=== PATIENT | female | born 1960 | race Caucasian/White ===

== ENCOUNTER 2018-04-27 17:06 | Emergency (ER) | payer MEDICAID, SELFPAY ==
[2018-04-27 17:21] VITALS: BP 203/97; PULSE 70; RESP 18; TEMP 37.2; O2SAT 95
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
[2018-04-27 18:00] LABS: Abs Immature Grans 0.01 k/cumm (0.0-0.09); Absolute Basophil Count 0.02 k/cumm (0.0-0.2); Absolute Eosinophil Count 0.16 k/cumm (0.0-0.7); Absolute Lymphocyte Count 2.54 k/cumm (1.2-3.4); Absolute Monocyte Count 0.56 k/cumm (0.11-0.7); Absolute Neutrophil Count 5.19 k/cumm (1.2-6.7); Basophils % 0.2; Eosinophils % 1.9; HCT 37.8 % (36.0-46.0); Immature Grans % 0.1; Mean Corp. HGB Concentration 34.4 g/dL (32.0-36.0); Mean Corpuscular Hemoglobin 27.9 pg (27.0-33.0); Mean Corpuscular Volume 81.1 fL (80-95); Mean Platelet Volume 9.7 fL (8.0-11.0); Monocytes % 6.6; Neutrophils % 61.2; Platelet Count 169 x1000/uL (130-400); RBC 4.66 m/cumm (4.00-5.20); RBC Distribution Width 11.9 % (11.7-14.6); White Blood Cell Count 8.48 k/cumm (4.4-10.8)
[2018-04-27 18:12] LABS: Anion Gap 10.6 mmol/L (3-11); BUN 19 mg/dL (7-18); CO2 24.4 mmol/L (21.0-32.0); CREATININE 1.59 mg/dL (0.55-1.02); Chloride 101 mmol/L (98-107); Estimated GFR 33.59 (mL/min/1.73m2); Glucose 96 mg/dL (70-100); Potassium 3.6 mmol/L (3.5-5.1); Sodium 136 mmol/L (136-145)
[2018-04-27 18:17] LABS: ETHANOL BLOOD < 3.0 mg/dL (<3)
--- NOTE | 2018-04-27 19:08 | PDOC.MHCN ---
Date of Service: 04/27/18 Presenting Issue: *How did they arrive here at ER and why did they come: The patient was brought in by her son and her daughter in law due to having severe panic attacks two days in a row. Precipitating Factors: *Assessment of Safety SI/HI (address delusions if pertaining to the SI/HI) The patient reports having flashes of herself jumping in front of cars or jumping off a bridge but has never acted on these and states she likes living too much to want to take her life. Disposition: *Behavior:cooperative *Eye Contact:intermittent *Mood:happy when thinking of going home. *Affect:calmer than upon arrival *Appetite:today is good, previously poor. *Sleep (trouble falling/staying asleep):reports she has had a hard time sleeping her entire life and sleepwalks. Plan: An appointment with the her med provider at [facility] will be sought 04/28/18 as she missed her last appointment. The client will return home to her apartment. She was given resources to call if she needs assistance during a panic attack. Other services through [facility] will be looked into as well.
[2018-04-27 19:09] LABS: Bilirubin Negative (Negative); Blood Trace-intact (Negative); Clarity Clear; Glucose Negative (Negative); Ketones Negative (Negative); Leukocyte Esterase Small (Negative); Nitrite Negative (Negative); Specific Gravity <= 1.005 (1.005-1.025); Urobilinogen 0.2 EU/dL (Up TO 0.2); pH 6.5 (5-8)
--- NOTE | 2018-04-27 19:11 | PDOC.MHCN_ITS ---
Date of Service: 04/27/18 Presenting Issue: *How did they arrive here at ER and why did they come: The patient was brought in by her son and her daughter in law due to having severe panic attacks two days in a row. Precipitating Factors: *Assessment of Safety SI/HI (address delusions if pertaining to the SI/HI) The patient reports having flashes of herself jumping in front of cars or jumping off a bridge but has never acted on these and states she likes living too much to want to take her life. Disposition: *Behavior:cooperative *Eye Contact:intermittent *Mood:happy when thinking of going home. *Affect:calmer than upon arrival *Appetite:today is good, previously poor. *Sleep (trouble falling/staying asleep):reports she has had a hard time sleeping her entire life and sleepwalks. Plan: An appointment with the her med provider at [facility] will be sought 04/28/18 as she missed her last appointment. The client will return home to her apartment. She was given resources to call if she needs assistance during a panic attack. Other services through [facility] will be looked into as well.
[2018-04-27 19:15] LABS: Tricyclic Antidepressants Negative (Negative)
[2018-04-27 19:19] LABS: *AMPHETAMINES SCREEN URINE Negative (Negative); *BARBITURATES SCREEN URINE Negative (Negative); *BENZODIAZEPINES SCREEN URINE Negative (Negative); Bacteria Negative HPF (Negative); C & S Indicated? Yes; Cannabinoids THC Negative (Negative); Casts Negative LPF (Negative); Cocaine Screen,Urine Negative (Negative); Crystals Negative HPF (Negative); Epithelial Cells Few HPF (Negative); METHADONE URINE SCREEN Negative (Negative); Mucus Negative (Negative); OPIATES URINE SCREEN Negative (Negative); Other Cells Few Renal (Negative)
--- NOTE | 2018-04-27 19:55 | PDOC.ERCMPRO ---
Care Management Progress Note 04/27/18-Pt brought here today by Son and daughter in law as the pt was dropped off at the grocery store and when her son and daughter in law went to pick the pt up she was having what she described as an anxiety attack. Pt does admit to feeling suicidal at times and does admit to enjoying life too much to do that. Dr. Emily Christine saw pt and felt a 1:1 septic tank servicer was necessary. CM spoke with Dr. Emily Christine, Jolene,RN, Ayah, COMMUNICATION TECHNICIAN worker from [facility] who has met with Pt, Pt's son and daughter in law. We have made a care plan for Pt while she is here in ED. Care Plan Lakisha Degree 04/27/18 Voluntary 1. Patient can be in her own attire. 2. Suicide Precautions 3. One on one supervision with PALLIATIVE SENIOR NP, EMERGENCY MEDICAL DISPATCHER, director product development 4. Finger foods, May have a metal spoon, nursing to account for post meals 5. Comfort Bath System only 6. Pt may have her personal belongings in the room 7. Patient may have visitors, if any escalation, visitors will be asked to leave 8. May not have phone for calls at this time. 9. May have television if available Please adhere to this care plan. Any questions, issues, or changes, please notify [facility] conduit mechanic Math And Physics Instructor, [phone], and YANELIS, [phone]. A new Care Plan must be written and distributed to appropriate team members.
--- NOTE | 2018-04-27 20:02 | CMPROGNOTE_ITS ---
Care Management Progress Note 04/27/18-Pt brought here today by Son and daughter in law as the pt was dropped off at the grocery store and when her son and daughter in law went to pick the pt up she was having what she described as an anxiety attack. Pt does admit to feeling suicidal at times and does admit to enjoying life too much to do that. Dr. Emily Christine saw pt and felt a 1:1 commercial shrimping captain was necessary. CM spoke with Dr. Emily Christine, Jolene,RN, Ayah, CASH MANAGER worker from [facility] who has met with Pt, Pt's son and daughter in law. We have made a care plan for Pt while she is here in ED. Care Plan Lakisha Degree 04/27/18 Voluntary 1. Patient can be in her own attire. 2. Suicide Precautions 3. One on one supervision with HOME HEALTH SPECIALIST, COURTROOM CLERK, insulation board coater operator 4. Finger foods, May have a metal spoon, nursing to account for post meals 5. Comfort Bath System only 6. Pt may have her personal belongings in the room 7. Patient may have visitors, if any escalation, visitors will be asked to leave 8. May not have phone for calls at this time. 9. May have television if available Please adhere to this care plan. Any questions, issues, or changes, please notify [facility] marketing production coordinator Filing Clerk, [phone], and YANELIS, [phone]. A new Care Plan must be written and distributed to appropriate team members.
[2018-04-27 20:07] VITALS: BP 184/96; PULSE 60; RESP 18; TEMP 37; O2SAT 97
--- NOTE | 2018-04-30 13:06 | ED.FU.B ---
- Follow Up Follow Up Plan: 04/30/18: Urine culture resulted in 50,000 - 100,000 group B strep colonies. On visit on 04/27/18, patient had had no urinary symptoms, fever or elevated white blood cell count and she had requested to to hold on antibiotics preferably. Patient is allergic to penicillin which group B strep is sensitive to. Laboratory had requested we contact them if clindamycin susceptibility testing needed. I discussed with Val in micro and she will send culture to [facility] for clindamycin susceptibility testing. This can be resulted within the next several days. Spoke with patient on the phone at home today. She currently denies any urinary symptoms, abdominal pain or fever and states she has been feeling well. She does confirm her significant allergy to penicillin. I informed her that we are sending the culture for clindamycin susceptibility testing and will be contacting her to see if she has any symptoms once the sensitivity testing finished to see if she needs an antibiotic at that time. Patient is agreeable with this plan.
--- NOTE | 2018-04-30 13:09 | ED.FU.B_ITS ---
- Follow Up Follow Up Plan: 04/30/18: Urine culture resulted in 50,000 - 100,000 group B strep colonies. On visit on 04/27/18, patient had had no urinary symptoms, fever or elevated white blood cell count and she had requested to to hold on antibiotics preferably. Patient is allergic to penicillin which group B strep is sensitive to. Laboratory had requested we contact them if clindamycin susceptibility testing needed. I discussed with Val in micro and she will send culture to [facility] for clindamycin susceptibility testing. This can be resulted within the next several days. Spoke with patient on the phone at home today. She currently denies any urinary symptoms, abdominal pain or fever and states she has been feeling well. She does confirm her significant allergy to penicillin. I informed her that we are sending the culture for clindamycin susceptibility testing and will be contacting her to see if she has any symptoms once the sensitivity testing finished to see if she needs an antibiotic at that time. Patient is agreeable with this plan.
== END 2018-04-27 20:13 | disposition home or self-care (01) ==
PROVIDERS: Emergency Provider Physician Assistant; PCP Nurse Practitioner
DX: F41.0 Panic disorder [episodic paroxysmal anxiety] (principal); R44.0 Auditory hallucinations; F25.9 Schizoaffective disorder, unspecified; E11.22 Type 2 diabetes mellitus with diabetic chronic kidney disease; I12.0 Hypertensive chronic kidney disease with stage 5 chronic kidney disease or end stage renal disease; N18.6 End stage renal disease; Z87.440 Personal history of urinary (tract) infections
CPT/HCPCS: 80048; 80307; 87077; 99283; 80320; 81003; 81015; 85025; 87086

== ENCOUNTER 2018-06-27 08:03 | Outpatient (CLI) | payer MEDICAID, SELFPAY ==
[2018-06-27 09:30] LABS: ALT 21 U/L (12-78); AST 15 U/L (15-37); Albumin 3.6 g/dL (3.4-5.0); Alkaline Phosphatase 91 U/L (46-116); BUN 19 mg/dL (7-18); Bilirubin, Total 0.8 mg/dL (0.2-1.0); CREATININE 1.37 mg/dL (0.55-1.02); Chloride 102 mmol/L (98-107); Estimated GFR 39.88 (mL/min/1.73m2); Glucose 117 mg/dL (70-100); Potassium 3.4 mmol/L (3.5-5.1); Sodium 140 mmol/L (136-145); TSH (W/Ref FT4) 1.23 uIU/mL (0.358-3.74); Total Protein 7.1 g/dL (6.4-8.2)
== END 2018-06-27 08:23 ==
PROVIDERS: PCP Nurse Practitioner; Visit Provider Nurse Practitioner Family
DX: F33.0 Major depressive disorder, recurrent, mild (principal); L65.8 Other specified nonscarring hair loss; R63.5 Abnormal weight gain
CPT/HCPCS: 36415; 80053; 84443

== ENCOUNTER 2018-07-11 10:24 | Outpatient (REF) | payer MEDICAID, SELFPAY ==
[2018-07-11 13:27] LABS: Cholesterol 162 mg/dL (50-200); HDL Cholesterol 65 mg/dL (40-60); LDL CHOLESTEROL 80 mg/dL (<100); TSH (W/Ref FT4) 1.54 uIU/mL (0.358-3.74); Triglyceride 87 mg/dL (30-150)
== END 2018-07-11 10:44 ==
LOC: NCHCN 10:24
PROVIDERS: PCP Nurse Practitioner; Visit Provider Nurse Practitioner
DX: E78.5 Hyperlipidemia, unspecified (principal); Z13.29 Encounter for screening for other suspected endocrine disorder
CPT/HCPCS: 80061; 83721; 84443

== ENCOUNTER 2019-08-23 15:25 | Emergency (ER) | payer MEDICAID, SELFPAY ==
[2019-08-23 15:33] VITALS: BP 173/85; PULSE 61; RESP 15; TEMP 36.6
[2019-08-23] MEDS: Normal Saline Flush 10 ML SYR IVP (15:40)
--- NOTE | 2019-08-23 15:45 | ED.GENADUL_ITS ---
Discharge Plan Disposition Patient Disposition: HOME Condition: Stable Discharge Details Chief Complaint: GenMedical Clinical Impression: Vertigo, Abdominal pain Primary Care Provider: Barbie Rivera ED Provider: Carl Tinoco Home Meds and New Rx's Prescriptions: New meclizine 25 mg tablet 25 mg PO TID PRN (Reason: dizziness) Qty: 30 RF: 0 Continued trazodone 100 MG tablet 150 mg PO HS RF: 0 bupropion HCl [Wellbutrin XL] 150 MG tablet extended release 24 hr 450 mg PO DAILY RF: 0 aspirin [Aspir-81] 81 MG tablet,delayed release (DR/EC) 81 mg PO HS RF: 0 pantoprazole 40 MG tablet,delayed release (DR/EC) 40 mg PO DAILY RF: 0 pramipexole 0.125 MG tablet 0.125 mg PO HS RF: 0 rosuvastatin [Crestor] 20 MG tablet 20 mg PO DAILY RF: 0 hydroxyzine HCl 50 MG tablet 50 mg PO TID RF: 0 amlodipine 5 MG tablet 5 mg PO DAILY RF: 0 oxybutynin chloride 5 MG tablet 5 mg PO BID RF: 0 Discharge Instructions Instructions: Vertigo (ED) Additional Instructions: take the meclizine as needed every 8 hours for dizziness follow up with your primary care provider within 1 week if symptoms worsen, you feel more ill or have fevers return to the emergency department Medical Decision Making 59 yo female with hx of gerd, hld, schizoaffective disorder, comes in with headache and stomache cramps. States she was eating lunch upstairs in the hospital when she started to have a headache that slowly worsened and feels similar to prior headaches she has had. She also had nausea with some stomache cramps on her description in the epigastric area. Denies chest acosta, sob, fevers, chills. She has nystagmus when looking to the right in both eyes that is horizontal. She has no focal motor or sensation deficits and reassuring HINTS exam so doubt central vertigo. Suspect bppv causing her dizziness and stomach nausea but will evaluate for sdh with head ct and ct abd/pelvis to eval for cholecystitis among other pathology pt feels better, labs unremarkable and ct imaging shows no acute pathology, has likely sinus disease but no sinus pressure or other symptoms of sinusitis so doubt this as cause of her symptoms and do not feel abx indicated. CT abd shows possible mild stricture othrewise no acute findings. She feels better, I did offer her admission for observation for her vertigo but she declined. She will f/u with her pcp and return precautions given Differential Diagnosis Differential Diagnosis: bppv, pancreatitis, sdh Medical Records Medical records reviewed: Yes I reviewed the patient's medical records. Imaging Data Radiologic Study: Attestation: I personally reviewed and interpreted this imaging study as follows: Imaging: CT Scan Radiologist's impression: IMPRESSION: 1. No evidence of acute infarct 2. Right maxillary sinusitis probably acute. Radiologic Study #2: Attestation: I personally reviewed and interpreted this imaging study as follows: Imaging: CT Scan Radiologist's impression: 1. Mild smooth narrowing of the distal sigmoid colon region with a large amount of fecal burden proximal to this suggesting this is a mild stricture. There is no surrounding inflammation. At the medial aspect of this initial slightly dilated colon or surgical renetta. There may be a small bowel loop adhesed to the colon at this area this renetta but there is no obstruction of the small bowel. 2. Status post cholecystectomy and hysterectomy Lab Data Lab results reviewed: Yes I reviewed the patient's lab results. ECG Data Attestation: I personally reviewed and interpreted this ECG (s) as follows: Prior ECG tracings: not available for review Interpretation: sinus rhythm, rate of 60, pr 174, no acute st t wave ischemic findings HPI General Mode of arrival: wheelchair . Date/Time Provider Initiated Documentation: 08/23/19 15:36 . Limitations to Documentation: no limitations . Information obtained by: patient . History of Present Illness 59 year old F presents to the emergency department with the chief complaint of headache, described as moderate, Quality is described as aching, Patient started experiencing this hour(s) (4) and it has been constant. No relieving factors improve symptom(s), No exacerbating factors reported . Patient did receive the following treatments prior to arrival, none Related Data Home Medications Medication Instructions Recorded Confirmed bupropion HCl [Wellbutrin XL] 450 mg PO DAILY 04/10/14 04/27/18 trazodone 150 mg PO HS 04/10/14 04/27/18 aspirin [Aspir-81] 81 mg PO HS 04/12/14 04/27/18 pantoprazole 40 mg PO DAILY 04/12/14 04/27/18 pramipexole 0.125 mg PO HS 11/05/14 04/27/18 rosuvastatin [Crestor] 20 mg PO DAILY 11/05/14 04/27/18 amlodipine 5 mg PO DAILY 05/02/15 11/24/17 hydroxyzine HCl 50 mg PO TID 05/02/15 04/27/18 oxybutynin chloride 5 mg PO BID 05/02/15 04/27/18 meclizine 25 mg PO TID PRN #30 tab 08/23/19 Previous Rx's Medication Instructions Recorded meclizine 25 mg PO TID PRN #30 tab 08/23/19 Allergies Allergy/AdvReac Type Severity Reaction Status Date / Time Penicillins Allergy Severe Unverified 08/23/19 15:37 General Stated Complaint: GenMedical SHIRLEY: 3 Review of Systems All systems reviewed & are unremarkable except as noted in HPI and below Constitutional Constitutional: Denies chills, Denies fever(s) and Denies weakness Cardiovascular Cardiovascular: Denies chest pain and Denies dyspnea Respiratory Respiratory: Denies dyspnea Gastrointestinal Gastrointestinal: Denies vomiting Genitourinary Genitourinary: Denies dysuria Musculoskeletal Musculoskeletal: Denies joint swelling Integumentary/Breasts Skin/Breast: Denies rash Neurologic Neurologic: Denies weakness Psychiatric Psychiatric: Denies depression Endocrine Endocrine: Denies cold intolerance and Denies heat intolerance PFSH Social History Smoking/Tobacco Use Status: Former Tobacco Use Alcohol Intake: former Drug use: Never Substance use type: does not use Do you feel safe in your relationship?: Yes Exam Const General: no acute distress Orientation: alert HENMT Head: normal to inspection Ears: external ears normal General nose exam: external nose normal Mouth: moist mucous membranes Eyes General: appearance normal, both eyes and all related structures Neck Neck: normal visual inspection Resp Effort & Inspection: normal respiratory effort and able to speak in complete sentences Cardio Rate: regular rate GI Palpation: soft Skin General skin exam: no rashes or lesions noted Neuro General: alert and oriented x3 Extrem General: normal to inspection Psych Mental Status: mental status grossly normal Course Vital Signs Vital signs: Vital Signs Temperature 36.6 C 08/23/19 15:33 Pulse 61 08/23/19 15:33 Respiratory Rate 15 08/23/19 15:33 Blood Pressure 173/85 H 08/23/19 15:33 Temperature 36.6 C 08/23/19 15:33 Temperature Source Skin 08/23/19 15:33 Pulse 61 08/23/19 15:33 Respiratory Rate 15 08/23/19 15:33 Respiratory Effort Non-Labored 08/23/19 15:37 Blood Pressure 173/85 H 08/23/19 15:33 Blood Pressure Position Sitting 08/23/19 15:33 Oxygen Delivery Method Room Air 08/23/19 15:33 Oxygen Flow Rate 0 08/23/19 15:33 Pain Level 10 08/23/19 15:33
[2019-08-23] MEDS: Omnipaque 350 MG/ML 100 ML BTL IJ (15:53)
[2019-08-23] MEDS: Meclizine 25 MG TAB PO (15:55)
[2019-08-23] MEDS: Normal Saline 1,000 ML 1000 ML IV (15:57)
--- NOTE | 2019-08-23 16:05 | DI.CT_ITS ---
EXAM: CT HEAD WO CLINICAL HISTORY: headache TECHNIQUE: Noncontrast cranial CT was performed. COMPARISON: HEAD AND CSPINE W/O CONTRAST from 05/06/2017 FINDINGS: Ventricular system is normal in appearance. No evidence of acute intracranial hemorrhage, mass effe ct or midline shift. The orbital and temporal bone structures appear intact. Mastoid air cells are clear. There is mucoperiosteal thickening and air-fluid level in right maxillary antrum, question ac [place] and/or chronic sinusitis. Otherwise paranasal sinuses are clear. IMPRESSION: No evidence of acute intracranial process. Right maxillary chronic and/or acute sinusitis.
--- NOTE | 2019-08-23 16:08 | DI.CT_ITS ---
EXAM: CT ABDOMEN PELVIS W CLINICAL HISTORY: upper abdominal pain TECHNIQUE: CT examination the abdomen and pelvis was performed with bolus infusion of 100 cc Omnipaq ue 350. COMPARISON: ABD PELVIS WO CONTRAST from 06/03/2011 FINDINGS: Images obtained through the lung bases show small calcified left lung pleural based nodule and a 4 m illimeter noncalcified nodule in the right lung base. Follow-up chest CT recommended 12 months. The liver is unremarkable in appearance. Prior cholecystectomy noted. No biliary dilatation. Pancr eas is unremarkable. Multiple splenic calcified granulomas noted. Adrenals are unremarkable bilater ally. Small bilateral low attenuation renal lesions noted consistent with cysts. No urinary tract c alcification or obstruction. Abdominal aorta is of normal diameter and no major vascular abnormality is seen. No significant abdominal wall hernia identified. No significant abdominal or pelvic adeno susana. There is moderate gastric distention with a fluid-filled stomach. No evidence of small-bowel obstruc tion. Appendix not specifically visualized but there is no evidence of appendicitis or diverticulitis. Kadie stomotic sutures noted in the sigmoid colon. Question smooth nonobstructive narrowing of the mid to distal sigmoid, stricture not excluded. No gross mass identified. No evidence of inflammatory proce ss. IMPRESSION: Question focal narrowing mid sigmoid colon, additional evaluation with colonoscopy should be consider ed to rule out neoplastic or inflammatory process at this site. No other significant findings.
[2019-08-23 16:31] VITALS: RESP 16
[2019-08-23 16:39] LABS: Abs Immature Grans 0.01 k/cumm (0.0-0.09); Absolute Basophil Count 0.02 k/cumm (0.0-0.2); Absolute Eosinophil Count 0.26 k/cumm (0.0-0.7); Absolute Lymphocyte Count 1.97 k/cumm (1.2-3.4); Absolute Monocyte Count 0.56 k/cumm (0.11-0.7); Absolute Neutrophil Count 4.01 k/cumm (1.2-6.7); Basophils % 0.3; Eosinophils % 3.8; HCT 34.4 % (36.0-46.0); HGB 11.4 g/dL (12.0-15.5); Immature Grans % 0.1; Lymphocytes % 28.8; Mean Corp. HGB Concentration 33.1 g/dL (32.0-36.0); Mean Corpuscular Hemoglobin 28.1 pg (27.0-33.0); Mean Corpuscular Volume 84.7 fL (80-95); Mean Platelet Volume 9.7 fL (8.0-11.0); Monocytes % 8.2; Neutrophils % 58.8; Platelet Count 165 x1000/uL (130-400); RBC 4.06 m/cumm (4.00-5.20); RBC Distribution Width 13.3 % (11.7-14.6); White Blood Cell Count 6.83 k/cumm (4.4-10.8)
--- NOTE | 2019-08-23 16:48 | DI.VRAD_ITS ---
PROCEDURE INFORMATION: Exam: CT Head Without Contrast Exam date and time: 08/23/2019 4:03 PM Age: 59 years old Clinical history: Other: Upper abdominal pain TECHNIQUE: Imaging protocol: Computed tomography of the head without contrast. Radiation optimization: All CT scans at this facility use at least one of these dose optimization techniques: automated exposure control; mA and/or kV adjustment per patient size (includes targeted exams where dose is matched to clinical indication); or iterative reconstruction. COMPARISON: CT HEAD AND CSPINE W/O CONTRAST 05/06/2017 11:13 AM FINDINGS: Brain: There is no acute hemorrhage, mass effect, or extra-axial fluid collections. The cortical sulci are within normal limits for age. The cerebral white matter is within normal involutional changes for age. Ventricles: The ventricles are within normal limits for age. Bones/joints: Unremarkable. No acute fracture. Sinuses: Poor dentition. There is moderately severe mucosal thickening in the right maxillary sinus as well as a small air-fluid level. The remainder the paranasal sinuses are well aerated. The right maxillary sinus was well aerated on the study of 05/06/2017. Mastoid air cells: Visualized mastoid air cells are well aerated. Soft tissues: Unremarkable. IMPRESSION: 1. No evidence of acute infarct 2. Right maxillary sinusitis probably acute. Dictated and Authenticated by: Carl Nicolas MD. Ordering:JESSICA Henry MD
[2019-08-23 16:53] LABS: ALT 17 U/L (14-59); AST 15 U/L (15-37); Alkaline Phosphatase 58 U/L (46-116); Anion Gap 8.6 mmol/L (3-11); BUN 27 mg/dL (7-18); Bilirubin, Total 0.4 mg/dL (0.2-1.0); CO2 27.4 mmol/L (21.0-32.0); CREATININE 1.79 mg/dL (0.55-1.02); Calcium 8.1 mg/dL (8.5-10.1); Chloride 103 mmol/L (98-107); Estimated GFR 29.09 (mL/min/1.73m2); Glucose 102 mg/dL (74-106); Lipase 123 U/L (73-393); Magnesium 1.6 mg/dL (1.8-2.4); Potassium 3.8 mmol/L (3.5-5.1); Sodium 139 mmol/L (136-145); Total Protein 6.4 g/dL (6.4-8.2)
[2019-08-23 16:55] LABS: INR 1.1 (0.9-1.1); PTT Activated 30.9 sec (21.0-31.4); Prothrombin Time 11.1 sec (9.3-11.0)
[2019-08-23 17:00] LABS: Bilirubin Negative (Negative); Blood Negative (Negative); Clarity Clear (Clear); Glucose Negative (Negative); Ketones Negative (Negative); Leukocyte Esterase Negative (Negative); Nitrite Negative (Negative); Urobilinogen 0.2 EU/dL (Up TO 0.2)
[2019-08-23 17:00] LABS: Troponin I < 0.05 ng/Ml (<0.06)
--- NOTE | 2019-08-23 17:02 | DI.VRAD_ITS ---
PROCEDURE INFORMATION: Exam: CT Abdomen And Pelvis With Contrast Exam date and time: 08/23/2019 4:05 PM Age: 59 years old Clinical history: Generalized; Patient HX: Abdominal pain after eating today. And dizziness and headache. TECHNIQUE: Imaging protocol: Computed tomography of the abdomen and pelvis with intravenous contrast. Radiation optimization: All CT scans at this facility use at least one of these dose optimization techniques: automated exposure control; mA and/or kV adjustment per patient size (includes targeted exams where dose is matched to clinical indication); or iterative reconstruction. Contrast material: OMNIPAQUE 350; Contrast volume: 100 ml; Contrast route: IV; COMPARISON: CR LEFT HIP COMPLETE \T\ AP PELVIS 05/06/2017 11:41 AM FINDINGS: Heart: Heart is borderline enlarged. No pericardial effusion Liver: Normal. No mass. Gallbladder and bile ducts: Status post cholecystectomy Pancreas: Normal. No ductal dilation. Spleen: Several calcified granulomas in the spleen. Adrenals: Normal. No mass. Kidneys and ureters: There several small hypodense well-defined masses in the kidneys most likely benign cysts. There are no renal calculi the ureters show no abnormality. Stomach and bowel: The stomach is severely distended with fluid. There is a moderate to large fecal burden throughout the colon down to the mid sigmoid colon where there is some moderate but smooth transition to is narrow residual sigmoid colon and rectum. No definite mass is seen in this area. There are several surgical renetta in the left lower quadrant contiguous with the medial aspect of the proximal sigmoid colon and also a loop of adjacent small bowel. There doesn't appear to be a reason to have anastomosis this loop of small bowel to this area the colon so possibly this loop of small bowel is adhesed to this area the colon. Appendix: The appendix is not completely visualized but there are no secondary signs of appendicitis. Intraperitoneal space: Unremarkable. No free air. No significant fluid collection. Vasculature: Moderate diffuse atherosclerosis. Lymph nodes: Unremarkable. No enlarged lymph nodes. Bladder: Unremarkable as visualized. Reproductive: The uterus has been removed. Bones/joints: Mild degenerative changes in facet joints in lower lumbar spine. There is multilevel discogenic disease but far more severe at L2-3 L3-4. Soft tissues: Unremarkable. IMPRESSION: 1. Mild smooth narrowing of the distal sigmoid colon region with a large amount of fecal burden proximal to this suggesting this is a mild stricture. There is no surrounding inflammation. At the medial aspect of this initial slightly dilated colon or surgical renetta. There may be a small bowel loop adhesed to the colon at this area this renetta but there is no obstruction of the small bowel. 2. Status post cholecystectomy and hysterectomy Dictated and Authenticated by: Carl Nicolas MD. Ordering:JESSICA Henry MD
[2019-08-23 17:18] LABS: Bacteria Negative HPF (Negative); C & S Indicated? No; Casts Negative LPF (Negative); Crystals Negative HPF (Negative); Epithelial Cells Negative HPF (Negative); Mucus Negative (Negative); Other Cells Negative (Negative); RBC 0-2 HPF (0-2); WBC Negative HPF (0-5)
[2019-08-23 17:25] VITALS: BP 151/64; PULSE 66; RESP 16; TEMP 36.7; O2SAT 94
[2019-08-23 17:37] VITALS: BP 151/64; PULSE 66; RESP 16; TEMP 36.7; O2SAT 94
== END 2019-08-23 17:44 | disposition home or self-care (01) ==
LOC: ER 17:49
PROVIDERS: Emergency Provider Emergency Medicine; PCP Nurse Practitioner
DX: R51 Headache (principal); R42 Dizziness and giddiness; R10.13 Epigastric pain; R11.0 Nausea
CPT/HCPCS: 36415; 80053; 83690; 93005; 96361; 96365; 99285; 70450; 74177; 81003; 81015; 83735; 84484; 85025; 85610; 85730; 93010; 99284; J3490

== ENCOUNTER 2019-10-23 11:34 | Outpatient (REF) | payer MEDICAID, SELFPAY ==
[2019-10-23 12:25] LABS: ALT 17 U/L (14-59); AST 14 U/L (15-37); Albumin 3.6 g/dL (3.4-5.0); Alkaline Phosphatase 85 U/L (46-116); Anion Gap 8.6 mmol/L (3-11); BUN 20 mg/dL (7-18); Bilirubin, Total 0.6 mg/dL (0.2-1.0); CO2 29.4 mmol/L (21.0-32.0); CREATININE 1.39 mg/dL (0.55-1.02); Calcium 8.5 mg/dL (8.5-10.1); Calculated LDL 74 mg/dL (<100); Chloride 101 mmol/L (98-107); Cholesterol 156 mg/dL (<200); Estimated GFR 38.94 (mL/min/1.73m2); Glucose 103 mg/dL (74-106); HDL Cholesterol 52 mg/dL (40-60); Sodium 139 mmol/L (136-145); Total Protein 7.2 g/dL (6.4-8.2); Triglyceride 154 mg/dL (<150)
== END 2019-10-23 11:54 ==
LOC: NCHCN 11:34
PROVIDERS: PCP Nurse Practitioner; Visit Provider Nurse Practitioner
DX: I10 Essential (primary) hypertension (principal); E78.5 Hyperlipidemia, unspecified; N18.3 Chronic kidney disease, stage 3 (moderate)
CPT/HCPCS: 80053; 80061

== ENCOUNTER 2020-03-04 16:24 | Emergency (ER) | payer MEDICAID, SELFPAY ==
[2020-03-04 16:28] VITALS: BP 192/107; PULSE 91; RESP 18; TEMP 36.5; O2SAT 97
--- NOTE | 2020-03-04 16:32 | W.ED.GENAD ---
Discharge Plan Disposition Patient Disposition: HOME Condition: Good Discharge Details Chief Complaint: Laceration Clinical Impression: Finger laceration Primary Care Provider: Barbie Rivera ED Provider: Flory Hernandez Home Meds and New Rx's Prescriptions: Continued trazodone 100 MG tablet 150 mg PO HS RF: 0 bupropion HCl [Wellbutrin XL] 150 MG tablet extended release 24 hr 450 mg PO DAILY RF: 0 aspirin [Aspir-81] 81 MG tablet,delayed release (DR/EC) 81 mg PO HS RF: 0 pantoprazole 40 MG tablet,delayed release (DR/EC) 40 mg PO DAILY RF: 0 pramipexole 0.125 MG tablet 0.125 mg PO HS RF: 0 rosuvastatin [Crestor] 20 MG tablet 20 mg PO DAILY RF: 0 hydroxyzine HCl 50 MG tablet 50 mg PO TID RF: 0 amlodipine 5 MG tablet 5 mg PO DAILY RF: 0 oxybutynin chloride 5 MG tablet 5 mg PO BID RF: 0 meclizine 25 mg tablet 25 mg PO TID PRN (Reason: dizziness) Qty: 30 RF: 0 Discharge Instructions Instructions: Finger Laceration (ED) Additional Instructions: Keep wound clean, dry, covered. Tylenol and ibuprofen as needed for discomfort. Please leave current dressing on until tomorrow. After that time, please wash with running water. When she removes the bulky dressing, please apply splint as discussed. I would like for you to use the splint for the next 5 days. Please return in 7 for suture removal. If you develop fever/chills, increased pain, redness, discharge or the new/worsening symptom please seek care urgently once again. Your blood pressure was noted to be elevated today. Please contact your primary care to schedule follow-up appointment and have your blood pressure rechecked and discuss treatment options as necessary. Referrals: Barbie Rivera [Primary Care Provider] - Medical Decision Making Patient is a pleasant 59-year-old female past medical history significant for kidney dysfunction, diabetes, presenting today with chief complaint of laceration of the fifth digit right hand. She reports a prior to arrival she was taking the trash when a metal can lid cut the ulnar side of her right index finger. She denies other injury time of the incident. Reports that her tetanus was updated this spring. Patient does have anaphylactic reaction penicillin. She denies any numbness or tingling. On exam, patient is a 1.5 cm curvilinear laceration to the ulnar side of the right index finger just distal to the PIP joint. Sensation is intact, capillary refill is intact, no tenderness injury noted Patient and I discussed risk/benefits as well as expected procedural steps for suture closure. She was understanding and wishes to proceed. Digital block was performed. Please see procedure note. Is to perform using standard sterile technique. Wound was irrigated with sterile saline and explored to base in a bloodless field. Tourniquet was used. #2 simple interrupted stitches were placed. A bulky dressing was placed over this. I am concerned that this is quite close to the PIP joint and will discharge patient home with a foam and metal splint for immobilization that she will use after removal of the current dressing. Patient I discussed antibiotic selection. She does have anaphylactic history to penicillin and has not had Keflex historically. We did discuss trialing a dose of this while here in keeping her in the department to ensure no anaphylactic reaction. I am hesitant to use Bactrim or Levaquin secondary to the patient's kidney function. After lengthy discussion, the patient would prefer to hold off on antibiotics at this point. Wound did bleed copiously. I do believe that this will be of benefit and wound was irrigated extensively. She was given strict return precautions. In particular, we discussed signs of infection. She will return in 7 days for suture removal. All of her questions and concerns were addressed and she is in agreement this plan. Blood pressure was noted to be elevated. I advised she discuss this further with her primary care physician and continue to monitor this. Patient is not exhibiting symptoms associated with hypertensive emergency. HPI General Mode of arrival: ambulatory. Date/Time Provider Initiated Documentation: 03/04/20 16:26. Limitations to Documentation: no limitations. Information obtained by: patient and RN notes reviewed. History of Present Illness 59 year old F presents to the emergency department with the chief complaint of Right 5th digit laceration, described as mild, Quality is described as aching, and is localized to the right and upper extremity. Patient reports no radiation. Patient started experiencing this minute(s) and it has been constant. No relieving factors improve symptom(s), No exacerbating factors reported . Patient notes no other symptoms.. Patient did receive the following treatments prior to arrival, none Related Data Home Medications Medication Instructions Recorded Confirmed bupropion HCl [Wellbutrin XL] 450 mg PO DAILY 04/10/14 03/04/20 trazodone 150 mg PO HS 04/10/14 03/04/20 aspirin [Aspir-81] 81 mg PO HS 04/12/14 03/04/20 pantoprazole 40 mg PO DAILY 04/12/14 03/04/20 pramipexole 0.125 mg PO HS 11/05/14 03/04/20 rosuvastatin [Crestor] 20 mg PO DAILY 11/05/14 03/04/20 amlodipine 5 mg PO DAILY 05/02/15 03/04/20 hydroxyzine HCl 50 mg PO TID 05/02/15 03/04/20 oxybutynin chloride 5 mg PO BID 05/02/15 03/04/20 meclizine 25 mg PO TID PRN #30 tab 08/23/19 03/04/20 Previous Rx's Medication Instructions Recorded meclizine 25 mg PO TID PRN #30 tab 08/23/19 Allergies Allergy/AdvReac Type Severity Reaction Status Date / Time Penicillins Allergy Severe Unverified 03/04/20 16:35 General SHIRLEY: 3 Review of Systems Constitutional Constitutional: Reports as per HPI, Denies chills and Denies fever(s) Musculoskeletal Musculoskeletal: Reports as per HPI Integumentary/Breasts Skin/Breast: Reports as per HPI Neurologic Neurologic: Reports as per HPI, Denies sensory deficit and Denies paresthesias [facility] Social History Smoking/Tobacco Use Status: Former Tobacco Use Alcohol Intake: former Drug use: Never Substance use type: does not use Do you feel safe at home: Yes Do you feel safe in your relationship?: Yes Exam Const General: cooperative, healthy appearing, comfortable, no acute distress and well developed Nutritional Appearance: well nourished and overweight Orientation: alert and awake Resp Effort & Inspection: normal respiratory effort, able to speak in complete sentences and no respiratory distress Cardio Rate: regular rate Rhythm: regular rhythm Skin Trauma: laceration (Curvilinear 1.5 cm actively bleeding laceration ulnar side fifth digit righ) Neuro General: patient alert and patient awake Cognition: normal cognition Speech: speech normal Gait: normal gait Sensory Exam: no sensory deficits noted Extrem Right upper extremity: full ROM, normal capillary refill, no joint enlargement and hand Details: abnormal to inspection (Laceration), normal capillary refill, neuromotor exam normal, neurosensory exam normal, tendon exam normal, tenderness (Tender over laceration), vascular exam Details: radial pulse present and normal capillary refill, normal ROM of fingers and laceration (As drawn below); abnormal to inspection, no unusual warmth and no swelling; abnormal to inspection (Laceration as described above) Hand/finger images: 1. Curvilinear 1.5 cm laceration into the subcutaneous tissue. No ligamentous injury is noted on exam. This does not have any deep involvement. She is actively bleeding from this area. Sensation is intact distal to the wound. No other injuries noted. Brisk capillary refill. Psych Appearance: grossly normal and well kempt Mental Status: mental status grossly normal Speech and Movement: speech and movement normal Procedures Laceration Laceration 1: Site: hand Side (If applicable): right Size (cm): 1.5 Description: linear (curvilinear) Depth: simple, single layer Local Anesthetic: Lidocaine 1% Amount of anesthesia used (mL): 4 Pre-repair: wound explored, irrigated extensively and deep structures intact Skin layer closed with: nylon Size (cm): 5-0 Number of sutures: 2 Technique: simple, interrupted
[2020-03-04 17:40] VITALS: BP 183/87; PULSE 66; RESP 16; O2SAT 98
== END 2020-03-04 17:41 | disposition home or self-care (01) ==
LOC: ER 17:41
PROVIDERS: Emergency Provider Physician Assistant; PCP Nurse Practitioner
DX: S61.216A Laceration without foreign body of right little finger without damage to nail, initial encounter (principal); W26.8XXA Contact with other sharp object(s), not elsewhere classified, initial encounter; R03.0 Elevated blood-pressure reading, without diagnosis of hypertension; E11.22 Type 2 diabetes mellitus with diabetic chronic kidney disease; N18.9 Chronic kidney disease, unspecified
CPT/HCPCS: 12001

== ENCOUNTER 2020-03-11 18:50 | Emergency (ER) | payer MEDICAID, SELFPAY ==
[2020-03-11 19:06] VITALS: BP 189/89; PULSE 73; RESP 16; TEMP 36.3; O2SAT 98
--- NOTE | 2020-03-11 19:10 | ED.GENADUL_ITS ---
Discharge Plan Disposition Patient Disposition: HOME Condition: Stable Discharge Details Chief Complaint: Recheck Clinical Impression: Cellulitis of finger of right hand Primary Care Provider: Barbie Rivera ED Provider: Loreto De La Cruz Home Meds and New Rx's Prescriptions: New clindamycin HCl 300 mg capsule 300 mg PO BID 7 Days Qty: 14 RF: 0 No Action trazodone 100 MG tablet 150 mg PO HS RF: 0 bupropion HCl [Wellbutrin XL] 150 MG tablet extended release 24 hr 450 mg PO DAILY RF: 0 aspirin [Aspir-81] 81 MG tablet,delayed release (DR/EC) 81 mg PO HS RF: 0 pantoprazole 40 MG tablet,delayed release (DR/EC) 40 mg PO DAILY RF: 0 pramipexole 0.125 MG tablet 0.125 mg PO HS RF: 0 rosuvastatin [Crestor] 20 MG tablet 20 mg PO DAILY RF: 0 hydroxyzine HCl 50 MG tablet 50 mg PO TID RF: 0 amlodipine 5 MG tablet 5 mg PO DAILY RF: 0 oxybutynin chloride 5 MG tablet 5 mg PO BID RF: 0 meclizine 25 mg tablet 25 mg PO TID PRN (Reason: dizziness) Qty: 30 RF: 0 Discharge Instructions Instructions: Cellulitis (ED) Additional Instructions: Start taking antibiotic tomorrow. Keep finger dry. Loose dry bandage. Follow- up with orthopedics in 2 to 3 days. Return for fever, chills, red streaks up your arm or any worsening Please take Tylenol or Ibuprofen with food every 4-6 hours as needed for pain and swelling. No soaking. Referrals: Barbie Rivera [Primary Care Provider] - Blake Shepherd MD [ [facility] STAFF PHYSICIAN] - (Please be seen in 2 to 3 days) Medical Decision Making 1813: At this time it appears the digit is infected, increased swelling, erythema decreased flexion. We will remove sutures give IM clindamycin 600 mg here in department and place patient on oral clindamycin 300 mg twice daily antibiotics for 7 days. Plan is to refer patient to orthopedics. Dry dressing applied prior to patient discharge. HPI General Mode of arrival: ambulatory . Date/Time Provider Initiated Documentation: 03/11/20 18:59 . Limitations to Documentation: no limitations . Information obtained by: patient . HPI Narrative: Patient is a 59-year-old female who presents to the ED for suture removal after having sutures placed to the right fifth digit approximately 7 days ago. Patient sustained a laceration over the PIP joint on the fifth digit, she is right-handed. She has 2 simple interrupted sutures noted. She returns today with increased swelling, erythema, decreased range of motion. She denies any other trauma to the finger. She states that she has been placing antibiotic ointment on wound with Band-Aid. Denies fever chills, any other complaints at this time. Related Data Home Medications Medication Instructions Recorded Confirmed bupropion HCl [Wellbutrin XL] 450 mg PO DAILY 04/10/14 03/04/20 trazodone 150 mg PO HS 04/10/14 03/04/20 aspirin [Aspir-81] 81 mg PO HS 04/12/14 03/04/20 pantoprazole 40 mg PO DAILY 04/12/14 03/04/20 pramipexole 0.125 mg PO HS 11/05/14 03/04/20 rosuvastatin [Crestor] 20 mg PO DAILY 11/05/14 03/04/20 amlodipine 5 mg PO DAILY 05/02/15 03/04/20 hydroxyzine HCl 50 mg PO TID 05/02/15 03/04/20 oxybutynin chloride 5 mg PO BID 05/02/15 03/04/20 meclizine 25 mg PO TID PRN #30 tab 08/23/19 03/04/20 clindamycin HCl 300 mg PO BID 7 Days #14 cap 03/11/20 Previous Rx's Medication Instructions Recorded meclizine 25 mg PO TID PRN #30 tab 08/23/19 clindamycin HCl 300 mg PO BID 7 Days #14 cap 03/11/20 Allergies Allergy/AdvReac Type Severity Reaction Status Date / Time Penicillins Allergy Severe Unverified 03/04/20 16:35 General Stated Complaint: Recheck SHIRLEY: 4 Review of Systems All systems reviewed & are unremarkable except as noted in HPI and below PFSH Social History Smoking/Tobacco Use Status: Former Tobacco Use Alcohol Intake: former Drug use: Never Substance use type: does not use Do you feel safe at home: Yes Do you feel safe in your relationship?: Yes Exam Extrem Right upper extremity: hand Details: abnormal to inspection, tenderness, abnormal ROM of finger Details: pain with active ROM, pain with passive ROM and unable to flex (Decreased flexion to approximately 30%) Location: of the 5th digit, warmth and swelling Course Vital Signs Vital signs: Vital Signs Temperature 36.3 C L 03/11/20 19:06 Pulse 73 03/11/20 19:06 Respiratory Rate 16 03/11/20 19:06 Blood Pressure 189/89 H 03/11/20 19:06 Pulse Oximetry 98 03/11/20 19:06 Temperature 36.3 C L 03/11/20 19:06 Temperature Source Tympanic 03/11/20 19:06 Pulse 73 03/11/20 19:06 Respiratory Rate 16 03/11/20 19:06 Respiratory Effort Non-Labored 03/11/20 19:08 Blood Pressure 189/89 H 03/11/20 19:06 Blood Pressure Position Sitting 03/11/20 19:06 Pulse Oximetry 98 03/11/20 19:06 Oxygen Delivery Method Room Air 03/11/20 19:06 Oxygen Flow Rate 0 03/11/20 19:06 Pain Level 4 03/11/20 19:06
--- NOTE | 2020-03-11 19:30 | NUR.NOTE ---
Nursing Note: Two sutures removed.
== END 2020-03-11 20:20 | disposition home or self-care (01) ==
PROVIDERS: Emergency Provider Registered Nurse Emergency; PCP Nurse Practitioner
DX: L03.011 Cellulitis of right finger (principal); S61.216D Laceration without foreign body of right little finger without damage to nail, subsequent encounter; W26.8XXD Contact with other sharp object(s), not elsewhere classified, subsequent encounter; Z48.02 Encounter for removal of sutures
CPT/HCPCS: 96372; 99284; 99283

== ENCOUNTER 2020-03-19 12:12 | Outpatient (CLI) | payer MEDICAID, SELFPAY ==
--- NOTE | 2020-03-19 11:45 | DI.RAD_ITS ---
EXAM: XR HAND RT COMPLETE CLINICAL HISTORY: right finger laceration TECHNIQUE: COMPARISON: CR RIGHT HAND COMPLETE from 10/24/2009 FINDINGS: Three views were obtained. There is soft tissue swelling of the little finger. There is fracture of the distal aspect of the proximal phalanx of the little finger with mild displacement. Possibility of a nondisplaced fracture of the base of the middle phalanx of the little finger is also raised alth ough this cannot be confirmed on the views obtained. Additional oblique views may be obtained if cli nically appropriate. No other fracture seen. IMPRESSION:
== END 2020-03-19 12:32 ==
PROVIDERS: PCP Nurse Practitioner; Referring Provider Nurse Practitioner; Visit Provider Student in an Organized Health Care Education/Training Program
DX: S61.216A Laceration without foreign body of right little finger without damage to nail, initial encounter (principal); M79.89 Other specified soft tissue disorders; S62.614A Displaced fracture of proximal phalanx of right ring finger, initial encounter for closed fracture
CPT/HCPCS: 73130

== ENCOUNTER 2020-04-16 11:53 | Outpatient (CLI) | payer MEDICAID, SELFPAY ==
--- NOTE | 2020-04-16 11:15 | DI.RAD_ITS ---
EXAM: XR HAND RT LIMITED CLINICAL HISTORY: fu fracture right finger. TECHNIQUE: 2D digital imaging was performed. COMPARISON: CR XR HAND RT COMPLETE from 03/19/2020 FINDINGS: BONES: There has been no change in alignment of the fracture involving the distal aspect of the proxi mal phalanx of the right little finger. No bony destructive lesion is seen. The bones appear osteope alan suggesting decreased use. JOINTS: No dislocation present. SOFT TISSUE: Swelling of the right little finger is noted. IMPRESSION: Stable fracture. DATA REPOSITORY: RADIATION DOSE DELIVERED:
== END 2020-04-16 12:13 ==
PROVIDERS: PCP Nurse Practitioner; Referring Provider Nurse Practitioner; Visit Provider Student in an Organized Health Care Education/Training Program
DX: S62.666D Nondisplaced fracture of distal phalanx of right little finger, subsequent encounter for fracture with routine healing (principal)
CPT/HCPCS: 73120

== ENCOUNTER 2020-08-05 08:58 | Outpatient (REF) | payer MEDICAID, SELFPAY ==
[2020-08-05 18:16] LABS: Bilirubin Negative (Negative); Blood Trace-lysed (Negative); Clarity Clear (Clear); Glucose Negative (Negative); Ketones Negative (Negative); Leukocyte Esterase Negative (Negative); Nitrite Negative (Negative); Specific Gravity >= 1.030 (1.005-1.025); Urobilinogen 0.2 EU/dL (Up TO 0.2); pH 6.5 (5-8)
[2020-08-05 18:44] LABS: Bacteria Few HPF (Negative); Crystals Negative HPF (Negative); Epithelial Cells Few HPF (Negative); Mucus Moderate (Negative); Other Cells Moderate Renal (Negative); RBC 0-2 HPF (0-2)
[2020-08-05 18:45] LABS: C & S Indicated? C&S Done As Ordered; Casts Negative LPF (Negative)
== END 2020-08-05 09:18 ==
LOC: NCHCN 08:58
PROVIDERS: PCP Nurse Practitioner; Visit Provider Nurse Practitioner
DX: R30.0 Dysuria (principal)
CPT/HCPCS: 81003; 81015; 87086

== ENCOUNTER 2020-08-14 01:07 | Outpatient (CLI) | payer MEDICAID, SELFPAY ==
[2020-08-14 10:08] LABS: CREATININE 1.59 mg/dL (0.55-1.02); Estimated GFR 33.23 (mL/min/1.73m2)
--- NOTE | 2020-08-14 10:51 | DI.CT_ITS ---
EXAM: CT CHEST WO CLINICAL HISTORY: PULMONARY NODULE,R91.1. TECHNIQUE: Imaging protocol: Axial computed tomography images were obtained and coronal and sagittal reformatted images were created and reviewed. COMPARISON: CT CT ABDOMEN PELVIS W from 08/23/2019 FINDINGS: Tracheobronchial tree: Patent where visualized. Mediastinum and Sabina: No dominant adenopathy or fluid collection. Pulmonary parenchyma: No focal consolidating infiltrate is present. There is scarring in the right m iddle lobe. The 4 mm nodule in the right lower lobe peripherally is unchanged. The pleural based pu lmonary nodule in the left lower lobe is unchanged. There is a calcified granuloma in the left lower lobe. Pleura: No effusion or pneumothorax. Heart: The heart is not dilated. Mild coronary artery calcification is present. No pericardial effus ion. Aorta: Thoracic aorta non-dilated. Mild atherosclerosis. Upper abdomen: Splenic calcified granuloma are noted. The patient is status post cholecystectomy. Left renal cysts are again noted. Lymph nodes: Within normal limits. Bones:Degenerative changes are seen in the spine. Soft tissues: Unremarkable. IMPRESSION: Stable pulmonary nodules. Follow-up examination in 12 months is recommended for re-evaluation. Findings of prior granulomatous disease. RADIATION DOSE DELIVERED: 787.39mGy.cm Total DLP 787.39mGy.cm Total DLP DATA REPOSITORY: All CT scans at this facility are submitted to the National Radiology Data Registry (NRDR) Dose Index Registry (DIR) with the [employer] (ACR). RADIATION OPTIMIZATION: All CT scans at this facility use at least one of these dose optimization te chniques: automated exposure control; mA and/or kV adjustment per patient size (includes targeted exa ms where dose is matched to clinical indication); or iterative reconstruction.
== END 2020-08-14 01:27 ==
PROVIDERS: PCP Nurse Practitioner; Visit Provider Nurse Practitioner
DX: R91.8 Other nonspecific abnormal finding of lung field (principal)
CPT/HCPCS: 71250; 82565

== ENCOUNTER 2020-08-22 02:40 | Outpatient (CLI) | payer MEDICAID, SELFPAY ==
--- NOTE | 2020-08-22 | DI.MAMMO_ITS ---
EXAM: MG MAMMO SCREENING CLINICAL HISTORY: SCREENING, Z12.39 TECHNIQUE: Mammograms were interpreted according to the usual protocol including computer analysis w [employer] CAD system, tomosynthesis and C-view imaging. COMPARISON: FINDINGS: The breasts are of moderate density with fairly symmetrical distribution of fibroglandular tissue. N o dominant mass or clumped microcalcification is identified in either breast. The current examinatio n is compared with previous examinations including February 2017 and there has been no gross interval kelechi nge in appearance in comparison with the prior studies. IMPRESSION: No specific evidence of malignancy at this time. Routine screening examinations are suggested at yea rly intervals in this age group according to the ACS ACR guidelines. BI-RADS Category 1 - Negative Breast Density - Category B - Scattered areas of fibroglandular density
== END 2020-08-22 03:00 ==
PROVIDERS: PCP Nurse Practitioner; Visit Provider Nurse Practitioner
DX: Z12.31 Encounter for screening mammogram for malignant neoplasm of breast (principal)
CPT/HCPCS: 77063; 77067

== ENCOUNTER 2020-10-24 02:30 | Outpatient (CLI) | payer MEDICAID, SELFPAY ==
--- NOTE | 2020-10-24 | DI.US_ITS ---
EXAM: US RENAL CLINICAL HISTORY: STAGE 3 KIDNEY DISEASE,HEMATURIA,HYPERTENSION,R31.9,I10 TECHNIQUE: Ultrasound of both kidneys performed using standard protocol. COMPARISON: US ABDOMEN RENAL ULTRASOUND from 01/26/[address] ABDOMEN PELVIS W from 08/23/[address] scan 08/24/2019 FINDINGS: RIGHT KIDNEY: Measures 10.7 cm in length. No cysts evident. Normal cortical thickness and corticomedullary differen tiation .No solid masses No intrarenal calculi nor hydronephrosis. LEFT KIDNEY: Measures 11.0 cm in length. This cysts which are evident in the left kidney on the prior CT scan or more difficult to spot on ultrasound. Normal cortical thickness and corticomedullary differentiaion. No solids masses. No intrarenal calculi nor hydonephrosis. URINARY BLADDER: Not adequately prepped for study. IMPRESSION: 1. No significant ultrasound findings in the kidneys. 2. Please note that CT scan July 2019 revealed 2 small benign cysts in the left kidney. 3. No bladder images. Apparently bladder not adequately prepped. DATA REPOSITORY:
== END 2020-10-24 02:50 ==
PROVIDERS: PCP Nurse Practitioner; Visit Provider Internal Medicine Nephrology
DX: I12.9 Hypertensive chronic kidney disease with stage 1 through stage 4 chronic kidney disease, or unspecified chronic kidney disease (principal); N18.30 Chronic kidney disease, stage 3 unspecified; R31.9 Hematuria, unspecified; N28.1 Cyst of kidney, acquired
CPT/HCPCS: 76770

== ENCOUNTER 2021-03-27 14:08 | Emergency (ER) | payer MEDICAID, SELFPAY ==
[2021-03-27 14:13] VITALS: BP 174/122; PULSE 98; RESP 16; TEMP 36.8; O2SAT 98
[2021-03-27 15:30] LABS: Abs Immature Grans 0.02 10^3/uL (0.0-0.06); Absolute Basophil Count 0.05 10^3/uL (0.0-0.2); Absolute Eosinophil Count 0.12 10^3/uL (0.0-0.7); Absolute Lymphocyte Count 2.29 10^3/uL (1.2-3.4); Absolute Monocyte Count 0.79 10^3/uL (0.1-0.8); Absolute Neutrophil Count 7.11 10^3/uL (1.2-6.7); Basophils % 0.5; Eosinophils % 1.2; HCT 38.2 % (36.0-46.0); Immature Grans % 0.2; Lymphocytes % 22.1; MCV 82.2 fL (80-95); MPV 10.1 fL (8.0-11.0); Monocytes % 7.6; Neutrophils % 68.4; Nucleated RBC 0 %; Platelet Count 225 10^3/uL (130-400); RBC 4.65 10^6/uL (3.93-5.22); RDW 12.7 % (11.7-14.6); RDW-SD 37.8 fL; WBC 10.38 10^3/uL (4.4-10.8)
--- NOTE | 2021-03-27 16:15 | DI.RAD_ITS ---
Exam(s) XR FOOT RT COMPLETE EXAM: XR FOOT RT COMPLETE CLINICAL HISTORY: pain post fall. TECHNIQUE: 2D digital imaging was performed. COMPARISON: No exams were available for comparison FINDINGS: BONES: No acute fracture is present. No bony destructive lesion is seen. JOINTS: No dislocation present. SOFT TISSUE: Normal. IMPRESSION: Unremarkable radiographs of the right foot. DATA REPOSITORY: RADIATION DOSE DELIVERED:
--- NOTE | 2021-03-27 16:15 | DI.RAD_ITS ---
Exam(s) XR KNEE RT 3V AP,LAT,PAGE EXAM: XR KNEE RT 3V AP,LAT,PAGE CLINICAL HISTORY: right knee pain. TECHNIQUE: 2D digital imaging was performed. COMPARISON: No exams were available for comparison FINDINGS: Positioning somewhat limited due to patient immobility. Overlying clothing. BONES: No acute fracture is present. No bony destructive lesion is seen. Chronic appearing bony den sity near the tibial spines. JOINTS: The knee is normally aligned. No joint effusion is seen. Joint spaces well maintained. SOFT TISSUE: Anterior soft tissue swelling. IMPRESSION: Anterior soft tissue swelling. No fracture. DATA REPOSITORY: RADIATION DOSE DELIVERED:
--- NOTE | 2021-03-27 16:33 | ED.GENADUL_ITS ---
Discharge Plan Disposition Patient Disposition: HOME Condition: Good Discharge Details Clinical Impression: Traumatic hematoma of knee, Muscle strain of foot Primary Care Provider: Barbie Rivera ED Provider: Smiley Wang Home Meds and New Rx's Prescriptions: No Action trazodone 100 MG tablet 100 mg PO HS RF: 0 bupropion HCl [Wellbutrin XL] 150 MG tablet extended release 24 hr 450 mg PO DAILY RF: 0 aspirin [Aspir-81] 81 MG tablet,delayed release (DR/EC) 81 mg PO HS RF: 0 pantoprazole 40 MG tablet,delayed release (DR/EC) 40 mg PO DAILY RF: 0 pramipexole 0.125 MG tablet 0.125 mg PO HS RF: 0 rosuvastatin [Crestor] 20 MG tablet 20 mg PO DAILY RF: 0 hydroxyzine HCl 50 MG tablet 50 mg PO TID RF: 0 amlodipine 5 MG tablet 7.5 mg PO DAILY RF: 0 oxybutynin chloride 5 MG tablet 5 mg PO BID RF: 0 Discharge Instructions Instructions: Hematoma (ED) Additional Instructions: Ice, elevate, compression with Yoseph wrap Tylenol 650 to 1 g every 4-6 hours Follow-up with orthopedics next week for reevaluation with persistent pain recommend repeat imaging in 1 week Please return earlier should you develop new or worsening complaints Referrals: Blake Shepherd MD [ [facility] STAFF PHYSICIAN] - Discharge Data Discharge Date/Time-TO BE ENTERED AT DEPARTURE: 03/27/21 17:15 Medical Decision Making Patient has a large hematoma on her right knee, CBC was ordered which does not show acute abnormality, this was reviewed by me I do not see evidence of obvious abnormality on patient's x-ray pending at this time [facility] Patient will need ambulatory trial, will likely place an Yoseph wrap secondary to body habitus and crutches Will need outpatient follow-up with orthopedic Patient will need ambulatory trial prior to discharge, will wrap with Yoseph wrap and use crutches And repeat blood pressure recommended Return precautions discussed patient expresses understanding Ambulatory trial successful and patient feels comfortable discharge at this time, ambulatory with steady although antalgic gait Differential Diagnosis Differential Diagnosis: Fracture, strain, contusion, abrasion Medical Records Medical records reviewed: Yes I reviewed the patient's medical records. HPI General Mode of arrival: ambulatory . Date/Time Provider Initiated Documentation: 03/27/21 14:33 . Limitations to Documentation: no limitations . Information obtained by: patient . HPI Narrative: This 60-year-old female presents with right foot right knee pain status post fall. She fell approximately 2 hours prior to arrival. She denies any additional injuries. She states her tetanus is up-to-date. She does take a baby aspirin but denies any anticoagulation. She denies any strength or sensation changes distally. She specifically denies head injury or loss of consciousness and states the fall was mechanical she tripped over the threshold. Related Data Home Medications Medication Instructions Recorded Confirmed bupropion HCl [Wellbutrin XL] 450 mg PO DAILY 04/10/14 03/27/21 trazodone 100 mg PO HS 04/10/14 03/27/21 aspirin [Aspir-81] 81 mg PO HS 04/12/14 03/27/21 pantoprazole 40 mg PO DAILY 04/12/14 03/27/21 pramipexole 0.125 mg PO HS 11/05/14 03/27/21 rosuvastatin [Crestor] 20 mg PO DAILY 11/05/14 03/27/21 amlodipine 7.5 mg PO DAILY 05/02/15 03/27/21 hydroxyzine HCl 50 mg PO TID 05/02/15 03/27/21 oxybutynin chloride 5 mg PO BID 05/02/15 03/27/21 Allergies Allergy/AdvReac Type Severity Reaction Status Date / Time Penicillins Allergy Severe Verified 03/27/21 14:17 General Stated Complaint: Orthopedic SHIRLEY: 3 Review of Systems All systems reviewed & are unremarkable except as noted in HPI and below [facility] Social History Smoking/Tobacco Use Status: Former Tobacco Use Smoking risk assessment performed?: Yes Alcohol Intake: former Drug use: Never Substance use type: does not use Current gender identity: female Do you feel safe at home: Yes Do you feel safe in your relationship?: Yes Exam Const General: no acute distress HENMT Head: normal to inspection Eyes Pupils: PERRL Neck Other: No midline tenderness Resp Effort & Inspection: normal respiratory effort Cardio Rate: regular rate GI Other: No abdominal tenderness Back/Spine/Pelvis Back: no CVA tenderness Other: No midline thoracic or lumbar tenderness Neuro General: patient alert and patient oriented x3 Other: GCS 15 Extrem Other: 6 x 6 inch bruise to right medial knee, significant swelling to the right knee, distal pulses intact, sensation intact distally, none compartment syndrome clinically Mild ecchymosis to right foot, tenderness to palpation, no tenderness to tibia or fibula on right side, no tenderness to right femur right hip No tenderness to left lower extremity No tenderness of bilateral upper extremities, range of motion intact Course Vital Signs Vital signs: Vital Signs Temperature 36.8 C 03/27/21 14:13 Pulse 98 H 03/27/21 14:13 Respiratory Rate 16 03/27/21 14:13 Blood Pressure 174/122 H 03/27/21 14:13 Pulse Oximetry 98 03/27/21 14:13 Temperature 36.8 C 03/27/21 14:13 Temperature Source Temporal Artery Scan 03/27/21 14:13 Pulse 98 H 03/27/21 14:13 Respiratory Rate 16 03/27/21 14:13 Respiratory Effort 03/27/21 14:20 Blood Pressure 174/122 H 03/27/21 14:13 Blood Pressure Position Sitting 03/27/21 14:13 Pulse Oximetry 98 03/27/21 14:13 Oxygen Delivery Method Room Air 03/27/21 14:13 Oxygen Flow Rate 0 03/27/21 14:13 Pain Level 10 03/27/21 14:13 Lab/Test Results Lab/Test Results: Laboratory Tests Range/Units 03/27/21 15:22 WBC (4.4-10.8) 10^3/uL 10.38 RBC (3.93-5.22) 10^6/uL 4.65 Hgb (11.2-15.7) g/dL 13.0 Hct (36.0-46.0) % 38.2 MCV (80-95) fL 82.2 MCH (27.0-33.0) pg 28.0 MCHC (32.0-36.0) % 34.0 RDW (11.7-14.6) % 12.7 Plt Count (130-400) 10^3/uL 225 MPV (8.0-11.0) fL 10.1 Immature Gran % 0.2 Neutrophils % 68.4 Lymphocytes % 22.1 Monocytes % 7.6 Eosinophils % 1.2 Basophils % 0.5 Nucleated RBC % % 0 Absolute Neutrophils (1.2-6.7) 10^3/uL 7.11 H Absolute Lymphocytes (1.2-3.4) 10^3/uL 2.29 Absolute Monocytes (0.1-0.8) 10^3/uL 0.79 Absolute Eosinophils (0.0-0.7) 10^3/uL 0.12 Absolute Basophils (0.0-0.2) 10^3/uL 0.05
--- NOTE | 2021-03-27 16:35 | DI.VRAD_ITS ---
PROCEDURE INFORMATION: Exam: XR Right Foot Exam date and time: 03/27/2021 3:57 PM Age: 60 years old Clinical indication: Pain; Knee; Right TECHNIQUE: Imaging protocol: XR Right foot. Views: 3 or more views. Total images: 3 COMPARISON: CR RIGHT FOOT COMPLETE 03/05/2016 8:38 PM FINDINGS: Bones/joints: No acute fracture or malalignment. Soft tissues: Normal. IMPRESSION: No acute fracture or malalignment. Dictated and Authenticated by: Vinod Henson MD. Ordering:ELVIRA Reis MD
--- NOTE | 2021-03-27 16:38 | DI.VRAD_ITS ---
PROCEDURE INFORMATION: Exam: XR Right Knee Exam date and time: 03/27/2021 3:57 PM Age: 60 years old Clinical indication: Pain; Knee; Right TECHNIQUE: Imaging protocol: XR Right knee. Views: 3 views. Total images: 3 COMPARISON: CR RIGHT FOOT COMPLETE 03/05/2016 8:38 PM FINDINGS: Bones/joints: No joint effusion. No acute fracture or malalignment. Soft tissues: Normal. IMPRESSION: No acute fracture or malalignment. Dictated and Authenticated by: Vinod Henson MD. Ordering:ELVIRA Reis MD
[2021-03-27 17:13] VITALS: BP 169/99; O2SAT 98
== END 2021-03-27 17:15 | disposition home or self-care (01) ==
PROVIDERS: Emergency Provider Physician Assistant; PCP Nurse Practitioner
DX: S80.01XA Contusion of right knee, initial encounter (principal); S96.911A Strain of unspecified muscle and tendon at ankle and foot level, right foot, initial encounter; W19.XXXA Unspecified fall, initial encounter
CPT/HCPCS: 36415; 73562; 99284; 73630; 85025

== ENCOUNTER 2021-04-11 15:11 | Emergency (ER) | payer MEDICAID, SELFPAY ==
--- NOTE | 2021-04-11 15:13 | ED.GENADUL_ITS ---
Discharge Plan Disposition Patient Disposition: HOME Condition: Stable Discharge Details Clinical Impression: Right patella fracture Primary Care Provider: Barbie Rivera ED Provider: Zeny Christine Home Meds and New Rx's Prescriptions: New oxycodone 5 mg tablet 5 mg PO Q6H PRN (Reason: pain) Qty: 7 RF: 0 Continued trazodone 100 MG tablet 200 mg PO HS RF: 0 bupropion HCl [Wellbutrin XL] 150 MG tablet extended release 24 hr 450 mg PO DAILY RF: 0 aspirin [Aspir-81] 81 MG tablet,delayed release (DR/EC) 81 mg PO HS RF: 0 pantoprazole 40 MG tablet,delayed release (DR/EC) 40 mg PO DAILY RF: 0 pramipexole 0.125 MG tablet 0.375 mg PO HS RF: 0 rosuvastatin [Crestor] 20 MG tablet 20 mg PO DAILY RF: 0 hydroxyzine HCl 50 MG tablet 50 mg PO TID PRNRF: 0 amlodipine 5 MG tablet 7.5 mg PO DAILY RF: 0 oxybutynin chloride 5 MG tablet 5 mg PO BID RF: 0 acetaminophen 500 mg Capsule 1,000 mg PO QID PRNRF: 0 Discharge Instructions Instructions: Patellar Fracture (ED) Additional Instructions: Rest, ice, and elevate the affected area as much as possible. Take Tylenol as needed and directed for pain. Take the oxycodone for pain not relieved with Tylenol. Keep the knee immobilizer in place at all times. Call the orthopedics office on Tuesday to schedule a follow-up appointment for reevaluation. Return immediately to the emergency department if you develop any worsening or new concerning symptoms. Referrals: Blake Shepherd MD [ [facility] STAFF PHYSICIAN] - Discharge Data Discharge Date/Time-TO BE ENTERED AT DEPARTURE: 04/11/21 17:27 Discharge Physician: Zeny Christine Medical Decision Making 60-year-old female presents to the ED with complaint of persistent right knee pain after fall 2 weeks ago. She was seen in ED at that time and had an x-ray which showed soft tissue swelling but no fracture. She has an old appearing hematoma with taut skin and edema to the anterior knee overlying patella. There is no deformity or open wounds. No evidence of cellulitis. No ligamentous laxity. She is neurovascularly intact. Patient referred for x-ray which notes a questionable subtle nondisplaced patella fracture. Pt states she cannot use crutches due to risk of fall and likely this would be difficult due to her body habitus. X-ray reviewed with Dr. Shepherd who recommends knee immobilizer and weightbearing as tolerated as this likely is a fracture. Patient's pain improved with oxycodone here and she feels good to go home. Prescription for oxycodone sent electronically to her pharmacy. Patient placed on orthopedic follow-up list. Usual and customary return precautions given prior to discharge. Medical Records Medical records reviewed: Yes I reviewed the patient's medical records. Imaging Data Radiologic Study: Radiologist's impression: XR Left Knee Exam date and time: 04/11/2021 3:40 PM Age: 60 years old Clinical indication: Pain; Knee; Right; Patient HX: S/P fall, R/O acute fracture. TECHNIQUE: Imaging protocol: XR Left knee. Views: 4 or more views. COMPARISON: No relevant prior studies available. FINDINGS: Bones/joints: There is a subtle linear lucency in the inferior pole of the patella on series 3 for which a subtle nondisplaced fracture is not excluded. Alternatively, it could represent a vascular channel. Soft tissues: Significant soft tissue swelling is appreciated medially, at the level of the patella, on the sunrise view, worrisome for a large hematoma. No unusual soft tissue calcifications. IMPRESSION: 1. There is a subtle linear lucency in the inferior pole of the patella on series 3 for which a subtle nondisplaced fracture is not excluded. Clinical correlation with area of pain suggested. Alternatively, it could represent a vascular channel. 2. Significant soft tissue swelling is appreciated medially, at the level of the patella, on the sunrise view, worrisome for a large hematoma. HPI General Mode of arrival: ambulatory . Date/Time Provider Initiated Documentation: 04/11/21 15:11 . Limitations to Documentation: no limitations . Information obtained by: patient . HPI Narrative: Patient is a 60-year-old female presents with continued right knee pain for the past 2 weeks after a fall. Patient states she was walking when she slipped twice hitting her knee both times. She was seen here in the ED at that time and had an x-ray which noted soft tissue swelling but no fracture and she was advised to follow-up with orthopedics but she states they have not yet contacted her. She states she cannot take ibuprofen due to her history of kidney disease but has been taking Tylenol without relief. She denies any new injury. She states the pain is mainly in her anterior knee. She denies any fever, hip or ankle pain. Related Data Home Medications Medication Instructions Recorded Confirmed bupropion HCl [Wellbutrin XL] 450 mg PO DAILY 04/10/14 04/11/21 trazodone 200 mg PO HS 04/10/14 04/11/21 aspirin [Aspir-81] 81 mg PO HS 04/12/14 04/11/21 pantoprazole 40 mg PO DAILY 04/12/14 04/11/21 pramipexole 0.375 mg PO HS 11/05/14 04/11/21 rosuvastatin [Crestor] 20 mg PO DAILY 11/05/14 04/11/21 amlodipine 7.5 mg PO DAILY 05/02/15 04/11/21 hydroxyzine HCl 50 mg PO TID PRN 05/02/15 04/11/21 oxybutynin chloride 5 mg PO BID 05/02/15 04/11/21 acetaminophen 1,000 mg PO QID PRN 04/11/21 04/11/21 oxycodone 5 mg PO Q6H PRN #7 tab 04/11/21 Previous Rx's Medication Instructions Recorded oxycodone 5 mg PO Q6H PRN #7 tab 04/11/21 Allergies Allergy/AdvReac Type Severity Reaction Status Date / Time Penicillins Allergy Severe Verified 04/11/21 15:28 General SHIRLEY: 3 Review of Systems All systems reviewed & are unremarkable except as noted in HPI and below PFSH Medical History (Updated 04/11/21 @ 17:08 by Zeny Christine DO) Anxiety Depression Diabetes GERD (gastroesophageal reflux disease) HTN (hypertension) Hx of hyperlipidemia Surgical History (Updated 04/11/21 @ 17:05 by Zeny Christine DO) H/O section History of appendectomy History of bowel resection History of hysterectomy History of knee surgery History of tonsillectomy Social History Smoking/Tobacco Use Status: Former Tobacco Use Smoking risk assessment performed?: Yes Alcohol Intake: former Drug use: Never Substance use type: does not use Current gender identity: female Do you feel safe at home: Yes Do you feel safe in your relationship?: Yes Exam Const General: cooperative and no acute distress HENMT Head: normal to inspection Mouth: oral mucosae normal Eyes General: appearance normal, both eyes and all related structures Neck Neck: normal visual inspection Resp Effort & Inspection: normal respiratory effort and able to speak in complete s entences Cardio Rate: regular rate Skin General skin exam: no rashes or lesions noted Neuro General: patient alert, patient awake and patient oriented x3 Motor: muscle tone normal throughout Extrem Knee images: 1. Moderate edema and healing ecchymosis noted to anterior knee. Tenderness to palpation and pain with range of motion. No obvious deformity noted. No crepitus, erythema, fluctuance or induration. Other: No significant pain with valgus or varus stress. Negative anterior and posterior drawer test. Right DP/PT pulses intact. Psych Appearance: grossly normal Affect: normal affect
[2021-04-11 15:24] VITALS: BP 184/83; PULSE 72; TEMP 36.4; O2SAT 96
--- NOTE | 2021-04-11 15:30 | DI.RAD_ITS ---
Exam(s) XR KNEE RT 4V AP,LAT,PAGE,PAT EXAM: XR KNEE RT 4V AP,LAT,PAGE,PAT CLINICAL HISTORY: s/p fall, r/o acute fracture. TECHNIQUE: 2D digital imaging was performed. COMPARISON: CR,XR XR KNEE RT 3V AP,LAT,PAGE from 03/27/2021 FINDINGS: There is soft tissue swelling anterior to the patella and quadriceps tendon. Correlation with any du e direct trauma recommended. There is no patellar nor other fractures. However, on the frontal view there is an intra-articular loose body measuring 5 x 4 millimeters seen within the intercondylar not ch area. No obvious degenerative narrowing of the joint spaces. No obvious osteochondral defects. There does not appear to be an obvious joint effusion. IMPRESSION: 1. Prominent prepatellar soft tissue swelling. This also extends up in front of the quadriceps tendo n and anterior to the patellar tendon. This is more prominent medial of center. Correlation with hi story of trauma recommended. This was also evident on 7 221. 2. Probable loose intra-articular body in the intercondylar notch. No joint effusion evident DATA REPOSITORY: RADIATION DOSE DELIVERED:
[2021-04-11] MEDS: oxyCODONE 5 MG TAB PO (15:49)
--- NOTE | 2021-04-11 16:50 | DI.VRAD_ITS ---
PROCEDURE INFORMATION: Exam: XR Left Knee Exam date and time: 04/11/2021 3:40 PM Age: 60 years old Clinical indication: Pain; Knee; Right; Patient HX: S/P fall, R/O acute fracture. TECHNIQUE: Imaging protocol: XR Left knee. Views: 4 or more views. COMPARISON: No relevant prior studies available. FINDINGS: Bones/joints: There is a subtle linear lucency in the inferior pole of the patella on series 3 for which a subtle nondisplaced fracture is not excluded. Alternatively, it could represent a vascular channel. Soft tissues: Significant soft tissue swelling is appreciated medially, at the level of the patella, on the sunrise view, worrisome for a large hematoma. No unusual soft tissue calcifications. IMPRESSION: 1. There is a subtle linear lucency in the inferior pole of the patella on series 3 for which a subtle nondisplaced fracture is not excluded. Clinical correlation with area of pain suggested. Alternatively, it could represent a vascular channel. 2. Significant soft tissue swelling is appreciated medially, at the level of the patella, on the sunrise view, worrisome for a large hematoma. Other findings/details as above. For the above findings, a dedicated CT scan or MRI could be considered for further evaluation. Dictated and Authenticated by: Krysten Pride MD. Ordering:PARTH Moura MD
== END 2021-04-11 17:27 | disposition home or self-care (01) ==
PROVIDERS: Emergency Provider Physician Assistant; PCP Nurse Practitioner
DX: S82.091A Other fracture of right patella, initial encounter for closed fracture (principal); W19.XXXA Unspecified fall, initial encounter
CPT/HCPCS: 27520; 73564

== ENCOUNTER 2021-04-27 13:44 | Outpatient (CLI) | payer MEDICAID, SELFPAY ==
--- NOTE | 2021-04-27 08:30 | DI.RAD_ITS ---
Exam(s) XR KNEE RT 3V AP,LAT,PAGE EXAM: XR KNEE RT 3V AP,LAT,PAGE CLINICAL HISTORY: right patella fracture. TECHNIQUE: 2D digital imaging was performed. COMPARISON: No exams were available for comparison FINDINGS: There appears to be swelling anterior to the patella without evidence of patellar fracture. There ma y be a fluid collection in the soft tissues anterior to the medial aspect of the patella just anterio r to the medial patellar retinaculum. There are no fractures. No prominent joint effusion noted. N o osseous lesions. There is no significant joint space narrowing. No osseous lesions IMPRESSION: Soft tissue swelling and possible fluid collection in the anterior medial aspect of the extra-articul ar knee, this just anterior to the medial patellar retinaculum. Recommend follow-up MRI. DATA REPOSITORY: RADIATION DOSE DELIVERED:
== END 2021-04-27 13:45 | disposition home or self-care (01) ==
LOC: DIORS 13:44
PROVIDERS: PCP Nurse Practitioner; Referring Provider Nurse Practitioner; Visit Provider Physician Assistant
DX: S82.001A Unspecified fracture of right patella, initial encounter for closed fracture (principal); X58.XXXA Exposure to other specified factors, initial encounter
CPT/HCPCS: 73562

== ENCOUNTER 2021-05-15 18:42 | Emergency (ER) | payer MEDICAID, SELFPAY ==
[2021-05-15 18:47] VITALS: BP 183/69; PULSE 65; RESP 20; TEMP 36.6; O2SAT 96
--- NOTE | 2021-05-15 19:13 | ED.GENADUL_ITS ---
Discharge Plan Disposition Patient Disposition: HOME Condition: Good Discharge Details Clinical Impression: Thumb pain Primary Care Provider: Barbie Rivera ED Provider: Flory Hernnadez Home Meds and New Rx's Prescriptions: Continued trazodone 100 MG tablet 200 mg PO HS RF: 0 bupropion HCl [Wellbutrin XL] 150 MG tablet extended release 24 hr 450 mg PO DAILY RF: 0 aspirin [Aspir-81] 81 MG tablet,delayed release (DR/EC) 81 mg PO HS RF: 0 pantoprazole 40 MG tablet,delayed release (DR/EC) 40 mg PO DAILY RF: 0 pramipexole 0.125 MG tablet 0.375 mg PO HS RF: 0 rosuvastatin [Crestor] 20 MG tablet 20 mg PO DAILY RF: 0 hydroxyzine HCl 50 MG tablet 50 mg PO TID PRNRF: 0 amlodipine 5 MG tablet 7.5 mg PO DAILY RF: 0 oxybutynin chloride 5 MG tablet 5 mg PO BID RF: 0 acetaminophen 500 mg Capsule 1,000 mg PO QID PRNRF: 0 oxycodone 5 mg tablet 5 mg PO Q6H PRN (Reason: pain) Qty: 7 RF: 0 Discharge Instructions Instructions: Tendinitis (ED) Additional Instructions: Your imaging here is reassuring. Please encourage rest, ice and elevation. Tylenol as needed for discomfort. Please follow-up with your primary care in 1 to 2 weeks for reevaluation. If you develop new or worsening symptoms please seek care urgently once again. Referrals: Barbie Rivera [Primary Care Provider] - Discharge Data Discharge Date/Time-TO BE ENTERED AT DEPARTURE: 05/15/21 21:30 Medical Decision Making Patient is a 60-year-old [id number] female presenting today with chief complaint of right thumb pain. She reports that this began while folding laundry today. She denies any trauma. States that while performing repetitive back, the pain slowly increased. Has not had pain like this historically. States the pain radiates up into her right forearm on the radial side. She denies any fevers or chills. Denies any numbness or tingling. On exam, patient appears nontoxic. She is hypertensive but otherwise hemodynamically stable. Exam of the right upper extremity significant for pain along the radial side of the thumb. Worse with adduction of the thumb. She has 2+ distal pulses, intact capillary refill. Sensation is intact. No notable deformity. No erythema or warmth. No break in the skin. Patient had Tylenol prior to arrival. She states that she does not like to take anti-inflammatories. Will give ice pack to help with discomfort. I have fairly low suspicion for fracture at this time. However, I have advised precaution I do feel that imaging would be appropriate and will obtain a x-ray. Primarily concern at this time for de Quervain's tenosynovitis based on area of discomfort as well as the pain worsened with abduction. Secondary to the pain induced, patient is not able to perform Davion testing. FINDINGS: Bones/joints: Normal. Soft tissues: Normal. IMPRESSION: No acute findings Discussed the findings with the patient. I encouraged rest, ice, elevation. We will fit her with a thumb spica to help support the area. Encourage follow-up with primary care in the next 1 to 2 weeks for reevaluation. Return precautions were discussed. All the questions or concerns were addressed in agreement this plan. HPI General Mode of arrival: ambulatory . Date/Time Provider Initiated Documentation: 05/15/21 19:13 . Limitations to Documentation: no limitations . Information obtained by: patient and RN notes reviewed . History of Present Illness 60 year old F presents to the emergency department with the chief complaint of right thumb pain, described as severe, with intensity rated at 10. Quality is described as aching, and is localized to the right and upper extremity. Patient extremity (into forearm). Patient started experiencing this hour(s) (1700) and it has been constant. Immobilization improves symptom(s), Movement worsens symptoms . Patient notes no other symptoms.. Patient did receive the following treatments prior to arrival, other (APAP) Related Data Home Medications Medication Instructions Recorded Confirmed bupropion HCl [Wellbutrin XL] 450 mg PO DAILY 04/10/14 05/15/21 trazodone 200 mg PO HS 04/10/14 05/15/21 aspirin [Aspir-81] 81 mg PO HS 04/12/14 05/15/21 pantoprazole 40 mg PO DAILY 04/12/14 05/15/21 pramipexole 0.375 mg PO HS 11/05/14 05/15/21 rosuvastatin [Crestor] 20 mg PO DAILY 11/05/14 05/15/21 amlodipine 7.5 mg PO DAILY 05/02/15 05/15/21 hydroxyzine HCl 50 mg PO TID PRN 05/02/15 05/15/21 oxybutynin chloride 5 mg PO BID 05/02/15 05/15/21 acetaminophen 1,000 mg PO QID PRN 04/11/21 05/15/21 oxycodone 5 mg PO Q6H PRN #7 tab 04/11/21 05/15/21 Previous Rx's Medication Instructions Recorded oxycodone 5 mg PO Q6H PRN #7 tab 04/11/21 Allergies Allergy/AdvReac Type Severity Reaction Status Date / Time Penicillins Allergy Severe Verified 05/15/21 18:51 General Stated Complaint: Orthopedic SHIRLEY: 4 Review of Systems Constitutional Constitutional: Reports as per HPI, Denies chills, Denies fever(s) and Denies weakness Cardiovascular Cardiovascular: Reports as per HPI Respiratory Respiratory: Reports as per HPI and Denies cough Musculoskeletal Musculoskeletal: Reports as per HPI and Denies tingling Integumentary/Breasts Skin/Breast: Reports as per HPI, Denies rash and Denies wounds Neurologic Neurologic: Reports as per HPI, Denies tingling, Denies paresthesias and Denies weakness FOR[facility]LY [facility] Medical History (Updated 05/15/21 @ 21:20 by ESTEBAN Peters) Anxiety Contusion of right knee Depression Diabetes GERD (gastroesophageal reflux disease) HTN (hypertension) Hx of hyperlipidemia Surgical History H/O section History of appendectomy History of bowel resection History of hysterectomy History of knee surgery History of tonsillectomy Social History Smoking/Tobacco Use Status: Former Tobacco Use Smoking risk assessment performed?: Yes Alcohol Intake: former Drug use: Never Substance use type: does not use Current gender identity: female Do you feel safe at home: Yes Do you feel safe in your relationship?: Yes Exam Const General: cooperative, healthy appearing, comfortable, no acute distress, well developed and well groomed Nutritional Appearance: well nourished and obese Orientation: alert and awake Resp Effort & Inspection: normal respiratory effort, able to speak in complete sentences and no respiratory distress Cardio Rate: regular rate Rhythm: regular rhythm Skin General skin exam: no rashes or lesions noted Lesions: no lesions Rashes: no rashes Trauma: no lacerations or abrasions Neuro General: patient alert and patient awake Cognition: normal cognition Speech: speech normal Gait: normal gait Motor: muscle tone normal throughout Sensory Exam: no sensory deficits noted Extrem Hand/finger images: 1. Area of discomfort. No palpable deformity. No discoloration. 2+ distal pulses. Intact capillary refill. Patient does have old incision proximal to this but no pain over that region. Pain with movement of the thumb. Unable to perform Davion test secondary to discomfort. However, abduction of the thumb does cause this increase discomfort. No erythema, warmth. Psych Appearance: grossly normal and well kempt Mental Status: mental status grossly normal Speech and Movement: speech and movement normal Course Vital Signs Vital signs: Vital Signs Temperature 36.6 C 05/15/21 18:47 Pulse 65 05/15/21 18:47 Respiratory Rate 20 05/15/21 18:47 Blood Pressure 183/69 H 05/15/21 18:47 Pulse Oximetry 96 05/15/21 18:47 Temperature 36.6 C 05/15/21 18:47 Temperature Source Skin 05/15/21 18:47 Pulse 65 05/15/21 18:47 Respiratory Rate 20 05/15/21 18:47 Blood Pressure 183/69 H 05/15/21 18:47 Blood Pressure Position Sitting 05/15/21 18:47 Pulse Oximetry 96 05/15/21 18:47 Oxygen Delivery Method Room Air 05/15/21 18:47 Oxygen Flow Rate 0 05/15/21 18:47 Pain Level 10 05/15/21 18:47
--- NOTE | 2021-05-15 19:15 | DI.RAD_ITS ---
Exam(s) XR THUMB RT EXAM: XR THUMB RT CLINICAL HISTORY: pain along radial, proximal aspect. TECHNIQUE: 2D digital imaging was performed. COMPARISON: CR XR HAND RT LIMITED from 04/16/2020 FINDINGS: There is no evidence of fracture nor dislocation. No radiopaque foreign body. No osseous lesions. IMPRESSION: No fracture evident. DATA REPOSITORY: RADIATION DOSE DELIVERED:
--- NOTE | 2021-05-15 19:39 | NUR.NOTE ---
To Radiology, gait steady, accompanied by technicianNursing Note:
--- NOTE | 2021-05-15 20:03 | DI.VRAD_ITS ---
PROCEDURE INFORMATION: Exam: XR Right Finger(s) Exam date and time: 05/15/2021 7:26 PM Age: 60 years old Clinical indication: Patient HX: Right thumb pain along radial, proximal aspect. No known injury TECHNIQUE: Imaging protocol: XR Right fingers. Views: Minimum 2 views. COMPARISON: CR XR HAND RT LIMITED 04/16/2020 11:36 AM FINDINGS: Bones/joints: Normal. Soft tissues: Normal. IMPRESSION: No acute findings. Dictated and Authenticated by: Edmar Rwoland MD. Ordering:MAC Ruth MD
[2021-05-15 21:30] VITALS: BP 163/73; PULSE 64; RESP 18; TEMP 36.6; O2SAT 96
--- NOTE | 2021-05-15 21:31 | NUR.NOTE ---
212-Right thumb spica splint placedNursing Note:
== END 2021-05-15 21:30 | disposition home or self-care (01) ==
PROVIDERS: Emergency Provider Physician Assistant; PCP Nurse Practitioner
DX: M79.644 Pain in right finger(s) (principal); X50.3XXA Overexertion from repetitive movements, initial encounter
CPT/HCPCS: 29125; 99283; 73140

== ENCOUNTER 2021-07-29 10:49 | Emergency (ER) | payer MEDICAID, SELFPAY ==
[2021-07-29 10:57] VITALS: BP 186/105; PULSE 93; RESP 16; TEMP 36.2; O2SAT 96
--- NOTE | 2021-07-29 11:15 | DI.US_ITS ---
Exam(s) US LOWER EXTREMITY VENOUS LT EXAM: US LOWER EXTREMITY VENOUS LT CLINICAL HISTORY: pain/swelling/concern for dvt TECHNIQUE: Grayscale, color, and doppler imaging of the deep venous system of the left lower extremi ty was performed. COMPARISON: US US RENAL from 10/24/2020 FINDINGS: There is no evidence of intraluminal thrombus and there is normal compression and augmentation demons trated within the common femoral vein, femoral vein, and popliteal vein. In the ipsilateral calf the interrogated veins also exhibit normal compression/ augmentation properti es. The ipsilateral saphenofemoral junction is patent. There is a complex collection measuring 4 x 0.9 x 3.5 cm located in the right anterior navas region, a pparently an area of recent trauma. This is probably a hematoma and is lung to truly orientated IMPRESSION: 1. No evidence of DVT in the left lower extremity. 2. Complex fluid collection-probable hematoma (given the trauma history here) in the anterior navas m easuring 4 x 0.9 x 3.5 cm. DATA REPOSITORY:
--- NOTE | 2021-07-29 12:51 | W.ED.GENAD ---
Discharge Plan Disposition Patient Disposition: HOME Condition: Stable Discharge Details Clinical Impression: Hematoma of left lower leg Primary Care Provider: Barbie Rivera ED Provider: Joesph Mendoza Home Meds and New Rx's Prescriptions: Continued pramipexole 0.125 mg tablet 0.125 mg PO HS RF: 0 trazodone 100 MG tablet 200 mg PO HS RF: 0 bupropion HCl [Wellbutrin XL] 150 MG tablet extended release 24 hr 450 mg PO DAILY RF: 0 aspirin [Aspir-81] 81 MG tablet,delayed release (DR/EC) 81 mg PO HS RF: 0 pantoprazole 40 MG tablet,delayed release (DR/EC) 40 mg PO DAILY RF: 0 rosuvastatin [Crestor] 20 MG tablet 20 mg PO DAILY RF: 0 hydroxyzine HCl 50 MG tablet 50 mg PO TID PRNRF: 0 amlodipine 5 MG tablet 7.5 mg PO DAILY RF: 0 oxybutynin chloride 5 MG tablet 5 mg PO BID RF: 0 acetaminophen 500 mg Capsule 1,000 mg PO QID PRNRF: 0 oxycodone 5 mg tablet 5 mg PO Q6H PRN (Reason: pain) Qty: 7 RF: 0 Discharge Instructions Instructions: Hematoma (ED) Additional Instructions: Ultrasound is negative for DVT but does reveal hematoma. Warm compresses every 2 hours for 20 minutes. [id number] Tylenol as directed for discomfort. Please watch for new or worsening symptoms and return to the ER for any concerns. Lastly, I do recommend contacting your primary care provider discuss your ER visit and need for outpatient reevaluation if symptoms are to persist Medical Decision Making This is a 61-year-old female who fell approximately 2 weeks ago, noticed leg swelling and ongoing pain, sent to the ER specifically to rule out DVT. Clinically extremely low suspicion for DVT, this appears to be an anterior hematoma. Given the concern; however, will obtain ultrasound. Patient is not anticoagulated. Denies history of DVT or PE. Ultrasound negative for DVT. Complex fluid collection, probable hematoma given recent trauma here. Discussed ultrasound findings with patient. No additional questions or concerns. Patient is comfortable discharge at this time. Ambulates steadily using her cane at baseline. Standard discharge and return precautions provided This documentation was generated using [employer] system, please disregard any oddities of phrase or misspellings. Medical Records Medical records reviewed: Yes I reviewed the patient's medical records. Imaging Data Radiologic Study: Attestation: I personally reviewed and interpreted this imaging study as follows: Imaging: Ultrasound Radiologist's impression: Exam(s) US LOWER EXTREMITY VENOUS LT EXAM: US LOWER EXTREMITY VENOUS LT CLINICAL HISTORY: pain/swelling/concern for dvt TECHNIQUE: Grayscale, color, and doppler imaging of the deep venous system of the left lower extremity was performed. COMPARISON: US US RENAL from 10/24/2020 FINDINGS: There is no evidence of intraluminal thrombus and there is normal compression and augmentation demonstrated within the common femoral vein, femoral vein, and popliteal vein. In the ipsilateral calf the interrogated veins also exhibit normal compression/ augmentation properties. The ipsilateral saphenofemoral junction is patent. There is a complex collection measuring 4 x 0.9 x 3.5 cm located in the right anterior navas region, apparently an area of recent trauma. This is probably a hematoma and is lung to truly orientated IMPRESSION: 1. No evidence of DVT in the left lower extremity. 2. Complex fluid collection-probable hematoma (given the trauma history here) in the anterior navas measuring 4 x 0.9 x 3.5 cm. HPI General Mode of arrival: ambulatory. Date/Time Provider Initiated Documentation: 07/29/21 11:03. Limitations to Documentation: no limitations. Information obtained by: patient. HPI Narrative: This is a 69-year-old female, past medical history of anxiety, chronic renal disease, depression, diabetes, fibromyalgia, GERD, hypertension, lower back pain, schizoaffective schizophrenia, presenting to the ER complaining of left lower leg pain, concern for blood clot. Patient states that she fell a couple of weeks ago but has subsequently noticed a lump to the anterior aspect of her left lower leg. Denies chest pain, shortness of breath, history of DVT or PE, any anticoagulation. Patient is able to bear weight that difficulty using a cane. Reports the pain is mild but worse with direct palpation. Denies any fevers, rash, pain or swelling in her calf. Related Data Home Medications Medication Instructions Recorded Confirmed bupropion HCl [Wellbutrin XL] 450 mg PO DAILY 04/10/14 07/29/21 trazodone 200 mg PO HS 04/10/14 07/29/21 aspirin [Aspir-81] 81 mg PO HS 04/12/14 07/29/21 pantoprazole 40 mg PO DAILY 04/12/14 07/29/21 rosuvastatin [Crestor] 20 mg PO DAILY 11/05/14 07/29/21 amlodipine 7.5 mg PO DAILY 05/02/15 07/29/21 hydroxyzine HCl 50 mg PO TID PRN 05/02/15 07/29/21 oxybutynin chloride 5 mg PO BID 05/02/15 07/29/21 acetaminophen 1,000 mg PO QID PRN 04/11/21 07/29/21 oxycodone 5 mg PO Q6H PRN #7 tab 04/11/21 07/29/21 pramipexole 0.125 mg tablet 0.125 mg PO HS tab 07/24/21 07/29/21 Previous Rx's Medication Instructions Recorded oxycodone 5 mg PO Q6H PRN #7 tab 04/11/21 Allergies Allergy/AdvReac Type Severity Reaction Status Date / Time Penicillins Allergy Severe Verified 07/29/21 11:01 amoxicillin Allergy Verified 07/29/21 11:01 General Stated Complaint: Orthopedic SHIRLEY: 3 Review of Systems Constitutional Constitutional: Denies fever(s) and Denies weakness Cardiovascular Cardiovascular: Denies chest pain and Denies dyspnea Respiratory Respiratory: Denies cough and Denies dyspnea Musculoskeletal Musculoskeletal: Reports arthralgias (Right knee, chronic), Denies numbness, Reports stiffness and Denies tingling Integumentary/Breasts Skin/Breast: Denies erythema and Denies rash Neurologic Neurologic: Denies numbness, Denies tingling and Denies weakness PFSH Medical History Anxiety At risk for sleep apnea Carpal tunnel syndrome Chronic kidney disease Chronic pain Contusion of right knee Depression Diabetes Fibromyalgia GERD (gastroesophageal reflux disease) Hearing loss HTN (hypertension) Hx of hyperlipidemia Hx of smoking Hyperlipidemia Incontinence Insomnia Learning disability Low back pain Pulmonary nodule Restless leg syndrome Schizo-affective schizophrenia Seasonal allergies Sleep walking disorder Surgical History H/O section History of appendectomy History of bowel resection History of hysterectomy History of knee surgery History of tonsillectomy Social History Smoking/Tobacco Use Status: Former Tobacco Use Smoking risk assessment performed?: Yes Alcohol Intake: former Drug use: Never Substance use type: does not use Current gender identity: female Do you feel safe at home: Yes Do you feel safe in your relationship?: Yes Exam Const General: cooperative, comfortable and no acute distress Orientation: alert and awake HENMA Head: normal to inspection, normocephalic and atraumatic Eyes General: appearance normal, both eyes and all related structures Conjunctivae: conjunctivae normal Neck Neck: normal visual inspection, trachea midline and supple Resp Effort & Inspection: normal respiratory effort and able to speak in complete sentences Auscultation: clear to auscultation bilaterally Cardio Rate: regular rate Rhythm: regular rhythm Skin General skin exam: no rashes or lesions noted Neuro General: patient alert, patient awake, moves all extremities and no focal motor deficits Cognition: normal cognition Speech: speech normal Gait: gait assisted Method: other (cane) Sensory Exam: no sensory deficits noted Extrem General: full ROM and capillary refill normal Upper/lower leg/hip images: 1. Anterior contusion, mild swelling and discomfort. There is no fluctuation or induration. No erythema, warmth, signs of infection. No pointing abscess. Left calf without swelling, erythema, tenderness. Negative Homans' sign. Normal capillary refill and dorsalis pedal pulse. Psych Appearance: grossly normal Mental Status: mental status grossly normal Course Vital Signs Vital signs: Vital Signs Temperature 36.2 C L 07/29/21 10:57 Pulse 93 H 07/29/21 10:57 Respiratory Rate 16 07/29/21 10:57 Blood Pressure 186/105 H 07/29/21 10:57 Pulse Oximetry 96 07/29/21 10:57 Temperature 36.2 C L 07/29/21 10:57 Temperature Source Skin 07/29/21 10:57 Pulse 93 H 07/29/21 10:57 Respiratory Rate 16 07/29/21 10:57 Respiratory Effort Non-Labored 07/29/21 10:57 Blood Pressure 186/105 H 07/29/21 10:57 Blood Pressure Position Supine 07/29/21 10:57 Pulse Oximetry 96 07/29/21 10:57 Oxygen Delivery Method Room Air 07/29/21 10:57 Oxygen Flow Rate 0 07/29/21 10:57 Pain Level 10 07/29/21 10:57
[2021-07-29 13:25] VITALS: BP 178/100; PULSE 93; RESP 16; TEMP 36.2; O2SAT 96
== END 2021-07-29 13:22 | disposition home or self-care (01) ==
PROVIDERS: Emergency Provider Physician Assistant; PCP Nurse Practitioner
DX: S80.12XA Contusion of left lower leg, initial encounter (principal); W18.39XA Other fall on same level, initial encounter; R22.42 Localized swelling, mass and lump, left lower limb
CPT/HCPCS: 99284; 93971; 99283

== ENCOUNTER 2021-08-21 00:40 | Outpatient (CLI) | payer MEDICAID, SELFPAY ==
--- NOTE | 2021-08-21 09:15 | DI.CT_ITS ---
Exam(s) CT CHEST WO EXAM: CT CHEST WO CLINICAL HISTORY: PULMONARY NODULE R91.1 TECHNIQUE: Imaging Protocol: Axial computed tomography images with coronal and sagittal reformatted images were created and reviewed CONTRAST MATERIAL: Intravenous: Omnipaque 350 Contrast volume:structured data in ml. COMPARISON: CT ABD PELVIS WO CONTRAST from 06/03/2011 CT ABD PELVIS WO CONTRAST from 06/03/[address] CHEST WO from 08/14/[address] CHEST WO from 08/14/2020 FINDINGS: Tracheobronchial tree: No bronchiectasis or mucous plugging. Mediastinum and Sabina: No dominant adenopathy or fluid collection. Pulmonary parenchyma: No consolidation. Scarring medial right middle lobe. Stable pleural based post erior right upper lobe nodule. Stable pleural based nodule posterior right lower lobe, unchanged from 2011. Calcified granuloma left lower lobe. Pleura: No effusion or pneumothorax. Heart: The heart is mildly dilated. Mild coronary artery calcifications are seen. Aorta: Thoracic aorta non-dilated. Mild calcifications. Upper abdomen: Status post cholecystectomy. Splenic calcifications. Lymph nodes: Within normal limits. Bones: Degenerative disc changes. Soft tissues: Unremarkable. IMPRESSION: Stable right lower lobe nodule when compared with 2011. Stable 5 millimeter right upper lobe nodule from 2020. For a low risk patient, no further follow-up is recommended. For a high risk patient, low-dose ches t CT could be performed in 1 year... RADIATION DOSE DELIVERED: 74.03mGy.cm Total DLP DATA REPOSITORY: All CT scans at this facility are submitted to the National Radiology Data Registry (NRDR) Dose Index Registry (DIR) with the [employer] (ACR). RADIATION OPTIMIZATION: All CT scans at this facility use at least one of these dose optimization te chniques: automated exposure control; mA and/or kV adjustment per patient size (includes targeted exa ms where dose is matched to clinical indication); or iterative reconstruction.
== END 2021-08-21 01:00 ==
PROVIDERS: PCP Nurse Practitioner; Visit Provider Nurse Practitioner
DX: R91.1 Solitary pulmonary nodule (principal)
CPT/HCPCS: 71250

== ENCOUNTER → 2022-09-10 00:29 | Outpatient (CLI) | payer MEDICAID, SELFPAY ==
--- NOTE | 2022-09-10 07:30 | DI.MAMMO_ITS ---
Exam(s) MAMMO SCREENING EXAM: MAMMO SCREENING CLINICAL HISTORY: screening,z12.39. TECHNIQUE: Bilateral full field digital CC and MLO mammographic images were obtained with 3D tomosyn thesis and utilizing computer aided detection (CAD). COMPARISON: Prior mammograms were reviewed. FINDINGS: There has been no significant change in the appearance and distribution of the fibroglandular tissue. There are no CAD designations. There are no new spiculated masses nor malignant appearing microcalcification groups. Asymmetric density anteriorly in the left breast seen on the CC views unchanged from at least 2014 an d therefore benign. There is no significant architectural distortion nor skin thickening-retraction. IMPRESSION: No radiographic evidence of malignancy. Stable benign findings. BI-RADS Category 2 - Benign Findings Breast Density - Category A - Almost entirely fatty Breast density Category C or D implies that the patient has dense breast tissue. Dense breast tissue can make it harder to find cancer on a mammogram. Dense breast tissue is also associated with an incr eased risk of breast cancer. This information about the result of the mammogram report was provided to the patient to raise their awareness. Use this report when you speak with the patient about their risks for breast cancer, which includes their family history. At that time, you may recommend additional screening tests (Ultrasoun d or MRI) as these tests may add significant information. A negative radiographic report should not delay biopsy if a dominant or clinically suspicious mass is present. Up to ten percent of cancers are not identified on mammography. A negative report may reinforce clinical impression. Adenosis and dense breasts may obscure an underlying neoplasm. False positive reports average 6 to 10%. Patient will receive a letter notifying them of these results.
== END ==
PROVIDERS: PCP Student in an Organized Health Care Education/Training Program; Visit Provider Student in an Organized Health Care Education/Training Program
DX: Z12.31 Encounter for screening mammogram for malignant neoplasm of breast (principal)
CPT/HCPCS: 77063; 77067

== ENCOUNTER 2022-09-28 16:38 | Outpatient (REF) | payer MEDICAID, SELFPAY | END 2022-09-28 16:39 | disposition home or self-care (01) | LOC: LBN 16:38 | PROVIDERS: PCP Student in an Organized Health Care Education/Training Program; Visit Provider Student in an Organized Health Care Education/Training Program | DX: N89.8 Other specified noninflammatory disorders of vagina (principal); R10.2 Pelvic and perineal pain | CPT/HCPCS: 87480; 87510; 87660 ==

== ENCOUNTER 2022-10-01 02:38 | Outpatient (CLI) | payer MEDICAID, SELFPAY ==
[2022-10-01 12:20] LABS: Anion Gap 7.5 mmol/L (3-11); BUN 42 mg/dL (7-18); CO2 28.5 mmol/L (21.0-32.0); CREATININE 2.3 mg/dL (0.55-1.02); Calcium 8.5 mg/dL (8.5-10.1); Calculated LDL 46 mg/dL (<100); Chloride 101 mmol/L (98-107); Cholesterol 114 mg/dL (<200); Estimated GFR 23.59 (mL/min/1.73m2); Glucose 114 mg/dL (74-106); HDL Cholesterol 55 mg/dL (40-60); Potassium 3.6 mmol/L (3.5-5.1); Sodium 137 mmol/L (136-145); Triglyceride 65 mg/dL (<150)
== END 2022-10-01 02:39 | disposition home or self-care (01) ==
LOC: LBO 02:38
PROVIDERS: PCP Student in an Organized Health Care Education/Training Program; Visit Provider Student in an Organized Health Care Education/Training Program
DX: R79.89 Other specified abnormal findings of blood chemistry (principal); I10 Essential (primary) hypertension
CPT/HCPCS: 36415; 80048; 80061

== ENCOUNTER 2022-11-03 04:08 | Outpatient (CLI) | payer MEDICAID, SELFPAY ==
[2022-11-03 15:36] LABS: Anion Gap 9.6 mmol/L (3-11); BUN 41 mg/dL (7-18); CO2 27.4 mmol/L (21.0-32.0); CREATININE 2.6 mg/dL (0.55-1.02); Chloride 100 mmol/L (98-107); Estimated GFR 20.36 (mL/min/1.73m2); Glucose 107 mg/dL (74-106); Magnesium 1.7 mg/dL (1.8-2.4); Potassium 3.5 mmol/L (3.5-5.1); Sodium 137 mmol/L (136-145)
== END 2022-11-03 04:09 | disposition home or self-care (01) ==
LOC: LBO 04:08
PROVIDERS: PCP Student in an Organized Health Care Education/Training Program; Visit Provider Student in an Organized Health Care Education/Training Program
DX: R79.89 Other specified abnormal findings of blood chemistry (principal); E87.6 Hypokalemia; Z91.89 Other specified personal risk factors, not elsewhere classified
CPT/HCPCS: 36415; 80048; 83735

== ENCOUNTER 2022-12-09 01:08 | Outpatient (CLI) | payer MEDICAID, SELFPAY ==
--- NOTE | 2022-12-09 07:30 | DI.US_ITS ---
Exam(s) US PELVIS RENAL EXAM: US PELVIS RENAL CLINICAL HISTORY: renal and pelvix pain,r10.2,urinary incontinence,urge incontinence. TECHNIQUE: Vinson scale, color and spectral Doppler were used. COMPARISON: US US RENAL from 10/24/[address] CHEST WO from 08/21/2021 FINDINGS: Exam is limited by patient body habitus. Renal size in cm: Right: 10.8 left: 0.3 Echogenicity: Normal Hydronephrosis: No Cyst or mass: No Nephrolithiasis: No Bladder:Normal . Both ureteral jets were visualized Prevoid vol:116 Postvoid vol:6 Patient is status post hysterectomy and oophorectomy. No pelvic mass is visible. IMPRESSION: Limited exam due to patient body habitus. No renal or bladder abnormality seen. DATA REPOSITORY:
== END 2022-12-09 01:28 ==
LOC: DI 01:08
PROVIDERS: PCP Student in an Organized Health Care Education/Training Program; Visit Provider Obstetrics & Gynecology
DX: R10.2 Pelvic and perineal pain (principal); N39.46 Mixed incontinence; Z90.710 Acquired absence of both cervix and uterus
CPT/HCPCS: 76770; 76856

== ENCOUNTER 2022-12-10 18:14 | Outpatient (REF) | payer MEDICAID, SELFPAY ==
[2022-12-10 19:26] LABS: Bacteria Rare HPF (Negative); C & S Indicated? No; Casts Negative LPF (Negative); Crystals Negative HPF (Negative); Epithelial Cells Moderate HPF (Negative); Mucus Negative (Negative); RBC 0-2 HPF (0-2); WBC Negative HPF (0-5)
== END 2022-12-10 18:15 | disposition home or self-care (01) ==
LOC: LBN 18:14
PROVIDERS: PCP Student in an Organized Health Care Education/Training Program; Visit Provider Student in an Organized Health Care Education/Training Program
DX: N39.3 Stress incontinence (female) (male) (principal); R35.1 Nocturia; N18.4 Chronic kidney disease, stage 4 (severe)
CPT/HCPCS: 81015

== ENCOUNTER 2023-03-23 12:17 | Outpatient (CLI) | payer MEDICAID, SELFPAY ==
[2023-03-23 11:54] LABS: HGB 12.7 g/dL (11.2-15.7)
[2023-03-23 12:32] LABS: Anion Gap 10.2 mmol/L (3-11); BUN 35 mg/dL (7-18); CO2 26.8 mmol/L (21.0-32.0); CREATININE 2.4 mg/dL (0.55-1.02); Calcium 9.3 mg/dL (8.5-10.1); Chloride 96 mmol/L (98-107); Estimated GFR 22.42 (mL/min/1.73m2); Glucose 104 mg/dL (74-106); Magnesium 1.7 mg/dL (1.8-2.4); Potassium 3.6 mmol/L (3.5-5.1); Sodium 133 mmol/L (136-145)
[2023-03-23 12:34] LABS: Hemoglobin A1C 5.8 % (<5.7)
== END 2023-03-23 12:18 | disposition home or self-care (01) ==
LOC: LBO 12:17
PROVIDERS: PCP Student in an Organized Health Care Education/Training Program; Visit Provider Internal Medicine Nephrology
DX: N17.9 Acute kidney failure, unspecified (principal); N18.4 Chronic kidney disease, stage 4 (severe)
CPT/HCPCS: 36415; 80048; 83036; 83735; 85018

== ENCOUNTER 2023-07-21 15:34 | Outpatient (CLI) | payer MEDICAID, SELFPAY ==
[2023-07-21 13:41] LABS: ALT 24 U/L (14-59); AST 18 U/L (15-37); Albumin 3.3 g/dL (3.4-5.0); Alkaline Phosphatase 82 U/L (46-116); Anion Gap 9.1 mmol/L (3-11); BUN 37 mg/dL (7-18); Bilirubin, Total 0.6 mg/dL (0.2-1.0); CO2 27.9 mmol/L (21.0-32.0); CREATININE 2.3 mg/dL (0.55-1.02); Calcium 9.1 mg/dL (8.5-10.1); Chloride 101 mmol/L (98-107); Estimated GFR 23.45 (mL/min/1.73m2); Glucose 103 mg/dL (74-106); Potassium 3.5 mmol/L (3.5-5.1); Sodium 138 mmol/L (136-145); Total Protein 7.9 g/dL (6.4-8.2)
[2023-07-21 17:04] LABS: Lab Add On Test DONE
[2023-07-21 17:21] LABS: Magnesium 1.8 mg/dL (1.8-2.4)
== END 2023-07-21 15:35 | disposition home or self-care (01) ==
LOC: LBO 15:35
PROVIDERS: PCP Student in an Organized Health Care Education/Training Program; Visit Provider Student in an Organized Health Care Education/Training Program
DX: N17.9 Acute kidney failure, unspecified (principal); Z91.89 Other specified personal risk factors, not elsewhere classified; E87.6 Hypokalemia; N28.9 Disorder of kidney and ureter, unspecified
CPT/HCPCS: 36415; 80053; 83735

== ENCOUNTER → 2023-09-16 01:01 | Outpatient (CLI) | payer MEDICAID, SELFPAY ==
--- NOTE | 2023-09-16 | DI.MRI_ITS ---
Exam(s) MR BRAIN ORBIT FACE NECK WO EXAM: MR BRAIN ORBIT FACE NECK WO CLINICAL HISTORY: H47.011,H57.00 Ischemic optic neuroopathy right eye,Unspecified anomaly of. TECHNIQUE: Multiplanar multisequence MRI of the brain and internal auditory canals was performed. COMPARISON: CT HEAD AND CSPINE W/O CONTRAST from 05/06/[address] HEAD WO from 08/23/2019 FINDINGS: Examination was performed without contrast due to the patient's decreased renal function. The examination is limited due to patient motion artifact. VENTRICLES AND EXTRA AXIAL SPACES: Normal in size and morphology for the patient's age. HEMORRHAGE: None. CEREBRAL PARENCHYMA: No focus of restricted diffusion to suggest acute infarct. No space-occupying le murray identified. T2 hyperintense signal seen in the white matter in the right temporal lobe anterior ly. There is an old lacunar infarct adjacent to the atria of the left lateral ventricle. This was p resent on prior CT examinations. MIDLINE SHIFT: None. BRAINSTEM/CEREBELLUM: Normal. CALVARIUM: There is hypointense T1 and T2 signal in the right greater wing of the sphenoid bone which corresponds to stable sclerosis of the bone seen on the CT scans dating back to 2016. The bone is m ildly expansile with impingement into the right retro-orbital soft tissues and displaces the lateral rectus and optic nerve medially. There is stable narrowing of the right optic canal. VISUALIZED PARANASAL SINUSES/MASTOIDS: Clear. IAC/CP ANGLE: The internal auditory canals are within normal limits. The cerebellar pontine angles ar e unremarkable. No enhancing lesions are seen. Visualized portion of the facial nerves appear within normal limits. OTHER FINDINGS: The optic nerves show normal and symmetric signal and size. The globes are unremarka ble. IMPRESSION: 1. Examination is suboptimal due to patient motion artifact. 2. Stable mildly expansile sclerosis of the right greater wing of the sphenoid bone which narrows the right optic canal and displaces the lateral rectus muscle and optic nerve medially. 3. The optic nerves appear symmetric in signal and size. 4. Nonspecific hyperintense focus in the white matter in the anterior right temporal lobe. Postcontr ast MRI should be considered for further evaluation. This may represent a demyelinating process, inf ection or possible neoplasm. DATA REPOSITORY:
[2023-09-16 14:15] LABS: Anion Gap 7.9 mmol/L (3-11); BUN 55 mg/dL (7-18); CO2 31.1 mmol/L (21.0-32.0); CREATININE 2.9 mg/dL (0.55-1.02); Calcium 9.2 mg/dL (8.5-10.1); Chloride 98 mmol/L (98-107); Estimated GFR 17.75 (mL/min/1.73m2); Glucose 114 mg/dL (74-106); Sodium 137 mmol/L (136-145)
[2023-09-16 14:47] LABS: Iron 46 ug/dL (50-170); Total Iron Binding Capacity 394 ug/dL (250-450); Transferrin Sat 12 % (15-50)
== END ==
PROVIDERS: PCP Student in an Organized Health Care Education/Training Program; Visit Provider Optometrist
DX: D64.9 Anemia, unspecified (principal); Z79.899 Other long term (current) drug therapy; Z91.89 Other specified personal risk factors, not elsewhere classified; H47.011 Ischemic optic neuropathy, right eye
CPT/HCPCS: 80048; 70540; 70551; 83540; 83550; 84443

== ENCOUNTER 2023-09-28 15:37 | Outpatient (REF) | payer MEDICAID, SELFPAY ==
[2023-09-28 16:21] LABS: Anion Gap 9.1 mmol/L (3-11); BUN 47 mg/dL (7-18); CO2 28.9 mmol/L (21.0-32.0); CREATININE 2.7 mg/dL (0.55-1.02); Calcium 9.1 mg/dL (8.5-10.1); Chloride 100 mmol/L (98-107); Estimated GFR 19.34 (mL/min/1.73m2); Glucose 136 mg/dL (74-106); Potassium 3.5 mmol/L (3.5-5.1); Sodium 138 mmol/L (136-145)
[2023-09-28 16:25] LABS: Iron 44 ug/dL (50-170)
[2023-10-01 21:38] LABS: Lab Add On Test DONE
[2023-10-01 21:49] LABS: Total Iron Binding Capacity 352 ug/dL (250-450)
== END 2023-09-28 15:38 | disposition home or self-care (01) ==
LOC: LBN 15:37
PROVIDERS: PCP Student in an Organized Health Care Education/Training Program; Visit Provider Student in an Organized Health Care Education/Training Program
DX: I10 Essential (primary) hypertension (principal); D64.9 Anemia, unspecified; Z79.899 Other long term (current) drug therapy
CPT/HCPCS: 80048; 83540; 83550

== ENCOUNTER 2023-10-12 13:48 | Outpatient (REF) | payer MEDICAID, SELFPAY ==
[2023-10-12 17:24] LABS: Anion Gap 10.6 mmol/L (3-11); BUN 49 mg/dL (7-18); CO2 28.4 mmol/L (21.0-32.0); CREATININE 2.6 mg/dL (0.55-1.02); Calcium 9.1 mg/dL (8.5-10.1); Chloride 101 mmol/L (98-107); Estimated GFR 20.24 (mL/min/1.73m2); Glucose 139 mg/dL (74-106); Magnesium 1.9 mg/dL (1.8-2.4); NT-proBNP 1944 pg/mL (<300); Potassium 3.8 mmol/L (3.5-5.1); Sodium 140 mmol/L (136-145)
== END 2023-10-12 13:49 | disposition home or self-care (01) ==
LOC: NCHCN 13:48
PROVIDERS: PCP Student in an Organized Health Care Education/Training Program; Visit Provider Student in an Organized Health Care Education/Training Program
DX: E86.1 Hypovolemia (principal); N18.9 Chronic kidney disease, unspecified; R35.89 Other polyuria; Z86.79 Personal history of other diseases of the circulatory system; Z91.89 Other specified personal risk factors, not elsewhere classified; I10 Essential (primary) hypertension
CPT/HCPCS: 80048; 83735; 83880

== ENCOUNTER → 2023-10-21 00:50 | Outpatient (CLI) | payer MEDICAID, SELFPAY ==
--- NOTE | 2023-10-21 08:15 | DI.DEXA_ITS ---
Exam(s) XR DEXA BONE DENSITY W/WO KIMBERLEE EXAM: XR DEXA BONE DENSITY W/WO KIMBERLEE CLINICAL HISTORY: screening for osteoporosis in postmenopausal woman,z78.0,low vit d,r79.89, TECHNIQUE: COMPARISON: No exams were available for comparison FINDINGS: Lateral Spine Image: Unremarkable. No compression deformities identified. Left hip: Total T-Score: -1.2 Total Z-Score: -0.1 T- and Z-scores: Findings are consistent with osteopenia. Lumbar Spine: Total T-Score: 1.1 Total Z-Score: 2.6 T- and Z-scores: Within normal limits. IMPRESSION: No evidence of osteoporosis.
== END ==
PROVIDERS: PCP Student in an Organized Health Care Education/Training Program; Visit Provider Student in an Organized Health Care Education/Training Program
DX: N25.81 Secondary hyperparathyroidism of renal origin (principal); R79.89 Other specified abnormal findings of blood chemistry; Z78.0 Asymptomatic menopausal state; Z13.820 Encounter for screening for osteoporosis
CPT/HCPCS: 77080

== ENCOUNTER 2023-10-24 15:58 | Outpatient (REF) | payer MEDICAID, SELFPAY ==
[2023-10-24 14:09] LABS: Bilirubin Negative (Negative); Blood Trace-intact (Negative); Clarity Clear (Clear); Glucose 500 mg/dL (Negative); Ketones Negative (Negative); Leukocyte Esterase Negative (Negative); Nitrite Negative (Negative); Urobilinogen 0.2 mg/dL (Up to 0.2); pH 5.5 (5-8)
[2023-10-24 14:29] LABS: Bacteria Rare HPF (Negative); C & S Indicated? No; Casts Negative LPF (Negative); Crystals Negative HPF (Negative); Epithelial Cells Negative HPF (Negative); Mucus Trace (Negative); Other Cells Negative (Negative); RBC 0-2 HPF (0-2); WBC Negative HPF (0-5)
== END 2023-10-24 15:59 | disposition home or self-care (01) ==
LOC: LBN 15:58
PROVIDERS: PCP Student in an Organized Health Care Education/Training Program; Visit Provider Nurse Practitioner Gerontology
DX: R31.29 Other microscopic hematuria (principal)
CPT/HCPCS: 81003; 81015

== ENCOUNTER 2023-10-25 02:14 | Outpatient (CLI) | payer MEDICAID, SELFPAY ==
[2023-10-25 09:45] LABS: Anion Gap 10.9 mmol/L (3-11); BUN 41 mg/dL (7-18); CO2 27.1 mmol/L (21.0-32.0); CREATININE 2.2 mg/dL (0.55-1.02); Calcium 8.9 mg/dL (8.5-10.1); Chloride 102 mmol/L (98-107); Estimated GFR 24.73 (mL/min/1.73m2); Glucose 102 mg/dL (74-106); Potassium 3.8 mmol/L (3.5-5.1); Sodium 140 mmol/L (136-145)
[2023-10-25 09:52] LABS: NT-proBNP 1637 pg/mL (<300)
== END 2023-10-25 02:15 | disposition home or self-care (01) ==
LOC: LBO 02:14
PROVIDERS: PCP Student in an Organized Health Care Education/Training Program; Visit Provider Optometrist
DX: Z79.899 Other long term (current) drug therapy (principal); Z91.89 Other specified personal risk factors, not elsewhere classified
CPT/HCPCS: 80048; 83880

== ENCOUNTER 2023-12-09 16:01 | Outpatient (CLI) | payer MEDICAID, SELFPAY ==
--- NOTE | 2023-12-09 16:00 | RT.EKG_ITS ---
APPROVED REPORT Exam: Resting ECG Reason for Exam: irregular heart rhythm/tachycardia Patient Location: O HR:133 bpm ECG Measurements Heart Rate 133 AXIS WI [id number] P [id number] QRSd 100 QRS 62 QT 354 T -14 QTc 527 Conclusion Atrial fibrillation...? atrial activity
== END 2023-12-09 16:02 | disposition home or self-care (01) ==
LOC: DI.KIM 16:04
PROVIDERS: PCP Student in an Organized Health Care Education/Training Program; Visit Provider Student in an Organized Health Care Education/Training Program
DX: I49.9 Cardiac arrhythmia, unspecified (principal)
CPT/HCPCS: 93010

== ENCOUNTER 2023-12-21 04:56 | Outpatient (CLI) | payer MEDICAID, SELFPAY ==
[2023-12-21 14:13] LABS: HGB 12.8 g/dL (11.2-15.7)
[2023-12-21 15:00] LABS: NT-proBNP 936 pg/mL (<300)
[2023-12-21 15:05] LABS: ALT 20 U/L (14-59); AST 16 U/L (15-37); Albumin 3.1 g/dL (3.4-5.0); Alkaline Phosphatase 120 U/L (46-116); Anion Gap 10.8 mmol/L (3-11); BUN 53 mg/dL (7-18); Bilirubin, Total 0.8 mg/dL (0.2-1.0); CO2 26.2 mmol/L (21.0-32.0); CREATININE 2.8 mg/dL (0.55-1.02); Calcium 9.1 mg/dL (8.5-10.1); Chloride 98 mmol/L (98-107); Estimated GFR 18.51 (mL/min/1.73m2); Glucose 121 mg/dL (74-106); Sodium 135 mmol/L (136-145); TSH (W/Ref FT4) 0.75 uIU/mL (0.36-3.74); Total Protein 8.3 g/dL (6.4-8.2)
[2023-12-21 15:15] LABS: Vitamin D 25 Total 34.3 ng/mL (30-100)
== END 2023-12-21 04:57 | disposition home or self-care (01) ==
LOC: LBO 04:56
PROVIDERS: PCP Student in an Organized Health Care Education/Training Program; Visit Provider Student in an Organized Health Care Education/Training Program
DX: N18.9 Chronic kidney disease, unspecified; Z86.2 Personal history of diseases of the blood and blood-forming organs and certain disorders involving the immune mechanism; I49.9 Cardiac arrhythmia, unspecified; N25.81 Secondary hyperparathyroidism of renal origin; R79.89 Other specified abnormal findings of blood chemistry
CPT/HCPCS: 36415; 80053; 82306; 83880; 84443; 85018

== ENCOUNTER 2024-01-02 10:33 | Outpatient (CLI) | payer MEDICAID, SELFPAY | END 2024-01-02 10:34 | disposition home or self-care (01) | LOC: CARDOPNVT 10:33 | PROVIDERS: PCP Student in an Organized Health Care Education/Training Program; Visit Provider Student in an Organized Health Care Education/Training Program | DX: I49.9 Cardiac arrhythmia, unspecified; R00.0 Tachycardia, unspecified | CPT/HCPCS: 93246 ==

== ENCOUNTER → 2024-01-05 03:01 | Outpatient (CLI) | payer MEDICAID, SELFPAY ==
--- NOTE | 2024-01-05 08:30 | DI.US_ITS ---
Exam(s) US CAROTID EXAM: US CAROTID CLINICAL HISTORY: old L hemisphere stroke,I63.9,cva. TECHNIQUE: Ultrasound carotids performed using grayscale, color-flow, and spectral Doppler imaging. COMPARISON: No priors for comparison. FINDINGS: RIGHT CAROTID ARTERY: Plaque: No significant plaque is seen. Velocity elevation: None. LEFT CAROTID ARTERY: Plaque: No significant plaque is seen. Velocity elevation: None. VERTEBRAL ARTERIES: Antegrade flow. Measurements: R Bulb: 46cm/s PS / 7.5cm/s ED R CCA: 55.7cm/s PS / 6.3cm/s ED R ECA: 76.2cm/s PS / 6.3cm/s ED R ICA Prox: 52.1cm/s PS / 13.5cm/s ED R ICA Mid: 38.6cm/s PS / 12.2cm/s ED R ICA Distal: 50.6cm/s PS /12.2cm/s ED R Vert: 43.4cm/s PS / 8.6cm/s ED R SVR: 0.9 R DVR: 2.2 L Bulb: 35cm/s PS / 5.8cm/s ED L CCA: PS / 7.6cm/s ED L ECA: 83.3cm/s PS / 9cm/s ED L ICA Prox: PS / ED L ICA Mid: 47.5cm/s PS / 11.2cm/s ED L ICA Distal: 62.1cm/s PS / 17.2cm/s ED L Vert: 47.4cm/s PS / 9.9cm/s ED L SVR: 1.1 L DVR: 2.3 IMPRESSION: No evidence for hemodynamically significant carotid stenosis. Criteria for Carotid Stenosis: Normal: ICA PSV <125 cm/s no plaque or intimal thickening is visible. <50% stenosis: ICA PSV <125 cm/s and plaque or intimal thickening is visible. 50-69% stenosis: ICA PSV is 125-250 cm/s and plaque is visible. >70% stenosis to near occlusion: ICA PSV >250 cm/s with visible plaque and luminal narrowing. DATA REPOSITORY:
== END ==
PROVIDERS: PCP Student in an Organized Health Care Education/Training Program; Visit Provider Psychiatry & Neurology Neurology
DX: I63.89 Other cerebral infarction (principal)
CPT/HCPCS: 93880

== ENCOUNTER 2024-01-17 11:01 | Emergency (ER) | payer MEDICAID, SELFPAY ==
[2024-01-17] VITALS (40 sets, daily range): BP systolic 119–152; BP diastolic 50–101; PULSE 71–136; RESP 13–27; TEMP 37; O2SAT 90–97
--- NOTE | 2024-01-17 10:45 | RT.EKG_ITS ---
APPROVED REPORT Exam: Resting ECG Reason for Exam: chest pain Patient Location: E HR:137 bpm ECG Measurements Heart Rate 137 AXIS WV [id number] P [id number] QRSd 84 QRS 73 QT 328 T 16 QTc 497 Conclusion Atrial fibrillation...? atrial activity Low voltage, precordial leads...precordial leads <1.0mV afib rvr, non ischemic
--- NOTE | 2024-01-17 11:00 | DI.CT_ITS ---
Exam(s) CT HEAD WO EXAM: CT HEAD WO CLINICAL HISTORY: headache acute on chronic. TECHNIQUE: Imaging Protocol: Axial computed tomography images with coronal and sagittal reformatted images were created and reviewed COMPARISON: CT CT HEAD WO from 08/23/2019 CR XR CHEST 1V IN DI DEPT from 01/17/2024 FINDINGS: There are no skull fractures. There is no fluid in the visualized paranasal sinuses. There is no evidence of intracranial hemorrhage, new mass effect, or shift of midline structures. Th ere are no extra-axial fluid collections. The ventricles are not enlarged or shifted and there is no blood within the ventricular system nor within the basal cisterns. There is a nonhemorrhagic lacunar infarct measuring approximately 9 x 7 mm in the left periventricula r white matter adjacent to bile atrium of the left lateral ventricle, unchanged from prior CT scan of 2019. No evidence of new territorial infarct. IMPRESSION: No acute intracranial findings. Left periventricular lacunar infarct appears unchanged from CT scan of 08/23/2019. If clinically indicated follow-up MRI can be performed. Report called by myself to ER physician. RADIATION DOSE DELIVERED: 784.25mGy.cm Total DLP DATA REPOSITORY: All CT scans at this facility are submitted to the National Radiology Data Registry (NRDR) Dose Index Registry (DIR) with the [employer] ([employer]). RADIATION OPTIMIZATION: All CT scans at this facility use at least one of these dose optimization te chniques: automated exposure control; mA and/or kV adjustment per patient size (includes targeted exa ms where dose is matched to clinical indication); or iterative reconstruction.
--- NOTE | 2024-01-17 11:15 | ED.GENADUL_ITS ---
Discharge Plan Disposition Patient Disposition: Home Condition: Improving Discharge Details Chief Complaint: Chest Pain Clinical Impression: Atrial fibrillation Primary Care Provider: Delilah Gil ED Provider: Saeed Craig Home Meds and New Rx's Prescriptions: No Action magnesium oxide 200 mg magnesium tablet 200 mg PO DAILY Qty: 90 3RF Rx Instructions: Take 1 tablet daily at bedtime. chlorthalidone 25 mg tablet 25 mg PO DAILY Qty: 30 1RF Rx Instructions: Replacing HCTZ as water pill acetaminophen 500 mg capsule 1,000 mg PO TID PRN (Reason: fever or pain) Qty: 180 5RF Rx Instructions: Can this be filled/delivered in a bottle with Rx? albuterol sulfate 90 mcg/actuation aerosol powdr breath activated 1 inh inhalation Q4H PRN (Reason: shortness of breath or wheezing) Qty: 1 1RF Rx Instructions: Take BID, scheduled, x2 weeks for acute bronchitis symptoms, wheezing.. PRN after 2 weeks (DME) NEEDLES to match Ozempic Rx See Rx Instructions .Route .MEDSUPPLY Qty: 15 3RF Rx Instructions: As directed to MATCH the Ozempic Rx (3 mos+ breakage) aspirin 81 mg tablet,delayed release (DR/EC) 81 mg PO HS Qty: 90 3RF Jardiance 10 mg tablet 10 mg PO DAILY Qty: 90 3RF Rx Instructions: Continue for hyperglycemia with CKD furosemide [Lasix] 20 mg tablet See Rx Instructions PO DAILY Qty: 60 1RF Hold Instructions: trial chlorthalidone Rx Instructions: 20-60mg based on edema per d/w PCP orally daily; Urgent trial for pitting edema PRN d/w PCP pantoprazole 40 mg tablet,delayed release (DR/EC) 40 mg PO DAILY Qty: 90 3RF rosuvastatin [Crestor] 20 mg tablet 20 mg PO DAILY Qty: 90 3RF pramipexole 0.25 mg tablet 0.25 mg PO QPM Qty: 90 3RF Rx Instructions: administer 2 - 3 hours before bedtime semaglutide 1 mg/dose (4 mg/3 mL) pen injector 1 mg subcut QWEEK MDD WEEKLY Qty: 9 3RF Hold Instructions: TOO EXPENSIVE?? Rx Instructions: Increased dose if tolerated; otherwise return to 0.5 and call PCP (HH support?) amlodipine 2.5 mg tablet 7.5 mg PO DAILY Qty: 90 3RF Rx Instructions: for Blood Pressure hydroxyzine HCl 50 mg tablet 50 mg PO TID Qty: 90 3RF Rx Instructions: RESTART for anxiety pramipexole 0.125 mg tablet 0.125 mg PO HS Qty: 30 5RF losartan 100 mg tablet 100 mg PO DAILY bupropion HCl [Wellbutrin XL] 150 mg tablet extended release 24 hr 450 mg PO DAILY Qty: 90 3RF cholecalciferol (vitamin D3) 50 mcg (2,000 unit) capsule See Rx Instructions .ROUTE .COMPLEX Qty: 28 4RF Dose Instruction: TAKE 1 CAPSULE BY MOUTH DAILY FOR LOW VITAMIN D. Rx Instructions: TAKE 1 CAPSULE BY MOUTH DAILY FOR LOW VITAMIN D. oxybutynin chloride 10 mg tablet extended release 24hr See Rx Instructions .ROUTE .COMPLEX Qty: 28 4RF Dose Instruction: TAKE 1 TABLET BY MOUTH AT BEDTIME TRIALING ER DOSING Rx Instructions: TAKE 1 TABLET BY MOUTH AT BEDTIME TRIALING ER DOSING Discharge Instructions Instructions: A-fib (Atrial Fibrillation) (ED) Additional Instructions: Please follow-up with your primary care physician. I would suggest discussing further cardiac evaluation and consideration for anticoagulation if you have persistent atrial fibrillation. Please return to the emergency department for any worsening symptoms HPI General Date/Time Provider Initiated Documentation: 01/17/24 11:06 . HPI Narrative: 63-year-old female history of diabetes CKD, chronic migraines presents with chest pain while she was walking today associate with mild shortness of breath, noted to be in A-fib, given nitro before arrival. Related Data Home Medications Medication Instructions Recorded Confirmed magnesium oxide 200 mg PO DAILY Low Magnesium #90 04/08/23 01/17/24 tabs acetaminophen 500 mg capsule 1,000 mg (2 x 500 mg) PO TID PRN 04/15/23 01/17/24 fever or pain #180 caps NEEDLES to match Ozempic Rx #15 ea 06/28/23 01/17/24 aspirin 81 mg tablet,delayed 81 mg PO HS #90 tabs 07/21/23 01/17/24 release empagliflozin 10 mg tablet 10 mg PO DAILY #90 tabs 07/21/23 01/17/24 (Jardiance) albuterol sulfate 90 mcg/actuation 1 inh inhalation Q4H PRN shortness 08/24/23 01/17/24 breath activated powder inhaler of breath or wheezing #1 ea furosemide 20 mg tablet (Lasix) See Rx Instructions PO DAILY #60 09/06/23 01/17/24 tabs pantoprazole 40 mg tablet,delayed 40 mg PO DAILY #90 tabs 09/16/23 01/17/24 release rosuvastatin 20 mg tablet (Crestor) 20 mg PO DAILY #90 tabs 09/16/23 01/17/24 pramipexole 0.25 mg tablet 0.25 mg PO QPM #90 tabs 11/10/23 01/17/24 semaglutide 1 mg/dose (4 mg/3 mL) 1 mg (0.75 mL) subcut QWEEK A1C > 11/11/23 01/17/24 subcutaneous pen injector 6 & high risk diabetes #9 mL amlodipine 2.5 mg tablet 7.5 mg (3 x 2.5 mg) PO DAILY #90 12/08/23 01/17/24 tabs hydroxyzine HCl 50 mg tablet 50 mg PO TID #90 tabs 12/08/23 01/17/24 pramipexole 0.125 mg tablet 0.125 mg PO HS #30 tabs 12/08/23 01/17/24 chlorthalidone 25 mg tablet 25 mg PO DAILY #30 tabs 12/19/23 01/17/24 losartan 100 mg tablet 100 mg PO DAILY 12/21/23 01/17/24 bupropion HCl 150 mg 24 hr tablet, 450 mg (3 x 150 mg) PO DAILY #90 01/05/24 01/17/24 extended release (Wellbutrin XL) tabs cholecalciferol (vitamin D3) 50 See Rx Instructions .Route 01/05/24 01/17/24 mcg (2,000 unit) capsule .COMPLEX #28 caps oxybutynin chloride 10 mg See Rx Instructions .Route 01/05/24 01/17/24 tablet,extended release 24 hr .COMPLEX #28 tabs Previous Rx's Medication Instructions Recorded magnesium oxide 200 mg PO DAILY Low Magnesium #90 04/08/23 tabs acetaminophen 500 mg capsule 1,000 mg (2 x 500 mg) PO TID PRN 04/15/23 fever or pain #180 caps NEEDLES to match Ozempic Rx #15 ea 06/28/23 aspirin 81 mg tablet,delayed 81 mg PO HS #90 tabs 07/21/23 release empagliflozin 10 mg tablet 10 mg PO DAILY #90 tabs 07/21/23 (Jardiance) albuterol sulfate 90 mcg/actuation 1 inh inhalation Q4H PRN shortness 08/24/23 breath activated powder inhaler of breath or wheezing #1 ea furosemide 20 mg tablet (Lasix) See Rx Instructions PO DAILY #60 09/06/23 tabs pantoprazole 40 mg tablet,delayed 40 mg PO DAILY #90 tabs 09/16/23 release rosuvastatin 20 mg tablet (Crestor) 20 mg PO DAILY #90 tabs 09/16/23 pramipexole 0.25 mg tablet 0.25 mg PO QPM #90 tabs 11/10/23 semaglutide 1 mg/dose (4 mg/3 mL) 1 mg (0.75 mL) subcut QWEEK A1C > 11/11/23 subcutaneous pen injector 6 & high risk diabetes #9 mL amlodipine 2.5 mg tablet 7.5 mg (3 x 2.5 mg) PO DAILY #90 12/08/23 tabs hydroxyzine HCl 50 mg tablet 50 mg PO TID #90 tabs 12/08/23 pramipexole 0.125 mg tablet 0.125 mg PO HS #30 tabs 12/08/23 chlorthalidone 25 mg tablet 25 mg PO DAILY #30 tabs 12/19/23 bupropion HCl 150 mg 24 hr tablet, 450 mg (3 x 150 mg) PO DAILY #90 01/05/24 extended release (Wellbutrin XL) tabs cholecalciferol (vitamin D3) 50 See Rx Instructions .Route 01/05/24 mcg (2,000 unit) capsule .COMPLEX #28 caps oxybutynin chloride 10 mg See Rx Instructions .Route 01/05/24 tablet,extended release 24 hr .COMPLEX #28 tabs Allergies Allergy/AdvReac Type Severity Reaction Status Date / Time Penicillins Allergy Severe Anaphylaxis Verified 01/03/24 13:28 amoxicillin Allergy Anaphylaxis Verified 01/03/24 13:28 Cillins Allergy Anaphylaxis Uncoded 01/03/24 13:28 General SHIRLEY: 3 Review of Systems Narrative: Review of Systems Constitutional: negative Eyes: negative ENT: negative Cardiovascular: Chest pain Respiratory: negative Gastrointestinal: negative : negative Musculoskeletal: negative Skin: negative Neurologic: Headache Psych: negative Exam Narrative Exam Narrative: Physical Examination General: alert, awake although fatigued HEENT: normocephalic, atraumatic; PERRL, EOM intact, conjunctiva normal; no nasal discharge; moist mucous membranes, oral and pharyngeal mucosa normal, tolerating secretions Neck: supple, trachea midline; full ROM Chest: normal to inspection Respiratory: normal respiratory effort, speaking in full sentences, clear to auscultation, no wheezing, rales or rhonchi Cardiac: regular rate, regular rhythm, S1S2 intact, no murmurs rubs or gallops GI: abdomen soft, non-tender, non-distended; no palpable mass or hepatosplenomegaly Skin: no lesions, rashes or trauma appreciated Neuro: AAOx3, normal speech, moving all extremities; no focal deficits, cranial nerves intact, no ataxia Extremities: No peripheral edema Psych: Appropriate mood and affect Medical Decision Making 63-year-old female history of diabetes CKD, migraines presents with chest pain mild shortness of breath and A-fib RVR, given nitro and route for chest pain, patient alert oriented interactive no deficits however appears somewhat somnolent; consider symptomatic A-fib versus ACS lower suspicion for PE or aortic pathology given headache and slight somnolence will obtain CT head to ass ess for intracerebral hemorrhage mass or edema, must also screen for infectious process or metabolic derangement, obtaining patient weight and blood pressure will likely load with diltiazem for rate control. 15: 38 patient's rate self corrected without intervention, resting comfortably asymptomatic. 2 troponin negative. Labs and imaging largely unremarkable. Heart rate now in the 90s appears sinus will obtain repeat EKG. Calculated patient's Chads Vasc which is 5 however her Has Bled score is 4 putting her at high risk for anticoagulation. Patient is arranging close follow-up with her [facility] physician. Encouraging cardiac evaluation and discussion for possible anticoagulation if patient has recurrent atrial fibrillation. Quality:SDOH Health Related Social Needs: No Data to Display PFSH All Active Problems (Updated 01/17/24 @ 15:43 by Saeed Craig MD) Atrial fibrillation (Chronic) Blind right eye (Acute) Migraine headache without aura (Acute) Chronic headache (Acute) Type 2 diabetes mellitus with other specified complication (Acute) Open abdominal wall wound (Acute) Irregular heart rate (Acute) Several episodes, but asymptomatic; EKG shows AFib, but Card ? atrial activity Prolapse of female pelvic organs (Acute) Mixed stress and urge urinary incontinence (Acute) Abnormal MRI of the head (Acute) Rt optic canal narrowed 2' sclerosis (stable?)([place]) & NEW hyperintense focus (white matter)(anterior rt temporal lobe) may rep demyelinating process, infection or possible neoplasm.. [ ] contrast when RF allows Left contracture of neck (Acute) pain, stiffness .. rad into shoulder blade Hyperparathyroidism due to renal insufficiency (Acute) [ ] Ca.. q 3-6 mos [ ] Ph .. q3-6 mos [ ] PTH, q 6-12 mos [ ] Vit D yearly Malnutrition compromising bodily function (Acute) Low vitamin D level (Acute) WNL 44, 07/2023 (up from January 2023), yay Weight gain (Acute) losing weight since Ozempic start! Edema (Chronic) CKD? Venous Stasis/poor circ, w/ long hours [facility] [place] [facility] [place] [place]4[facility] - 10-12-2pm) Encounter for medication review and counseling (Acute) Pt aware, but some errors noted despite recent med-rec .. [ ] CC for closer coordination w/ Calvin (I sent TWO pramipex Rx .. still only one on her b-cassy list)(and she says no more hydrox, but it's listed .. so therefore b-packed?) .. HOW DO WE TRIAL MEDS? Prediabetes (Acute) HTN (hypertension) (Chronic) per [facility] note (06/2022): Na < 2g. HCTZ 12.5mg added. Proteinuria (Acute) Goal<0.2mg/mg (2.3 on 06/30/22), per [facility] 06/2022. History of anemia due to CKD (Chronic) Goals: HGB 9.5-10.9 (per [facility], 06/2022).. Ferritin>100ng/ml; IronSAT>20%. CKD (chronic kidney disease) stage 4, GFR 15-29 ml/min (Chronic) Hx dialysis. [place] [facility]. Muñiz. Low back pain (Acute) Lumbosacral spondylosis without myelopathy (Acute) Lumbar stenosis (Acute) Restless leg syndrome (Acute) Insomnia (Acute) Medical History (Updated 01/17/24 @ 15:43 by Saeed Craig MD) Stress incontinence Coughing, sneezing, laughing .. Lifting > 10lbs (Hx incontinence symp, 06/2021) Spastic pelvic floor syndrome Mental health disorder Mixed Dx (Anx/Depr/Schiz-Affective), with poor FU form [facility] x yrs .. refil ling Rx & recommending review with [facility]. 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 [ ] UroGyn for possible surg per Dr. Park notes.. Nocturia w/ incontinence episodes Pelvic pain w/ probe/speculum.. Hx dyspareunia. Hx births. Vaginal discharge Sense of urgency w/o urination, but vag d/c! 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 Fontenot)) History of knee surgery History of hysterectomy Hx ovarian rupture H/O section 2 children History of appendectomy Family History Father Heart disease Hypertension Mother Thyroid disease Stroke Sister Cancer Sister Cancer Sister Ovarian cancer Kidney failure Social History Smoking/Tobacco Use Status: Former Tobacco Use tobacco type: cigarettes Quit Date: 07/18/20 Tobacco: How many years used: 43 Smoking risk assessment performed?: Yes Alcohol Intake: current Alcohol Intake frequency: holidays/special occasions only Drug use: Never Substance use type: does not use Adopted: No Caregiver/Support person: No Foster care: No Household members: other Details: ex- Housing: apartment Number of Children: 2 number of grandchildren: 1 Communication Needs: Hard of Hearing Education Level: middle school Do you need help understanding health information?: Always current occupation: Volunteers Pets and animals: No Current gender identity: female What is your relationship status?: How often do you get together with friends or relatives?: three or more times per week Panel score (0-1 are the most socially isolated patients): 1 What type of physical activity do you participate in: none Eva/Voodoo: Voodoo Seatbelt use: always Drive intox or ride w/intox service car driver: No Do you feel safe at home: Yes Do you feel safe in your relationship?: Yes
[2024-01-17 11:28] LABS: Abs Immature Grans 0.03 10^3/uL (0.0-0.06); Absolute Basophil Count 0.04 10^3/uL (0.0-0.2); Absolute Eosinophil Count 0.09 10^3/uL (0.0-0.7); Absolute Lymphocyte Count 1.61 10^3/uL (1.2-3.4); Absolute Monocyte Count 0.63 10^3/uL (0.1-0.8); Absolute Neutrophil Count 5.72 10^3/uL (1.2-6.7); Basophils % 0.5; Eosinophils % 1.1; HCT 39.5 % (36.0-46.0); HGB 12.8 g/dL (11.2-15.7); Immature Grans % 0.4; Lymphocytes % 19.8; MCH 27.6 pg (27.0-33.0); MCHC 32.4 % (32.0-36.0); MCV 85 fL (80-95); MPV 9.1 fL (8.0-11.0); Monocytes % 7.8; Neutrophils % 70.4; Platelet Count 241 10^3/uL (130-400); RBC 4.63 10^6/uL (3.93-5.22); RDW 13.7 % (11.7-14.6); RDW-SD 42.7 fL; WBC 8.12 10^3/uL (4.4-10.8)
--- NOTE | 2024-01-17 11:33 | DI.RAD_ITS ---
Exam(s) XR CHEST 1V IN DI DEPT EXAM: XR CHEST 1V IN DI DEPT CLINICAL HISTORY: chest pain new afib. TECHNIQUE: 2D digital imaging was performed. COMPARISON: CT CT CHEST WO from 08/21/2021 FINDINGS: Single AP portable view. Heart size is upper normal. The mediastinum is not widened. Left lung is clear. There is a subtle suggestion of a round 1 cm nodule in the right lung base just above the right hemid iaphragm. No other nodules. No pleural effusions. No pulmonary edema. No pneumothorax. IMPRESSION: Subtle 10 mm nodular density right lung base. DATA REPOSITORY: RADIATION DOSE DELIVERED:
[2024-01-17 11:42] LABS: INR 1.1 (0.9-1.1); PTT Activated 36.1 sec (23.6-32.8); Prothrombin Time 11.4 sec (9.1-11.1)
[2024-01-17 11:50] LABS: ALT 24 U/L (14-59); AST 17 U/L (15-37); Albumin 3.4 g/dL (3.4-5.0); Alkaline Phosphatase 99 U/L (46-116); Anion Gap 10.9 mmol/L (3-11); BUN 34 mg/dL (7-18); Bilirubin, Total 0.9 mg/dL (0.2-1.0); CO2 28.1 mmol/L (21.0-32.0); CREATININE 2.4 mg/dL (0.55-1.02); Chloride 100 mmol/L (98-107); Estimated GFR 22.28 (mL/min/1.73m2); Glucose 119 mg/dL (74-106); Magnesium 1.9 mg/dL (1.8-2.4); NT-proBNP 1260 pg/mL (<300); Potassium 3.9 mmol/L (3.5-5.1); Sodium 139 mmol/L (136-145); Total Protein 8.2 g/dL (6.4-8.2); Troponin I < 50 ng/L (< or =60)
[2024-01-17 13:38] LABS: Bilirubin Negative (Negative); Blood Negative (Negative); Clarity Clear (Clear); Glucose 250 mg/dL (Negative); Ketones Negative (Negative); Leukocyte Esterase Negative (Negative); Nitrite Negative (Negative); Specific Gravity 1.015 (1.005-1.025); Urobilinogen 0.2 mg/dL (Up to 0.2); pH 6.5 (5-8)
[2024-01-17 14:05] LABS: Bacteria Negative HPF (Negative); C & S Indicated? No; Casts 0-2 Hyaline LPF (Negative); Crystals Negative HPF (Negative); Epithelial Cells Few HPF (Negative); Mucus Negative (Negative); RBC Negative HPF (0-2); WBC Negative HPF (0-5)
[2024-01-17 14:35] LABS: Troponin I < 50 ng/L (< or =60)
--- NOTE | 2024-01-17 15:30 | RT.EKG_ITS ---
APPROVED REPORT Exam: Resting ECG Reason for Exam: repeat Patient Location: E HR:107 bpm ECG Measurements Heart Rate [address] [id number] P [id number] QRSd 92 QRS 59 QT 358 T 31 QTc 478 Conclusion Atrial fibrillation...? atrial activity Low voltage, precordial leads...precordial leads <1.0mV afib, normal axis, normal intervals, non ischemic
--- NOTE | 2024-02-02 23:03 | NUR.NOTE ---
Patient presented at [facility]. Record accessed to fax notes and test results to ED MD.Nursing Note:
== END 2024-01-17 16:09 | disposition home or self-care (01) ==
PROVIDERS: Emergency Provider Emergency Medicine; PCP Student in an Organized Health Care Education/Training Program
DX: I48.91 Unspecified atrial fibrillation (principal); I12.0 Hypertensive chronic kidney disease with stage 5 chronic kidney disease or end stage renal disease; E11.22 Type 2 diabetes mellitus with diabetic chronic kidney disease; N18.6 End stage renal disease; Z99.2 Dependence on renal dialysis; Z79.84 Long term (current) use of oral hypoglycemic drugs; Z79.85 Long-term (current) use of injectable non-insulin antidiabetic drugs; Z87.891 Personal history of nicotine dependence
CPT/HCPCS: 36415; 80053; 93005; 99285; 70450; 71045; 81003; 81015; 83735; 83880; 84484; 85025; 85610; 85730; 93010; 99284

== ENCOUNTER 2024-01-21 13:02 | Emergency (ER) | payer MEDICAID, SELFPAY ==
[2024-01-21 13:17] VITALS: BP 157/88; PULSE 85; RESP 15; TEMP 37.1; O2SAT 100
--- NOTE | 2024-01-21 13:35 | ED.GENADUL_ITS ---
Discharge Plan Disposition Patient Disposition: Home Discharge Details Clinical Impression: Pain and swelling of right wrist Primary Care Provider: Delilah Gil ED Provider: Lata Khan Home Meds and New Rx's Prescriptions: Continued magnesium oxide 200 mg magnesium tablet 200 mg PO DAILY Qty: 90 3RF Rx Instructions: Take 1 tablet daily at bedtime. chlorthalidone 25 mg tablet 25 mg PO DAILY Qty: 30 1RF Rx Instructions: Replacing HCTZ as water pill acetaminophen 500 mg capsule 1,000 mg PO TID PRN (Reason: fever or pain) Qty: 180 5RF Rx Instructions: Can this be filled/delivered in a bottle with Rx? albuterol sulfate 90 mcg/actuation aerosol powdr breath activated 1 inh inhalation Q4H PRN (Reason: shortness of breath or wheezing) Qty: 1 1RF Rx Instructions: Take BID, scheduled, x2 weeks for acute bronchitis symptoms, wheezing.. PRN after 2 weeks (DME) NEEDLES to match Ozempic Rx See Rx Instructions .Route .MEDSUPPLY Qty: 15 3RF Rx Instructions: As directed to MATCH the Ozempic Rx (3 mos+ breakage) aspirin 81 mg tablet,delayed release (DR/EC) 81 mg PO HS Qty: 90 3RF Jardiance 10 mg tablet 10 mg PO DAILY Qty: 90 3RF Rx Instructions: Continue for hyperglycemia with CKD furosemide [Lasix] 20 mg tablet See Rx Instructions PO DAILY Qty: 60 1RF Hold Instructions: trial chlorthalidone Rx Instructions: 20-60mg based on edema per d/w PCP orally daily; Urgent trial for pitting edema PRN d/w PCP pantoprazole 40 mg tablet,delayed release (DR/EC) 40 mg PO DAILY Qty: 90 3RF rosuvastatin [Crestor] 20 mg tablet 20 mg PO DAILY Qty: 90 3RF pramipexole 0.25 mg tablet 0.25 mg PO QPM Qty: 90 3RF Rx Instructions: administer 2 - 3 hours before bedtime semaglutide 1 mg/dose (4 mg/3 mL) pen injector 1 mg subcut QWEEK MDD WEEKLY Qty: 9 3RF Hold Instructions: TOO EXPENSIVE?? Rx Instructions: Increased dose if tolerated; otherwise return to 0.5 and call PCP (HH support?) amlodipine 2.5 mg tablet 7.5 mg PO DAILY Qty: 90 3RF Rx Instructions: for Blood Pressure hydroxyzine HCl 50 mg tablet 50 mg PO TID Qty: 90 3RF Rx Instructions: RESTART for anxiety pramipexole 0.125 mg tablet 0.125 mg PO HS Qty: 30 5RF losartan 100 mg tablet 100 mg PO DAILY bupropion HCl [Wellbutrin XL] 150 mg tablet extended release 24 hr 450 mg PO DAILY Qty: 90 3RF cholecalciferol (vitamin D3) 50 mcg (2,000 unit) capsule See Rx Instructions .ROUTE .COMPLEX Qty: 28 4RF Dose Instruction: TAKE 1 CAPSULE BY MOUTH DAILY FOR LOW VITAMIN D. Rx Instructions: TAKE 1 CAPSULE BY MOUTH DAILY FOR LOW VITAMIN D. oxybutynin chloride 10 mg tablet extended release 24hr See Rx Instructions .ROUTE .COMPLEX Qty: 28 4RF Dose Instruction: TAKE 1 TABLET BY MOUTH AT BEDTIME TRIALING ER DOSING Rx Instructions: TAKE 1 TABLET BY MOUTH AT BEDTIME TRIALING ER DOSING Discharge Instructions Additional Instructions: Please call the orthopedics office first thing Tuesday to schedule follow-up appointment for further evaluation into the swelling on your wrist. Return to emergency care if you develop numbness in your hand, redness or rash over the nodule, or if you are very concerned and need to be rechecked again immediately. Referrals: [facility] [Provider Group] HPI General Date/Time Provider Initiated Documentation: 01/21/24 13:17 . HPI Narrative: Lakisha is a 63-year-old female with history of T2DM, A-fib, hyperparathyroidism, CKD who presents to the emergency department for evaluation of painful swelling to the right wrist. She reports this occurred 3 weeks ago, does not think she had any associated trauma, but does note that she sleepwalks so often wakes up doing things that she did not expect to be dealing. She denies distal numbness/tingling, hand weakness, pain with movement of fingers, elbow injury, other injuries. No previous injury to this wrist, she does have a scar from dialysis. Denies other injuries. Says she has been feeling overall well, denies associated fever/chills or general malaise. She has tried heat, ice, and Tylenol with no improvement in symptoms. Related Data Home Medications Medication Instructions Recorded Confirmed magnesium oxide 200 mg PO DAILY Low Magnesium #90 04/08/23 01/21/24 tabs acetaminophen 500 mg capsule 1,000 mg (2 x 500 mg) PO TID PRN 04/15/23 01/21/24 fever or pain #180 caps NEEDLES to match Ozempic Rx #15 ea 06/28/23 01/21/24 aspirin 81 mg tablet,delayed 81 mg PO HS #90 tabs 07/21/23 01/21/24 release empagliflozin 10 mg tablet 10 mg PO DAILY #90 tabs 07/21/23 01/21/24 (Jardiance) albuterol sulfate 90 mcg/actuation 1 inh inhalation Q4H PRN shortness 08/24/23 01/21/24 breath activated powder inhaler of breath or wheezing #1 ea furosemide 20 mg tablet (Lasix) See Rx Instructions PO DAILY #60 09/06/23 01/21/24 tabs pantoprazole 40 mg tablet,delayed 40 mg PO DAILY #90 tabs 09/16/23 01/21/24 release rosuvastatin 20 mg tablet (Crestor) 20 mg PO DAILY #90 tabs 09/16/23 01/21/24 pramipexole 0.25 mg tablet 0.25 mg PO QPM #90 tabs 11/10/23 01/21/24 semaglutide 1 mg/dose (4 mg/3 mL) 1 mg (0.75 mL) subcut QWEEK A1C > 11/11/23 01/21/24 subcutaneous pen injector 6 & high risk diabetes #9 mL amlodipine 2.5 mg tablet 7.5 mg (3 x 2.5 mg) PO DAILY #90 12/08/23 01/21/24 tabs hydroxyzine HCl 50 mg tablet 50 mg PO TID #90 tabs 12/08/23 01/21/24 pramipexole 0.125 mg tablet 0.125 mg PO HS #30 tabs 12/08/23 01/21/24 chlorthalidone 25 mg tablet 25 mg PO DAILY #30 tabs 12/19/23 01/21/24 losartan 100 mg tablet 100 mg PO DAILY 12/21/23 01/21/24 bupropion HCl 150 mg 24 hr tablet, 450 mg (3 x 150 mg) PO DAILY #90 01/05/24 01/21/24 extended release (Wellbutrin XL) tabs cholecalciferol (vitamin D3) 50 See Rx Instructions .Route 01/05/24 01/21/24 mcg (2,000 unit) capsule .COMPLEX #28 caps oxybutynin chloride 10 mg See Rx Instructions .Route 01/05/24 01/21/24 tablet,extended release 24 hr .COMPLEX #28 tabs Previous Rx's Medication Instructions Recorded magnesium oxide 200 mg PO DAILY Low Magnesium #90 04/08/23 tabs acetaminophen 500 mg capsule 1,000 mg (2 x 500 mg) PO TID PRN 04/15/23 fever or pain #180 caps NEEDLES to match Ozempic Rx #15 ea 06/28/23 aspirin 81 mg tablet,delayed 81 mg PO HS #90 tabs 07/21/23 release empagliflozin 10 mg tablet 10 mg PO DAILY #90 tabs 07/21/23 (Jardiance) albuterol sulfate 90 mcg/actuation 1 inh inhalation Q4H PRN shortness 08/24/23 breath activated powder inhaler of breath or wheezing #1 ea furosemide 20 mg tablet (Lasix) See Rx Instructions PO DAILY #60 09/06/23 tabs pantoprazole 40 mg tablet,delayed 40 mg PO DAILY #90 tabs 09/16/23 release rosuvastatin 20 mg tablet (Crestor) 20 mg PO DAILY #90 tabs 09/16/23 pramipexole 0.25 mg tablet 0.25 mg PO QPM #90 tabs 11/10/23 semaglutide 1 mg/dose (4 mg/3 mL) 1 mg (0.75 mL) subcut QWEEK A1C > 11/11/23 subcutaneous pen injector 6 & high risk diabetes #9 mL amlodipine 2.5 mg tablet 7.5 mg (3 x 2.5 mg) PO DAILY #90 12/08/23 tabs hydroxyzine HCl 50 mg tablet 50 mg PO TID #90 tabs 12/08/23 pramipexole 0.125 mg tablet 0.125 mg PO HS #30 tabs 12/08/23 chlorthalidone 25 mg tablet 25 mg PO DAILY #30 tabs 12/19/23 bupropion HCl 150 mg 24 hr tablet, 450 mg (3 x 150 mg) PO DAILY #90 01/05/24 extended release (Wellbutrin XL) tabs cholecalciferol (vitamin D3) 50 See Rx Instructions .Route 01/05/24 mcg (2,000 unit) capsule .COMPLEX #28 caps oxybutynin chloride 10 mg See Rx Instructions .Route 01/05/24 tablet,extended release 24 hr .COMPLEX #28 tabs Allergies Allergy/AdvReac Type Severity Reaction Status Date / Time Penicillins Allergy Severe Anaphylaxis Verified 01/21/24 13:49 amoxicillin Allergy Anaphylaxis Verified 01/21/24 13:49 Cillins Allergy Anaphylaxis Uncoded 01/21/24 13:49 General Stated Complaint: Orthopedic SHIRLEY: 4 Review of Systems Narrative: see HPI Exam Const General: cooperative, healthy appearing, comfortable and no acute distress Extrem Right upper extremity: full ROM, normal capillary refill, wrist Details: swelling Location: other (radial aspect of wrist, tender to palpation.), normal ROM, normal vascular exam, radial pulse present and ulnar pulse present; no unusual warmth, no abrasions, no lacerations, no ecchymosis, no crepitus and no foreign body and hand Details: normal to inspection, normal capillary refill, neuromotor exam normal and normal ROM of fingers; no edema and joint enlargement noted Course Vital Signs Vital signs: Vital Signs Temperature 37.1 C 01/21/24 13:17 Pulse 85 01/21/24 13:17 Respiratory Rate 15 01/21/24 13:17 Blood Pressure 157/88 H 01/21/24 13:17 Pulse Oximetry 100 01/21/24 13:17 Temperature 37.1 C 01/21/24 13:17 Temperature Source Tympanic 01/21/24 13:17 Pulse 85 01/21/24 13:17 Respiratory Rate 15 01/21/24 13:17 Blood Pressure 157/88 H 01/21/24 13:17 Blood Pressure Position Sitting 01/21/24 13:17 Pulse Oximetry 100 01/21/24 13:17 Oxygen Delivery Method Room Air 01/21/24 13:17 Oxygen Flow Rate 0 01/21/24 13:17 Pain Level 8 01/21/24 13:17 Medical Decision Making Lakisha is a 63-year-old female with history of T2DM, A-fib, hyperparathyroidism, CKD who presents to the emergency department for evaluation of painful swelling to the right wrist. She reports this occurred 3 weeks ago, does not think she had any associated trauma, but does note that she sleepwalks so often wakes up doing things that she did not expect to be dealing. She denies distal numbness/tingling, hand weakness, pain with movement of fingers, elbow injury, other injuries. No previous injury to this wrist, she does have a scar from dialysis. Denies other injuries. Says she has been feeling overall well, denies associated fever/chills or general malaise. She has tried heat, ice, and Tylenol with no improvement in symptoms. Physical exam remarkable for approximately 2 cm x 3 cm firm swelling to the radial aspect of the right wrist. No overlying abrasions/lesions or erythema/warmth . No obvious bony deformity. Full range of motion to wrist, hand, and elbow. Sensation intact to fingers, full strength to fingers. DDx includes but is not limited to ganglion cyst, epidermoid cyst, lipoma, bony abnormality or synovial neoplasm. No red flags concerning for infectious etiology. X-ray remarkable for heterotrophic ossification or calcified granuloma in the radial ventral aspect of the distal forearm, no bony abnormalities noted. Reviewed discharge instructions with patient, including follow-up with orthopedics for management. She is agreeable with plan of care. Quality:[facility] Related Social Needs: No Data to Display PFSH All Active Problems (Updated 01/21/24 @ 14:53 by Lata Baez) Pain and swelling of right wrist (Acute) Abdominal wall anomaly (Acute) Atrial fibrillation (Chronic) Blind right eye (Acute) Migraine headache without aura (Acute) Chronic headache (Acute) Type 2 diabetes mellitus with other specified complication (Acute) Open abdominal wall wound (Acute) Irregular heart rate (Acute) Several episodes, but asymptomatic; EKG shows AFib, but Card ? atrial activity Prolapse of female pelvic organs (Acute) Mixed stress and urge urinary incontinence (Acute) Abnormal MRI of the head (Acute) Rt optic canal narrowed 2' sclerosis (stable?)([place]) & NEW hyperintense focus (white matter)(anterior rt temporal lobe) may rep demyelinating process, infection or possible neoplasm.. [ ] contrast when RF allows Left contracture of neck (Acute) pain, stiffness .. rad into shoulder blade Hyperparathyroidism due to renal insufficiency (Acute) [ ] Ca.. q 3-6 mos [ ] Ph .. q3-6 mos [ ] PTH, q 6-12 mos [ ] Vit D yearly Malnutrition compromising bodily function (Acute) Low vitamin D level (Acute) WNL 44, 07/2023 (up from January 2023), yay Weight gain (Acute) losing weight since Ozempic start! Edema (Chronic) CKD? 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 [ ] CC for closer coordination w/ [place] (I sent TWO pramipex Rx .. still only one on her b-cassy list)(and she says no more hydrox, but it's listed .. so therefore b-packed?) .. HOW DO WE TRIAL MEDS? Prediabetes (Acute) HTN (hypertension) (Chronic) per [facility] note (06/2022): Na < 2g. HCTZ 12.5mg added. Proteinuria (Acute) Goal<0.2mg/mg (2.3 on 06/30/22), per [facility] 06/2022. History of anemia due to CKD (Chronic) Goals: HGB 9.5-10.9 (per [facility], 06/2022).. Ferritin>100ng/ml; IronSAT>20%. CKD (chronic kidney disease) stage 4, GFR 15-29 ml/min (Chronic) Hx dialysis. Follows with [facility] [place], Dr. Muñiz. Low back pain (Acute) Lumbosacral spondylosis without myelopathy (Acute) Lumbar stenosis (Acute) Restless leg syndrome (Acute) Insomnia (Acute) Medical History (Updated 01/21/24 @ 14:53 by Lata Baez) Stress incontinence Coughing, sneezing, laughing .. Lifting > 10lbs (Hx incontinence symp, 06/2021) Spastic pelvic floor syndrome Mental health disorder Mixed Dx (Anx/Depr/Schiz-Affective), with poor FU form [facility] x yrs .. refilling Rx & [facility]. 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 [ ] UroGyn for possible surg per Dr. Park notes.. Nocturia w/ incontinence episodes Pelvic pain w/ probe/speculum.. Hx dyspareunia. Hx births. Vaginal discharge Sense of urgency w/o urination, but vag d/c! 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 Fontenot)) History of knee surgery History of hysterectomy Hx ovarian rupture H/O section 2 children History of appendectomy Family History Father Heart disease Hypertension Mother Thyroid disease Stroke Sister Cancer Sister Cancer Sister Ovarian cancer Kidney failure Social History Smoking/Tobacco Use Status: Former Tobacco Use tobacco type: cigarettes Quit Date: 07/18/20 Tobacco: How many years used: 43 Smoking risk assessment performed?: Yes Alcohol Intake: current Alcohol Intake frequency: holidays/special occasions only Drug use: Never Substance use type: does not use Adopted: No Caregiver/Support person: No Foster care: No Household members: other Details: ex- Housing: apartment Number of Children: 2 number of grandchildren: 1 Communication Needs: Hard of Hearing Education Level: middle school Do you need help understanding health information?: Always current occupation: Volunteers Pets and animals: No Current gender identity: female What is your relationship status?: How often do you get together with friends or relatives?: three or more times per week Panel score (0-1 are the most socially isolated patients): 1 What type of physical activity do you participate in: none Eva/Confucianist: Moravian Seatbelt use: always Drive intox or ride w/intox 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
--- NOTE | 2024-01-21 14:06 | DI.RAD_ITS ---
Exam(s) XR WRIST RT COMPLETE EXAM: XR WRIST RT COMPLETE CLINICAL HISTORY: radial swelling, pain. TECHNIQUE: 2D digital imaging was performed. COMPARISON: No exams were available for comparison FINDINGS: 3 views No evidence of fracture or dislocation nor significant ulnar variance. No significant osseous lesion s. There is a peripherally calcified abnormal nodular density in the subcutaneous region over the distal -volar lateral aspect of the forearm, this measuring 9 by 8 mm. IMPRESSION: No acute osseous findings in the wrist. Abnormal 9 x 8 millimeter partially calcified nodular lesion in the deep subcutaneous tissues over th e volar lateral aspect of the forearm. DATA REPOSITORY: RADIATION DOSE DELIVERED:
--- NOTE | 2024-01-21 14:42 | DI.VRAD_ITS ---
PROCEDURE INFORMATION: Exam: XR Right Wrist Exam date and time: 01/21/2024 2:02 PM Age: 63 years old Clinical indication: Other: Radial swelling, pain; Additional info: No trauma. TECHNIQUE: Imaging protocol: Radiologic exam of the right wrist. Views: 3 or more views. COMPARISON: CR XR THUMB RT 05/15/2021 7:45 PM FINDINGS: Bones/joints: Normal. Soft tissues: There is heterotrophic ossification or calcified granuloma in radial ventral aspect of the distal forearm IMPRESSION: No acute findings. Dictated and Authenticated by: Timo Roger MD. Ordering:KEISHA Guido MD
[2024-01-21 15:15] VITALS: BP 157/88; PULSE 88; RESP 14; O2SAT 97
== END 2024-01-21 15:17 | disposition home or self-care (01) ==
PROVIDERS: Emergency Provider Nurse Practitioner Family; PCP Student in an Organized Health Care Education/Training Program
DX: M25.531 Pain in right wrist (principal); I12.9 Hypertensive chronic kidney disease with stage 1 through stage 4 chronic kidney disease, or unspecified chronic kidney disease; E11.22 Type 2 diabetes mellitus with diabetic chronic kidney disease; N18.4 Chronic kidney disease, stage 4 (severe); I48.91 Unspecified atrial fibrillation; E21.3 Hyperparathyroidism, unspecified; Z79.84 Long term (current) use of oral hypoglycemic drugs; Z79.85 Long-term (current) use of injectable non-insulin antidiabetic drugs; Z87.891 Personal history of nicotine dependence; Z79.82 Long term (current) use of aspirin
CPT/HCPCS: 99283; 73110

== ENCOUNTER 2024-01-26 08:28 | Outpatient (CLI) | payer MEDICAID, SELFPAY ==
--- NOTE | 2024-01-26 09:07 | W.CARDEVENT ---
Date of service: 01/26/24 Time of Service: 09:07 Cardiac Event Recorder Referring Provider:: Delilah Gil Indications:: Hypertension and tachycardia Cardiac Event Note: This is a cardiac event monitor. Patient was monitored for 12 days and 18 hours. Rhythm throughout was atrial fibrillation. Average heart rate was 115. Minimum was 64, maximum 167 There were rare ventricular ectopic beats. No patient symptoms were reported
== END 2024-01-26 08:29 | disposition home or self-care (01) ==
LOC: CARDOPNVT 08:28
PROVIDERS: PCP Student in an Organized Health Care Education/Training Program; Visit Provider Internal Medicine Cardiovascular Disease
DX: I48.91 Unspecified atrial fibrillation (principal); R00.0 Tachycardia, unspecified; I10 Essential (primary) hypertension

== ENCOUNTER → 2024-02-21 00:13 | Outpatient (CLI) | payer MEDICAID, SELFPAY ==
--- NOTE | 2024-02-21 13:00 | DI.MRI_ITS ---
Exam(s) MR BRAIN WO EXAM: MR BRAIN WO CLINICAL HISTORY: R temporal lobe gliosis; unable to get contrast,h/o abnl brain mri,r90.89 TECHNIQUE: Multiplanar multisequence MRI of the brain was performed. COMPARISON: MR MR BRAIN ORBIT FACE NECK WO from 09/16/[address] HEAD WO from 01/17/2024 FINDINGS: The examination is limited due to patient motion artifact. VENTRICLES AND EXTRA AXIAL SPACES: Normal in size and morphology for the patient's age. MIDLINE SHIFT: None. CEREBRAL PARENCHYMA: No focus of restricted diffusion to suggest acute infarct. No space-occupying le murray identified. There is an old lacunar infarct seen adjacent to the atria of the left lateral ventr icle. There are stable areas of hyperintense T2 signal in the right temporal lobe. HEMORRHAGE: None. BRAINSTEM/CEREBELLUM: Normal. CALVARIUM: There is unchanged sclerotic enlargement of the right sphenoid bone displacing the right l ateral rectus muscle. This is unchanged. Note is again made of a well-circumscribed 1.5 cm cyst in the midline in the anterior maxilla most consistent with a nasal palatine duct cyst. This is an inci dental finding. VISUALIZED PARANASAL SINUSES/MASTOIDS:Clear. [place] OF MAX: Normal flow void. PITUITARY GLAND: Unremarkable. OTHER FINDINGS: None. IMPRESSION: 1. There is patient motion artifact limiting the examination. 2. Overall stable appearance of the brain since 09/16/2023. No acute abnormality is identified at th is time. DATA REPOSITORY:
== END ==
PROVIDERS: PCP Student in an Organized Health Care Education/Training Program; Visit Provider Psychiatry & Neurology Neurology
DX: R90.89 Other abnormal findings on diagnostic imaging of central nervous system (principal)
CPT/HCPCS: 70551

== ENCOUNTER 2024-02-21 08:36 | Outpatient (CLI) | payer MEDICAID, SELFPAY ==
--- NOTE | 2024-02-21 08:30 | RT.EKG_ITS ---
APPROVED REPORT Exam: Resting ECG Reason for Exam: irregular heart rate Patient Location: O HR:116 bpm ECG Measurements Heart Rate 116 [place] [place] [id number] P [id number] QRSd 89 QRS 9 QT 362 T 14 QTc 503 Conclusion Atrial fibrillation...V-rate 82-134, irreg A-activity PVC Otherwise unremarkable
== END 2024-02-21 08:37 | disposition home or self-care (01) ==
LOC: DI.CARD 08:37
PROVIDERS: PCP Student in an Organized Health Care Education/Training Program; Visit Provider Internal Medicine Cardiovascular Disease
DX: I49.9 Cardiac arrhythmia, unspecified (principal)
CPT/HCPCS: 93010

== ENCOUNTER → 2024-03-05 03:10 | Outpatient (CLI) | payer MEDICAID, SELFPAY ==
--- NOTE | 2024-03-05 08:15 | DI.MRI_ITS ---
Exam(s) MR UPPER JOINT RT WO EXAM: MR UPPER JOINT RT WO CLINICAL HISTORY: rt wrist pain,m25.531,r22.31,mass rt wrist. TECHNIQUE: Multiplanar multisequence MRI was performed. COMPARISON: None. FINDINGS: Interpretation is somewhat limited by the amount of motion artifact on all sequences BONES: There is no evidence of fracture nor avascular necrosis.. However, there is some increased in traosseous signal in the radial styloid which is most probably reactive secondary to the adjacent sig nificant tendon abnormalities. There are no osseous erosions. No significant ulnar variance. LIGAMENTS: There is no widening of the scapholunate distance and the scapholunate ligament appears in tact. Lunotriquetral ligament appears intact. JOINTS: Mild degenerative changes are noted at the 1st carpometacarpal joint. There are no para-nathanael cular ganglions evident. TENDONS: Flexors: Unremarkable. No tears nor tenosynovitis. Extensor compartment: There is significant signal abnormality and fluid in the 1st extensor compartme nt consistent with tenosynovitis and there is thickening and hyperintensity in the abductor pollicis longus tendon evident from the level of the radial styloid to the base of the thumb metacarpal. Cons istent with tendinitis and partial tearing. The extensor pollicis brevis also exhibits abnormal sign al. In the 2nd extensor compartment there is mild tenosynovitis but no tendon tears. On the medial aspect of the wrist there is intrasubstance signal abnormality but no tear of the exten sor carpi ulnaris tendon at the level the ulnar styloid IMPRESSION: The main finding here is severe de Quervain tenosynovitis in the 1st extensor compartment with hypert rophic lung to dural tearing of the distal abductor pollicis longus tendon as well as some increased signal in the extensor pollicis brevis. There is intra-articular edema in the adjacent radial styloid which is most probably reactive seconda ry to the adjacent tendon pathology. There is intrasubstance signal abnormality/tendinosis of the extensor carpi ulnaris tendon on the med ial aspect of the wrist. DATA REPOSITORY:
--- NOTE | 2024-03-05 18:37 | DI.VRAD_ITS ---
PROCEDURE INFORMATION: Exam: MR Right Upper Extremity Joint Without Contrast; Wrist Exam date and time: 03/05/2024 2:55 PM Age: 63 years old Clinical indication: Pain; Wrist; Right TECHNIQUE: Imaging protocol: Magnetic resonance imaging of the right upper extremity without contrast. Exam focused on the wrist. COMPARISON: CR XR WRIST RT COMPLETE 01/21/2024 2:02 PM FINDINGS: Bones/joints: No fractures are identified. There is subcortical T2/PD hyperintensity in the radial styloid which is felt to be reactive in nature due to proximity to the adjacent tendon abnormalities. No acute articular erosions. Small chronic articular erosion at the medial proximal articular margin of the lunate possibly osteoarthritic in nature versus remote ulnolunate impaction injury. Minor osteoarthritic changes in the 1st CMC joint. Scapholunate ligament: Scapholunate ligament appears intact. Lunotriquetral ligament: Lunotriquetral ligament appears intact. Triangular fibrocartilage complex: Triangular fibrocartilage appears intact. Flexor compartment tendons: Unremarkable. No tear. Extensor compartment tendons: Moderate T2/PD hyperintense stranding and small volume fluid in the 1st extensor compartment consistent with tenosynovitis, with severe thickening and interstitial T2/PD hyperintensity in the distal abductor pollicis longus tendon from the level of the radial styloid to the 1st metacarpal base, consistent with hypertrophic partial tear. Extensor pollicis brevis appears intact but inflamed. Excessive T2 hyperintensity in the 2nd extensor compartment as well consistent with mild tenosynovitis involving extensor carpi radialis longus and brevis, without discrete tendon tear. Linear intrasubstance PD hyperintensity in the 6th extensor compartment ECU tendon at the level of the ulnar styloid consistent with short segment partial-thickness split tear, with minor surrounding tenosynovitis. The other extensor compartments are unremarkable. Nerves: Visualized median nerve segments are unremarkable. Visualized ulnar nerve segments are unremarkable. Visualized radial nerve segments are unremarkable. Soft tissues: Soft tissue swelling in the lateral wrist Vasculature: Rounded 5 mm structure continuous with the subcutaneous superficial veins in the volar lateral distal forearm consistent with short segment varix/venous aneurysm. Other findings: The carpal tunnel is unremarkable. IMPRESSION: 1. De Quervain tenosynovitis in the 1st extensor compartment with hypertrophic longitudinal tear involving the distal APL tendon. EPB is inflamed but intact. 2. Additional mild tenosynovitis in the 2nd extensor compartment without tendon tear. 3. Mild reactive subarticular edema in the radial styloid without fracture. If there is clinical suspicion for infectious tenosynovitis, mild osteomyelitis would be a possibility. 4. Likely chronic short segment intrasubstance partial-thickness split tear versus tendinosis of extensor carpi ulnaris tendon. 5. 5 mm varix/venous aneurysm in the volar lateral distal forearm subcutaneous tissues. Dictated and Authenticated by: Shamar Saunders MD. Ordering:HAILY Lozano MD
== END ==
PROVIDERS: PCP Student in an Organized Health Care Education/Training Program; Visit Provider Student in an Organized Health Care Education/Training Program
DX: M65.4 Radial styloid tenosynovitis [de Quervain] (principal)
CPT/HCPCS: 73221

== ENCOUNTER 2024-03-07 13:54 | Observation (INO) | payer MEDICAID, SELFPAY ==
[2024-03-07] VITALS (27 sets, daily range): BP systolic 111–159; BP diastolic 37–119; PULSE 74–139; RESP 15–27; TEMP 36.2–36.5; O2SAT 88–98
--- NOTE | 2024-03-07 13:45 | RT.EKG_ITS ---
APPROVED REPORT Exam: Resting ECG Reason for Exam: chest pain Patient Location: E HR:93 bpm ECG Measurements Heart Rate 93 AXIS HI [id number] P [id number] QRSd 91 QRS 20 QT 359 T 19 QTc 447 Conclusion Atrial fibrillation...V-rate 72-102, irreg A-activity Low voltage, precordial leads...precordial leads <1.0mV Physician: no stemi, afib
--- NOTE | 2024-03-07 13:57 | W.ED.GENAD ---
Discharge Plan Discharge Details Primary Care Provider: Delilah Gil ED Provider: Shamar Nichols Home Meds and New Rx's Prescriptions: No Action acetaminophen 500 mg capsule 1,000 mg PO TID PRN (Reason: fever or pain) Qty: 180 5RF Rx Instructions: Can this be filled/delivered in a bottle with Rx? albuterol sulfate 90 mcg/actuation aerosol powdr breath activated 1 inh inhalation Q4H PRN (Reason: shortness of breath or wheezing) Qty: 1 1RF Rx Instructions: Take BID, scheduled, x2 weeks for acute bronchitis symptoms, wheezing.. PRN after 2 weeks (DME) NEEDLES to match Ozempic Rx See Rx Instructions .Route .MEDSUPPLY Qty: 15 3RF Rx Instructions: As directed to MATCH the Ozempic Rx (3 mos+ breakage) aspirin 81 mg tablet,delayed release (DR/EC) 81 mg PO HS Qty: 90 3RF Jardiance 10 mg tablet 10 mg PO DAILY Qty: 90 3RF Rx Instructions: Continue for hyperglycemia with CKD furosemide [Lasix] 20 mg tablet See Rx Instructions PO DAILY Qty: 60 1RF Hold Instructions: trial chlorthalidone Rx Instructions: 20-60mg based on edema per d/w PCP orally daily; Urgent trial for pitting edema PRN d/w PCP pantoprazole 40 mg tablet,delayed release (DR/EC) 40 mg PO DAILY Qty: 90 3RF rosuvastatin [Crestor] 20 mg tablet 20 mg PO DAILY Qty: 90 3RF pramipexole 0.25 mg tablet 0.25 mg PO QPM Qty: 90 3RF Rx Instructions: administer 2 - 3 hours before bedtime semaglutide 1 mg/dose (4 mg/3 mL) pen injector 1 mg subcut QWEEK MDD WEEKLY Qty: 9 3RF Hold Instructions: TOO EXPENSIVE?? Rx Instructions: Increased dose if tolerated; otherwise return to 0.5 and call PCP (HH support?) amlodipine 2.5 mg tablet 7.5 mg PO DAILY Qty: 90 3RF Rx Instructions: for Blood Pressure hydroxyzine HCl 50 mg tablet 50 mg PO TID Qty: 90 3RF Rx Instructions: RESTART for anxiety pramipexole 0.125 mg tablet 0.125 mg PO HS Qty: 30 5RF losartan 100 mg tablet 100 mg PO DAILY bupropion HCl [Wellbutrin XL] 150 mg tablet extended release 24 hr 450 mg PO DAILY Qty: 90 3RF cholecalciferol (vitamin D3) 50 mcg (2,000 unit) capsule See Rx Instructions .ROUTE .COMPLEX Qty: 28 4RF Dose Instruction: TAKE 1 CAPSULE BY MOUTH DAILY FOR LOW VITAMIN D. Rx Instructions: TAKE 1 CAPSULE BY MOUTH DAILY FOR LOW VITAMIN D. oxybutynin chloride 10 mg tablet extended release 24hr See Rx Instructions .ROUTE .COMPLEX Qty: 28 4RF Dose Instruction: TAKE 1 TABLET BY MOUTH AT BEDTIME TRIALING ER DOSING Rx Instructions: TAKE 1 TABLET BY MOUTH AT BEDTIME TRIALING ER DOSING chlorthalidone 25 mg tablet 25 mg PO DAILY Qty: 30 6RF Rx Instructions: Replacing HCTZ as water pill magnesium oxide 200 mg magnesium tablet 200 mg PO DAILY Qty: 30 6RF Rx Instructions: Take 1 tablet daily at bedtime. HPI General Date/Time Provider Initiated Documentation: 03/07/24 13:57. HPI Narrative: MDM Chronic conditions affecting the care of the patient: [] History obtained from an outside historian: [] External record review: [] [Diagnostic interpretations performed by me: Per my independent interpretation chest x-ray shows: Per my independent interpretation EKG shows: ]Medications: [] Social determinants of health affecting disposition: [] Management discussed with: [] Treatment/interventions considered: [] Response to therapies provided: [] HPI [ ] Exam General: Well-appearing in no acute distress speaking in complete sentences. Head: Normocephalic, atraumatic. Eye:[Pupils equal, round reactive to light.] Extraocular eye movements intact. No conjunctival injection. No scleral icterus. Ear, nose, mouth, throat: Grossly normal inspection. Normal voice, handling secretions normally. Neck: Trachea midline. Cardiovascular: Well-perfused distal extremities. Respiratory: Nonlabored respiration. Gastrointestinal: Nondistended abdomen. Musculoskeletal: No edema. Moving all 4 extremities spontaneously. Skin: Normal for age and race, grossly normal temperature and turgor. No acute rash. Neurologic: Alert and appropriate, no apparent acute deficits. Psychiatric: Mood and manner are appropriate. Grooming and personal hygiene are appropriate. Related Data Home Medications Medication Instructions Recorded Confirmed acetaminophen 500 mg capsule 1,000 mg (2 x 500 mg) PO TID PRN 04/15/23 02/21/24 fever or pain #180 caps NEEDLES to match Ozempic Rx #15 ea 06/28/23 02/21/24 aspirin 81 mg tablet,delayed 81 mg PO HS #90 tabs 07/21/23 02/21/24 release empagliflozin 10 mg tablet 10 mg PO DAILY #90 tabs 07/21/23 02/21/24 (Jardiance) albuterol sulfate 90 mcg/actuation 1 inh inhalation Q4H PRN shortness 08/24/23 02/21/24 breath activated powder inhaler of breath or wheezing #1 ea furosemide 20 mg tablet (Lasix) See Rx Instructions PO DAILY #60 09/06/23 02/21/24 tabs pantoprazole 40 mg tablet,delayed 40 mg PO DAILY #90 tabs 09/16/23 02/21/24 release rosuvastatin 20 mg tablet (Crestor) 20 mg PO DAILY #90 tabs 09/16/23 02/21/24 pramipexole 0.25 mg tablet 0.25 mg PO QPM #90 tabs 11/10/23 02/21/24 semaglutide 1 mg/dose (4 mg/3 mL) 1 mg (0.75 mL) subcut QWEEK A1C > 11/11/23 02/21/24 subcutaneous pen injector 6 & high risk diabetes #9 mL amlodipine 2.5 mg tablet 7.5 mg (3 x 2.5 mg) PO DAILY #90 12/08/23 02/21/24 tabs hydroxyzine HCl 50 mg tablet 50 mg PO TID #90 tabs 12/08/23 02/21/24 pramipexole 0.125 mg tablet 0.125 mg PO HS #30 tabs 12/08/23 02/21/24 losartan 100 mg tablet 100 mg PO DAILY 12/21/23 02/21/24 bupropion HCl 150 mg 24 hr tablet, 450 mg (3 x 150 mg) PO DAILY #90 01/05/24 02/21/24 extended release (Wellbutrin XL) tabs cholecalciferol (vitamin D3) 50 See Rx Instructions .Route 01/05/24 02/21/24 mcg (2,000 unit) capsule .COMPLEX #28 caps oxybutynin chloride 10 mg See Rx Instructions .Route 01/05/24 02/21/24 tablet,extended release 24 hr .COMPLEX #28 tabs chlorthalidone 25 mg tablet 25 mg PO DAILY #30 tabs 02/28/24 magnesium oxide 200 mg PO DAILY Low Magnesium #30 02/28/24 tabs Previous Rx's Medication Instructions Recorded acetaminophen 500 mg capsule 1,000 mg (2 x 500 mg) PO TID PRN 04/15/23 fever or pain #180 caps NEEDLES to match Ozempic Rx #15 ea 06/28/23 aspirin 81 mg tablet,delayed 81 mg PO HS #90 tabs 07/21/23 release empagliflozin 10 mg tablet 10 mg PO DAILY #90 tabs 07/21/23 (Jardiance) albuterol sulfate 90 mcg/actuation 1 inh inhalation Q4H PRN shortness 08/24/23 breath activated powder inhaler of breath or wheezing #1 ea furosemide 20 mg tablet (Lasix) See Rx Instructions PO DAILY #60 09/06/23 tabs pantoprazole 40 mg tablet,delayed 40 mg PO DAILY #90 tabs 09/16/23 release rosuvastatin 20 mg tablet (Crestor) 20 mg PO DAILY #90 tabs 09/16/23 pramipexole 0.25 mg tablet 0.25 mg PO QPM #90 tabs 11/10/23 semaglutide 1 mg/dose (4 mg/3 mL) 1 mg (0.75 mL) subcut QWEEK A1C > 11/11/23 subcutaneous pen injector 6 & high risk diabetes #9 mL amlodipine 2.5 mg tablet 7.5 mg (3 x 2.5 mg) PO DAILY #90 12/08/23 tabs hydroxyzine HCl 50 mg tablet 50 mg PO TID #90 tabs 12/08/23 pramipexole 0.125 mg tablet 0.125 mg PO HS #30 tabs 12/08/23 bupropion HCl 150 mg 24 hr tablet, 450 mg (3 x 150 mg) PO DAILY #90 01/05/24 extended release (Wellbutrin XL) tabs cholecalciferol (vitamin D3) 50 See Rx Instructions .Route 01/05/24 mcg (2,000 unit) capsule .COMPLEX #28 caps oxybutynin chloride 10 mg See Rx Instructions .Route 01/05/24 tablet,extended release 24 hr .COMPLEX #28 tabs chlorthalidone 25 mg tablet 25 mg PO DAILY #30 tabs 02/28/24 magnesium oxide 200 mg PO DAILY Low Magnesium #30 02/28/24 tabs Allergies Allergy/AdvReac Type Severity Reaction Status Date / Time Penicillins Allergy Severe Anaphylaxis Verified 03/07/24 13:08 amoxicillin Allergy Anaphylaxis Verified 03/07/24 13:08 Cillins Allergy Anaphylaxis Uncoded 03/07/24 13:08 General SHIRLEY: 4 Medical Decision Making Quality:SDOH Health Related Social Needs: No Data to Display PFSH All Active Problems (Updated 02/21/24 @ 13:35 by Suzie Ghosh MD) Cervical stenosis of spine (Acute ~01/2024) 02/03/24-degenerative changes most prominent at C3-4 and C4-5 w/mod severe stenosis 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 atrial activity Prolapse of female pelvic organs (Acute) Mixed stress and urge urinary incontinence (Acute) Abnormal MRI of the head (Acute) Rt optic canal narrowed 2' sclerosis (stable?)([place]) & NEW hyperintense focus (white matter)(anterior rt temporal lobe) may rep demyelinating process, infection or possible neoplasm.. [ ] contrast when RF allows Left contracture of neck (Acute) pain, stiffness .. rad into shoulder blade Hyperparathyroidism due to renal insufficiency (Acute) [ ] Ca.. q 3-6 mos [ ] Ph .. q3-6 mos [ ] PTH, q 6-12 mos [ ] Vit D yearly Malnutrition compromising bodily function (Acute) Low vitamin D level (Acute) WNL 44, 07/2023 (up from January 2023), yay Weight gain (Acute) losing weight since Ozempic start! Edema (Chronic) CKD? 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 [ ] CC for closer coordination w/ [facility] (I sent TWO pramipex Rx .. still only one on her b-cassy list)(and she says no more hydrox, but it's listed .. so therefore b-packed?) .. HOW DO WE TRIAL MEDS? Prediabetes (Acute) HTN (hypertension) (Chronic) per [facility] note (06/2022): Na < 2g. HCTZ 12.5mg added. Proteinuria (Acute) Goal<0.2mg/mg (2.3 on 06/30/22), per [facility] 06/2022. History of anemia due to CKD (Chronic) Goals: HGB 9.5-10.9 (per [facility], 06/2022).. Ferritin>100ng/ml; IronSAT>20%. CKD (chronic kidney disease) stage 4, GFR 15-29 ml/min (Chronic) Hx dialysis. [place] [facility] [place]. Low back pain (Acute) Lumbosacral spondylosis without myelopathy (Acute) Lumbar stenosis (Acute) Restless leg syndrome (Acute) Insomnia (Acute) Medical History (Updated 02/21/24 @ 13:35 by Suzie Ghosh MD) Atrial fibrillation Hx CHAD2 (-), but ED x2 and CardMon showing Stress incontinence Coughing, sneezing, laughing .. Lifting > 10lbs (Hx incontinence symp, 06/2021) Spastic pelvic floor syndrome Mental health disorder Mixed Dx (Anx/Depr/Schiz-Affective), with poor FU form [facility] x yrs .. refilling Rx & recommending review with [facility]. 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 [ ] UroGyn for possible surg per Dr. Park notes.. Nocturia w/ incontinence episodes Pelvic pain w/ probe/speculum.. Hx dyspareunia. Hx births. Vaginal discharge Sense of urgency w/o urination, but vag d/c! 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 Fontenot)) History of knee surgery History of hysterectomy Hx ovarian rupture H/O section 2 children History of appendectomy Family History Father Heart disease Hypertension Mother Thyroid disease Stroke Sister Cancer Sister Cancer Sister Ovarian cancer Kidney failure Social History Smoking/Tobacco Use Status: Former Tobacco Use tobacco type: cigarettes Quit Date: 07/18/20 Tobacco: How many years used: 43 Smoking risk assessment performed?: Yes Alcohol Intake: current Alcohol Intake frequency: holidays/special occasions only Drug use: Never Substance use type: does not use Adopted: No Caregiver/Support person: No Foster care: No Household members: other Details: ex- Housing: apartment Number of Children: 2 number of grandchildren: 1 Communication Needs: Hard of Hearing Education Level: middle school Do you need help understanding health information?: Always current occupation: Volunteers Pets and animals: No Current gender identity: female What is your relationship status?: How often do you get together with friends or relatives?: three or more times per week Panel score (0-1 are the most socially isolated patients): 1 What type of physical activity do you participate in: none Eva/Congregational: Scientologist Seatbelt use: always Drive intox or ride w/intox tow motor driver: No Do you feel safe at home: Yes Do you feel safe in your relationship?: Yes
[2024-03-07] MEDS: Aspirin 325 MG TAB PO (14:19)
[2024-03-07] MEDS: dilTIAZem 25 MG/5 ML VIAL 10 MG IVP (14:19)
[2024-03-07 14:37] LABS: Abs Immature Grans 0.04 10^3/uL (0.0-0.06); Absolute Basophil Count 0.04 10^3/uL (0.0-0.2); Absolute Eosinophil Count 0.14 10^3/uL (0.0-0.7); Absolute Lymphocyte Count 1.65 10^3/uL (1.2-3.4); Absolute Monocyte Count 0.68 10^3/uL (0.1-0.8); Absolute Neutrophil Count 6.31 10^3/uL (1.2-6.7); Basophils % 0.5 %; Eosinophils % 1.6 %; HCT 35.9 % (36.0-46.0); HGB 11.7 g/dL (11.2-15.7); Immature Grans % 0.5 %; Lymphocytes % 18.6 %; MCH 27.5 pg (27.0-33.0); MCHC 32.6 % (32.0-36.0); MCV 84 fL (80-95); MPV 9.5 fL (8.0-11.0); Monocytes % 7.7 %; Neutrophils % 71.1 %; Platelet Count 250 10^3/uL (130-400); RBC 4.26 10^6/uL (3.93-5.22); RDW 13.6 % (11.7-14.6); RDW-SD 41.5 fL; WBC 8.86 10^3/uL (4.4-10.8)
[2024-03-07 14:58] LABS: ALT 22 U/L (14-59); AST 19 U/L (15-37); Albumin 2.9 g/dL (3.4-5.0); Alkaline Phosphatase 87 U/L (46-116); BUN 47 mg/dL (7-18); Bilirubin, Total 0.6 mg/dL (0.2-1.0); CREATININE 2.5 mg/dL (0.55-1.02); Calcium 8.4 mg/dL (8.5-10.1); Chloride 101 mmol/L (98-107); Estimated GFR 21.21 (mL/min/1.73m2); Glucose 93 mg/dL (74-106); Magnesium 1.5 mg/dL (1.8-2.4); NT-proBNP 986 pg/mL (<300); Potassium 3.4 mmol/L (3.5-5.1); Sodium 138 mmol/L (136-145); Total Protein 7.5 g/dL (6.4-8.2); Troponin I < 50 ng/L (< or =60)
--- NOTE | 2024-03-07 15:23 | ED.GENADUL_ITS ---
Discharge Plan Disposition Patient Disposition: Admit to [facility] Condition: Improving Discharge Details Chief Complaint: Chest Pain Clinical Impression: Atrial fibrillation with RVR, Hypomagnesemia Primary Care Provider: Delilah Gil ED Provider: Jaiden Penn Home Meds and New Rx's Prescriptions: No Action acetaminophen 500 mg capsule 1,000 mg PO TID PRN (Reason: fever or pain) Qty: 180 5RF Rx Instructions: Can this be filled/delivered in a bottle with Rx? (DME) NEEDLES to match Ozempic Rx See Rx Instructions .Route .MEDSUPPLY Qty: 15 3RF Rx Instructions: As directed to MATCH the Ozempic Rx (3 mos+ breakage) aspirin 81 mg tablet,delayed release (DR/EC) 81 mg PO HS Qty: 90 3RF Jardiance 10 mg tablet 10 mg PO DAILY Qty: 90 3RF Rx Instructions: Continue for hyperglycemia with CKD pantoprazole 40 mg tablet,delayed release (DR/EC) 40 mg PO DAILY Qty: 90 3RF rosuvastatin [Crestor] 20 mg tablet 20 mg PO DAILY Qty: 90 3RF pramipexole 0.25 mg tablet 0.25 mg PO QPM Qty: 90 3RF Rx Instructions: administer 2 - 3 hours before bedtime semaglutide 1 mg/dose (4 mg/3 mL) pen injector 1 mg subcut QWEEK MDD WEEKLY Qty: 9 3RF Hold Instructions: TOO EXPENSIVE?? Rx Instructions: Increased dose if tolerated; otherwise return to 0.5 and call PCP (HH support?) hydroxyzine HCl 50 mg tablet 50 mg PO TID Qty: 90 3RF Rx Instructions: RESTART for anxiety pramipexole 0.125 mg tablet 0.125 mg PO HS Qty: 30 5RF bupropion HCl [Wellbutrin XL] 150 mg tablet extended release 24 hr 450 mg PO DAILY Qty: 90 3RF cholecalciferol (vitamin D3) 50 mcg (2,000 unit) capsule See Rx Instructions .ROUTE .COMPLEX Qty: 28 4RF Dose Instruction: TAKE 1 CAPSULE BY MOUTH DAILY FOR LOW VITAMIN D. Rx Instructions: TAKE 1 CAPSULE BY MOUTH DAILY FOR LOW VITAMIN D. magnesium oxide 200 mg magnesium tablet 200 mg PO DAILY Qty: 30 6RF Rx Instructions: Take 1 tablet daily at bedtime. amlodipine 5 mg tablet 5 mg PO DAILY Rx Instructions: 1.5 tabs daily hydrochlorothiazide 12.5 mg tablet 12.5 mg PO DAILY losartan [Cozaar] 50 mg tablet 50 mg PO DAILY oxybutynin chloride 10 mg tablet extended release 24hr 5 mg PO BID HPI General Date/Time Provider Initiated Documentation: 03/07/24 13:57 . HPI Narrative: This is a 63-year-old female with a past medical history of type 2 diabetes, history of irregular heart rate for over 4 years without current medication management, previous tobacco use, quitting in 1998. High cholesterol, chronic kidney disease, restless leg syndrome, schizophrenia, depression, partial bowel resection, hysterectomy, appendectomy, who presents today for evaluation of elevated heart rate and chest pain. Patient states that for the last 3 to 4 days she has been having chest pain. It is worse when she gets up walks around and exerts herself. It is slightly improved when she rests. She is also noted that she has been significantly more fatigued than normal. She denies any recent long trips surgeries or procedures. She denies any history of heart attacks or strokes or blood clots. She denies recent weight gain. She describes the pain as an achy tight sensation in her chest. She denies any cough or fever. No other complaints at this time. No calf tenderness. She went to clinic today and was noted to have a heart rate in the 170s. EMS was called, upon paramedics arrival they gave her 10 of IV Cardizem. Heart rate came down slightly from the 170s to 150s. She was brought here for further management. Currently she admits this continued mild chest achiness. No other complaints. Related Data Home Medications Medication Instructions Recorded Confirmed acetaminophen 500 mg capsule 1,000 mg (2 x 500 mg) PO TID PRN 04/15/23 03/07/24 fever or pain #180 caps NEEDLES to match Ozempic Rx #15 ea 06/28/23 03/07/24 aspirin 81 mg tablet,delayed 81 mg PO HS #90 tabs 07/21/23 03/07/24 release empagliflozin 10 mg tablet 10 mg PO DAILY #90 tabs 07/21/23 03/07/24 (Jardiance) pantoprazole 40 mg tablet,delayed 40 mg PO DAILY #90 tabs 09/16/23 03/07/24 release rosuvastatin 20 mg tablet (Crestor) 20 mg PO DAILY #90 tabs 23 03/07/24 pramipexole 0.25 mg tablet 0.25 mg PO QPM #90 tabs 11/10/23 03/07/24 semaglutide 1 mg/dose (4 mg/3 mL) 1 mg (0.75 mL) subcut QWEEK A1C > 11/11/23 03/07/24 subcutaneous pen injector 6 & high risk diabetes #9 mL hydroxyzine HCl 50 mg tablet 50 mg PO TID #90 tabs 12/08/23 03/07/24 pramipexole 0.125 mg tablet 0.125 mg PO HS #30 tabs 12/08/23 03/07/24 bupropion HCl 150 mg 24 hr tablet, 450 mg (3 x 150 mg) PO DAILY #90 01/05/24 03/07/24 extended release (Wellbutrin XL) tabs cholecalciferol (vitamin D3) 50 See Rx Instructions .Route 01/05/24 03/07/24 mcg (2,000 unit) capsule .COMPLEX #28 caps magnesium oxide 200 mg PO DAILY Low Magnesium #30 02/28/24 03/07/24 tabs amlodipine 5 mg tablet 5 mg PO DAILY 03/07/24 03/07/24 hydrochlorothiazide 12.5 mg tablet 12.5 mg PO DAILY 03/07/24 03/07/24 losartan 50 mg tablet (Cozaar) 50 mg PO DAILY 03/07/24 03/07/24 oxybutynin chloride 10 mg 5 mg PO BID 03/07/24 03/07/24 tablet,extended release 24 hr Previous Rx's Medication Instructions Recorded acetaminophen 500 mg capsule 1,000 mg (2 x 500 mg) PO TID PRN 04/15/23 fever or pain #180 caps NEEDLES to match Ozempic Rx #15 ea 06/28/23 aspirin 81 mg tablet,delayed 81 mg PO HS #90 tabs 07/21/23 release empagliflozin 10 mg tablet 10 mg PO DAILY #90 tabs 07/21/23 (Jardiance) pantoprazole 40 mg tablet,delayed 40 mg PO DAILY #90 tabs 09/16/23 release rosuvastatin 20 mg tablet (Crestor) 20 mg PO DAILY #90 tabs 09/16/23 pramipexole 0.25 mg tablet 0.25 mg PO QPM #90 tabs 11/10/23 semaglutide 1 mg/dose (4 mg/3 mL) 1 mg (0.75 mL) subcut QWEEK A1C > 11/11/23 subcutaneous pen injector 6 & high risk diabetes #9 mL hydroxyzine HCl 50 mg tablet 50 mg PO TID #90 tabs 12/08/23 pramipexole 0.125 mg tablet 0.125 mg PO HS #30 tabs 12/08/23 bupropion HCl 150 mg 24 hr tablet, 450 mg (3 x 150 mg) PO DAILY #90 01/05/24 extended release (Wellbutrin XL) tabs cholecalciferol (vitamin D3) 50 See Rx Instructions .Route 01/05/24 mcg (2,000 unit) capsule .COMPLEX #28 caps magnesium oxide 200 mg PO DAILY Low Magnesium #30 02/28/24 tabs Allergies Allergy/AdvReac Type Severity Reaction Status Date / Time Penicillins Allergy Severe Anaphylaxis Verified 03/07/24 13:08 amoxicillin Allergy Anaphylaxis Verified 03/07/24 13:08 Cillins Allergy Anaphylaxis Uncoded 03/07/24 13:08 General Stated Complaint: Chest Pain SHIRLEY: 4 Review of Systems All systems reviewed & are unremarkable except as noted in HPI and below Exam Narrative Exam Narrative: 1.Const: Well-nourished, Well-developed, appearing stated age 2.Eyes: PERRL, no conjunctival injection, and symmetrical lids. 3.ENT: Atraumatic external nose and ears. Moist MM. Neck: Symmetric, trachea mid line, No thyromegaly. 4.CVS: +S1/S2, No murmurs or gallops. Peripheral pulses 2+ and equal in all extremities. Brisk capillary refill in all extremities. 5.RESP: Unlabored respiratory effort. Clear to auscultation bilaterally. No wheezes rales or rhonchi 6.GI: Soft, Nontender/Nondistended, No hepatosplenomegaly. No guarding or rebound. 7.MSK: Normocephalic/Atraumatic, Extremities w/o deformity or ttp No cyanosis or clubbing, Normal movement of all extremities. Trace pitting edema by the ankles. No calf tenderness 8.Skin: Warm, Dry. No rashes or lesions. 9.Neuro: washateria attendant II-XII grossly intact. Sensation grossly intact, no focal neurologic deficits. 10.Psych: (AAO) x3. Appropriate mood and affect Course Vital Signs Vital signs: Vital Signs Temperature 36.2 C L 03/07/24 13:54 Pulse 139 H 03/07/24 13:54 Respiratory Rate 22 03/07/24 13:54 Blood Pressure 159/70 H 03/07/24 13:54 Pulse Oximetry 94 03/07/24 13:54 Temperature 36.2 C L 03/07/24 13:54 Temperature Source Temporal Artery Scan 03/07/24 13:54 Pulse 95 H 03/07/24 15:22 Pulse 98 H 03/07/24 14:25 Respiratory Rate 24 03/07/24 15:22 Respiratory Effort Short of Breath 03/07/24 14:03 Blood Pressure 111/55 L 03/07/24 15:22 Blood Pressure Mean 94 03/07/24 15:15 Blood Pressure Position Sitting 03/07/24 15:15 Pulse Oximetry 93 03/07/24 15:22 Oxygen Delivery Method Room Air 03/07/24 15:22 Oxygen Flow Rate 0 03/07/24 15:22 Lab/Test Results Lab/Test Results: Laboratory Tests Range/Units 03/07/24 14:20 WBC (4.4-10.8) 10^3/uL 8.86 RBC (3.93-5.22) 10^6/uL 4.26 Hgb (11.2-15.7) g/dL 11.7 Hct (36.0-46.0) % 35.9 L MCV (80-95) fL 84 MCH (27.0-33.0) pg 27.5 MCHC (32.0-36.0) % 32.6 RDW (11.7-14.6) % 13.6 Plt Count (130-400) 10^3/uL 250 MPV (8.0-11.0) fL 9.5 Immature Gran % % 0.5 Neutrophils % % 71.1 Lymphocytes % % 18.6 Monocytes % % 7.7 Eosinophils % % 1.6 Basophils % % 0.5 Nucleated RBC % (0.0-0.3) % 0.0 Absolute Neutrophils (1.2-6.7) 10^3/uL 6.31 Absolute Lymphocytes (1.2-3.4) 10^3/uL 1.65 Absolute Monocytes (0.1-0.8) 10^3/uL 0.68 Absolute Eosinophils (0.0-0.7) 10^3/uL 0.14 Absolute Basophils (0.0-0.2) 10^3/uL 0.04 PT Cancelled INR Cancelled APTT Cancelled D-Dimer Cancelled Sodium (136-145) mmol/L 138 Potassium (3.5-5.1) mmol/L 3.4 L Chloride (98-107) mmol/L 101 Carbon Dioxide (21.0-32.0) mmol/L 26.0 Anion Gap (3-11) mmol/L 11.0 BUN (7-18) mg/dL 47 H Creatinine (0.55-1.02) mg/dL 2.5 H Est GFR (CKD-EPI 2020) (mL/min/1.73m2) 21.21 Glucose (74-106) mg/dL 93 Calcium (8.5-10.1) mg/dL 8.4 L Magnesium (1.8-2.4) mg/dL 1.5 L Total Bilirubin (0.2-1.0) mg/dL 0.6 AST (15-37) U/L 19 ALT (14-59) U/L 22 Alkaline Phosphatase (46-116) U/L 87 Troponin I (< or =60) ng/L < 50 NT-Pro-B Natriuret Pep (<300) pg/mL 986 H Total Protein (6.4-8.2) g/dL 7.5 Albumin (3.4-5.0) g/dL 2.9 L Medical Decision Making This is a 63-year-old female with a past medical history of type 2 diabetes, history of irregular heart rate for over 4 years without current medication management, previous tobacco use, quitting in 1998. High cho lesterol, chronic kidney disease, restless leg syndrome, schizophrenia, depression, partial bowel resection, hysterectomy, appendectomy, who presents today for evaluation of elevated heart rate and chest pain. Patient states that for the last 3 to 4 days she has been having chest pain. It is worse when she gets up walks around and exerts herself. It is slightly improved when she rests. She is also noted that she has been significantly more fatigued than normal. She denies any recent long trips surgeries or procedures. She denies any history of heart attacks or strokes or blood clots. She denies recent weight gain. She describes the pain as an achy tight sensation in her chest. She denies any cough or fever. No other complaints at this time. No calf tenderness. She went to clinic today and was noted to have a heart rate in the 170s. EMS was called, upon paramedics arrival they gave her 10 of IV Cardizem. Heart rate came down slightly from the 170s to 150s. She was brought here for further management. Currently she admits this continued mild chest achiness. No other complaints. Physical exam demonstrates well-appearing female, mild discomfort. Heart rate in the 150s, blood pressure stable. Symptoms evident for A-fib with rapid ventricular response. EKG demonstrates no significant ST elevation or depression. Will give an additional 10 mg of Cardizem here, gently rehydrate with 500 cc bolus, monitor closely and reassess. Differential includes ACS, cardiac strain, electrolyte abnormality, or potential PE. Will get a D-dimer for further evaluation of PE. 3:42 PM Laboratory workup shows normal troponin, D-dimer elevated in the 700s which is greater than the age-adjusted stable level. proBNP is slightly high at 986. Magnesium is low at 1.5, is concerning that this could be a potential component of the exacerbation of her symptoms. Creatinine is 2.5 with GFR of 21. Patient is not a candidate for CTA secondary to her reduced renal function. Diff erential for PE is higher with the elevated D-dimer. We will see if we can potentially get VQ scan. With the patient's chest pain that she was having with exertion over the last few days, I am concerned for ischemic cardiac disease even if she does not demonstrate evidence of ACS at this time. I do feel that admission with potential stress testing and formal echo is indicated. 4:31 PM Unfortunately nuclear medicine has left for the time being, but a VQ scan option is available for tomorrow. Patient has agreed to anticoagulation. Discussed the case with the hospitalist Dr. Spann, he agrees with the assessment and plan. Patient will be admitted for further management. I have extensively reviewed the treatment plan with the patient. I have addressed all patient concerns at this time. I have also discussed the plan with the admitting physician and they agree with the current assessment and plan and have agreed to assume responsibility for the patient. All parties demonstrate verbal understanding and agreement with our assessment and plan at this time. The documentation in this chart was dictated using [employer] dictation software. Please excuse any dictation errors. Quality:SDOH Health Related Social Needs: No Data to Display Critical Care Time Critical Care Time Critical Care Time: Yes Total Critical Care Time: 45 Attestation: Upon my evaluation, this patient had a high probability of imminent or life- threatening deterioration, which required my direct attention, intervention, and personal management. I have personally provided 45 minutes of critical care time exclusive of time spent on separately billable procedures. Time includes review of laboratory data, radiology results, discussion with consultants, and monitoring for potential decompensation. Interventions were performed as documented. 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 atrial activity Prolapse of female pelvic organs (Acute) Mixed stress and urge urinary incontinence (Acute) Abnormal MRI of the head (Acute) Rt optic canal narrowed 2' sclerosis (stable?)([place]) & NEW hyperintense focus (white matter)(anterior rt temporal lobe) may rep demyelinating proce ss, infection or possible neoplasm.. [ ] contrast when RF allows Left contracture of neck (Acute) pain, stiffness .. rad into shoulder blade Hyperparathyroidism due to renal insufficiency (Acute) [ ] Ca.. q 3-6 mos [ ] Ph .. q3-6 mos [ ] PTH, q 6-12 mos [ ] Vit D yearly Malnutrition compromising bodily function (Acute) Low vitamin D level (Acute) WNL 44, 07/2023 (up from January 2023), yay Weight gain (Acute) losing weight since Ozempic start! Edema (Chronic) CKD? 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 [ ] CC for closer coordination w/ [place] (I sent TWO pramipex Rx .. still only one on her b-cassy list)(and she says no more hydrox, but it's listed .. so therefore b-packed?) .. HOW DO WE TRIAL MEDS? Prediabetes (Acute) HTN (hypertension) (Chronic) per Nephro note (06/2022): Na < 2g. HCTZ 12.5mg added. Proteinuria (Acute) Goal<0.2mg/mg (2.3 on 06/30/22), per Nephro 06/2022. History of anemia due to CKD (Chronic) Goals: HGB 9.5-10.9 (per Nephro, 06/2022).. Ferritin>100ng/ml; IronSAT>20%. CKD (chronic kidney disease) stage 4, GFR 15-29 ml/min (Chronic) Hx dialysis. Follows with [facility] [place], Dr. Muñiz. Low back pain (Acute) Lumbosacral spondylosis without myelopathy (Acute) Lumbar stenosis (Acute) Restless leg syndrome (Acute) Insomnia (Acute) Medical History Atrial fibrillation Hx CHAD2 (-), but ED x2 and CardMon showing Stress incontinence Coughing, sneezing, laughing .. Lifting > 10lbs (Hx incontinence symp, 06/2021) Spastic pelvic floor syndrome Mental health disorder Mixed Dx (Anx/Depr/Schiz-Affective), with poor FU form [facility] x yrs .. [facility] Rx & [facility]. 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 [ ] UroGyn for possible surg per Dr. Park notes.. Nocturia w/ incontinence episodes Pelvic pain w/ probe/speculum.. Hx dyspareunia. Hx births. Vaginal discharge Sense of urgency w/o urination, but vag d/c! 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 Fontenot)) History of knee surgery History of hysterectomy Hx ovarian rupture H/O section 2 children History of appendectomy Family History Father Heart disease Hypertension Mother Thyroid disease Stroke Sister Cancer Sister Cancer Sister Ovarian cancer Kidney failure Social History Smoking/Tobacco Use Status: Former Tobacco Use tobacco type: cigarettes Quit Date: 07/18/20 Tobacco: How many years used: 43 Smoking risk assessment performed?: Yes Alcohol Intake: current Alcohol Intake frequency: holidays/special occasions only Drug use: Never Substance use type: does not use Adopted: No Caregiver/Support person: No Foster care: No Household members: other Details: ex- Housing: apartment Number of Children: 2 number of grandchildren: 1 Communication Needs: Hard of Hearing Education Level: middle school Do you need help understanding health information?: Always current occupation: Volunteers Pets and animals: No Current gender identity: female What is your relationship status?: How often do you get together with friends or relatives?: three or more times per week Panel score (0-1 are the most socially isolated patients): 1 What type of physical activity do you participate in: none Eva/Episcopal: Church Seatbelt use: always Drive intox or ride w/intox 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
[2024-03-07 15:24] LABS: INR 1.2 (0.9-1.1); PTT Activated 37.9 sec (23.6-32.8); Prothrombin Time 11.5 sec (9.1-11.1)
[2024-03-07 15:39] LABS: D-Dimer 748 ng/mlFEU (<500)
[2024-03-07] MEDS: Normal Saline 500 ML IV (15:49)
[2024-03-07] MEDS: MAGNESIUM SULFATE 4 GM/100 ML BAG IVINF (15:52)
--- NOTE | 2024-03-07 16:00 | DI.RAD_ITS ---
Exam(s) XR PORTABLE CHEST AP EXAM: XR PORTABLE CHEST AP CLINICAL HISTORY: afib TECHNIQUE: 2D digital imaging was performed of the chest. One image was obtained. An AP view was ob tained. COMPARISON: CR XR CHEST 1V IN DI DEPT from 01/17/2024 FINDINGS: MEDIASTINUM: Normal. HEART: Normal. PULMONARY VASCULATURE: Normal. LUNGS: Clear. PLEURAL SPACE: No pleural effusion or pneumothorax. BONE:Within normal limits for the patient's age. OTHER FINDINGS:Normal. IMPRESSION: No acute pulmonary findings. DATA REPOSITORY: RADIATION DOSE DELIVERED:
--- NOTE | 2024-03-07 17:26 | W.PM.HP.N ---
Date of service: 03/07/24 Time of Service: 17:27 Assessment and Plan Assessment and plan (1) Atrial fibrillation with RVR: Status: Acute Assessment and plan: Chronic atrial fibrillation but presented in RVR. Now rate controlled after IV diltiazem. Given oral diltiazem, monitor on telemetry. [id number] score 3. She agrees to anticoagulation. Start with heparin as below, transition to DOAC. (2) Exertional chest pain: Status: Acute Assessment and plan: High risk patient with typical chest pain that is exertional. EKG and troponins not c/w ACS so far. She has a 3rd troponin pending. Assuming this is negative, she will get an MPI stress tomorrow. She also has a positive d-dimer and cannot get a CTA. V/Q scan ordered. I am not highly suspicious, low-moderate pretest probability for PE clinically, but we are anticoagulating as she has also has atrial fibrillation as an indication. Heparin rather than LMWH because of GFR. Get lipids with morning labs to assess risks. (3) Hypomagnesemia: Status: Acute Assessment and plan: replaced in ED, follow (4) Type 2 diabetes mellitus with other specified complication: Status: Acute Assessment and plan: Reports she has been in pre-DM range on GLP-1 and SGLT2i. Get A1c. If this is true we can forgo fingersticks as lab glucose was not elevated. (5) HTN (hypertension): Status: Chronic Assessment and plan: Holding amlodipine and starting diltiazem for rate control and BP instead. Qualifiers: Hypertension type: primary hypertension Qualified Code(s): I10 - Essential (primary) hypertension (6) History of anemia due to CKD: Status: Chronic Assessment and plan: At her baseline. (7) CKD (chronic kidney disease) stage 4, GFR 15-29 ml/min: Status: Chronic Assessment and plan: GFR at her baseline, follow. (8) Mental health disorder: Assessment and plan: has been stable per primary care notes, continue outpatient medications. (9) DVT prophylaxis: Status: Acute Assessment and plan: on heparin protocol History of Present Illness History of Present Illness Chief Complaint: chest pain Narrative: 63 yo F with type 2 DM, HTN, CKD 4 and chronic atrial fibrillation that was untreated presented to the primary care clinic this morning with chest discomfort and a heart rate of 170, was sent to emergency room for evaluation. She states she has had chest pain off and on for the past several months, worse in the past few days. The pain is a tightness, but also sharp, moderate, left sided, and radiates down the left arm when severe. It comes on with exertion and gets better with rest. It can be present for hours at a time. It is associated with some shortness of breath, lightheadedness, and heart racing. She does not feel diaphoretic or nauseous. She was given diltiazem 10mg IV en route, another 10mg IV in the emergency room. She feels much better but still a vague residual tightness in her chest. She takes her regular medicaiton but she was waiting to talk with cardiology to treat her atrial fibrillation. She has not been on anticoagulation before. Review of Systems All systems reviewed & are unremarkable except as noted in HPI and below Constitutional Constitutional: Denies chills (no chills but always cold), Denies fever(s), Reports headache(s) (not now, gets off/on), Denies poor appetite and Denies weight gain ENT Ears, Nose, Mouth, and Throat: Reports headache(s) (not now, gets off/on), Reports nasal congestion (thinks has some allergies) and Denies nasal discharge Cardiovascular Cardiovascular: Reports pedal edema (chronic), Denies edema, Reports dyspnea on exertion and Reports orthopnea Respiratory Respiratory: Reports cough (relates to some allergies, mild), Denies hemoptysis, Denies excessive phlegm production, Reports dyspnea on exertion and Denies wheezing Genitourinary Genitourinary: Reports urinary incontinence (chornic, has prolapse) Neurologic Neurologic: Denies confusion and Reports headache(s) (not now, gets off/on) Psychiatric Psychiatric: Denies confusion, Denies mood swings and Denies panic attacks Comments: has been stable Allergic/Immunologic Allergic/Immunologic: Denies wheezing PFSH All Active Problems (Updated 03/07/24 @ 18:13 by Shamar Zurita) DVT prophylaxis (Acute) Exertional chest pain (Acute) Hypomagnesemia (Acute) Atrial fibrillation with RVR (Acute) Cervical stenosis of spine (Acute ~01/2024) 02/03/24-degenerative changes most prominent at C3-4 and C4-5 w/mod severe stenosis 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 atrial activity Prolapse of female pelvic organs (Acute) Mixed stress and urge urinary incontinence (Acute) Abnormal MRI of the head (Acute) Rt optic canal narrowed 2' sclerosis (stable?)([place]) & NEW hyperintense focus (white matter)(anterior rt temporal lobe) may rep demyelinating process, infection or possible neoplasm.. [ ] contrast when RF allows Left contracture of neck (Acute) pain, stiffness .. rad into shoulder blade Hyperparathyroidism due to renal insufficiency (Acute) [ ] Ca.. q 3-6 mos [ ] Ph .. q3-6 mos [ ] PTH, q 6-12 mos [ ] Vit D yearly Malnutrition compromising bodily function (Acute) Low vitamin D level (Acute) WNL 44, 07/2023 (up from January 2023), yay Weight gain (Acute) losing weight since Ozempic start! Edema (Chronic) CKD? 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 [ ] CC for closer coordination w/ [place] (I sent TWO pramipex Rx .. still only one on her b-cassy list)(and she says no more hydrox, but it's listed .. so therefore b-packed?) .. HOW DO WE TRIAL MEDS? Prediabetes (Acute) HTN (hypertension) (Chronic) per [facility] note (06/2022): Na < 2g. HCTZ 12.5mg added. Proteinuria (Acute) Goal<0.2mg/mg (2.3 on 06/30/22), per [facility] 06/2022. History of anemia due to CKD (Chronic) Goals: HGB 9.5-10.9 (per [facility], 06/2022).. Ferritin>100ng/ml; IronSAT>20%. CKD (chronic kidney disease) stage 4, GFR 15-29 ml/min (Chronic) Hx dialysis. [place] [facility] [place]. Low back pain (Acute) Lumbosacral spondylosis without myelopathy (Acute) Lumbar stenosis (Acute) Restless leg syndrome (Acute) Insomnia (Acute) Medical History Atrial fibrillation Hx CHAD2 (-), but ED x2 and CardMon showing Stress incontinence Coughing, sneezing, laughing .. Lifting > 10lbs (Hx incontinence symp, 06/2021) Spastic pelvic floor syndrome Mental health disorder Mixed Dx (Anx/Depr/Schiz-Affective), with poor FU form [facility] x yrs .. refilling Rx & recommending review with [facility]. 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 [ ] UroGyn for possible surg per Dr. Park notes.. Nocturia w/ incontinence episodes Pelvic pain w/ probe/speculum.. Hx dyspareunia. Hx births. Vaginal discharge Sense of urgency w/o urination, but vag d/c! 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 Fontenot)) History of knee surgery History of hysterectomy Hx ovarian rupture H/O section 2 children History of appendectomy Family History Father Heart disease Hypertension Mother Thyroid disease Stroke Sister Cancer Sister Cancer Sister Ovarian cancer Kidney failure Social History (Updated 03/07/24 @ 17:41 by Shamar Zurita) Smoking/Tobacco Use Status: Former Tobacco Use tobacco type: cigarettes Quit Date: 07/18/20 Tobacco: How many years used: 43 Smoking risk assessment performed?: Yes Alcohol Intake: current Alcohol Intake frequency: holidays/special occasions only Drug use: Never Substance use type: does not use Adopted: No Caregiver/Support person: No Foster care: No Household members: other Details: ex- Housing: apartment Number of Children: 2 number of grandchildren: 1 Communication Needs: Hard of Hearing Education Level: middle school Do you need help understanding health information?: Always current occupation: Volunteers Pets and animals: No Current gender identity: female What is your relationship status?: How often do you get together with friends or relatives?: three or more times per week Panel score (0-1 are the most socially isolated patients): 1 What type of physical activity do you participate in: none Eva/Roman Catholic: Sikh Seatbelt use: always Drive intox or ride w/intox set key driver: No Do you feel safe at home: Yes Do you feel safe in your relationship?: Yes Additional Social history: Lives with ex Micah Casillas. Guinea pig and 3 parakeets. Meds Allergies and Home Medications Allergies Allergy/AdvReac Type Severity Reaction Status Date / Time Penicillins Allergy Severe Anaphylaxis Verified 03/07/24 13:08 amoxicillin Allergy Anaphylaxis Verified 03/07/24 13:08 Cillins Allergy Anaphylaxis Uncoded 03/07/24 13:08 Home Medications Medication Instructions Recorded Confirmed Type acetaminophen 500 mg capsule 1,000 mg (2 x 500 mg) PO TID PRN 04/15/23 03/07/24 Rx fever or pain #180 caps NEEDLES to match Ozempic Rx #15 ea 06/28/23 03/07/24 Rx aspirin 81 mg tablet,delayed 81 mg PO HS #90 tabs 07/21/23 03/07/24 Rx release empagliflozin 10 mg tablet 10 mg PO DAILY #90 tabs 07/21/23 03/07/24 Rx (Jardiance) pantoprazole 40 mg tablet,delayed 40 mg PO DAILY #90 tabs 09/16/23 03/07/24 Rx release rosuvastatin 20 mg tablet (Crestor) 20 mg PO DAILY #90 tabs 09/16/23 03/07/24 Rx pramipexole 0.25 mg tablet 0.25 mg PO QPM #90 tabs 11/10/23 03/07/24 Rx semaglutide 1 mg/dose (4 mg/3 mL) 1 mg (0.75 mL) subcut QWEEK A1C > 11/11/23 03/07/24 Rx subcutaneous pen injector 6 & high risk diabetes #9 mL hydroxyzine HCl 50 mg tablet 50 mg PO TID #90 tabs 12/08/23 03/07/24 Rx pramipexole 0.125 mg tablet 0.125 mg PO HS #30 tabs 12/08/23 03/07/24 Rx bupropion HCl 150 mg 24 hr tablet, 450 mg (3 x 150 mg) PO DAILY #90 01/05/24 03/07/24 Rx extended release (Wellbutrin XL) tabs cholecalciferol (vitamin D3) 50 See Rx Instructions .Route 01/05/24 03/07/24 Rx mcg (2,000 unit) capsule .COMPLEX #28 caps magnesium oxide 200 mg PO DAILY Low Magnesium #30 02/28/24 03/07/24 Rx tabs amlodipine 5 mg tablet 5 mg PO DAILY 03/07/24 03/07/24 History hydrochlorothiazide 12.5 mg tablet 12.5 mg PO DAILY 03/07/24 03/07/24 History losartan 50 mg tablet (Cozaar) 50 mg PO DAILY 03/07/24 03/07/24 History oxybutynin chloride 10 mg 5 mg PO BID 03/07/24 03/07/24 History tablet,extended release 24 hr Exam Narrative Exam Narrative: GEN: Alert and oriented, jokes, pleasant and cooperative, gives linear history. No acute distress at rest. HEENT: Head atraumatic. Conjunctiva clear, no icterus. PEERL, EOMI. no rhinorrhea. MMM, OP benign. Neck is supple with no masses or lymphadenopathy, trachea midline LUNGS: Mild tachypnea, but able to speak in full sentances. CTAB with normal effort CV: RRR with no murmurs, gallops, or rubs. No clear elevation in JVP, though uncomfortable lying flat ABD: +BS, soft, NT/ND EXT: no cyanosis, clubbing. Trace to 1+ pallavi pitting edema to ankles. Legs not tender. MSK: No joint redness or swelling. Right wrist in brace. NEURO: CN 2-12 grossly intact. Normal movement of 4 extremities. Normal speech and coordination SKIN: No rashes or open wounds. PSYCH: slightly anxious mood and affect Results Imaging Chest x-ray: report reviewed ( No acute pulmonary findings. ) and image reviewed EKG: report reviewed and image reviewed (Atrial fibrillation. nl axis. No ST-T changes c/w acute ischemia) Labs 03/07/24 14:20 03/07/24 14:20 Labs: Laboratory Results - last 24 hr 03/07/24 03/07/24 14:20 14:55 WBC 8.86 RBC 4.26 Hgb 11.7 Hct 35.9 L MCV 84 MCH 27.5 MCHC 32.6 RDW 13.6 Plt Count 250 MPV 9.5 Immature Gran % 0.5 Neutrophils % 71.1 Lymphocytes % 18.6 Monocytes % 7.7 Eosinophils % 1.6 Basophils % 0.5 Nucleated RBC % 0.0 Absolute Neutrophils 6.31 Absolute Lymphocytes 1.65 Absolute Monocytes 0.68 Absolute Eosinophils 0.14 Absolute Basophils 0.04 PT Cancelled 11.5 H INR Cancelled 1.2 H APTT Cancelled 37.9 H D-Dimer Cancelled 748 H Sodium 138 Potassium 3.4 L Chloride 101 Carbon Dioxide 26.0 Anion Gap 11.0 BUN 47 H Creatinine 2.5 H Est GFR (CKD-EPI 2020) 21.21 Glucose 93 Calcium 8.4 L Magnesium 1.5 L Total Bilirubin 0.6 AST 19 ALT 22 Alkaline Phosphatase 87 Troponin I < 50 NT-Pro-B Natriuret Pep 986 H Total Protein 7.5 Albumin 2.9 L Last Vital Signs Temp 36.2 C L 03/07/24 13:54 Pulse 82 03/07/24 16:56 Resp 15 03/07/24 16:56 BP 142/65 H 03/07/24 16:56 Pulse Ox 98 03/07/24 16:56 Time Spent Time spent with Patient: 55-74 minutes Time was spent: preparing to see the patient(eg.review tests), obtaining and/or reviewing separately otained hiistory, ordering medications,tests, procedures, referring, communicating with other health customer care manager, indepentently interpreting results and counseling the patient
[2024-03-07] MEDS: dilTIAZem 30 MG TAB PO ×2 (18:15→20:39)
[2024-03-07 18:22] LABS: Troponin I < 50 ng/L (< or =60)
[2024-03-07] MEDS: Heparin in 0.45% NaCl 25,000 UNIT/250 ML BAG 18 UNIT IV (18:42)
[2024-03-07] MEDS: Pramipexole 0.25 MG TAB 0.125 MG PO (20:39)
[2024-03-07] MEDS: Acetaminophen 500 MG TAB 1000 MG PO (20:40)
[2024-03-07] MEDS: hydrOXYzine HCL 50 MG TAB PO (20:40)
[2024-03-07] MEDS: Pramipexole 0.25 MG TAB PO (20:40)
[2024-03-07 23:02] LABS: Hemoglobin A1C 6.5 % (<5.7)
[2024-03-08] VITALS (11 sets, daily range): BP systolic 96–161; BP diastolic 42–94; PULSE 70–140; RESP 16–20; TEMP 36.3–36.7; O2SAT 94–99
--- NOTE | 2024-03-08 | DI.US_ITS ---
APPROVED REPORT EXAM: Comprehensive 2D, Doppler, and color-flow Echocardiogram Patient Location: In-Patient Room/Bed: 216 Employee Relations Director: Cleopatra Lunsford RDCS (AE) Indications: Chest pain, A Fib Other Information Study Quality: Fair. Technically limited study due to body habitus, exam done supine. Conclusion Normal left ventricular wall thickness and chamber size. Ejection fraction is 55 to 60%. Wall motio n is normal Normal right ventricular size and function Both atria are mildly enlarged There are no structural valvular abnormalities Mild tricuspid regurgitation. Estimated right ventricular systolic pressure is 38 mmHg Wall motion Left Ventricle The left ventricle is normal size. The left ventricular systolic function is normal. The left ventric ular ejection fraction is within the normal range. There is normal left ventricular wall thickness. T here is normal LV segmental wall motion. There is no ventricular septal defect visualized. LVEF is 55 %. Right Ventricle The right ventricle is normal size. The right ventricular systolic function is normal. Atria Left atrium is mildly dilated. Right atrium is mildly dilated. The interatrial septum is intact with no evidence for an atrial septal defect. Aortic Valve The aortic valve is normal in structure. Aortic valve is trileaflet. There is no aortic valvular sten osis. No aortic regurgitation is present. Mitral Valve Mild mitral annular calcification. No evidence of mitral valve stenosis. Trace mitral regurgitation. Tricuspid Valve The tricuspid valve is normal in structure. There is no tricuspid valve stenosis. Mild tricuspid re gurgitation. The RVSP is 37.8 mmHg. Pulmonic Valve The pulmonary valve is normal in structure. There is no pulmonic valvular stenosis. Trace pulmonic r egurgitation. Great Vessels The aortic root is normal in size. The ascending aorta is normal in size. Aortic arch is not well vis ualized. The IVC collapses <50% with inspiration. Pericardium Prominent anterior epicardial fat pad is present. 2D Dimensions IVSD d PLAX 1.00 cm F: 0.6-1.0 Ao Root d 2.99 cm F: 2.7 - 3.3 LVPW d PLAX 1.03 cm F: 0.6 - 1.0 Ao Asc Diam d 3.15 cm F: 2.3 - 3.1 LVID d PLAX 4.74 cm F: 3.8 - 5.2 LVDs 3.39 cm F: 2.2 - 3.5 LV EF Teichholz 55.0 % FS 28.56 % LV EDV (Teich) 104.4 mL LV ESV (Teich) 46.9 mL Auto EF LV EDV A4C 109.3 mL LV EDV A2C 102.6 mL LV EDV BP 106.8 mL LV ESV A4C 50.5 mL LV ESV A2C 47.7 mL LV ESV BP 49.6 mL LVEF(%) A4C 53.8 % LVEF(%) A2C 53.5 % LVEF(%) BP 53.5 % LV SV A4C 58.8 ml LV SV A2C 54.9 ml LV SV BP 57.1 ml LV CO A4C 6.1 L/min LV CO A2C 5.7 L/min LV CO BP 5.9 L/min HR A4C 104.05 BPM HR A2C 104.05 BPM LV EDV Index (BP) LA Volume LA Length A4C 6.0 cm LA Length A2C 6.2 cm LA Area A4C s 23.16 cm2 LA Area A2C s 23.85 cm2 LA Vol A4C A-L 76.30 mL LA Vol A2C A-L 78.27 mL LA Vol Biplane A-L 78.6 mL LA Vol/BSA A4C A-L LA Vol/BSA A2C A-L LA Vol/BSA BP A-L 36.4 mL/m2 LA Vol A4C MOD 66.8 mL LA Vol A2C MOD 73.9 mL LA Vol BP MOD 71.2 mL RA Volume RA Area A4C 20.6 cm2 RA ESV A4C (A-L) 58.0mL RA Vol/BSA A4C A-L RA Length A4C 6.2 cm RA ESV A4C (MOD) 54.2mL LV Diastology MV E' medial 0.128 (>0.07 m/s) MV E Vmax 1.41 (0.4-1.3 m/s) MV E/E' MED 11.07 (<14) Aortic Valve AoV Vmax 1.65 m/s LVOT Vmax 1.45 m/s AoV Peak Grad 10.9 mmHg LVOT Peak Grad 8.4 mmHg AoV Area (Vmax) 2.24 cm2 LVOT VTI 0.291 m AoV VTI 0.328 m LVOT Mean Grad 4.2 mmHg AoV Mean Wade. 1.15 m/s LVOT SV 74.06 mL AoV Mean Grad 6.0 mmHg LVOT Diam s 1.80 cm AoV Area (VTI) 2.26 cm2 Velocity Ratio 0.88 Mitral Valve MV DT 160 (160-240 msec) MV Vmax TIPS 1.38 m/s MV Mean Grad 2.5 (<2mmHg) MV VTI 0.337 m Pulmonary Valve PV Vmax 1.05 (0.5-1.5 m/s) RVOT Vmax 0.79 m/s PV Peak Grad 4.4 mmHg RVOT Peak Gr. 2.5 mmHg PV Mean Wade 0.66 m/s RVOT VTI 0.150 m PV Mean Grad 2.1 mmHg RVOT Mean Gr. 1.4 mmHg Tricuspid Valve RA Pressure 8.00 mmHg TR Vmax 2.73 m/s TV S' 0.11 m/s TR Peak Grad 29.8 mmHg RVSP (TR) 37.8 mmHg
--- NOTE | 2024-03-08 | DI.US_ITS ---
Exam(s) US EXTREMITY VENOUS BI EXAM: US EXTREMITY VENOUS BI CLINICAL HISTORY: elevated d dimer, CP and dyspnea r/o DVT. TECHNIQUE: Bilateral lower extremity venous ultrasound performed using grayscale, color-flow, and sp ectral Doppler analysis. COMPARISON: No exams were available for comparison FINDINGS: The right common femoral, femoral and popliteal veins demonstrate normal compressibility, augmentatio n, and color Doppler. The posterior tibial and peroneal veins appear to show compression. Color flow images were not obtained at this time. The saphenofemoral junction is unremarkable. There is no ev idence of a Lobato's cyst. The soft tissues are unremarkable. The left common femoral and femoral veins demonstrate normal compressibility, augmentation, and color Doppler. Normal waveform is seen in the left popliteal vein. Color flow could not be obtained at t his time. The posterior tibial and peroneal veins appear to show compression. Color flow images wer e not obtained at this time. The saphenofemoral junction is unremarkable. There is no evidence of a Lobato's cyst. The soft tissues are unremarkable. IMPRESSION: 1. No definite lower extremity venous thrombus is seen at this time. 2. However color flow images were not provided of the left popliteal vein or the posterior tibial and peroneal veins in either lower extremity. A repeat lower extremity ultrasound is recommended. DATA REPOSITORY:
--- NOTE | 2024-03-08 | DI.NM_ITS ---
APPROVED REPORT Exam: Pharmacologic Patient Location: In-Patient Room/Bed: Stress Nurse: Mandy Alcala RN Ordering Provider:SAM REILLY, Contact Number: BMI: 40.76 Baseline Rhythm: Atrial Fibrillation Comment: Occasional PVC's Indications: Exertional chest pain Medical History Medical History: DMT2, brain injury, GERD, CKD, anemia, mental health disorder, HTN, chronic afib, ce rvical spinal stenosis , migraines, hyperparathyroid, chronic edema, RLS, insomnia Cardiac Medications: Diltiazem, jardiance, losartan, rosuvastatin, aspirin, hydrochlorothiazide, magn esium oxide Allergies: Penicillins, amoxixillin, cillins Cardiac Risk Factors: Family hx, HTN, HLD, diabetes, foremr smoker, obesity Previous Cardiac Procedures: None Pretest Chest Pain Characteristics: None Exercise History: Sedentary Physical Disabilities: Unsafe to use treadmill due to improper footwear Lung Sounds: Clear to auscultation Heart Sounds: Irregular Stress Test Details Test: Pharmacologic stress testing performed using 0.4 mg of regadenoson per 5 mL given IV over 10 s econds. Reason for pharmacologic stress test: physical limitation. Nuclear Acquisition: Rest Tc-99m/Stress Tc-99m 1 day Rest Isotope: Tc-99m Sestamibi. Dose: 11.0 Date: 03/08/2024 Injection Time: 1200 Stress Isotope: Tc-99m Sestamibi. Dose: 33.0 Date: 03/08/2024 HR Resting HR Supine: 65 bpm Max Heart Rate (APMHR): 158.630159 bpm Target HR (85% APMHR): 134.335373 bpm Max HR Achieved: 148 bpm % of APMHR: 93.67 Recovery HR: 96 bpm BP Resting BP Supine: 130/62 mmHg Max BP: 160/78 mmHg Recovery BP: 158/68 mmHg ECG Resting ECG: Atrial Fibrillation Ectopy: Occasional PVC's Stress ECG: Atrial Fibrillation ST Change: No significant ST segment changes noted Arrhythmia: Occasional PVC's Recovery ECG: Atrial Fibrillation Recovery ST Change: No significant ST segment changes noted Recovery Arrhythmia: Occasional PVC's Clinical Stress Symptoms: Severe SOB, 5/10 chest pain Angina Score: Non-Limiting Rate Pressure Product: 17915 Stress ECG Conclusion 1. Resting electrocardiogram showed atrial fibrillation and poor R wave progression 2. Patient underwent testing using pharmacologic stress with regadenoson 3. Peak heart rate achieved was 94% of maximal predicted for age 4. There was no electrocardiographic evidence of myocardial ischemia 5. See MPI report Stress Test Summary STAGE HR BP SpO2 Symptoms NOTES Supine 78 130/62 1 min post Lexiscan injection 141 150/90 3 min post Lexiscan injection 122 160/78 6 min post Lexiscan injection 96 158/68 98 9 min post Lexiscan injection 128/66 Patient c/o severe SOB and 5/10 chest pain. All symptoms resolved when patient proceeded to imaging. Target HR achieved via laying lexiscan protocol. Patient enaging and joking with staff upon completio n of test. MPI Conclusion Myocardial perfusion is normal. There is no ischemia or evidence of prior infarction Ejection fraction is 57% with normal wall motion Radiologist Interpretation Radiologist agrees with Eight Section Blower's Interpretation. Radiologist Interpretation by: Vi Villagomez MD Interpretation Date/Time: 03/12/2024 15:21:14
[2024-03-08 01:25] LABS: PTT Activated > 155.0 sec (23.6-32.8)
[2024-03-08 03:24] LABS: Calculated LDL 37 mg/dL (<100); Cholesterol 97 mg/dL (<200); HDL Cholesterol 51 mg/dL (40-60); Triglyceride 47 mg/dL (<150)
[2024-03-08 03:31] LABS: PTT Activated > 155.0 sec (23.6-32.8)
[2024-03-08] MEDS: Miconazole 2% Topical Powder 85 GM BTL TP ×3 (03:43→19:22)
[2024-03-08] MEDS: dilTIAZem 30 MG TAB PO ×3 (08:46→19:21)
[2024-03-08] MEDS: Empaglifozin 10 MG TAB PO (08:46)
[2024-03-08] MEDS: Losartan 50 MG TAB PO (08:46)
[2024-03-08] MEDS: Pantoprazole 40 MG TABCR PO (08:46)
[2024-03-08] MEDS: buPROPion-XL 150 MG TABCR 450 MG PO (08:46)
[2024-03-08] MEDS: Oxybutynin-CR 5 MG TABCR PO (08:46)
[2024-03-08] MEDS: hydrOXYzine HCL 50 MG TAB PO ×3 (08:46→19:21)
[2024-03-08] MEDS: Magnesium Oxide 400 MG TAB 200 MG PO (08:46)
[2024-03-08] MEDS: Cholecalciferol (Vitamin D3) 1,000 UNIT TAB 2000 UNITS PO (08:46)
[2024-03-08] MEDS: hydroCHLOROthiazide 12.5 MG TAB PO (08:46)
[2024-03-08] MEDS: Rosuvastatin 20 MG TAB PO (08:46)
[2024-03-08] MEDS: nitroGLYcerin 0.4 MG TAB SL ×2 (09:25→10:03)
[2024-03-08 10:42] LABS: PTT Activated 53.2 sec (23.6-32.8)
--- NOTE | 2024-03-08 11:30 | RT.EKG_ITS ---
APPROVED REPORT Exam: Resting ECG Reason for Exam: chest pain Patient Location: I HR:89 bpm ECG Measurements Heart Rate 89 AXIS ND [id number] P [id number] QRSd 97 QRS 14 QT 404 T 25 QTc 492 Conclusion Atrial fibrillation...? atrial activity Poor R wave progression, possible old anterior infarct
--- NOTE | 2024-03-08 11:30 | W.PM.PROGNOT ---
Date of Service Date of service: 03/08/24 Time of Service: 11:30 Assessment and Plan Assessment and plan (1) Atypical chest pain: Status: Acute Assessment and plan: chest pain seems to be non exertional. This morning coming on w/ no activity. CP was not immediately relieved by NTG and has had negative troponin and no ischemic EKG changes. I returned to re-evaluate her later after her 2nd NTG and her CP has since resolved. We will get repeat troponin 3 hr after the first, proceed w/ V/Q scan and echo and venous duplex scan, if no DVT or PE the can proceed w/ stress MPI as outpatient. (2) Atrial fibrillation with RVR: Status: Acute Assessment and plan: rate control improved, currently on diltiazem 30 mg po tid; also now on heparin drip, aPTT was elevated last night to >155 twice and heparin was on hold but now is back on at reduced rate of 1000 units/hr and her aPTT was 53 when it was restarted. continue to monitor. Needs echocardiogram looking for valvular abnormalities, regional wall motion abnormalities as well as evidence for RV strain. consider switch to apixaban (3) Hypomagnesemia: Status: Acute Assessment and plan: give magnesium 4 gm bolus IV while in the ED, no repeat level done this morning . will recheck level. Currently on magnesium oxide 200 mg daily, will increase to 400 mg bid (4) Type 2 diabetes mellitus with other specified complication: Status: Acute Assessment and plan: glycohemoglobin a1c currently at 6.5% just w/ diet and Jardiance. will monitor glucose while in patient AC/HS and cover prn Qualifiers: Diabetes mellitus equipment operator intermodal yard insulin use: without equipment operator intermodal yard use Qualified Code(s): E11.69 - Type 2 diabetes mellitus with other specified complication (5) HTN (hypertension): Status: Chronic Assessment and plan: continue losartan, HCTZ, now on diltiazem for afib rate control. Qualifiers: Hypertension type: primary hypertension Qualified Code(s): I10 - Essential (primary) hypertension (6) History of anemia due to CKD: Status: Chronic Assessment and plan: stable. Hb 11.7 gm today, (7) CKD (chronic kidney disease) stage 4, GFR 15-29 ml/min: Status: Chronic Assessment and plan: stable creatinine 2.5 (8) Mental health disorder: Assessment and plan: continue current outpatient meds of Wellbutrion, hydroxyzine (9) DVT prophylaxis: Status: Acute Assessment and plan: on heparin protocol Subjective Subjective Interval history since last seen: Patient was seen earlier this morning after being paged about her having CP. She presented yesterday w/ non-exertional CP, dyspnea and was noted to be in afib. She had known afib but came in w/ exacerbation of the same. She was treated in the ED w/ iv diltiazem and put on heparin drip and now is on oral diltiazem. This morning she says that her CP is chest heaviness, repeat EKG and tropoinin have been done this morning after she was initially ruled out for [facility] last night. Repeat EKG did not show ischemia or injury and first troponin I was normal. Patient had minimally elevated d-dimer of 748 (upper age limit would be 620 for her). She was suppose to get a V/Q scan but the admitting provider also ordered stress MPI. She can not have both done at the same time. These will need to be done about 3 to 5 days apart d/t the residual nuclear activity. Exam Narrative Exam Narrative: Lakisha is sitting up in bed, she was talking w/ the RT whom she knows outside of the hospital. She seems distant, and when asked about her CP she initially said it is just pain, however, I was able to finally get her to describe her CP and she indicated this was a chest heaviness. Nursing initally reported her pain gone after one NTG. However she still rated it a 5 at which point I asked nursing to repeat her NTG. Lungs: clear Heart: irregularly irregular, slightly tachycardic Abdomen: obese, soft, nontender Objective Last Vital Signs Temp 36.4 C L 03/08/24 07:30 Pulse 88 03/08/24 07:30 Resp 17 03/08/24 07:30 BP 145/78 H 03/08/24 07:30 Pulse Ox 98 03/08/24 07:30 Laboratory Results - last 24 hr 03/07/24 03/07/24 03/07/24 14:20 14:55 17:23 WBC 8.86 RBC 4.26 Hgb 11.7 Hct 35.9 L MCV 84 MCH 27.5 MCHC 32.6 RDW 13.6 Plt Count 250 MPV 9.5 Immature Gran % 0.5 Neutrophils % 71.1 Lymphocytes % 18.6 Monocytes % 7.7 Eosinophils % 1.6 Basophils % 0.5 Nucleated RBC % 0.0 Absolute Neutrophils 6.31 Absolute Lymphocytes 1.65 Absolute Monocytes 0.68 Absolute Eosinophils 0.14 Absolute Basophils 0.04 PT Cancelled 11.5 H INR Cancelled 1.2 H APTT Cancelled 37.9 H D-Dimer Cancelled 748 H Sodium 138 Potassium 3.4 L Chloride 101 Carbon Dioxide 26.0 Anion Gap 11.0 BUN 47 H Creatinine 2.5 H Est GFR (CKD-EPI 2020) 21.21 Glucose 93 Hemoglobin A1c 6.5 H Calcium 8.4 L Magnesium 1.5 L Total Bilirubin 0.6 AST 19 ALT 22 Alkaline Phosphatase 87 Troponin I < 50 < 50 NT-Pro-B Natriuret Pep 986 H Total Protein 7.5 Albumin 2.9 L Triglycerides Total Cholesterol LDL Cholesterol, Calc HDL Cholesterol TSH 0.70 03/08/24 03/08/24 03/08/24 00:43 02:45 05:16 WBC RBC Hgb Hct MCV MCH MCHC RDW Plt Count MPV Immature Gran % Neutrophils % Lymphocytes % Monocytes % Eosinophils % Basophils % Nucleated RBC % Absolute Neutrophils Absolute Lymphocytes Absolute Monocytes Absolute Eosinophils Absolute Basophils PT INR APTT > 155.0 H* > 155.0 H* 53.2 H D-Dimer Sodium Potassium Chloride Carbon Dioxide Anion Gap BUN Creatinine Est GFR (CKD-EPI 2020) Glucose Hemoglobin A1c Calcium Magnesium Total Bilirubin AST ALT Alkaline Phosphatase Troponin I NT-Pro-B Natriuret Pep Total Protein Albumin Triglycerides 47 Total Cholesterol 97 LDL Cholesterol, Calc 37 HDL Cholesterol 51 TSH Time Spent with Patient Time Spent with Patient: 35-49 minutes Time was spent: preparing to see the patient(eg.review tests), obtaining and/or reviewing separately otained hiistory, ordering medications,tests, procedures, referring, communicating with other health care transition coordinator, indepentently interpreting results, counseling the patient and care coordination
[2024-03-08 13:31] LABS: Troponin I < 50 ng/L (< or =60)
[2024-03-08] MEDS: Regadenoson 0.4 MG/5 ML SYR IVP (14:26)
--- NOTE | 2024-03-08 15:24 | PHA.REVIEW2 ---
Pharmacy Admission Review Admission Clinical Review Admission Pharmacy Review: Atypical chest pain (Acute) DVT prophylaxis (Acute) Exertional chest pain (Acute) Hypomagnesemia (Acute) Atrial fibrillation with RVR (Acute) Type 2 diabetes mellitus with other specified complication (Acute) Penicillins Allergy (Severe, Verified 03/07/24 13:08) Anaphylaxis amoxicillin Allergy (Verified 03/07/24 13:08) Anaphylaxis Cillins Allergy (Uncoded 03/07/24 13:08) Anaphylaxis Resuscitation Status Full Code Height 5 ft 5 in Weight 111.5 kg Pharmacy Admission Review Renal Dosing Renal Dosing: BUN 47 mg/dL (7-18) H 03/07/24 14:20 Creatinine 2.5 mg/dL (0.55-1.02) H 03/07/24 14:20 Medications needing adjustments: Reviewed (CrCl 28.99 mL/min) List of meds needing interventions: Current medications are okay Anticoagulation Anticoagulation: Hgb 11.7 g/dL (11.2-15.7) 03/07/24 14:20 Hct 35.9 % (36.0-46.0) L 03/07/24 14:20 Plt Count 250 10^3/uL (130-400) 03/07/24 14:20 INR 1.2 (0.9-1.1) H 03/07/24 14:55 Creatinine 2.5 mg/dL (0.55-1.02) H 03/07/24 14:20 Therapeutic Anticoagulation: Reviewed Medications: Heparin (Infusion) Relevant Labs Relevant Labs: Sodium 138 mmol/L (136-145) 03/07/24 14:20 Potassium 3.4 mmol/L (3.5-5.1) L 03/07/24 14:20 Chloride 101 mmol/L (98-107) 03/07/24 14:20 Magnesium 1.5 mg/dL (1.8-2.4) L 03/07/24 14:20 Electrolytes, C-Reactive P, ESR: Reviewed (No new labs for today) DM Control DM Control: Glucose 93 mg/dL (74-106) 03/07/24 14:20 Hemoglobin A1c 6.5 % (<5.7) H 03/07/24 14:20 DM Control: Reviewed Insulin Dosing, Diabetic Medication: Has order for Jardiance Cardiac Review Cardiac Review: Troponin I < 50 ng/L (< or =60) 03/08/24 09:50 NT-Pro-B Natriuret Pep 986 pg/mL (<300) H 03/07/24 14:20 BP, HR, EF%: Reviewed (BP and HR WNL) QTc Review QTc: Reviewed (447 from 03/07/24) IV to PO Switch IV Medications: Reviewed (Heparin infusion) Home Meds Home Med List reviewed: Reviewed Relevent Home Meds Not ordered & why?: amlodipine and Ozempic Current Meds Current Medication Order Review: Reviewed
[2024-03-08 16:43] LABS: PTT Activated 33.8 sec (23.6-32.8)
[2024-03-08 16:47] LABS: Magnesium 2.3 mg/dL (1.8-2.4)
[2024-03-08] MEDS: Acetaminophen 500 MG TAB 1000 MG PO (17:19)
--- NOTE | 2024-03-08 17:21 | PDOC.CMIN ---
Date of service: 03/08/24 Time of Service: 17:21 Care Management Initial Assmt Initial Assessment Reason for Hospitalization: chest pain Functional Status/Living Situation Patient Presentation: .Lakisha was sitting up in bed when CM met with her. She was polite and agreeable to conversation. Lakisha was admitted with chest pain and atrial fibrillation. She had an echocardiogram and a lower extremity venous ultrasound today. She was to have a myocardial perfusion scan as well, however it cannot be done this soon after the VQ scan. Lakisha's troponins are negative and she does not have any ischemic EKG changes. Lakisha lives in an apartment in [facility] with her ex. She has 2 children that live in [place]. When asked if she ever worked outside of the home, Lakisha's response was me and people don't get along.She receives SSI for income. Town of Residence: [place] Resides with: Spouse (Lakisha lives with her ex) Significant Other/Family: Out of area (children live in [place]) Employment Status: Unemployed Instrumental Activities of Daily Living (ADLs): Independent Physical Functioning/Mobility Assistive Device: none Advance Directives Advance Directives: Do you have an Advance Directive: N 08/25/21 13:59 AD On File at [facility]: N 08/25/21 13:59 Date Asked 03/07/24 03/07/24 15:06 AD Date Reviewed COLST On File at [facility] COLST Date Scanned Code Status Resuscitation Status Full Code Portal Pt does not currently have a portal and education provided: No Insurance Coverage/Financial Issues Insurance: Medicaid ACO Member: Yes Care Team Visit Care Team Role Provider Type Delilah Gil DO Primary Care Provider OSTEOPATHIC DOCTOR Jaiden Penn, DO Emergency Provider [facility] STAFF PHYSICIAN Shamar Zurita Admit Provider [facility] STAFF PHYSICIAN Attending Provider Discharge Potential Discharge Needs: Imaging/labs (will hane MPI as an outpatient) and PCP F/U Appt Anticipated Barriers to Discharge: None Identified Patient/Family Education Needs: Review discharge instructions, discuss Ask Me Three Transportation: Private vehicle Plan: Anticipate Lakisha will be discharged home with no new services. She will follow up with her PCP, and likely Cardiology, and transport with family. CM will continue to support Lakisha and her discharge needs. 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 atrial activity Prolapse of female pelvic organs (Acute) Mixed stress and urge urinary incontinence (Acute) Abnormal MRI of the head (Acute) Rt optic canal narrowed 2' sclerosis (stable?)([place]) & NEW hyperintense focus (white matter)(anterior rt temporal lobe) may rep demyelinating process, infection or possible neoplasm.. [ ] contrast when RF allows Left contracture of neck (Acute) pain, stiffness .. rad into shoulder blade Hyperparathyroidism due to renal insufficiency (Acute) [ ] Ca.. q 3-6 mos [ ] Ph .. q3-6 mos [ ] PTH, q 6-12 mos [ ] Vit D yearly Malnutrition compromising bodily function (Acute) Low vitamin D level (Acute) WNL 44, 07/2023 (up from January 2023), yay Weight gain (Acute) losing weight since Ozempic start! Edema (Chronic) CKD? 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 [ ] CC for closer coordination w/ [place] (I sent TWO pramipex Rx .. still only one on her b-cassy list)(and she says no more hydrox, but it's listed .. so therefore b-packed?) .. HOW DO WE TRIAL MEDS? Prediabetes (Acute) HTN (hypertension) (Chronic) per [facility] note (06/2022): Na < 2g. HCTZ 12.5mg added. Proteinuria (Acute) Goal<0.2mg/mg (2.3 on 06/30/22), per [facility]ro 06/2022. History of anemia due to CKD (Chronic) Goals: HGB 9.5-10.9 (per [facility], 06/2022).. Ferritin>100ng/ml; IronSAT>20%. CKD (chronic kidney disease) stage 4, GFR 15-29 ml/min (Chronic) Hx dialysis. [place] [facility]. Muñiz. Low back pain (Acute) Lumbosacral spondylosis without myelopathy (Acute) Lumbar stenosis (Acute) Restless leg syndrome (Acute) Insomnia (Acute) Medical History Atrial fibrillation Hx CHAD2 (-), but ED x2 and CardMon showing Stress incontinence Coughing, sneezing, laughing .. Lifting > 10lbs (Hx incontinence symp, 06/2021) Spastic pelvic floor syndrome Mental health disorder Mixed Dx (Anx/Depr/Schiz-Affective), with poor FU form [facility] x yrs .. [facility]. 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 [ ] UroGyn for possible surg per Dr. Park notes.. Nocturia w/ incontinence episodes Pelvic pain w/ probe/speculum.. Hx dyspareunia. Hx births. Vaginal discharge Sense of urgency w/o urination, but vag d/c! 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 Fontenot)) History of knee surgery History of hysterectomy Hx ovarian rupture H/O section 2 children History of appendectomy Family History Father Heart disease Hypertension Mother Thyroid disease Stroke Sister Cancer Sister Cancer Sister Ovarian cancer Kidney failure Social History (Updated 03/07/24 @ 17:41 by Shamar Zurita) Smoking/Tobacco Use Status: Former Tobacco Use tobacco type: cigarettes Quit Date: 07/18/20 Tobacco: How many years used: 43 Smoking risk assessment performed?: Yes Alcohol Intake: current Alcohol Intake frequency: holidays/special occasions only Drug use: Never Substance use type: does not use Adopted: No Caregiver/Support person: No Foster care: No Household members: other Details: ex- Housing: apartment Number of Children: 2 number of grandchildren: 1 Communication Needs: Hard of Hearing Education Level: middle school Do you need help understanding health information?: Always current occupation: Volunteers Pets and animals: No Current gender identity: female What is your relationship status?: How often do you get together with friends or relatives?: three or more times per week Panel score (0-1 are the most socially isolated patients): 1 What type of physical activity do you participate in: none Eva/Mu-Ism: Jainism Seatbelt use: always Drive intox or ride w/intox fleet driver: No Do you feel safe at home: Yes Do you feel safe in your relationship?: Yes Additional Social history: Lives with ex Micah a[employer]illas. Guinea pig and 3 parakeets. SDOH(Care Management) Screening Will the Patient Participate in the Screening?: Yes Do you worry about having a steady place to live?: no Problems where you live: no known problems In the past 12 months, have you had to go without electric, gas, oil or water in your home?: no Have you or anyone in your house had to go without enough food to eat?: no Has lack of transportation kept you from medical appointments or from doing things needed for daily living?: no Has anyone in your support network made you feel unsafe for any reason?: no
[2024-03-08] MEDS: Heparin in 0.45% NaCl 25,000 UNIT/250 ML BAG 10 UNIT IV (17:27)
[2024-03-08] MEDS: Pramipexole 0.25 MG TAB 0.125 MG PO (19:18)
[2024-03-08] MEDS: Pramipexole 0.25 MG TAB PO (19:19)
[2024-03-08] MEDS: Aspirin E.C. 81 MG TABEC PO (19:21)
[2024-03-08] MEDS: Magnesium Oxide 400 MG TAB PO (19:21)
[2024-03-09] VITALS (10 sets, daily range): BP systolic 119–147; BP diastolic 54–75; PULSE 67–144; RESP 16–18; TEMP 36.5–36.9; O2SAT 93–97
[2024-03-09 00:27] LABS: PTT Activated > 155.0 sec (23.6-32.8)
[2024-03-09 08:06] LABS: Reticulocyte 1.7 % (0.5-2.4)
[2024-03-09] MEDS: Cholecalciferol (Vitamin D3) 1,000 UNIT TAB 2000 UNITS PO (08:23)
[2024-03-09] MEDS: Losartan 50 MG TAB PO (08:24)
[2024-03-09] MEDS: hydroCHLOROthiazide 12.5 MG TAB PO (08:24)
[2024-03-09] MEDS: Oxybutynin-CR 5 MG TABCR PO (08:24)
[2024-03-09] MEDS: hydrOXYzine HCL 50 MG TAB PO ×3 (08:24→20:06)
[2024-03-09] MEDS: Rosuvastatin 20 MG TAB PO (08:24)
[2024-03-09] MEDS: Empaglifozin 10 MG TAB PO (08:24)
[2024-03-09] MEDS: dilTIAZem 30 MG TAB PO ×2 (08:24→10:44)
[2024-03-09] MEDS: Magnesium Oxide 400 MG TAB PO ×2 (08:25→20:06)
[2024-03-09] MEDS: buPROPion-XL 150 MG TABCR 450 MG PO (08:25)
[2024-03-09] MEDS: Pantoprazole 40 MG TABCR PO (08:25)
[2024-03-09] MEDS: Miconazole 2% Topical Powder 85 GM BTL TP ×2 (08:29→22:17)
[2024-03-09 08:48] LABS: Anion Gap 13.9 mmol/L (3-11); BUN 40 mg/dL (7-18); CO2 23.1 mmol/L (21.0-32.0); CREATININE 2.3 mg/dL (0.55-1.02); Calcium 8.9 mg/dL (8.5-10.1); Chloride 100 mmol/L (98-107); Estimated GFR 23.45 (mL/min/1.73m2); Glucose 172 mg/dL (74-106); Potassium 3.8 mmol/L (3.5-5.1); Sodium 137 mmol/L (136-145)
--- NOTE | 2024-03-09 08:49 | PDOC.CMPRO ---
Date of service: 03/09/24 Time of Service: 08:49 Care Management Progress Note Progress Note Text Progress Note Text: Lakisha was sitting up in bed when CM met with her. She was polite and agreeable to conversation. Per provider, she passed her stress test and her echocardiogram did not identify any major issues with her heart. She is still tachycardic however and is undergoing medication adjustments. It is hoped that she will be ready for discharge tomorrow. Lakisha requested and was given a Word Search book. Discharge Potential Discharge Needs: PCP F/U Appt and Other (cardiology) Anticipated Barriers to Discharge: None Identified Patient/Family Education Needs: Review discharge instructions, discuss Ask Me Three Transportation: Private vehicle Plan: Anticipate Lakisha will be discharged home with no new services. She will follow up with her PCP and plan of care and transport with family. CM will follow and continue to assess for discharge needs. SDOH(Care Management) Screening Will the Patient Participate in the Screening?: Yes Do you worry about having a steady place to live?: no Problems where you live: no known problems In the past 12 months, have you had to go without electric, gas, oil or water in your home?: no Have you or anyone in your house had to go without enough food to eat?: no Has lack of transportation kept you from medical appointments or from doing things needed for daily living?: no Has anyone in your support network made you feel unsafe for any reason?: no
[2024-03-09 08:54] LABS: Iron 45 ug/dL (50-170); Total Iron Binding Capacity 297 ug/dL (250-450); Transferrin Sat 15 % (15-50)
[2024-03-09 09:09] LABS: HCT 35.4 % (36.0-46.0); HGB 11.5 g/dL (11.2-15.7); MCH 27.9 pg (27.0-33.0); MCHC 32.5 % (32.0-36.0); MCV 86 fL (80-95); MPV 9.8 fL (8.0-11.0); Platelet Count 258 10^3/uL (130-400); RBC 4.12 10^6/uL (3.93-5.22); RDW 13.7 % (11.7-14.6); RDW-SD 43.3 fL; WBC 9.38 10^3/uL (4.4-10.8)
[2024-03-09 09:20] LABS: Ferritin 133 ng/mL (8-252); Folate 18.5 ng/mL (8.6-20.0); Vitamin B12 315 pg/mL (193-986)
--- NOTE | 2024-03-09 10:02 | W.PM.PROGNOT ---
Date of Service Date of service: 03/09/24 Time of Service: 10:03 Assessment and Plan Assessment and plan (1) Atypical chest pain: Status: Resolved Assessment and plan: negative troponin and normal stress MPI, normal echo. I think her CP is more her anxiety. (2) Hypomagnesemia: Status: Resolved Assessment and plan: resolved. Mg now 2.3, continue supplements as long as she is on HCTZ and pantoprazole. repeat labs as outpatient (3) Type 2 diabetes mellitus with other specified complication: Status: Acute Assessment and plan: continue empagliflozin; at home she was on semaglutide, here while hospitalized she is on empagliflozin alone and her glucose is not being monitored or treated. I will at least get bid monitoring and if elevated change to AC/HS w/ novolog Her most recent glycohemoglobin was 6.5% which is acceptable but has risen from prior levels of 5.6 to 5.8%. Qualifiers: Diabetes mellitus skilled nursing insulin use: without longwall shearer operator use Qualified Code(s): E11.69 - Type 2 diabetes mellitus with other specified complication (4) HTN (hypertension): Status: Chronic Assessment and plan: continue losartan and HCTZ. BP acceptable Qualifiers: Hypertension type: primary hypertension Qualified Code(s): I10 - Essential (primary) hypertension (5) History of anemia due to CKD: Status: Chronic Assessment and plan: Hb stable at 11.5 gm, further evaluation as outpatient w/ her PCP (6) CKD (chronic kidney disease) stage 4, GFR 15-29 ml/min: Status: Chronic Assessment and plan: stable. BUN 40 and creatinine 2.3 (7) Mental health disorder: Assessment and plan: continue current outpatient meds of Wellbutrion, hydroxyzine (8) DVT prophylaxis: Status: Acute Assessment and plan: dc heparin for apixaban 5 mg bid (9) Discharge planning issues: Status: Acute Assessment and plan: dc home tomorrow after rate is controlled. Subjective Subjective Interval history since last seen: Lakisha denies any further CP or palpitations. I told her that her preliminary report on her stress MPI was normal. Her venous duplex scan did not show any DVT and her echo showed normal LV and RV function and no significant valvular abnormalities. Her afib rate is less than optimal control. she is on diltiazem 30 mg tid, I am going to increase to 60 mg tid w/ goal to get her on long acting diltiazem by tomorrow. Also we can dc her heparin and put her on apixaban 5 mg bid. Exam Narrative Exam Narrative: Late middle age white female who is alert, no distress Lungs: prolonged expiratory phase but otherwise clear Heart: irregularly irregular, per telemetry rates in the high 90's to low 100's, maximum of 146 Extremities: no edema Objective Last Vital Signs Temp 36.6 C 03/09/24 07:24 Pulse 80 03/09/24 07:24 Resp 18 03/09/24 07:24 BP 141/72 H 03/09/24 07:24 Pulse Ox 97 03/09/24 07:24 Laboratory Results - last 24 hr 03/08/24 03/08/24 03/08/24 05:16 09:50 16:20 WBC RBC Hgb Hct MCV MCH MCHC RDW Plt Count MPV Reticulocyte % (Auto) APTT 53.2 H 33.8 H Sodium Potassium Chloride Carbon Dioxide Anion Gap BUN Creatinine Est GFR (CKD-EPI 2020) Glucose Calcium Magnesium 2.3 Iron TIBC Transferrin % Sat Ferritin Troponin I < 50 Vitamin B12 Folate 03/08/24 03/09/24 03/09/24 23:19 02:27 07:00 WBC 9.38 RBC 4.12 Hgb 11.5 Hct 35.4 L MCV 86 MCH 27.9 MCHC 32.5 RDW 13.7 Plt Count 258 MPV 9.8 Reticulocyte % (Auto) 1.7 APTT > 155.0 H* 43.0 H Sodium 137 Potassium 3.8 Chloride 100 Carbon Dioxide 23.1 Anion Gap 13.9 H BUN 40 H Creatinine 2.3 H Est GFR (CKD-EPI 2020) 23.45 Glucose 172 H Calcium 8.9 Magnesium Iron 45 L TIBC 297 Transferrin % Sat 15 Ferritin 133 Troponin I Vitamin B12 315 Folate 18.5 Time Spent with Patient Time Spent with Patient: 35-49 minutes Time was spent: preparing to see the patient(eg.review tests), ordering medications,tests, procedures, referring, communicating with other health career services officer, indepentently interpreting results, counseling the patient and care coordination
[2024-03-09] MEDS: Apixaban 5 MG TAB PO ×2 (10:44→20:06)
[2024-03-09] MEDS: Normal Saline Flush 10 ML SYR IVP ×2 (10:44→22:18)
[2024-03-09 13:50] LABS: Lab Add On Test Done
[2024-03-09] MEDS: Acetaminophen 500 MG TAB 1000 MG PO ×2 (14:22→20:05)
[2024-03-09] MEDS: dilTIAZem 30 MG TAB 60 MG PO (14:24)
[2024-03-09] MEDS: nitroGLYcerin 0.4 MG TAB SL ×2 (20:03→21:30)
[2024-03-09] MEDS: dilTIAZem 30 MG TAB 90 MG PO (20:05)
[2024-03-09] MEDS: Pramipexole 0.25 MG TAB 0.125 MG PO (20:06)
[2024-03-09] MEDS: Pramipexole 0.25 MG TAB PO (20:07)
[2024-03-09] MEDS: Aspirin E.C. 81 MG TABEC PO (20:07)
--- NOTE | 2024-03-09 20:15 | RT.EKG_ITS ---
APPROVED REPORT Exam: Resting ECG Reason for Exam: chest pain Patient Location: I HR:75 bpm ECG Measurements Heart Rate 75 AXIS MS [id number] P [id number] QRSd 117 QRS 17 QT 403 T 31 QTc 451 Conclusion Atrial fibrillation...V-rate 71- 82, irreg A-activity
[2024-03-09 21:03] LABS: Troponin I < 50 ng/L (< or =60)
--- NOTE | 2024-03-09 22:00 | RT.EKG_ITS ---
APPROVED REPORT Exam: Resting ECG Reason for Exam: chest pain Patient Location: I HR:82 bpm ECG Measurements Heart Rate 82 AXIS NH [id number] P [id number] QRSd 102 QRS 15 QT 398 T 50 QTc 465 Conclusion Atrial fibrillation...V-rate 69-103, irreg A-activity
--- NOTE | 2024-03-09 22:49 | CE_ITS ---
Date of service: 03/09/24 Time of Service: 22:49 Event Note: This is a 63-year-old lady admitted with atrial fibrillation with rapid ventricular response and chest pain 03/07/2024 and was initiated on heparin infusion for new onset rapid ventricular response to chronic atrial fibrillation with patient having had atrial fibrillation over the last approximately 4 years according to ED note but not on anticoagulation because of noncompliance and CKD stage IV contributing. She also has been having intermittent episodes of chest pain at home for the last 3 months with associated dyspnea but not taking anything specific for this or seeking acute medical attention. She did present with chest pain that did not get treated with nitroglycerin until her second day of hospitalization, 03/08/2024 where she had nonexertional chest pain relieved with sublingual nitroglycerin x 2. She had no EKG changes at that time and negative repeat troponins. She also had a normal pharmacologic regadenoson stress MPI and normal echocardiogram having heparin infusion stopped and placed on Eliquis 5 mg twice daily having received 2 doses at the time I saw the patient the evening of 03/09/2024. She is on a baby aspirin and I was told that the patient had nonexertional chest pain which responded to nitroglycerin sublingually x 1 earlier in the evening with a negative EKG for acute ischemic changes and negative immediate troponin with repeat pending. She had another episode of more severe exertional chest pain which she describes as slightly sharp and radiating down her left arm. This episode did respond to nitroglycerin sublingually x 2. Repeat EKG once again showed no acute ischemic changes with atrial fibrillation baseline and fair rate control just under 100. Troponin was not repeated immediately but is scheduled to be done later this evening. Eliciting history from the patient was difficult with her wandering in conversation which was noted on Dr. Ghosh's cardiology notes previously. She has been having these episodes of chest discomfort with shortness of breath and possibly slight sweating for the last 3 months at least and has not been taking nitroglycerin at home. She stated that with these episodes she would just rest and it would go away with the patient having nothing more she could do and being slightly anxious chronically. When asked if she had seen cardiology, she did not remember that she has been seeing Dr. Ghosh. Patient's physical exam revealed morbidly obese lady slightly sedated from her evening medications and not having any active chest pain or persisting symptoms. Lungs were essentially clear and heart was irregular irregular with rate below 100. Abdomen was morbidly obese but soft and nontender and extremities showed no gross pitting edema but chronic appearing obesity with nonpitting edema. She is neurologically intact. Lab review was pertinent for stable CKD and negative troponins with EKG revealing atrial fibrillation with no acute ischemic changes. Her D-dimer was positive at 748 but CTA of the chest could not be performed because of patient's stress MPI which use contrast and CKD stage IV. She was on Eliquis and previously have infusion. She was never hypoxic with her episodes. Her magnesium was low at 1.5 but corrected to 2.3. BNP was stable at 986. Hemoglobin A1c was elevated at 6.5 upon admission and patient is on oral medication and Ozempic weekly. I [place] [facility] [place] and recommendations of change in treatment versus transfer the patient somewhat ambivalent about wanting intervention though she is a full code. I received a call back [place] [facility] [place]. Yanez with whom I reviewed the patient's history and treatment thus far with negative cardiac evaluation. She did not recommend adding Plavix for dual antiplatelet therapy with patient on Eliquis and aspirin. Patient is already on statin. Dr. Yanez recommended 1 more follow-up troponin which is scheduled and adding a long-acting nitrate such as Imdur 30 mg orally each morning. She also can continue taking nitrogly cerin sublingually as needed. Risk versus benefit review of proceeding to cardiac catheterization would be that patient's CKD could be worsened prompting dialysis. Also the patient's history is vague and medical management would be best at this time with better benefit and less risk. Time Spent with Patient Time spent in critical care(minutes): 60 Time Spent Included: Coordination of care, Chart review, Documenting critically ill care, Time at immediate bedside and Discussing critically ill care with other medical staff
[2024-03-10 00:51] LABS: Troponin I < 50 ng/L (< or =60)
[2024-03-10 02:10] VITALS: BP 141/71; PULSE 74; RESP 18; TEMP 36.5; O2SAT 99
[2024-03-10 07:38] VITALS: BP 139/85; PULSE 82; RESP 18; TEMP 36.2; O2SAT 100
[2024-03-10] MEDS: Rosuvastatin 20 MG TAB PO (08:09)
[2024-03-10] MEDS: Oxybutynin-CR 5 MG TABCR PO (08:09)
[2024-03-10] MEDS: Isosorbide Mononitrate 30 MG TABCR PO (08:10)
[2024-03-10] MEDS: dilTIAZem 30 MG TAB 90 MG PO (08:10)
[2024-03-10] MEDS: Magnesium Oxide 400 MG TAB PO (08:11)
[2024-03-10] MEDS: Pantoprazole 40 MG TABCR PO (08:11)
[2024-03-10] MEDS: Apixaban 5 MG TAB PO (08:11)
[2024-03-10] MEDS: Losartan 50 MG TAB PO (08:11)
[2024-03-10] MEDS: hydrOXYzine HCL 50 MG TAB PO ×2 (08:12→13:55)
[2024-03-10] MEDS: Cholecalciferol (Vitamin D3) 1,000 UNIT TAB 2000 UNITS PO (08:13)
[2024-03-10] MEDS: buPROPion-XL 150 MG TABCR 450 MG PO (08:13)
[2024-03-10] MEDS: hydroCHLOROthiazide 12.5 MG TAB PO (08:13)
[2024-03-10] MEDS: Empaglifozin 10 MG TAB PO (08:14)
[2024-03-10] MEDS: Miconazole 2% Topical Powder 85 GM BTL TP (08:15)
[2024-03-10] MEDS: Normal Saline Flush 10 ML SYR IVP (08:15)
[2024-03-10 09:03] LABS: D-Dimer 686 ng/mlFEU (<500)
[2024-03-10 10:50] VITALS: BP 134/73; PULSE 74; RESP 18; TEMP 36.4; O2SAT 99
[2024-03-10] MEDS: Metoprolol CR 50 MG TABCR PO (11:50)
--- NOTE | 2024-03-10 13:53 | DSE_ITS ---
Date of service: 03/10/24 Time of Service: 13:54 DS: Diagnosis Discharge Diagnosis (1) Atypical chest pain: Status: Resolved Asessment and Plan: See admission H&P and ED provider notes for details of presenting symptoms and exam. In brief patient was admitted for CP relieved w/ SL NTG. serial troponin I were monitored and normal multiple times over four days. d-dimer was minimally elevated on admission at 748 which is just above her age adjusted threshold, repeat level on the day of her discharge was 686. CTA was not done d/t her CKD. Venous duplex was negative for DVT by normal compressibility although color doppler was not provided to the left popliteal vein nor to either posterior tibial or peroneal veins. V/Q scan was ordered by the admitting provider (along w/ a stress MPI), however, only one nuclear study could be done at a time (need at least 3days between nuclear images for washout). Patient was begun on heparin drip, aspirin and stress MPI and echocardiogram were done. CXR on admission showed not acute cardiopulmonary abnormalities. Echocardiogram demonstrated normal LV and RV size and function w/ LVEF 55% and no regional wall motion abnormalities. she has mild biatrial enlargement, mild tricuspid regurgitation, and borderline to mild pulmonary hypertension w/ RVSP 38 mm. there is no significant valvular abnormalities. Stress MPI was performed on 03/08/24. Finalized report is still pending but preliminary report indicates no evidence for infarct nor reversible ischemic changes. On the night prior to discharge, she had some more chest pain relieved by nitroglycerin and was evaluated by the shellac polisher who checked repeat EKG and troponin levels all which were normal (except for her atrial fibrillation) and [facility] consulted over the phone and they recommended begining her on Imdur. Repeat d-dimer was done on the day of discharge and was normal at 686. (2) Atrial fibrillation with RVR: Status: Acute Asessment and Plan: rate initially controlled w/ iv diltiazem then oral diltiazem although did require titration, however short acting diltiazem has been replaced w/ long acting metoprolol XL 50mg daily, please adjust to keep resting HR <90 and active HR <130. apixaban begun for stroke prophylaxis. [id number] score is a 3 which is high risk for thromboembolic events anticoagulation is recommended. Please obtain follow up holter to monitor outpatient control of her atrial fibrillation (3) Hypomagnesemia: Status: Resolved Asessment and Plan: magnesium was low at 1.5 probably from combination of her chronic diuretic use and chronic use of a PPI. this was treated w/ parenteral and oral magnesium. repeat level came back at 2.3. Home dose has been increased. Please follow up w/ repeat level within one week of discharge. (4) Type 2 diabetes mellitus with other specified complication: Status: Acute Asessment and Plan: no change to her DM meds (5) HTN (hypertension): Status: Chronic Asessment and Plan: amlodipine dc for diltiazem but Toprol XL was substituted for the diltiazem. Losartan dose was continued. Please monitor BP and adjust losartan or Toprol XL as needed. Imdur was added for anti-ischemic effect but may help w/ her BP as well (6) History of anemia due to CKD: Status: Chronic Asessment and Plan: hemoglobin stable at 11.5 gm, continue protonix for GI protection. aspirin dc in favor of apixaban (7) CKD (chronic kidney disease) stage 4, GFR 15-29 ml/min: Status: Chronic (8) Mental health disorder: Asessment and Plan: no change in her wellbutrin. Discharge Plan Disposition Patient Disposition: Home Condition: Improving Discharge Details Reason For Visit: chest pain, atrial fibrillation Admit Date/Time: 03/07/24 16:59 Admit Provider: Shamar Zurita Attending Provider: Shamar Zurita Primary Care Provider: Delilah Gil Home Meds and New Rx's Prescriptions: New isosorbide mononitrate 30 mg Tablet Extended Release 24 Hr 30 mg PO DAILY Qty: 30 0RF Eliquis 5 mg Tablet 5 mg PO BID Qty: 60 0RF nitroglycerin 0.4 mg Tablet, Sublingual 0.4 mg sublingual Q5 MIN PRN X3 PRNQty: 30 0RF metoprolol succinate 50 mg tablet extended release 24 hr 50 mg PO DAILY Qty: 30 0RF Continued acetaminophen 500 mg capsule 1,000 mg PO TID PRN (Reason: fever or pain) Qty: 180 5RF Rx Instructions: Can this be filled/delivered in a bottle with Rx? Jardiance 10 mg tablet 10 mg PO DAILY Qty: 90 3RF Rx Instructions: Continue for hyperglycemia with CKD pantoprazole 40 mg tablet,delayed release (DR/EC) 40 mg PO DAILY Qty: 90 3RF rosuvastatin [Crestor] 20 mg tablet 20 mg PO DAILY Qty: 90 3RF pramipexole 0.25 mg tablet 0.25 mg PO QPM Qty: 90 3RF Rx Instructions: administer 2 - 3 hours before bedtime semaglutide 1 mg/dose (4 mg/3 mL) pen injector 1 mg subcut QWEEK MDD WEEKLY Qty: 9 3RF Hold Instructions: TOO EXPENSIVE?? Rx Instructions: Increased dose if tolerated; otherwise return to 0.5 and call PCP (HH support?) pramipexole 0.125 mg tablet 0.125 mg PO HS Qty: 30 5RF bupropion HCl [Wellbutrin XL] 150 mg tablet extended release 24 hr 450 mg PO DAILY Qty: 90 3RF cholecalciferol (vitamin D3) 50 mcg (2,000 unit) capsule See Rx Instructions .ROUTE .COMPLEX Qty: 28 4RF Dose Instruction: TAKE 1 CAPSULE BY MOUTH DAILY FOR LOW VITAMIN D. Rx Instructions: TAKE 1 CAPSULE BY MOUTH DAILY FOR LOW VITAMIN D. hydrochlorothiazide 12.5 mg tablet 12.5 mg PO DAILY losartan [Cozaar] 50 mg tablet 50 mg PO DAILY oxybutynin chloride 10 mg tablet extended release 24hr 5 mg PO BID Changed hydroxyzine HCl 50 mg tablet 50 mg PO TID PRN PRNQty: 90 3RF Rx Instructions: RESTART for anxiety magnesium oxide 200 mg magnesium tablet 400 mg PO DAILY Qty: 30 6RF Rx Instructions: Take 1 tablet daily at bedtime. Discontinued aspirin 81 mg tablet,delayed release (DR/EC) 81 mg PO HS Qty: 90 3RF amlodipine 5 mg tablet 5 mg PO DAILY Rx Instructions: 1.5 tabs daily No Action (DME) NEEDLES to match Ozempic Rx See Rx Instructions .Route .MEDSUPPLY Qty: 15 3RF Rx Instructions: As directed to MATCH the Ozempic Rx (3 mos+ breakage) Discharge Instructions Instructions: Atrial fibrillation, Isosorbide Mononitrate APCP, Nitroglycerin, Chest pain - Discharge instructions Additional Instructions: You were admitted for symptoms of chest pain. You were not found to have a heart attack. You heart enzymes (troponin I) which is used to detect heart damage from an acute heart attack was measured and came back normal. However, you were found to have heart arrhythmia called atrial fibrillation. You have had this condition for over 6 months and you have seen a junior high school principal, Dr. Ghosh in the past. She had recommended anticoagulation (blood thinners) and medications to control the heart rate, however, she left this up to your PCP (primary care provider) to order and monitor. However, when you came into the hospital you were not on any heart medications to control the heart rate. As part of your workup for chest pain, we also checked a blood test called a d- dimer. This is a non-specific marker for acute inflammation and when found to be in a very high level in the context of symptoms of shortness of breath and chest pain, may be an indicator of acute pulmonary blood clots or blood clots in the legs. Your d-dimer was mildly elevated but within the age limits range of normal (normal being about 10x your age). We did a venous ultrasound of your legs and no blood clots were found. We did not peform a CT angiogram because of concern for your kidney function which is already moderately to severly impaired. We did an echocardiogram (ultrasound of your heart), which showed normal function of the heart. We had you perform a chemical stress test which also showed normal blood flow throughout the heart w/ no evidence for either prior heart damage nor any evidence of diminished blood flow to the heart. This suggests that you do not have significant coronary heart disease. Because you had recurrent chest pains that were relieved w/ sublingual nitroglycerin, you were put on a long acting nitrate, called isosorbide mononitrate to prevent angina. This was done at the recommendation of a [facility] junior high school principal with whom one of our hospitaists discussed your case. Your lipid panel was checked and your cholesterol is under good control. Continue a low fat diet and continue your rosuvastatin. If you continue to have intermittent chest pains, you may use the prescription for sublinqual nitroglycerin we have prescribed for you. However, if you have episodes of chest pain not relieved by nitroglycerin or rest, you should call 911 to be re-evaluated, particulary if the chest pain occurs w/ shortness of breath or nausea. There are many cause of chest pain which may not be related to your heart including anxiety, lung blood clots, acid reflux, strain of the chest wall muscles to name a few. It is often difficult to decipher the exact cause but prolonged chest pain especially w/ shortness of breath or dizziness or palpitations or nausea is an ominous sign and should not be ignored. We have prescribed metoprolol succinate to control the atrial fibrillation (initially we treated this w/ diltizem but have switched this to metoprolol as this is better for ischemic heart disease) and put you on a blood thinner, apixaban. The blood thinner is to prevent blood clots which can form in the heart when you have atrial fibrillation. The isosorbide mononitrate (Imdur) has been prescribed to prevent angina quality chest pain. The nitroglycerin is to be used as needed for acute chest pain. Because your stress MPI study did not show ischemia and there is some increased risk of bleeding when you take aspirin and apixaban together, your aspirin has been stopped in favor of apixaban which is needs to prevent blood clots. Your amlodipine was stopped since adding the metoprolol XL but if your blood pressure go up as an outpatient your PCP may put you back on the amlodipine or adjust your losartan dose. Activity:: Activity as Tolerated Equipment/Supplies:: No Equipment Needed Diet:: Carb Counting Discharge Orders Discharge Orders: Discharge Order (Routine); Ordered 03/10/24 Ordered By: Joesph Wong Other Ambulatory Orders: Holter Monitor (Routine) Timeframe: 3 Days Facility: [facility] - Location: Respiratory Therapy Ordered By: Joesph Wong DS: Summary Time Spent with Patient providing and/or coordinating discharge services: Greater than 30 minutes Specific discharge activities: Interview/exam of patient; review of discharge instructions, completion of prescriptions/discharge instructions; discussion w/ nursing and CM; documentation of hospital visit Status at Discharge Functional status at discharge: independent ambulation Overall status at discharge: patient is back to baseline Mental Status: mental status grossly normal Speech and Movement: speech and movement normal Mood: congruent mood Affect: normal affect Quality:SDOH Health Related Social Needs: No Data to Display Exam Narrative Exam Narrative: Lakisha was seen walking the floor, monitor revealed her highest HR w/ ambulation was 110 bpm She denies any CP, she is alert, sitting up at the bedside, eager to return home Lungs: clear Heart: irregularly irregular but controlled rate Legs: no edema Psych Mental Status: mental status grossly normal Speech and Movement: speech and movement normal Mood: congruent mood Affect: normal affect DS: Data Vitals/I&O Vitals and I&O: Vital Signs Temperature 36.4 C L 03/10/24 10:50 Temperature Source Temporal Artery Scan 03/10/24 10:50 Pulse 74 03/10/24 10:50 Pulse Rhythm Regular 03/10/24 08:15 Pulse 98 H 03/07/24 14:25 Respiratory Rate 18 03/10/24 10:50 Respiratory Effort Normal, Non-Labored 03/10/24 08:15 Respiratory Depth Normal 03/10/24 08:15 Respiratory Pattern Normal 03/10/24 08:15 Blood Pressure 134/73 03/10/24 10:50 Blood Pressure Mean 94 03/07/24 15:15 Blood Pressure Position Sitting 03/07/24 15:15 Pulse Oximetry 99 03/10/24 10:50 Oxygen Delivery Method Room Air 03/10/24 10:50 Oxygen Flow Rate 0 03/10/24 10:50 Pain Level 0 03/10/24 07:38 Comment pT reports no pain at this time 03/10/24 07:38 Intake & Output 03/09/24 03/10/24 03/10/24 23:59 11:59 23:59 Intake Total 250 / 730 480 / 730 Balance 250 / 730 480 / 730 Weight 112.2 kg Intake: IV Oral 240 / 720 480 / 720 Other: Urine Appearance Clear Comment no hat, unclear amount or color. 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 atrial activity Prolapse of female pelvic organs (Acute) Mixed stress and urge urinary incontinence (Acute) Abnormal MRI of the head (Acute) Rt optic canal narrowed 2' sclerosis (stable?)([place]) & NEW hyperintense focus (white matter)(anterior rt temporal lobe) may rep demyelinating process, infection or possible neoplasm.. [ ] contrast when RF allows Left contracture of neck (Acute) pain, stiffness .. rad into shoulder blade Hyperparathyroidism due to renal insufficiency (Acute) [ ] Ca.. q 3-6 mos [ ] Ph .. q3-6 mos [ ] PTH, q 6-12 mos [ ] Vit D yearly Malnutrition compromising bodily function (Acute) Low vitamin D level (Acute) WNL 44, 07/2023 (up from January 2023), yay Weight gain (Acute) losing weight since Ozempic start! Edema (Chronic) CKD? 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 [ ] CC for closer coordination w/ Fer (I sent TWO pramipex Rx .. still only one on her b-cassy list)(and she says no more hydrox, but it's listed .. so therefore b-packed?) .. HOW DO WE TRIAL MEDS? Prediabetes (Acute) HTN (hypertension) (Chronic) per Nephro note (06/2022): Na < 2g. HCTZ 12.5mg added. Proteinuria (Acute) Goal<0.2mg/mg (2.3 on 06/30/22), per Nephro 06/2022. History of anemia due to CKD (Chronic) Goals: HGB 9.5-10.9 (per Nephro, 06/2022).. Ferritin>100ng/ml; IronSAT>20%. CKD (chronic kidney disease) stage 4, GFR 15-29 ml/min (Chronic) Hx dialysis. [place]s with [facility] [place]. Muñiz. Low back pain (Acute) Lumbosacral spondylosis without myelopathy (Acute) Lumbar stenosis (Acute) Restless leg syndrome (Acute) Insomnia (Acute) Medical History Atrial fibrillation Hx CHAD2 (-), but ED x2 and CardMon showing Stress incontinence Coughing, sneezing, laughing .. Lifting > 10lbs (Hx incontinence symp, 06/2021) Spastic pelvic floor syndrome Mental health disorder Mixed Dx (Anx/Depr/Schiz-Affective), with poor FU form [facility] x yrs .. refilling Rx & recommending review with [facility]. 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 [ ] UroGyn for possible surg per Dr. Park notes.. Nocturia w/ incontinence episodes Pelvic pain w/ probe/speculum.. Hx dyspareunia. Hx births. Vaginal discharge Sense of urgency w/o urination, but vag d/c! 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 Fontenot)) History of knee surgery History of hysterectomy Hx ovarian rupture H/O section 2 children History of appendectomy Family History Father Heart disease Hypertension Mother Thyroid disease Stroke Sister Cancer Sister Cancer Sister Ovarian cancer Kidney failure Social History Smoking/Tobacco Use Status: Former Tobacco Use tobacco type: cigarettes Quit Date: 07/18/20 Tobacco: How many years used: 43 Smoking risk assessment performed?: Yes Alcohol Intake: current Alcohol Intake frequency: holidays/special occasions only Drug use: Never Substance use type: does not use Adopted: No Caregiver/Support person: No Foster care: No Household members: other Details: ex- Housing: apartment Number of Children: 2 number of grandchildren: 1 Communication Needs: Hard of Hearing Education Level: middle school Do you need help understanding health information?: Always current occupation: Volunteers Pets and animals: No Current gender identity: female What is your relationship status?: How often do you get together with friends or relatives?: three or more times per week Panel score (0-1 are the most socially isolated patients): 1 What type of physical activity do you participate in: none Eva/Baptist: Bahai Seatbelt use: always Drive intox or ride w/intox limb driver: No Do you feel safe at home: Yes Do you feel safe in your relationship?: Yes Additional Social history: Lives with ex Micah Casillas. Guinea pig and 3 parakeets. Time Spent with Patient Time Spent with Patient: 45-69 minutes Time was spent: preparing to see the patient(eg.review tests), ordering medications,tests, procedures, referring, communicating with other health neonatal critical care nurse, indepentently interpreting results, counseling the patient and care coordination
--- NOTE | 2024-03-10 14:23 | PDOC.CMDIS ---
Date of service: 03/10/24 Time of Service: 14:23 LACE Index Scoring Tool Questions: Length of Stay (in days): 3 Was the patient admitted via the E.D.?: Yes Comorbidities: Diabetes w/o Complication and Liver or Renal Disease E.D. Visits: 3 Answers: Total Score: 14 Risk of Readmission: High Risk Care Management Discharge Plan Reason for Hospitalization: Chest pain, afib Discharge Plan: Lakisha is discharged home via private vehicle with family. Pt will follow up with community providers and her discharge plan of care as instructed. No new services are ordered prior to her discharge. Patient/Family Education Needs: Review discharge instructions, limitations, medications and plan to follow up with community providers. Discuss ask me three. SDOH Health Related Social Needs: No Data to Display
[2024-03-12 16:03] LABS: Erythropoietin 50.7 mIU/mL (2.6 - 18.5)
== END 2024-03-10 14:38 | disposition home or self-care (01) ==
LOC: ER 16:32 → MS 17:33
PROVIDERS: Family Medicine; Internal Medicine; Admitting Provider Family Medicine; Emergency Provider Student in an Organized Health Care Education/Training Program; PCP Student in an Organized Health Care Education/Training Program; Visit Provider Family Medicine
DX: I48.91 Unspecified atrial fibrillation (principal); R06.02 Shortness of breath; R07.89 Other chest pain; E83.42 Hypomagnesemia; E11.22 Type 2 diabetes mellitus with diabetic chronic kidney disease; R79.1 Abnormal coagulation profile; I12.9 Hypertensive chronic kidney disease with stage 1 through stage 4 chronic kidney disease, or unspecified chronic kidney disease; N18.4 Chronic kidney disease, stage 4 (severe); Z79.84 Long term (current) use of oral hypoglycemic drugs; Z79.85 Long-term (current) use of injectable non-insulin antidiabetic drugs; E78.00 Pure hypercholesterolemia, unspecified; G25.81 Restless legs syndrome; F20.9 Schizophrenia, unspecified; N25.81 Secondary hyperparathyroidism of renal origin; R60.0 Localized edema; F41.9 Anxiety disorder, unspecified; Z79.899 Other long term (current) drug therapy; F32.A Depression, unspecified; E66.01 Morbid (severe) obesity due to excess calories; I07.1 Rheumatic tricuspid insufficiency; I27.20 Pulmonary hypertension, unspecified; D63.1 Anemia in chronic kidney disease
CPT/HCPCS: 00123; 36415; 78452; 80048; 80053; 80061; 82668; 85027; 93005; 96365; 96366; 96367; 96375; 99291; 71045; 82607; 82728; 82746; 83036; 83540; 83550; 83735; 83880; 84443; 84484; 85025; 85045; 85379; 85610; 85730; 93010; 93017; 93306; 93970; 99222; 99232; 99239; G0378; J1644; J2785; J3475; J3490

== ENCOUNTER 2024-03-16 09:47 | Outpatient (RCR) | payer MEDICAID, SELFPAY ==
--- NOTE | 2024-03-16 11:00 | HOLTER_ITS ---
APPROVED REPORT Conclusion This is a 48-hour Holter monitor Patient was in atrial fibrillation throughout with an average heart rate of 94. Minimum was 73, maxi mum 148 There were rare premature ventricular contractions No patient symptoms were reported
== END 2024-03-25 23:59 | disposition home or self-care (01) ==
LOC: CARDOPNVT 09:47
PROVIDERS: PCP Student in an Organized Health Care Education/Training Program; Visit Provider Student in an Organized Health Care Education/Training Program
DX: I48.91 Unspecified atrial fibrillation (principal); I49.3 Ventricular premature depolarization
CPT/HCPCS: 93225; 93226

== ENCOUNTER 2024-03-23 01:37 | Outpatient (CLI) | payer MEDICAID, SELFPAY ==
[2024-03-23 10:13] LABS: Anion Gap 7.7 mmol/L (3-11); BUN 50 mg/dL (7-18); CO2 26.3 mmol/L (21.0-32.0); CREATININE 2.7 mg/dL (0.55-1.02); Calcium 8.8 mg/dL (8.5-10.1); Chloride 105 mmol/L (98-107); Estimated GFR 19.34 (mL/min/1.73m2); Glucose 118 mg/dL (74-106); Potassium 4.3 mmol/L (3.5-5.1); Sodium 139 mmol/L (136-145)
== END 2024-03-23 01:38 | disposition home or self-care (01) ==
LOC: LBO 01:37
PROVIDERS: PCP Student in an Organized Health Care Education/Training Program; Referring Provider Student in an Organized Health Care Education/Training Program; Visit Provider Student in an Organized Health Care Education/Training Program
DX: Z91.89 Other specified personal risk factors, not elsewhere classified (principal); N28.9 Disorder of kidney and ureter, unspecified
CPT/HCPCS: 36415; 80048

== ENCOUNTER 2024-04-27 02:34 | Outpatient (CLI) | payer MEDICAID, SELFPAY ==
[2024-04-27 12:53] LABS: HCT 34.9 % (36.0-46.0); HGB 11.5 g/dL (11.2-15.7); MCH 27.9 pg (27.0-33.0); MCV 85 fL (80-95); Platelet Count 200 10^3/uL (130-400); RBC 4.12 10^6/uL (3.93-5.22); RDW 14.2 % (11.7-14.6); RDW-SD 43.7 fL
[2024-04-27 13:52] LABS: Iron 49 ug/dL (50-170); Total Iron Binding Capacity 318 ug/dL (250-450); Transferrin Sat 15 % (15-50)
[2024-04-27 13:59] LABS: ALT 23 U/L (14-59); AST 16 U/L (15-37); Alkaline Phosphatase 82 U/L (46-116); Anion Gap 10.4 mmol/L (3-11); BUN 45 mg/dL (7-18); CO2 26.6 mmol/L (21.0-32.0); CREATININE 2.8 mg/dL (0.55-1.02); Calcium 8.5 mg/dL (8.5-10.1); Chloride 101 mmol/L (98-107); Estimated GFR 18.51 (mL/min/1.73m2); Ferritin 70 ng/mL (8-252); Glucose 139 mg/dL (74-106); Potassium 3.7 mmol/L (3.5-5.1); Sodium 138 mmol/L (136-145); Total Protein 7.4 g/dL (6.4-8.2)
== END 2024-04-27 02:35 | disposition home or self-care (01) ==
LOC: LBO 02:34
PROVIDERS: PCP Student in an Organized Health Care Education/Training Program; Visit Provider Student in an Organized Health Care Education/Training Program
DX: R77.0 Abnormality of albumin (principal); N18.4 Chronic kidney disease, stage 4 (severe); E46 Unspecified protein-calorie malnutrition; I48.19 Other persistent atrial fibrillation; N18.9 Chronic kidney disease, unspecified; Z86.2 Personal history of diseases of the blood and blood-forming organs and certain disorders involving the immune mechanism; E61.1 Iron deficiency
CPT/HCPCS: 36415; 80053; 85027; 82728; 83540; 83550

== ENCOUNTER 2024-06-15 09:43 | Day surgery (SDC) | payer MEDICAID, SELFPAY ==
[2024-06-15 10:47] VITALS: BP 146/96; PULSE 81; RESP 18; TEMP 36.4; O2SAT 97
--- NOTE | 2024-06-15 10:47 | W.PM.DSUDISC ---
Date of service: 06/15/24 Time of Service: 10:49 Discharge Plan Disposition Patient Disposition: Home Condition: Good Discharge Details Reason For Visit: Right DeQuervain's Tenosynovitis Attending Provider: Blake Shepherd Primary Care Provider: Delilah Gil Home Meds and New Rx's Prescriptions: New hydrocodone-acetaminophen 5-325 mg tablet 1 tab PO Q6H PRN (Reason: severe pain) Qty: 6 0RF Rx Instructions: Take one tablet up to every 6 hours as needed for severe postoperative pain acetaminophen 500 mg tablet 500 mg PO Q6H PRN (Reason: pain) Qty: 60 2RF ibuprofen 600 mg tablet 600 mg PO TID PRN (Reason: pain) Qty: 60 0RF Continued topiramate 50 mg tablet 50 mg PO QHS Qty: 90 3RF isosorbide mononitrate 30 mg tablet extended release 24 hr 30 mg PO DAILY Qty: 30 3RF Eliquis 5 mg tablet 5 mg PO BID Qty: 60 3RF metoprolol succinate 50 mg tablet extended release 24 hr 50 mg PO DAILY Qty: 30 3RF chlorthalidone 25 mg tablet 25 mg PO DAILY losartan 50 mg tablet 75 mg PO DAILY Patient Comments: Per Dr. Muñiz, nephrology at [facility] [place] [facility] [place] pt was puton 75 mg daily for renal protection, confirmed with [place] this is what is in blister packs. RH nitroglycerin 0.4 mg tablet, sublingual 0.4 mg sublingual Q5 MIN PRN X3 PRN (Reason: chest pain) Qty: 30 8RF (DME) NEEDLES to match Ozempic Rx See Rx Instructions .Route .MEDSUPPLY Qty: 15 3RF Rx Instructions: As directed to MATCH the Ozempic Rx (3 mos+ breakage) Jardiance 10 mg tablet 10 mg PO DAILY Qty: 90 3RF Rx Instructions: Continue for hyperglycemia with CKD pantoprazole 40 mg tablet,delayed release (DR/EC) 40 mg PO DAILY Qty: 90 3RF rosuvastatin [Crestor] 20 mg tablet 20 mg PO DAILY Qty: 90 3RF pramipexole 0.25 mg tablet 0.25 mg PO QPM Qty: 90 3RF Rx Instructions: administer 2 - 3 hours before bedtime semaglutide 1 mg/dose (4 mg/3 mL) pen injector 1 mg subcut QWEEK MDD WEEKLY Qty: 9 3RF Rx Instructions: Increased dose if tolerated; otherwise return to 0.5 and call PCP (HH support?) hydroxyzine HCl 50 mg tablet 50 mg PO TID PRN PRN (Reason: anxiety, panic sensation) Qty: 90 3RF Rx Instructions: RESTART for anxiety bupropion HCl [Wellbutrin XL] 150 mg tablet extended release 24 hr 450 mg PO DAILY Qty: 90 3RF albuterol sulfate 90 mcg/actuation HFA aerosol inhaler 1 - 2 inh inhalation Q4H PRN (Reason: shortness of breath or wheezing) Qty: 6.7 1RF pramipexole 0.125 mg tablet See Rx Instructions .ROUTE .COMPLEX Qty: 28 5RF Dose Instruction: TAKE 1 TABLET BY MOUTH AT BEDTIME Rx Instructions: TAKE 1 TABLET BY MOUTH AT BEDTIME cholecalciferol (vitamin D3) 50 mcg (2,000 unit) capsule See Rx Instructions .ROUTE .COMPLEX Qty: 28 4RF Dose Instruction: TAKE 1 CAPSULE BY MOUTH DAILY FOR LOW VITAMIN D. Rx Instructions: TAKE 1 CAPSULE BY MOUTH DAILY FOR LOW VITAMIN D. oxybutynin chloride 10 mg tablet extended release 24hr See Rx Instructions .ROUTE .COMPLEX Qty: 28 5RF Dose Instruction: TAKE 1 TABLET BY MOUTH AT BEDTIME Rx Instructions: TAKE 1 TABLET BY MOUTH AT BEDTIME magnesium oxide 200 mg magnesium tablet 400 mg PO DAILY Qty: 30 6RF Rx Instructions: Take 1 tablet daily at bedtime. Discontinued acetaminophen 500 mg capsule 1,000 mg PO TID PRN (Reason: fever or pain) Qty: 180 5RF Rx Instructions: Can this be filled/delivered in a bottle with Rx? Discharge Instructions Additional Instructions: Evangelina's Discharge Instructions Activity: You should keep the hand elevated as much as possible for the first few days. You may use the other fingers as tolerated but avoid trying to do too much too soon. You may perform light activities with the splint in place. Dressing/Cast: Your splint should stay in place at all times. Do NOT get it wet. You may loosen the FAUSTO wrap if you feel it is too tight and then rewrap more loosely. Medications: - You should take Tylenol and Ibuprofen for baseline pain control. - You have Hydrocodone for breakthrough pain. - You may apply ice over the thumb. Follow-up: 7-10 days Equipment/Supplies: Splint Activity:: Elevate Remove Dressings/Wound Care:: Do Not Remove Shower/Bathe:: Cover Diet:: As Tolerated Discharge Orders Discharge Orders: Discharge Order (Routine); Ordered 06/15/24 Ordered By: Corazon Murphy
[2024-06-15] MEDS: Acetaminophen 500 MG TAB 1000 MG PO (10:58)
[2024-06-15] MEDS: Lactated Ringers 1,000 ML 80 ML IV (11:16)
--- NOTE | 2024-06-15 12:20 | W.ANESPRE ---
General Info Date of Service Date Performed: 06/15/24 Height: 5 ft 5 in Weight: 111.584 kg Body Mass Index (BMI): 40.9 Surgical Procedure: Operation Date: 06/15/24 13:10 Proposed Procedure Side Surgeon p Wrist Dequervains Release Right Blake Shepherd MD Meds Allergies and Home Medications Allergies Allergy/AdvReac Type Severity Reaction Status Date / Time Penicillins Allergy Severe Anaphylaxis Verified 06/15/24 10:32 amoxicillin Allergy Anaphylaxis Verified 06/15/24 10:32 Cillins Allergy Anaphylaxis Uncoded 06/15/24 10:32 Home Medication ?Medication ?Instructions ?Recorded NEEDLES to match Ozempic Rx #15 ea 06/28/23 empagliflozin 10 mg tablet 10 mg PO DAILY #90 tabs 07/21/23 (Jardiance) pantoprazole 40 mg tablet,delayed 40 mg PO DAILY #90 tabs 09/16/23 release rosuvastatin 20 mg tablet (Crestor) 20 mg PO DAILY #90 tabs 09/16/23 pramipexole 0.25 mg tablet 0.25 mg PO QPM #90 tabs 11/10/23 semaglutide 1 mg/dose (4 mg/3 mL) 1 mg (0.75 mL) subcut QWEEK A1C > 11/11/23 subcutaneous pen injector 6 & high risk diabetes #9 mL magnesium oxide 400 mg (2 x 200 mg magnesium) PO 03/10/24 DAILY Low Magnesium #30 tabs apixaban 5 mg tablet (Eliquis) 5 mg PO BID #60 tabs 03/14/24 isosorbide mononitrate 30 mg 30 mg PO DAILY #30 tabs 03/14/24 tablet,extended release 24 hr chlorthalidone 25 mg tablet 25 mg PO DAILY 03/19/24 losartan 50 mg tablet 75 mg PO DAILY 03/19/24 metoprolol succinate 50 mg 50 mg PO DAILY #30 tabs 03/19/24 tablet,extended release 24 hr nitroglycerin 0.4 mg sublingual 0.4 mg sublingual Q5 MIN PRN X3 03/19/24 tablet PRN chest pain #30 tabs hydroxyzine HCl 50 mg tablet 50 mg PO TID PRN PRN anxiety, 04/05/24 panic sensation #90 tabs bupropion HCl 150 mg 24 hr tablet, 450 mg (3 x 150 mg) PO DAILY #90 05/05/24 extended release (Wellbutrin XL) tabs albuterol sulfate 90 mcg/actuation 1 - 2 inh inhalation Q4H PRN 05/08/24 aerosol inhaler shortness of breath or wheezing #6.7 grams cholecalciferol (vitamin D3) 50 See Rx Instructions .Route 06/03/24 mcg (2,000 unit) capsule .COMPLEX #28 caps oxybutynin chloride 10 mg See Rx Instructions .Route 06/03/24 tablet,extended release 24 hr .COMPLEX #28 tabs pramipexole 0.125 mg tablet See Rx Instructions .Route 06/03/24 .COMPLEX #28 tabs topiramate 50 mg tablet 50 mg PO QHS #90 tabs 06/06/24 acetaminophen 500 mg tablet 500 mg PO Q6H PRN pain #60 tabs 06/15/24 hydrocodone 5 mg-acetaminophen 325 1 tab PO Q6H PRN severe pain #6 06/15/24 mg tablet tabs ibuprofen 600 mg tablet 600 mg PO TID PRN pain #60 tabs 06/15/24 Current Visit Medications: Current Medications Generic Name Dose Route Start Last Admin Trade Name Freq PRN Reason Stop Dose Admin Acetaminophen 1,000 mg 06/15/24 06:00 06/15/24 10:58 Acetaminophen 500 Mg Tab PO 07/14/24 23:59 1,000 mg PREOP ARTEM Administration Acetaminophen 650 mg 06/15/24 10:46 Acetaminophen 325 Mg Tab PO 07/15/24 10:45 Q4H PRN PRN Hydrocodone Bitart/Acetaminophen 0 tab 06/15/24 10:46 Hydrocodone 5/Acetaminophen 325 Tab PO 07/15/24 10:45 Q3H PRN PRN Pain Celecoxib 400 mg 06/15/24 06:00 Celecoxib 200 Mg Cap PO 07/14/24 23:59 PREOP ARTEM Ringer's Solution 1,000 mls @ 80 mls/hr 06/15/24 06:00 06/15/24 11:16 IV 07/14/24 23:59 80 mls/hr INFUSION ARTEM Administration Clindamycin Phosphate/Dextrose 900 mg in 50 mls @ 50 mls/hr 06/15/24 06:00 Cleocin In D5w IVPB 06/15/24 23:59 PREOP ARTEM IV Miscellaneous Supplies 1 each 06/15/24 06:00 Iv Access IV 07/14/24 23:59 DIRECTED ARTEM Sodium Chloride 0 ml 06/15/24 06:00 Normal Saline Flush 10 Ml Syr IV 07/14/24 23:59 PRN PRN Sodium Chloride 0 ml 06/15/24 06:00 Normal Saline 10 Ml Vial IJ 07/14/24 23:59 DIRECTED PRN Sterile Water 0 ml 06/15/24 06:00 Water,Injection,Sterile 10 Ml Vial IJ 07/14/24 23:59 DIRECTED PRN PFSH Active Problems Active Problems: Problem Status Onset Code De Quervain's tenosynovitis, right Acute M65.4 Wheezing Acute R06.2 Acute left-sided thoracic back pain Acute M54.6 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 Acute H47.091 Gliosis Acute G93.9 Atypical chest pain Resolved R07.89 Exertional chest pain Acute R07.9 Atrial fibrillation with RVR Acute I48.91 Cervical stenosis of spine Acute ~01/2024 M48.02 Abdominal wall anomaly Acute 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 H54.40 Migraine headache without aura Acute G43.009 Chronic headache Acute R51.9, G89.29 Type 2 diabetes mellitus with other specified complication Acute E11.69 Open abdominal wall wound Acute S31.109A Irregular heart rate Acute I49.9 Prolapse of female pelvic organs Acute N81.9 Mixed stress and urge urinary incontinence Acute N39.46 Abnormal MRI of the head Acute R93.0 Left contracture of neck Acute M43.6 Hyperparathyroidism due to renal insufficiency Acute N25.81 Malnutrition compromising bodily function Acute E46 Low vitamin D level Acute R79.89 Weight gain Acute R63.5 Edema Chronic R60.9 Encounter for medication review and counseling Acute Z71.89 Prediabetes Acute R73.03 HTN (hypertension) Chronic I10 Proteinuria Acute R80.9 History of anemia due to CKD Chronic N18.9, Z86.2 CKD (chronic kidney disease) stage 4, GFR 15-29 ml/min Chronic N18.4 Low back pain Acute M54.50 Lumbosacral spondylosis without myelopathy Acute M47.817 Lumbar stenosis Acute M48.06 Restless leg syndrome Acute G25.81 Medical History Medical History Insomnia Atrial fibrillation Hx CHAD2 (-), but ED x2 and CardMon showing Stress incontinence Coughing, sneezing, laughing .. Lifting > 10lbs (Hx incontinence symp, 06/2021) Spastic pelvic floor syndrome Mental health disorder Mixed Dx (Anx/Depr/Schiz-Affective), with poor FU form [facility] x yrs .. refilling Rx & recommending review with [facility]. 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 [ ] UroGyn for possible surg per Dr. Park notes.. Nocturia w/ incontinence episodes Pelvic pain w/ probe/speculum.. Hx dyspareunia. Hx births. Vaginal discharge Sense of urgency w/o urination, but vag d/c! 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 Surgical History Surgical History History of tonsillectomy age 13 History of bowel resection [facility] [place] took more than expected (Hx ischemic colitis (2004), left colectomy per 2010 PL (Dr. Fontenot)) History of knee surgery History of hysterectomy Hx ovarian rupture H/O section 2 children History of appendectomy Tobacco Smoking/Tobacco Use Status: Former Tobacco Use Alcohol Alcohol Intake: current Alcohol intake frequency: holidays/special occasions only Substance Use Substance use: Never Substance use type: does not use Vital Signs and Lab Results Vital Signs Most Recent Vital Signs in EMR: Most Recent Vital Signs Temp Pulse Resp BP Pulse Ox 36.4 C L 81 18 146/96 H 97 06/15/24 10:47 06/15/24 10:47 06/15/24 10:47 06/15/24 10:47 06/15/24 10:47 Point of Care Results Point of Care Results: Finger Stick Blood Glucose 123 06/15/24 10:18 Lab Results Blood Type / Crossmatch: No Data to Display Complete Blood Count: No Data to Display Complete Metabolic Panel: No Data to Display Liver Function Panel: No Data to Display Coagulation Panel: No Data to Display Cardiac Panel: No Data to Display Arterial Blood Gas: No Data to Display Venous Blood Gas: No Data to Display Pancreas Panel: No Data to Display Thyroid Panel: No Data to Display Infectious Disease: No Data to Display Blood Cultures: No Data to Display Toxicology Panel: No Data to Display Anesthesia Assessment and Plan Anesthesia History Personal History: No History of Anesthesia Complications Family History: No Family History of Anesthesia Complications Exercise Tolerance Exercise Tolerance: Metabolic Equivalents>4 Pertinent Negatives Pertinent Negatives: No Symptoms of GERD Cardiac & Pulmonary Exam Cardiac Exam: Normal S1/S2 Heart Sounds Pulmonary Exam: Clear Bilateral Breath Sounds Implantable Cardiac Device Does patient have a Pacemaker or an ICD?: No Airway Exam Known Difficult Airway: No Mallampati Class: 2 Mouth Opening: Normal (> 3cm) Thyromental Distance: Greater than 3 cm Neck Range of Motion: Full ROM Neck Circumference: Normal Teeth Condition: Normal Dentition ASA Classification ASA Score: ASA 2 Emergency Case?: No NPO Status NPO Status: NPO Clears >2 hours, Solids >8 hours Anesthesia Plan Resuscitation Status: Full Code Anesthesia Technique: General Anesthesia Airway Planned: Natural Airway Monitors Used: Standard Monitors
[2024-06-15 12:21] VITALS: BMI 40.9
--- NOTE | 2024-06-15 12:40 | HPE_ITS ---
Assessment and Plan Assessment and plan (1) De Quervain's tenosynovitis, right: Status: Acute Assessment and plan: Lakisha is a 63-year-old female who has known de Quervain's tenosynovitis about the right hand along with some partial tearing of the extensor tendons within the compartment. Given the persistent of the symptoms and the findings of the MRI recommend proceeding with first extensor compartment lease with debridement of the tendons. I reviewed this with her. I discussed risk to include bleeding, infection, pain, stiffness, continued symptoms, tendon subluxation. Despite these risk, she elects to proceed. She does have significant medical history but all of her issues are currently stable. This right hand cause her significant dysfunction on a daily basis and therefore it would make sense to proceed with improving her right hand function to allow her continued functional dependence. All of her questions were answered. History of Present Illness History of Present Illness Chief Complaint: Radial sided right wrist pain Narrative: Lakisha is a 63-year-old female has a complex history. Aside from her complex medical history she has some ongoing and persistent radial sided right wrist pain. Please see my previous office note for complete detailed history. However, MRI confirms significant de Quervain's tenosynovitis with fraying and tearing of the first extensor compartment tendons. Given the persistence of symptoms and their daily dysfunction I recommended operative debridement of the first is her compartment release. She is here for that procedure today. She does have significant medical history including gliosis of the optic nerve, chronic kidney disease, atrial fibrillation, atypical chest pain, depression and anxiety, GERD, diabetes. No acute changes to her health. Review of Systems All systems reviewed & are unremarkable except as noted in HPI and below PFSH All Active Problems De Quervain's tenosynovitis, right (Acute) Wheezing (Acute) Acute left-sided thoracic back pain (Acute) just under left shoulder blade .. 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 NeuroSurg still TBD [ ] , 03/2024, ik Migraine headache without aura (Acute) Chronic headache (Acute) Type 2 diabetes mellitus with other specified complication (Acute) Open abdominal wall wound (Acute) Irregular heart rate (Acute) Several episodes, but asymptomatic; EKG shows AFib, but Card ? atrial activity Prolapse of female pelvic organs (Acute) Mixed stress and urge urinary incontinence (Acute) Abnormal MRI of the head (Acute) Rt optic canal narrowed 2' sclerosis (stable?)([place]) & NEW hyperintense focus (white matter)(anterior rt temporal lobe) may rep demyelinating process, infection or possible neoplasm.. [ ] contrast when RF allows Left contracture of neck (Acute) pain, stiffness .. rad into shoulder blade Hyperparathyroidism due to renal insufficiency (Acute) [ ] Ca.. q 3-6 mos [ ] Ph .. q3-6 mos [ ] PTH, q 6-12 mos [ ] Vit D yearly Malnutrition compromising bodily function (Acute) Low vitamin D level (Acute) WNL 44, 07/2023 (up from January 2023), yay Weight gain (Acute) losing weight since Ozempic start! Edema (Chronic) CKD? 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 [ ] CC for closer coordination w/ [facility] (I sent TWO pramipex Rx .. still only one on her b-cassy list)(and she says no more hydrox, but it's listed .. so therefore b-packed?) .. HOW DO WE TRIAL MEDS? Prediabetes (Acute) HTN (hypertension) (Chronic) per Nephro note (06/2022): Na < 2g. HCTZ 12.5mg added. Proteinuria (Acute) Goal<0.2mg/mg (2.3 on 06/30/22), per [facility]ro 06/2022. History of anemia due to CKD (Chronic) Goals: HGB 9.5-10.9 (per [facility], 06/2022).. Ferritin>100ng/ml; IronSAT>20%. CKD (chronic kidney disease) stage 4, GFR 15-29 ml/min (Chronic) Hx dialysis. Follows with [facility] [place], Dr. Muñiz. Low back pain (Acute) Lumbosacral spondylosis without myelopathy (Acute) Lumbar stenosis (Acute) Restless leg syndrome (Acute) Medical History Insomnia Atrial fibrillation Hx CHAD2 (-), but ED x2 and CardMon showing Stress incontinence Coughing, sneezing, laughing .. Lifting > 10lbs (Hx incontinence symp, 06/2021) Spastic pelvic floor syndrome Mental health disorder Mixed Dx (Anx/Depr/Schiz-Affective), with poor FU form [facility] x yrs .. refilling Rx & recommending review with [facility]. 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 [ ] UroGyn for possible surg per Dr. Park notes.. Nocturia w/ incontinence episodes Pelvic pain w/ probe/speculum.. Hx dyspareunia. Hx births. Vaginal discharge Sense of urgency w/o urination, but vag d/c! 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 Fontenot)) History of knee surgery History of hysterectomy Hx ovarian rupture H/O section 2 children History of appendectomy Family History Father Heart disease Hypertension Mother Thyroid disease Stroke Sister Cancer Sister Cancer Sister Ovarian cancer Kidney failure Social History Smoking/Tobacco Use Status: Former Tobacco Use tobacco type: cigarettes Quit Date: 07/18/20 Tobacco: How many years used: 43 Smoking risk assessment performed?: Yes Alcohol Intake: current Alcohol Intake frequency: holidays/special occasions only Drug use: Never Substance use type: does not use Adopted: No Caregiver/Support person: No Foster care: No Household members: other Details: ex- Housing: apartment Number of Children: 2 number of grandchildren: 1 Communication Needs: Hard of Hearing Education Level: middle school Do you need help understanding health information?: Always current occupation: Volunteers Pets and animals: No Current gender identity: female What is your relationship status?: How often do you get together with friends or relatives?: three or more times per week Panel score (0-1 are the most socially isolated patients): 1 What type of physical activity do you participate in: none Eva/Jewish: Shinto Seatbelt use: always Drive intox or ride w/intox distribution driver: No Do you feel safe at home: Yes Do you feel safe in your relationship?: Yes Meds Allergies and Home Medications Allergies Allergy/AdvReac Type Severity Reaction Status Date / Time Penicillins Allergy Severe Anaphylaxis Verified 06/15/24 10:32 amoxicillin Allergy Anaphylaxis Verified 06/15/24 10:32 Cillins Allergy Anaphylaxis Uncoded 06/15/24 10:32 Home Medications ?Medication ?Instructions ?Recorded ?Confirmed ?Type NEEDLES to match Ozempic Rx #15 ea 06/28/23 05/12/24 Rx empagliflozin 10 mg tablet 10 mg PO DAILY #90 tabs 07/21/23 06/15/24 Rx (Jardiance) pantoprazole 40 mg tablet,delayed 40 mg PO DAILY #90 tabs 09/16/23 06/15/24 Rx release rosuvastatin 20 mg tablet (Crestor) 20 mg PO DAILY #90 tabs 09/16/23 06/15/24 Rx pramipexole 0.25 mg tablet 0.25 mg PO QPM #90 tabs 11/10/23 06/12/24 Rx semaglutide 1 mg/dose (4 mg/3 mL) 1 mg (0.75 mL) subcut QWEEK A1C > 11/11/23 06/15/24 Rx subcutaneous pen injector 6 & high risk diabetes #9 mL magnesium oxide 400 mg (2 x 200 mg magnesium) PO 03/10/24 06/15/24 Rx DAILY Low Magnesium #30 tabs apixaban 5 mg tablet (Eliquis) 5 mg PO BID #60 tabs 03/14/24 06/15/24 Rx isosorbide mononitrate 30 mg 30 mg PO DAILY #30 tabs 03/14/24 06/15/24 Rx tablet,extended release 24 hr chlorthalidone 25 mg tablet 25 mg PO DAILY 03/19/24 06/15/24 History losartan 50 mg tablet 75 mg PO DAILY 03/19/24 06/15/24 History metoprolol succinate 50 mg 50 mg PO DAILY #30 tabs 03/19/24 06/15/24 Rx tablet,extended release 24 hr nitroglycerin 0.4 mg sublingual 0.4 mg sublingual Q5 MIN PRN X3 03/19/24 06/15/24 Rx tablet PRN chest pain #30 tabs hydroxyzine HCl 50 mg tablet 50 mg PO TID PRN PRN anxiety, 04/05/24 06/15/24 Rx panic sensation #90 tabs bupropion HCl 150 mg 24 hr tablet, 450 mg (3 x 150 mg) PO DAILY #90 05/05/24 06/15/24 Rx extended release (Wellbutrin XL) tabs albuterol sulfate 90 mcg/actuation 1 - 2 inh inhalation Q4H PRN 05/08/24 06/15/24 Rx aerosol inhaler shortness of breath or wheezing #6.7 grams cholecalciferol (vitamin D3) 50 See Rx Instructions .Route 06/03/24 06/15/24 Rx mcg (2,000 unit) capsule .COMPLEX #28 caps oxybutynin chloride 10 mg See Rx Instructions .Route 06/03/24 06/15/24 Rx tablet,extended release 24 hr .COMPLEX #28 tabs pramipexole 0.125 mg tablet See Rx Instructions .Route 06/03/24 06/15/24 Rx .COMPLEX #28 tabs topiramate 50 mg tablet 50 mg PO QHS #90 tabs 06/06/24 06/15/24 Rx acetaminophen 500 mg tablet 500 mg PO Q6H PRN pain #60 tabs 06/15/24 Rx hydrocodone 5 mg-acetaminophen 325 1 tab PO Q6H PRN severe pain #6 06/15/24 Rx mg tablet tabs ibuprofen 600 mg tablet 600 mg PO TID PRN pain #60 tabs 06/15/24 Rx Exam Const General: cooperative and comfortable Resp Effort & Inspection: normal respiratory effort Auscultation: clear to auscultation bilaterally Cardio Rate: regular rate Rhythm: abnormal rhythm irregularly irregular Results Last Vital Signs Temp 36.4 C L 06/15/24 10:47 Pulse 81 06/15/24 10:47 Resp 18 06/15/24 10:47 BP 146/96 H 06/15/24 10:47 Pulse Ox 97 06/15/24 10:47
[2024-06-15] MEDS: CLINDAMYCIN 900 MG/50 ML BAG 50 MG IVPB (12:58)
[2024-06-15] MEDS: Sodium Bicarbonate 50 MEQ/50 ML VIAL (13:08)
[2024-06-15] MEDS: Lidocaine 1% Pres-Free 30 ML VIAL (13:09)
[2024-06-15 13:39] VITALS: BP 151/104; PULSE 96; RESP 20; TEMP 36.2; O2SAT 98
--- NOTE | 2024-06-15 13:55 | W.ANESPOSTOP ---
Postoperative Evaluation Date, Time and Location Date Performed: 06/15/24 Time Performed: 13:55 Patient Location: Day Surgery Unit Vital Signs Most Recent Imported Vital Signs: Most Recent Vital Signs Temp Pulse Resp BP Pulse Ox 36.2 C L 96 H 20 151/104 H 98 06/15/24 13:39 06/15/24 13:39 06/15/24 13:39 06/15/24 13:39 06/15/24 13:39 Pain Score Most Recent Pain Score: Most Recent Pain Score Pain Level 0 06/15/24 13:39 Assessment Mental Status: Awake (Alert & Oriented to Patient Baseline) Airway and Respiratory Function: Patent airway with normal (patient baseline) respiratory exam Cardiovascular Function: Hemodynamically Stable Hydration Status: Adequately Hydrated Nausea & Vomiting: No Nausea or Vomiting Pain: Pt. Denies Any Pain Peripheral Nerve Block: Patient did not receive a nerve block
--- NOTE | 2024-06-15 14:09 | ROE_ITS ---
Date of service: 06/15/24 Time of Service: 13:00 Operative Note Operative Note DATE OF PROCEDURE: 06/15/24 PRE-OP DIAGNOSIS: Right Dequervain's Tenosynovitis POST-OP DIAGNOSIS: same PROCEDURE: Right First Extensor Compartment Release SURGEON: Blake Shepherd ANESTHESIA TYPE: General:No Airway Refer to Anesthesia Record ESTIMATED BLOOD LOSS: 0 PATHOLOGY: none sent TOURNIQUET TIME: 24 COMPLICATIONS: None Patient was transported to: same day Patient's condition: stable Indications: Lakisha is a 63-year-old female who has had symptoms of Dequervain's tenosynovitis, confirmed with MRI. Nonoperative treatment options had been trialed. Given their failure, I offered operative intervention. I reviewed the technical details of a first extensor compartment release. I reviewed the risk of the procedure to include bleeding, infection, pain, stiffness, tendon instability, damage to the superficial radial nerve, and complete release. Despite these risks, the patient elected to proceed. Findings: There was a tightened first excessive compartment. This tissue was incredibly thickened and was released with notable fluid within the first extensor compartment. A separate slip compartment with the EPB tendon was also identified and released. Tenosynovectomy was also performed. Procedure Description: Lakisha was greeted in the preoperative holding area. Name and surgical site were confirmed. The history and physical was completed. The consent was reviewed the patient and signed. She was taken back to the operating room. The patient was placed in the supine position and monitored anesthesia care was initiated. The right was then prepped with ChloraPrep and draped in a standard fashion after a nonsterile tourniquet was placed high up onto the arm. Prophylactic antibiotics in the form of cefazolin were administered. A timeout was performed for safe surgery. The surgical site was drawn on the skin. The planned surgical field was anesthetized with 0.25% bupivacaine with epinephrine. The limb was e xsanguinated and the tourniquet was inflated where it stayed for 24. A 2 cm incision was made longitudinally over the radial styloid extending from a previous incision which is on the volar?radial wrist. The skin was incised only. The deep tissue and subcutaneous fat was dissected with a tenotomy scissors trying to protect bridge of the superficial radial nerve. Any branches that were identified were retracted out of the way. The first compartment extensor tendons were then identified. The distal aspect of the first compartment was noted and were released. This release was performed more on the dorsal side to prevent tendon subluxation. The entirety of the first extensor compartment was then released. The slips of the abductor pollicis longus tendon were inspected. They were moved to confirm the appropriate motion of the thumb. The extensor pollicis brevis tendon was then identified and a separate and very tight and subcompartment. It was fully released. Traction on the tendon was also used to confirm appropriate extension of the thumb confirming the release of the appropriate tendon. The dorsal radial surface of the radius was once again inspected to make sure there is no other sub-compartments or other restrictions to tendon motion. The wound was then thoroughly irrigated. There was dense tenosynovium seen around the tendons, particular the slips of the abductor pollicis longus. This was resected into the forearm. The tendons were once again inspected and should be free of any constraints all the way to the insertion of the first metacarpal. The deep tissue was closed with a 3-0 Vicryl. The skin was closed with a running subjective 4-0 Monocryl. The tourniquet is released without significant bleeding. The hand was dressed with 4 x 4's, Kerlex and FAUSTO wrap into a soft thumb spica splint. All counts were correct. Patient was transferred back to same day surgery area in stable condition.
[2024-06-15 14:15] VITALS: BP 185/99; PULSE 68; RESP 18; TEMP 36.4; O2SAT 99
[2024-06-15 14:17] VITALS: BP 185/99; PULSE 68; RESP 18; TEMP 36.4; O2SAT 99
== END 2024-06-15 09:44 | disposition home or self-care (01) ==
PROVIDERS: PCP Student in an Organized Health Care Education/Training Program; Visit Provider Student in an Organized Health Care Education/Training Program
PROC: (CPT 25000; principal; 2024-06-15 13:00)
DX: M65.4 Radial styloid tenosynovitis [de Quervain] (principal)
CPT/HCPCS: 25000; J0737; J2704

== ENCOUNTER 2024-08-01 10:36 | Day surgery (SDC) | payer MEDICAID, SELFPAY ==
[2024-08-01 11:11] VITALS: BP 132/73; PULSE 86; RESP 18; TEMP 36.3; O2SAT 98
--- NOTE | 2024-08-01 11:36 | W.PM.DSUDISC ---
Date of service: 08/01/24 Time of Service: 11:36 Discharge Plan Disposition Patient Disposition: Home Condition: Good Discharge Details Reason For Visit: LRF and LLF Trigger Release Attending Provider: Blake Shepherd Primary Care Provider: Delilah Gil Home Meds and New Rx's Prescriptions: New acetaminophen 500 mg tablet 1,000 mg PO TID Qty: 90 0RF ibuprofen 600 mg tablet 600 mg PO TID PRN (Reason: pain) Qty: 90 0RF Continued topiramate 50 mg tablet 50 mg PO QHS Qty: 90 3RF chlorthalidone 25 mg tablet 25 mg PO DAILY losartan 50 mg tablet 75 mg PO DAILY Patient Comments: Per Dr. Muñiz, nephrology at [facility] [place], pt was puton 75 mg daily for renal protection, confirmed with [place] this is what is in blister packs. RH nitroglycerin 0.4 mg tablet, sublingual 0.4 mg sublingual Q5 MIN PRN X3 PRN (Reason: chest pain) Qty: 30 8RF (DME) NEEDLES to match Ozempic Rx See Rx Instructions .Route .MEDSUPPLY Qty: 15 3RF Rx Instructions: As directed to MATCH the Ozempic Rx (3 mos+ breakage) pantoprazole 40 mg tablet,delayed release (DR/EC) 40 mg PO DAILY Qty: 90 3RF rosuvastatin [Crestor] 20 mg tablet 20 mg PO DAILY Qty: 90 3RF pramipexole 0.25 mg tablet 0.25 mg PO QPM Qty: 90 3RF Rx Instructions: administer 2 - 3 hours before bedtime semaglutide 1 mg/dose (4 mg/3 mL) pen injector 1 mg subcut QWEEK MDD WEEKLY Qty: 9 3RF Rx Instructions: Increased dose if tolerated; otherwise return to 0.5 and call PCP (HH support?) bupropion HCl [Wellbutrin XL] 150 mg tablet extended release 24 hr 450 mg PO DAILY Qty: 90 3RF albuterol sulfate 90 mcg/actuation HFA aerosol inhaler 1 - 2 inh inhalation Q4H PRN (Reason: shortness of breath or wheezing) Qty: 6.7 1RF pramipexole 0.125 mg tablet See Rx Instructions .ROUTE .COMPLEX Qty: 28 5RF Dose Instruction: TAKE 1 TABLET BY MOUTH AT BEDTIME Rx Instructions: TAKE 1 TABLET BY MOUTH AT BEDTIME cholecalciferol (vitamin D3) 50 mcg (2,000 unit) capsule See Rx Instructions .ROUTE .COMPLEX Qty: 28 4RF Dose Instruction: TAKE 1 CAPSULE BY MOUTH DAILY FOR LOW VITAMIN D. Rx Instructions: TAKE 1 CAPSULE BY MOUTH DAILY FOR LOW VITAMIN D. oxybutynin chloride 10 mg tablet extended release 24hr See Rx Instructions .ROUTE .COMPLEX Qty: 28 5RF Dose Instruction: TAKE 1 TABLET BY MOUTH AT BEDTIME Rx Instructions: TAKE 1 TABLET BY MOUTH AT BEDTIME Jardiance 10 mg tablet 10 mg PO DAILY Qty: 90 3RF Rx Instructions: Continue for hyperglycemia with CKD isosorbide mononitrate 30 mg tablet extended release 24 hr 30 mg PO DAILY Qty: 30 5RF metoprolol succinate 50 mg tablet extended release 24 hr 50 mg PO DAILY Qty: 30 5RF magnesium oxide 200 mg magnesium tablet 400 mg PO DAILY Qty: 30 6RF Rx Instructions: Take 1 tablet daily at bedtime. hydroxyzine HCl 50 mg tablet See Rx Instructions .ROUTE .COMPLEX Qty: 84 0RF Dose Instruction: TAKE 1 TABLET BY MOUTH THREE TIMES A DAY NEEDED FOR ANXIETY PANIC SENSATION Rx Instructions: TAKE 1 TABLET BY MOUTH THREE TIMES A DAY NEEDED FOR ANXIETY PANIC SENSATION Eliquis 5 mg tablet See Rx Instructions .ROUTE .COMPLEX Qty: 56 0RF Dose Instruction: TAKE 1 TABLET BY MOUTH TWICE A DAY Rx Instructions: TAKE 1 TABLET BY MOUTH TWICE A DAY Discontinued acetaminophen 500 mg tablet 500 mg PO Q6H PRN (Reason: pain) Qty: 60 2RF Discharge Instructions Stand Alone Forms: [place] T. Finger Release Activity:: Activity as Tolerated Remove Dressings/Wound Care:: 48 hours Shower/Bathe:: 48 hours Diet:: As Tolerated Discharge Orders Discharge Orders: Discharge Order (Routine); Ordered 08/01/24 Ordered By: Buck Mejia DS: Diagnosis Discharge Diagnosis (1) Trigger finger, left ring finger: Status: Acute (2) Trigger finger, left little finger: Status: Acute
[2024-08-01] MEDS: Sodium Bicarbonate 50 MEQ/50 ML VIAL (12:10)
[2024-08-01] MEDS: Lidocaine 1% Pres-Free W/EPI 1/200,000 10 ML VIAL (12:10)
[2024-08-01 12:35] VITALS: BP 131/77; PULSE 79; RESP 18; TEMP 36.4; O2SAT 96
--- NOTE | 2024-08-01 17:37 | ROE_ITS ---
Date of service: 08/01/24 Time of Service: 11:35 Operative Note Operative Note DATE OF PROCEDURE: 08/01/24 PRE-OP DIAGNOSIS: Left Little and Ring Finger Trigger Fingers POST-OP DIAGNOSIS: same PROCEDURE: Trigger Finger Release - Left Little and Ring Finger SURGEON: Blake Shepherd ANESTHESIA TYPE: Local By Surgeon Refer to Anesthesia Record ESTIMATED BLOOD LOSS: 0 PATHOLOGY: none sent COMPLICATIONS: None Patient was transported to: same day Patient's condition: stable Indications: I have seen Lakisha in clinic for symptoms of a trigger finger of the left little and ring fingers. The catching, clicking, locking, and pain limited function. The diagnosis of trigger finger was evident. The symptoms had not responded to conservative measures. I discussed trigger finger release with the patient. I reviewed the risks of the procedure to include, but not limited to, bleeding, infection, pain, stiffness, incomplete release, damage to nerves or vessels, continued catching, recurrence. Despite these risks, the patient elected to proceed. Findings: There was a tightened A1 bri which was released. The flexor tendons were inspected and the patient was able to move the finger without any catching, clicking, or locking. Procedure Description: Lakisha was greeted in the preoperative holding area where the correct side was identified and marked. The consent was reviewed with the patient and signed. All questions were answered. She was taken back to the operating room. The patient was placed into the supine position on the operating room table with the left arm on an arm board. All bony prominences were well padded. No prophylactic antibiotics were administered since this was a clean, elective hand surgical case. The left arm was then prepped with Chloraprep and draped in a standard fashion with stockinette and extremity drape. A timeout to confirm correct identity, side and site, procedure, allergies, anesthesia, and medical concerns was performed. The surgical site was marked as a longitudinal incision directly over the A1 bri of the involved digits - little and ring. This was confirmed with palpation during finger flexion. This area, overlying the metacarpal head, was then anesthetized with 1% Lidocaine for each finger. The patient tolerated this well and once the anesthetic had setup, the procedure began. Starting with the little finger, a slightly oblique, longitudinal incision was made through skin only, approximately 1cm. The deep tissues were dissected bluntly. Once the A1 bri and flexor tendons were identified the soft tissue including neurovascular structures were retracted medially and laterally. There were no crossing structures over the A1 bri. The proximal edge of the bri was identified and the bri was incised with tenotomy scissors. There was a release of the tendons once this was fully released. The tendons were then removed from the wound and inspected. Excess synovium was resected. The tendons were then returned and the patient was asked to move the finger into deep flexion and back to extension. There was no recreation of the pre- operative symptoms. The hand was then once more inspected for any A0 bri or area of possible constriction. The wound was then irrigated and the skin was closed with a 4-0 Nylon. Attention was then turned to the ring finger. A 1cm longitudinal incision was then made. The deep tissues were dissected bluntly. Once the A1 bri and flexor tendons were identified the soft tissue including neurovascular structures were retracted medially and laterally. There were no crossing structures over the A1 bri. The proximal edge of the bri was identified and the bri was incised with tenotomy scissors. There was a release of the tendons once this was fully released. The tendons were then removed from the wound and inspected. Excess synovium was resected. There was some fraying of the flexor tendons. The tendons were then returned and the patient was asked to move the finger into deep flexion and back to extension. There was no recreation of the pre-operative symptoms. The hand was then once more inspected for any A0 bri or area of possible constriction. The wound was then irri gated and the skin was closed with a 4-0 Nylon. The wounds were dressed with Xeroform, gauze, and a Conform dressing. The patient tolerated the procedure well and was returned to the Same Day Surgery area in a stable condition suffering no known complication.
== END 2024-08-01 13:03 | disposition home or self-care (01) ==
PROVIDERS: PCP Student in an Organized Health Care Education/Training Program; Visit Provider Student in an Organized Health Care Education/Training Program
PROC: (CPT 26055; principal; 2024-08-01 12:30)
DX: M65.342 Trigger finger, left ring finger (principal); M65.352 Trigger finger, left little finger
CPT/HCPCS: 26055 ×2; J2004

== ENCOUNTER 2024-09-13 14:36 | Inpatient (IN) | payer MEDICAID, SELFPAY ==
[2024-09-13] VITALS (46 sets, daily range): BP systolic 112–191; BP diastolic 52–146; PULSE 68–165; RESP 14–21; TEMP 36.2–36.4; O2SAT 92–100
--- NOTE | 2024-09-13 14:45 | RT.EKG_ITS ---
APPROVED REPORT Exam: Resting ECG Reason for Exam: weakness Patient Location: E HR:73 bpm ECG Measurements Heart Rate 73 AXIS CO [id number] P [id number] QRSd 89 QRS 1 QT 416 T 24 QTc 458 Conclusion Atrial fibrillation, rate 73 No interval abnormalities No STEMI
--- NOTE | 2024-09-13 14:56 | W.ED.GENAD ---
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 Muñiz, nephrology at [facility], pt was puton 75 mg daily for renal protection, confirmed with [facility] this is what is in blister packs. RH nitroglycerin 0.4 mg tablet, sublingual 0.4 mg sublingual Q5 MIN PRN X3 PRN (Reason: chest pain) Qty: 30 8RF (DME) NEEDLES to match Ozempic Rx See Rx Instructions .Route .MEDSUPPLY Qty: 15 3RF Rx Instructions: As directed to MATCH the Ozempic Rx (3 mos+ breakage) pramipexole 0.25 mg tablet 0.25 mg PO QPM Qty: 90 3RF Rx Instructions: administer 2 - 3 hours before bedtime albuterol sulfate 90 mcg/actuation HFA aerosol inhaler 1 - 2 inh inhalation Q4H PRN (Reason: shortness of breath or wheezing) Qty: 6.7 1RF cholecalciferol (vitamin D3) 50 mcg (2,000 unit) capsule See Rx Instructions .ROUTE .COMPLEX Qty: 28 4RF Dose Instruction: TAKE 1 CAPSULE BY MOUTH DAILY FOR LOW VITAMIN D. Patient Comments: not on pt list Rx Instructions: TAKE 1 CAPSULE BY MOUTH DAILY FOR LOW VITAMIN D. oxybutynin chloride 10 mg tablet extended release 24hr See Rx Instructions .ROUTE .COMPLEX Qty: 28 5RF Dose Instruction: TAKE 1 TABLET BY MOUTH AT BEDTIME Rx Instructions: TAKE 1 TABLET BY MOUTH AT BEDTIME Jardiance 10 mg tablet 10 mg PO DAILY Qty: 90 3RF Rx Instructions: Continue for hyperglycemia with CKD isosorbide mononitrate 30 mg tablet extended release 24 hr 30 mg PO DAILY Qty: 30 5RF magnesium oxide 200 mg magnesium tablet 400 mg PO DAILY Qty: 30 6RF Rx Instructions: Take 1 tablet daily at bedtime. rosuvastatin 20 mg tablet See Rx Instructions .ROUTE .COMPLEX Qty: 28 0RF Dose Instruction: TAKE 1 TABLET BY MOUTH DAILY Rx Instructions: TAKE 1 TABLET BY MOUTH DAILY bupropion HCl 150 mg tablet extended release 24 hr See Rx Instructions .ROUTE .COMPLEX Qty: 84 0RF Dose Instruction: TAKE 3 TABLETS BY MOUTH DAILY Rx Instructions: TAKE 3 TABLETS BY MOUTH DAILY Eliquis 5 mg tablet See Rx Instructions .ROUTE .COMPLEX Qty: 56 5RF Dose Instruction: TAKE 1 TABLET BY MOUTH TWICE A DAY Rx Instructions: TAKE 1 TABLET BY MOUTH TWICE A DAY ibuprofen 600 mg tablet 600 mg PO TID PRN (Reason: pain) Qty: 90 0RF Patient Comments: not on pt list acetaminophen 500 mg tablet 1,500 mg PO QID Rx Instructions: dosing per medication list amlodipine 5 mg tablet 7.5 mg PO DAILY aspirin [Adult Aspirin Regimen] 81 mg tablet,delayed release (DR/EC) 81 mg PO DAILY guaifenesin 600 mg tablet extended release 12hr 600 mg PO ONCE PRN hydroxyzine HCl 50 mg tablet See Rx Instructions .ROUTE .COMPLEX Rx Instructions: TAKE 1 TABLET IN THE MORNING AND 2 AT BEDTIME NEEDED FOR ANXIETY PANIC SENSATION metoprolol succinate 50 mg tablet extended release 24 hr 50 mg PO Q12H Rx Instructions: at noon pramipexole 0.125 mg tablet 0.125 mg PO HS Rx Instructions: TAKE BY MOUTH QPM pantoprazole 40 mg tablet,delayed release (DR/EC) See Rx Instructions .ROUTE .COMPLEX Rx Instructions: TAKE 1 TABLET BY MOUTH HS semaglutide 1 mg/dose (4 mg/3 mL) pen injector 0.5 mg subcut QWEEK MDD WEEKLY Rx Instructions: Increased dose if tolerated; otherwise return to 0.5 and call PCP (HH support?) HPI General Mode of arrival: ambulatory. Date/Time Provider Initiated Documentation: 09/13/24 14:49. Limitations to Documentation: no limitations. Information obtained by: patient, EMS and old records reviewed. HPI Narrative: HPI: This is a 64-year-old female patient with a past medical history significant for meningioma actively undergoing radiotherapy, a history of atrial fibrillation on Eliquis, type 2 diabetes, stage IV CKD, hypertension, who was brought in by EMS for weakness after radiation therapy. The patient reports that she awoke in her normal state of health, which includes being able to ambulate typically without an aid such as canes or walkers. The patient reports that during her radiation treatment she began to feel dizzy, described as both a vertiginous as well as a lightheadedness. She states that she tried to get up and she felt like her legs were not even there and was unable to walk. She reports that she last felt normal at 1 PM. She states that she is experiencing a change in sensation that is very difficult to describe, says that she was able to regain some small motion of her left leg but has not been able to ambulate or move her right leg. She feels like her left arm is little bit weak. She has not had fevers or chills, has been taking her medications as prescribed, is not undergoing chemotherapy. Exam: Gen: awake and alert, in no apparent distress. Appears well nourished. HEENT: PERRL, EOMs full and without nystagmus. The patient has ptosis of the right eye compared to left, likely baseline given the orbital involvement of her radiotherapy. External ears and nose normal, mucous membranes moist. Neck: Supple, full range of motion, no observable masses Lungs: No increased work of breathing CV: Heart with regular rate and irregularly irregular rhythm. Strong and symmetrical radial pulses. Abdomen: Soft, nondistended MSK: No joint swelling, no redness. No external traumatic findings. Skin: No rashes or lesions to visualized skin. Normal color, warm, and dry. Neuro: Cranial nerves II-XII intact and symmetrical bilaterally with the exception of the right eyelid droop noted above. 4 out of 5 strength to the bilateral upper extremities, patient does have pronator drift of the left arm and opens her eyes during testing to readjust her left arm. Endorses vague sensory changes that are difficult for her to describe. The patient has no strength in her right lower extremity, muscular twitches of the left lower extremity when asked to lift her leg. Endorses sensation that feels slightly different from her baseline. Unable to ambulate. Psych: Appropriate for situation. MDM: This is a 64-year-old female patient presenting for evaluation of weakness and inability to walk. As this patient was last seen normal 2 hours ago, I certainly did consider stroke, intracranial hemorrhage, and activated this patient has a stroke alert. She will not be a tPA candidate given her apixaban use. She reports that she had a history of a small stroke that she did not know about at the time, and so I certainly considered recrudescence, mass effect. Considered metabolic and electrolyte derangements, anemia, kidney injury, liver disease. No evidence for seizure activity, patient has been awake and alert throughout. Considered infections including urinary tract infection, no cough or fever to significantly increase my concern for pneumonia. We will obtain laboratory studies to include CBC, CMP, INR, magnesium, troponin, and urinalysis. I will obtain a CT Noncon head as my initial imaging study given the patient's history of stage IV CKD and need for dialysis in the past. I will hold on IV contrast administration until such time as I have assessed her laboratory studies. I will consult [facility] teleneurology given that she is within 4 hours of symptoms. ED Course: I reviewed the patient's laboratory studies, which reveal no leukocytosis, anemia or thrombocytopenia. Chemistry panel reveals a mildly low potassium to 3.3, baseline kidney dysfunction with a BUN of 44 and a creatinine of 2.4, GFR 22. Magnesium slightly low at 1.3, no evidence of liver dysfunction. Troponin negative x [address] head without evidence of intracranial hemorrhage, I did have an extended discussion with the radiologist regarding the appearance of her intracranial lesions, which do have some concerning features for metastases. The patient has never had a contrasted MRI due to her kidney function. I did touch base with the teleneurologist, who recommend CTA head and neck for evaluation of LVO, she would be a potential thrombectomy candidate if she had a left ADA occlusion. This was performed and the patient did receive IV rehydration given her kidney function. This imaging study shows no evidence of large vessel occlusion, vessel stenosis or other significant concerning findings. Teleneurology recommended that the patient be admitted for optimization of medical risk factors, did not recommend any changes in her medications as she is already on aspirin, statin, and apixaban. The patient was noted to have a positive urinalysis with nitrites, pyuria, and bacteriuria. She has an anaphylactic reality and to penicillins and is unsure if she is ever utilized ceftriaxone in the past. For this reason I will avoid cephalosporins and provided her with a dose of ciprofloxacin. I reached out to the admitting attending who is graciously accepted this patient for admission to their service for ongoing workup and management. Her neuro examination at the time that I signed out care included a slight improvement in the strength of her lower extremities, able to bend her right knee whereas before she had no strength whatsoever. She remained hemodynamically appropriate while under my care and was transferred to the hospitalist service without incident. Marley Pierce MD Related Data Home Medications ?Medication ?Instructions ?Recorded ?Confirmed NEEDLES to match Ozempic Rx #15 ea 06/28/23 09/13/24 pramipexole 0.25 mg tablet 0.25 mg PO QPM #90 tabs 11/10/23 09/13/24 chlorthalidone 25 mg tablet 25 mg PO DAILY 03/19/24 08/14/24 losartan 50 mg tablet 50 mg PO DAILY 03/19/24 09/13/24 nitroglycerin 0.4 mg sublingual 0.4 mg sublingual Q5 MIN PRN X3 03/19/24 09/13/24 tablet PRN chest pain #30 tabs albuterol sulfate 90 mcg/actuation 1 - 2 inh inhalation Q4H PRN 05/08/24 09/13/24 aerosol inhaler shortness of breath or wheezing #6.7 grams cholecalciferol (vitamin D3) 50 See Rx Instructions .Route 06/03/24 08/14/24 mcg (2,000 unit) capsule .COMPLEX #28 caps oxybutynin chloride 10 mg See Rx Instructions .Route 06/03/24 09/13/24 tablet,extended release 24 hr .COMPLEX #28 tabs topiramate 50 mg tablet 50 mg PO QHS #90 tabs 06/06/24 08/14/24 empagliflozin 10 mg tablet 10 mg PO DAILY #90 tabs 06/28/24 09/13/24 (Jardiance) isosorbide mononitrate 30 mg 30 mg PO DAILY #30 tabs 06/28/24 09/13/24 tablet,extended release 24 hr magnesium oxide 400 mg (2 x 200 mg magnesium) PO 07/20/24 09/13/24 DAILY Low Magnesium #30 tabs ibuprofen 600 mg tablet 600 mg PO TID PRN pain #90 tabs 08/01/24 08/14/24 bupropion HCl 150 mg 24 hr tablet, See Rx Instructions .Route 08/27/24 09/13/24 extended release .COMPLEX #84 tabs rosuvastatin 20 mg tablet See Rx Instructions .Route 08/27/24 09/13/24 .COMPLEX #28 tabs apixaban 5 mg tablet (Eliquis) See Rx Instructions .Route 08/28/24 09/13/24 .COMPLEX #56 tabs acetaminophen 500 mg tablet 1,500 mg PO QID 09/13/24 09/13/24 amlodipine 5 mg tablet 7.5 mg PO DAILY 09/13/24 09/13/24 aspirin 81 mg tablet,delayed 81 mg PO DAILY 09/13/24 09/13/24 release (Adult Aspirin Regimen) guaifenesin 600 mg tablet, 600 mg PO ONCE PRN 09/13/24 09/13/24 extended release 12 hr hydroxyzine HCl 50 mg tablet See Rx Instructions .Route .COMPLEX 09/13/24 09/13/24 metoprolol succinate 50 mg 50 mg PO Q12H 09/13/24 09/13/24 tablet,extended release 24 hr pantoprazole 40 mg tablet,delayed See Rx Instructions .Route .COMPLEX 09/13/24 09/13/24 release pramipexole 0.125 mg tablet 0.125 mg PO HS 09/13/24 09/13/24 semaglutide 1 mg/dose (4 mg/3 mL) 0.5 mg subcut QWEEK A1C > 6 & high 09/13/24 09/13/24 subcutaneous pen injector risk diabetes Previous Rx's ?Medication ?Instructions ?Recorded NEEDLES to match Ozempic Rx #15 ea 06/28/23 pramipexole 0.25 mg tablet 0.25 mg PO QPM #90 tabs 11/10/23 nitroglycerin 0.4 mg sublingual 0.4 mg sublingual Q5 MIN PRN X3 03/19/24 tablet PRN chest pain #30 tabs albuterol sulfate 90 mcg/actuation 1 - 2 inh inhalation Q4H PRN 05/08/24 aerosol inhaler shortness of breath or wheezing #6.7 grams cholecalciferol (vitamin D3) 50 See Rx Instructions .Route 06/03/24 mcg (2,000 unit) capsule .COMPLEX #28 caps oxybutynin chloride 10 mg See Rx Instructions .Route 06/03/24 tablet,extended release 24 hr .COMPLEX #28 tabs topiramate 50 mg tablet 50 mg PO QHS #90 tabs 06/06/24 empagliflozin 10 mg tablet 10 mg PO DAILY #90 tabs 06/28/24 (Jardiance) isosorbide mononitrate 30 mg 30 mg PO DAILY #30 tabs 06/28/24 tablet,extended release 24 hr magnesium oxide 400 mg (2 x 200 mg magnesium) PO 07/20/24 DAILY Low Magnesium #30 tabs ibuprofen 600 mg tablet 600 mg PO TID PRN pain #90 tabs 08/01/24 bupropion HCl 150 mg 24 hr tablet, See Rx Instructions .Route 08/27/24 extended release .COMPLEX #84 tabs rosuvastatin 20 mg tablet See Rx Instructions .Route 08/27/24 .COMPLEX #28 tabs apixaban 5 mg tablet (Eliquis) See Rx Instructions .Route 08/28/24 .COMPLEX #56 tabs Allergies Allergy/AdvReac Type Severity Reaction Status Date / Time Penicillins Allergy Severe Anaphylaxis Verified 09/13/24 14:47 amoxicillin Allergy Anaphylaxis Verified 09/13/24 14:47 Cillins Allergy Anaphylaxis Uncoded 09/13/24 14:47 General Stated Complaint: GenMedical SHIRLEY: 3 Course Vital Signs Vital signs: Vital Signs Temperature 36.2 C L 09/13/24 14:37 Pulse 76 09/13/24 14:37 Respiratory Rate 14 09/13/24 14:37 Blood Pressure 163/84 H 09/13/24 14:37 Pulse Oximetry 99 09/13/24 14:37 Temperature 36.2 C L 09/13/24 14:37 Pulse 76 09/13/24 14:37 Respiratory Rate 14 09/13/24 14:37 Blood Pressure 163/84 H 09/13/24 14:37 Pulse Oximetry 99 09/13/24 14:37 Oxygen Delivery Method Room Air 09/13/24 14:37 Oxygen Flow Rate 0 09/13/24 14:37 Medical Decision Making Quality:SDOH Health Related Social Needs: No Data to Display PFSH All Active Problems (Updated 09/13/24 @ 19:42 by Marley Pierce MD) UTI (urinary tract infection) (Acute) CVA (cerebral vascular accident) (Chronic) Weakness of right lower extremity (Acute) Meningioma (Acute) [facility] note 07/03/24.HE 07/13/24 Dr Person, radiotherapy planned. dc Wheezing (Acute) Acute left-sided thoracic back pain (Acute) just under left shoulder blade .. 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 NeuroSurg still TBD [ ] , 03/2024, ik Migraine headache without aura (Acute) Chronic headache (Acute) Type 2 diabetes mellitus with other specified complication (Acute) Open abdominal wall wound (Acute) Irregular heart rate (Acute) Several episodes, but asymptomatic; EKG shows AFib, but Card ? atrial activity Prolapse of female pelvic organs (Acute) Mixed stress and urge urinary incontinence (Acute) Abnormal MRI of the head (Acute) Rt optic canal narrowed 2' sclerosis (stable?)([place]) & NEW hyperintense focus (white matter)(anterior rt temporal lobe) may rep demyelinating process, infection or possible neoplasm.. [ ] contrast when RF allows Left contracture of neck (Acute) pain, stiffness .. rad into shoulder blade Hyperparathyroidism due to renal insufficiency (Acute) [ ] Ca.. q 3-6 mos [ ] Ph .. q3-6 mos [ ] PTH, q 6-12 mos [ ] Vit D yearly Malnutrition compromising bodily function (Acute) Low vitamin D level (Acute) WNL 44, 07/2023 (up from January 2023), yay Weight gain (Acute) losing weight since Ozempic start! Edema (Chronic) CKD? 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 [ ] CC for closer coordination w/ [facility] (I sent TWO pramipex Rx .. still only one on her b-cassy list)(and she says no more hydrox, but it's listed .. so therefore b-packed?) .. HOW DO WE TRIAL MEDS? Prediabetes (Acute) HTN (hypertension) (Chronic) per [facility] note (06/2022): Na < 2g. HCTZ 12.5mg added. Proteinuria (Acute) Goal<0.2mg/mg (2.3 on 06/30/22), per [facility] 06/2022. History of anemia due to CKD (Chronic) Goals: HGB 9.5-10.9 (per [facility], 06/2022).. Ferritin>100ng/ml; IronSAT>20%. CKD (chronic kidney disease) stage 4, GFR 15-29 ml/min (Chronic) Hx dialysis. Follows with [facility], Dr. Muñiz. Low back pain (Acute) Lumbosacral spondylosis without myelopathy (Acute) Lumbar stenosis (Acute) Restless leg syndrome (Acute) Medical History Insomnia Atrial fibrillation Hx CHAD2 (-), but ED x2 and CardMon showing Stress incontinence Coughing, sneezing, laughing .. Lifting > 10lbs (Hx incontinence symp, 06/2021) Spastic pelvic floor syndrome Mental health disorder Mixed Dx (Anx/Depr/Schiz-Affective), with poor FU form [facility] x yrs .. refilling Rx & recommending review with [facility]. 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 [ ] UroGyn for possible surg per Dr. Park notes.. Nocturia w/ incontinence episodes Pelvic pain w/ probe/speculum.. Hx dyspareunia. Hx births. Vaginal discharge Sense of urgency w/o urination, but vag d/c! 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 Fontenot)) History of knee surgery History of hysterectomy Hx ovarian rupture H/O section 2 children History of appendectomy Family History Father Heart disease Hypertension Mother Thyroid disease Stroke Sister Cancer Sister Cancer Sister Ovarian cancer Kidney failure Social History Smoking/Tobacco Use Status: Never Tobacco: How many years used: 43 Smoking risk assessment performed?: Yes Alcohol Intake: current Alcohol Intake frequency: holidays/special occasions only Drug use: Never Substance use type: does not use Adopted: No Caregiver/Support person: No Foster care: No Household members: other Details: ex- Housing: apartment Number of Children: 2 number of grandchildren: 1 Communication Needs: Hard of Hearing Education Level: middle school Do you need help understanding health information?: Always current occupation: Volunteers Pets and animals: No Current gender identity: female What is your relationship status?: How often do you get together with friends or relatives?: three or more times per week Panel score (0-1 are the most socially isolated patients): 1 What type of physical activity do you participate in: none Eva/Jewish: Voodoo Seatbelt use: always Drive intox or ride w/intox 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
--- NOTE | 2024-09-13 15:02 | DI.CT_ITS ---
Exam(s) CT HEAD CERVICAL SPINE WO EXAM: CT HEAD CERVICAL SPINE WO CLINICAL HISTORY: Eval CVA, hx radiation. Sudden R>L leg weakness 1p. TECHNIQUE: Imaging Protocol: Axial computed tomography images with coronal and sagittal reformatted images were created and reviewed COMPARISON: CT HEAD AND CSPINE W/O CONTRAST from 05/06/2017 MR MR BRAIN ORBIT FACE NECK WO from 09/16/[address] HEAD WO from 01/17/2024 FINDINGS: BRAIN: There is abnormal sclerotic thickening of the right sphenoid bone and contiguous right temporal bone consistent with probable osseous metastatic blastic disease.. The lateral wall of the right orbit is affected and there is expansion of the above bony pathology into the lateral aspect of the right orb it with medial deviation of the lateral rectus muscle of the right orbit and mild right-sided proptos is now evident. There is also some nonexpansile involvement of the opposite-left left sphenoid bone, including some l ytic involvement of the skull base at this level in the left middle cranial fossa, including bony deh iscence of the skull base at the medial aspect of the left middle cranial fossa... There are no acute skull fractures. There is no fluid in the visualized paranasal sinuses. There is no evidence of intracranial hemorrhage, mass effect, or shift of midline structures. There are no extra-axial fluid collections. The ventricles are not enlarged or shifted and there is no blo od within the ventricular system nor within the basal cisterns. Some calcification is noted in the left vertebral artery at the skull base. There is also mural calc ification within the intra cavernous aspect of both internal carotid arteries. CERVICAL SPINE: No evidence of acute fracture. However, there is anterolisthesis of C3 upon C4 which is related to s ignificant degenerative changes in the left facet joint. There is also disc space narrowing at this disc space. The disc spaces below this level all exhibit advanced narrowing-chronic degenerative disc disease. T here is very mild degenerative anterolisthesis of C4 upon C5 noted. There is no significant facet joint malalignment. No significant osseous lesions evident. There is reversal of the normal cervical curvature evident. With respect to the above described C3-4 listhesis, there are unilateral changes around the left face t joint at C3-4 level which exhibits some sclerosis and are possibly just degenerative as there also small degenerative subarticular cysts at this level. However, this finding is the only similar findi ng in the facet joints of the entire cervical spine and indeed the opposite facet joint of the same l evel also appears unremarkable. Therefore cannot exclude the possibility that these changes in the u nilateral left facet joint at C3-4 level finding may also be metastatic. 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 Probable also significant findings in the similar location left skull base middle cranial fossa more lytic with dehiscence of the skull base at this level. There is no bony expansion into the orbit on the left side. No acute findings evident in the brain on this noninfused study. Multilevel degenerative changes in the cervical spine as described above. There is anterolisthesis o f C3 upon C4 which is related to advanced degenerative changes in the left side only facet joint at t his level. Some sclerosis is seen around the facet joint at this level which may be related to degen erative change but given the findings in the skull base cannot completely exclude sclerotic metastase s at this level. These findings at C3-4 level in the cervical spine were not evident on CT scan of the cervical spine performed April 2017. Findings discussed by phone with ER physician following completion of this study 09/13/2024. RADIATION DOSE DELIVERED: 1,370.49mGy.cm Total DLP DATA REPOSITORY: All CT scans at this facility are submitted to the National Radiology Data Registry (NRDR) Dose Index Registry (DIR) with the [employer] ([employer]). RADIATION OPTIMIZATION: All CT scans at this facility use at least one of these dose optimization te chniques: automated exposure control; mA and/or kV adjustment per patient size (includes targeted exa ms where dose is matched to clinical indication); or iterative reconstruction.
[2024-09-13 15:23] LABS: Abs Immature Grans 0.04 10^3/uL (0.0-0.06); Absolute Basophil Count 0.07 10^3/uL (0.0-0.2); Absolute Eosinophil Count 0.16 10^3/uL (0.0-0.7); Absolute Lymphocyte Count 1.94 10^3/uL (1.2-3.4); Absolute Monocyte Count 0.73 10^3/uL (0.1-0.8); Absolute Neutrophil Count 5.41 10^3/uL (1.2-6.7); Basophils % 0.8 %; Eosinophils % 1.9 %; HCT 38.6 % (36.0-46.0); HGB 12.2 g/dL (11.2-15.7); Immature Grans % 0.5 %; Lymphocytes % 23.2 %; MCH 27.2 pg (27.0-33.0); MCHC 31.6 % (32.0-36.0); MCV 86 fL (80-95); MPV 9.8 fL (8.0-11.0); Monocytes % 8.7 %; Neutrophils % 64.9 %; Platelet Count 200 10^3/uL (130-400); RBC 4.49 10^6/uL (3.93-5.22); RDW 13.6 % (11.7-14.6); RDW-SD 42.4 fL; WBC 8.35 10^3/uL (4.4-10.8)
[2024-09-13 15:40] LABS: INR 1.2 (0.9-1.1); Prothrombin Time 11.6 sec (9.1-11.1)
[2024-09-13 15:46] LABS: ALT 15 U/L (14-59); AST 15 U/L (15-37); Albumin 2.5 g/dL (3.4-5.0); Alkaline Phosphatase 85 U/L (46-116); Anion Gap 10.4 mmol/L (3-11); BUN 44 mg/dL (7-18); Bilirubin, Total 0.37 mg/dL (0.2-1.0); CO2 23.6 mmol/L (21.0-32.0); CREATININE 2.4 mg/dL (0.55-1.02); Calcium 7.4 mg/dL (8.5-10.1); Chloride 111 mmol/L (98-107); Estimated GFR 22.14 (mL/min/1.73m2); Glucose 85 mg/dL (74-106); Magnesium 1.3 mg/dL (1.8-2.4); Potassium 3.3 mmol/L (3.5-5.1); Sodium 145 mmol/L (136-145); Total Protein 6.5 g/dL (6.4-8.2); Troponin I 9 ng/L (<or=51)
[2024-09-13 16:40] LABS: Troponin I 10 ng/L (<or=51)
--- NOTE | 2024-09-13 17:15 | DI.CT_ITS ---
Exam(s) CT BRAIN NECK CTA EXAM: CT BRAIN NECK CTA CLINICAL HISTORY: R. leg paralysis, eval LVO. TECHNIQUE: Imaging Protocol: Axial CT angiography was performed with multi-slice acquisition and mu lti-planar and/or 3D reconstructions. CONTRAST MATERIAL: Intravenous: Omnipaque 350 Contrast volume:structured data in ml COMPARISON: CT CT HEAD CERVICAL SPINE WO from 09/13/2024 FINDINGS: CTA Neck W: Aortic arch anatomy: The aortic arch anatomy is conventional. There is some calcified plaque at the origin of the great vessels off of the aortic arch but there does not appear to be a critical stenosi s at these levels. There is no dissection flap evident in the slide aortic arch. Anterior circulation: Both common carotid arteries ascend with normal luminal diameters. They assume a medial-retropharyng eal course. The carotid bifurcations are relatively midline in the retropharyngeal space. There is no significant stenosis at the carotid bifurcations and proximal internal carotid arteries nor within the internal carotid arteries in the uppermost neck and these vessels are also patent in the skull b ase-carotid canals. Posterior circulation: There is some calcified plaque at the origin of the right vertebral artery off of the right subclavia n artery. No obvious plaque at the origin of the left vertebral artery off of the left subclavian ar merari. The left vertebral artery is dominant. There is no evidence of vertebral artery thrombosis no r dissection and at the skull base both vertebral arteries contribute to the formation of the basilar artery. CTA Brain W: Anterior circulation: Both internal carotid arteries are patent in the skull base-carotid canals. There is circumferential calcification of the intra cavernous internal carotid arteries but without significant stenosis at t hese levels. The supraclinoid aspects of the ICAs are patent. Both A1 segments are patent. The right A1 segment is dominant. Anterior cerebral arteries are patent. There is no evidence of aneurysm at the level o f the anterior communicating artery. Both middle cerebral arteries are patent with no evidence of significant stenosis nor intraluminal th rombus. There also no aneurysms of these vessels. Posterior circulation: The basilar artery ascends in the midline. Distally it gives off patent bilateral superior cerebella r arteries. Above this level the basilar artery terminates as patent bilateral posterior cerebral arteries. Both patent posterior cerebral arteries also receive flow from posterior communicating arteries on palak th sides the [id number]. There is no evidence of aneurysm at the tip of the basilar artery nor elsewhere in the [id number] is. CT BRAIN: There is no evidence of intracranial hemorrhage, mass effect, or shift of midline structures. There are no extra-axial fluid collections. Ventricles are not enlarged or shifted. There are no ring enh ancing lesions in the brain and no abnormal meningeal enhancement. IMPRESSION: 1. Patent carotid arteries in the neck. No hemodynamically significant stenosis. Please note that t he internal carotid arteries in the mid-upper neck exhibit midline retropharyngeal course and both ca rotid bifurcations are in the retropharyngeal region. 2. Patent vertebral arteries. Left vertebral artery is dominant. 3. Patent intracranial arteries. 4. No ring enhancing lesions in the brain. No aneurysms. No vascular malformation evident. 5. Please see separate scan report dictated earlier today which reveals concerning abnormal osseous f indings in the skull base and also involving the right orbit. Findings called by myself to ER physician 09/13/2024 6:55 p.m. RADIATION DOSE DELIVERED: 2,289.76mGy.cm Total DLP DATA REPOSITORY: All CT scans at this facility are submitted to the National Radiology Data Registry (NRDR) Dose Index Registry (DIR) with the [employer] ([employer]). RADIATION OPTIMIZATION: All CT scans at this facility use at least one of these dose optimization te chniques: automated exposure control; mA and/or kV adjustment per patient size (includes targeted exa ms where dose is matched to clinical indication); or iterative reconstruction.
[2024-09-13] MEDS: Normal Saline - Diluent 50 ML VIAL IJ (17:41)
[2024-09-13] MEDS: Omnipaque 350 MG/ML 100 ML BTL 70 ML IJ (17:47)
[2024-09-13 18:41] LABS: Bilirubin Negative (Negative); Blood Negative (Negative); Clarity Sl Cloudy (Clear); Glucose 500 mg/dL (Negative); Ketones Negative (Negative); Leukocyte Esterase Trace (Negative); Nitrite Positive (Negative); Specific Gravity 1.025 (1.005-1.025); Urobilinogen 0.2 mg/dL (Up to 0.2)
[2024-09-13 18:51] LABS: Bacteria Many HPF (Negative); C & S Indicated? Yes; Casts Negative LPF (Negative); Crystals Negative HPF (Negative); Epithelial Cells Few HPF (Negative); Mucus Negative (Negative); Other Cells Negative (Negative); RBC 0-2 HPF (0-2); WBC 20-50 HPF (0-5)
[2024-09-13] MEDS: CIPROFLOXACIN 400 MG/200 ML BAG 200 MG IVPB (19:10)
[2024-09-13] MEDS: Lactated Ringers 500 ML 1000 ML IV (19:10)
--- NOTE | 2024-09-13 21:10 | HPE_ITS ---
Date of service: 09/13/24 Time of Service: 23:30 Assessment and Plan Assessment and plan (1) Weakness of right lower extremity: Status: Acute Assessment and plan: Acute onset complicating radiation treatment for meningioma. This was initially bilateral and she has recovered to what appears to be her baseline. No signs of acute stroke on CT/CTA. Concern for metastatic disease on CT read but did have similar lesions on contrast MRI in January at [facility]. Will monitor on telemetry, get MRI, but defer need to repeat contrast MRI to her primary team. Given her symptoms started bilaterally, and her current subtle deficits are not clearly new. Will defer additional work up unless MRI positive. PT ordered to mobilize safetly. (2) Meningioma: Status: Acute Assessment and plan: Following at [facility] with radiation. (3) UTI (urinary tract infection): Status: Acute Assessment and plan: Some symptoms and notable u/a. Treated with cipro due to allergies, will continue this. (4) CKD (chronic kidney disease) stage 4, GFR 15-29 ml/min: Status: Chronic Assessment and plan: At her recent baseline, [facility]. (5) Type 2 diabetes mellitus with other specified complication: Status: Acute Assessment and plan: Well controlled 05/19 with A1c of 6.5 on non insulin agents. sliding scale prn, continue semaglutide (6) Schizo-affective schizophrenia: Assessment and plan: stable, continue outpatient therapy (7) Atrial fibrillation: Assessment and plan: continue apixaban and rate control History of Present Illness History of Present Illness Chief Complaint: leg weakness Narrative: 64 yo F with history of DM, HTN, migraines, schizoaffective disorder, stage 4 CKD, and atrial fibrillation who is being treated with radiation for a meningioma near her right orbit presented after reporting leg weakness and dizziness after radiation treatment today. She states she felt well when she woke up this morning. During her radiation treatment at [facility] in [facility], she reports starting to feel dizzy. More lightheaded than a spinning sensation. When she tried to get up, she noted she couldn't move either of her legs and she was unable to walk. She reports she had similar leg weakness in the past when she was sick with a UTI. She states she has a right periorbital headache, but this is chronic, hasn't changed. No nausea or vomiting. Since coming to the hospital, her weakness has gradually improved. She previously reported some left arm weakness, but not reporting this now. She first noted the left leg started to work again, but the right was slower to recover. She tells me her right side has been a little bit off for years, she was told she had an old stroke in her left brain years ago, though she doesn't remember any event. Her right eye has always been slightly droopy. She has noted some increased urinary frequency and urgency over the past 1-2 weeks. No dysuria or hematuria. Review of Systems All systems reviewed & are unremarkable except as noted in HPI and below ENT Ears, Nose, Mouth, and Throat: Denies change in voice, Denies dysphagia, Reports nasal congestion (dryness, not new), Denies nasal discharge and Denies sore throat Gastrointestinal Gastrointestinal: Denies change in stool character, Denies dysphagia, Denies diarrhea, Denies nausea and Denies vomiting Neurologic Neurologic: Denies abnormal speech, Denies confusion, Reports restless legs (constant) and Denies convulsions Psychiatric Psychiatric: Denies confusion and Denies mood swings PFSH All Active Problems UTI (urinary tract infection) (Acute) CVA (cerebral vascular accident) (Chronic) Weakness of right lower extremity (Acute) Meningioma (Acute) [facility] note 07/03/24.HE 07/13/24 Dr Person, radiotherapy planned. dc Wheezing (Acute) Acute left-sided thoracic back pain (Acute) just under left shoulder blade .. 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 NeuroSurg still TBD [ ] , 03/2024, ik Migraine headache without aura (Acute) Chronic headache (Acute) Type 2 diabetes mellitus with other specified complication (Acute) Open abdominal wall wound (Acute) Irregular heart rate (Acute) Several episodes, but asymptomatic; EKG shows AFib, but Card ? atrial activity Prolapse of female pelvic organs (Acute) Mixed stress and urge urinary incontinence (Acute) Abnormal MRI of the head (Acute) Rt optic canal narrowed 2' sclerosis (stable?)([place]) & NEW hyperintense focus (white matter)(anterior rt temporal lobe) may rep demyelinating process, infection or possible neoplasm.. [ ] contrast when RF allows Left contracture of neck (Acute) pain, stiffness .. rad into shoulder blade Hyperparathyroidism due to renal insufficiency (Acute) [ ] Ca.. q 3-6 mos [ ] Ph .. q3-6 mos [ ] PTH, q 6-12 mos [ ] Vit D yearly Malnutrition compromising bodily function (Acute) Low vitamin D level (Acute) WNL 44, 07/2023 (up from January 2023), yay Weight gain (Acute) losing weight since Ozempic start! Edema (Chronic) CKD? 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 [ ] CC for closer coordination w/ [place] (I sent TWO pramipex Rx .. still only one on her b-cassy list)(and she says no more hydrox, but it's listed .. so therefore b-packed?) .. HOW DO WE TRIAL MEDS? Proteinuria (Acute) Goal<0.2mg/mg (2.3 on 06/30/22), per [facility] 06/2022. History of anemia due to CKD (Chronic) Goals: HGB 9.5-10.9 (per [facility], 06/2022).. Ferritin>100ng/ml; IronSAT>20%. CKD (chronic kidney disease) stage 4, GFR 15-29 ml/min (Chronic) Hx dialysis. Follows with [facility], Dr. Muñiz. Restless leg syndrome (Acute) Low back pain (Acute) HTN (hypertension) (Chronic) per Ne[facility] note (06/2022): Na < 2g. HCTZ 12.5mg added. Lumbar stenosis (Acute) Lumbosacral spondylosis without myelopathy (Acute) Medical History Atrial fibrillation Hx CHAD2 (-), but ED x2 and CardMon showing Mental health disorder Mixed Dx (Anx/Depr/Schiz-Affective), with poor FU form [facility] x yrs .. refilling Rx & recommending review with [facility]. 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 [ ] UroGyn for possible surg per Dr. Park notes.. Stress incontinence Coughing, sneezing, laughing .. Lifting > 10lbs (Hx incontinence symp, 06/2021) Nocturia w/ incontinence episodes Pelvic pain w/ probe/speculum.. Hx dyspareunia. Hx births. Vaginal discharge Sense of urgency w/o urination, but vag d/c! 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 Fontenot)) History of knee surgery History of hysterectomy Hx ovarian rupture H/O section 2 children History of appendectomy Family History Father Heart disease Hypertension Mother Thyroid disease Stroke Sister Cancer Sister Cancer Sister Ovarian cancer Kidney failure Social History Smoking/Tobacco Use Status: Never Tobacco: How many years used: 43 Smoking risk assessment performed?: Yes Alcohol Intake: current Alcohol Intake frequency: holidays/special occasions only Drug use: Never Substance use type: does not use Adopted: No Caregiver/Support person: No Foster care: No Household members: other Details: ex- Housing: apartment Number of Children: 2 number of grandchildren: 1 Communication Needs: Hard of Hearing Education Level: middle school Do you need help understanding health information?: Always current occupation: Volunteers Pets and animals: No Current gender identity: female What is your relationship status?: How often do you get together with friends or relatives?: three or more times per week Panel score (0-1 are the most socially isolated patients): 1 What type of physical activity do you participate in: none Eva/Adventist: Jehovah'S Witness Seatbelt use: always Drive intox or ride w/intox local city driver: No Do you feel safe at home: Yes Do you feel safe in your relationship?: Yes Meds Allergies and Home Medications Allergies Allergy/AdvReac Type Severity Reaction Status Date / Time Penicillins Allergy Severe Anaphylaxis Verified 09/13/24 14:47 amoxicillin Allergy Anaphylaxis Verified 09/13/24 14:47 Cillins Allergy Anaphylaxis Uncoded 09/13/24 14:47 Home Medications ?Medication ?Instructions ?Recorded ?Confirmed ?Type NEEDLES to match Ozempic Rx #15 ea 06/28/23 09/13/24 Rx pramipexole 0.25 mg tablet 0.25 mg PO QPM #90 tabs 11/10/23 09/13/24 Rx chlorthalidone 25 mg tablet 25 mg PO DAILY 03/19/24 08/14/24 History losartan 50 mg tablet 50 mg PO DAILY 03/19/24 09/13/24 History nitroglycerin 0.4 mg sublingual 0.4 mg sublingual Q5 MIN PRN X3 03/19/24 09/13/24 Rx tablet PRN chest pain #30 tabs albuterol sulfate 90 mcg/actuation 1 - 2 inh inhalation Q4H PRN 05/08/24 09/13/24 Rx aerosol inhaler shortness of breath or wheezing #6.7 grams cholecalciferol (vitamin D3) 50 See Rx Instructions .Route 06/03/24 08/14/24 Rx mcg (2,000 unit) capsule .COMPLEX #28 caps oxybutynin chloride 10 mg See Rx Instructions .Route 06/03/24 09/13/24 Rx tablet,extended release 24 hr .COMPLEX #28 tabs topiramate 50 mg tablet 50 mg PO QHS #90 tabs 06/06/24 08/14/24 Rx empagliflozin 10 mg tablet 10 mg PO DAILY #90 tabs 06/28/24 09/13/24 Rx (Jardiance) isosorbide mononitrate 30 mg 30 mg PO DAILY #30 tabs 06/28/24 09/13/24 Rx tablet,extended release 24 hr magnesium oxide 400 mg (2 x 200 mg magnesium) PO 07/20/24 09/13/24 Rx DAILY Low Magnesium #30 tabs ibuprofen 600 mg tablet 600 mg PO TID PRN pain #90 tabs 08/01/24 08/14/24 Rx bupropion HCl 150 mg 24 hr tablet, See Rx Instructions .Route 08/27/24 09/13/24 Rx extended release .COMPLEX #84 tabs rosuvastatin 20 mg tablet See Rx Instructions .Route 08/27/24 09/13/24 Rx .COMPLEX #28 tabs apixaban 5 mg tablet (Eliquis) See Rx Instructions .Route 08/28/24 09/13/24 Rx .COMPLEX #56 tabs acetaminophen 500 mg tablet 1,500 mg PO QID 09/13/24 09/13/24 History amlodipine 5 mg tablet 7.5 mg PO DAILY 09/13/24 09/13/24 History aspirin 81 mg tablet,delayed 81 mg PO DAILY 09/13/24 09/13/24 History release (Adult Aspirin Regimen) guaifenesin 600 mg tablet, 600 mg PO ONCE PRN 09/13/24 09/13/24 History extended release 12 hr hydroxyzine HCl 50 mg tablet See Rx Instructions .Route .COMPLEX 09/13/24 09/13/24 History metoprolol succinate 50 mg 50 mg PO Q12H 09/13/24 09/13/24 History tablet,extended release 24 hr pantoprazole 40 mg tablet,delayed See Rx Instructions .Route .COMPLEX 09/13/24 09/13/24 History release pramipexole 0.125 mg tablet 0.125 mg PO HS 09/13/24 09/13/24 History semaglutide 1 mg/dose (4 mg/3 mL) 0.5 mg subcut QWEEK A1C > 6 & high 09/13/24 09/13/24 History subcutaneous pen injector risk diabetes Exam Narrative Exam Narrative: GEN: Alert and oriented x 4, pleasant and cooperative, somewhat vague history. No acute distress at rest. HEENT: Head atraumatic. Conjunctiva clear, no icterus. PEERL, EOMI. no rhinorrhea. MMM, OP benign. Neck is supple with no masses or lymphadenopathy, trachea midline, carotid pulses 2+ pallavi LUNGS: CTAB with normal effort CV: irregularly irregular with no murmurs, gallops, or rubs. ABD: active bowel sounds, soft, nontender and nondistended. No masses. EXT: no cyanosis, clubbing. Trace pallavi ankle edema, not tender MSK: No joint redness or swelling NEURO: CN 2-12 grossly intact x slight ptosis right, mid/lateral field cut in right eye. Normal movement of 4 extremities. No pronator drift. Toes downgoing. DTRs slightly stronger on right in patella, not pathologic. Normal speech and coordination. No tremor SKIN: No rashes or open wounds. thick calluses feet PSYCH: normal mood and affect Results Imaging Imaging Studies: Head/neck CTA 1. Patent carotid arteries in the neck. No hemodynamically significant stenosis. Please note that the internal carotid arteries in the mid-upper neck exhibit midline retropharyngeal course and both carotid bifurcations are in the retropharyngeal region. 2. Patent vertebral arteries. Left vertebral artery is dominant. 3. Patent intracranial arteries. 4. No ring enhancing lesions in the brain. No aneurysms. No vascular malformation evident. 5. Please see separate scan report dictated earlier today which reveals concerning abnormal osseous findings in the skull base and also involving the right orbit. CT head: Expansile sclerotic metastatic disease in the right skull base and right orbit involving the right middle cranial fossa with sclerotic bone expansion as well as expansion into the lateral aspect of the right orbit causing some medial deviation of the right lateral rectus muscle and mild ipsilateral proptosis of the right orbit. Probable also significant findings in the similar location left skull base middle cranial fossa more lytic with dehiscence of the skull base at this level. There is no bony expansion into the orbit on the left side. No acute findings evident in the brain on this noninfused study. Multilevel degenerative changes in the cervical spine as described above. There is anterolisthesis of C3 upon C4 which is related to advanced degenerative changes in the left side only facet joint at this level. Some sclerosis is seen around the facet joint at this level which may be related to degenerative change but given the findings in the skull base cannot completely exclude sclerotic metastases at this level. These findings at C3-4 level in the cervical spine were not evident on CT scan of the cervical spine performed April 2017. Labs 09/13/24 15:10 09/13/24 15:10 Labs: Laboratory Results - last 24 hr 09/13/24 09/13/24 09/13/24 15:10 16:12 17:49 WBC 8.35 RBC 4.49 Hgb 12.2 Hct 38.6 MCV 86 MCH 27.2 MCHC 31.6 L RDW 13.6 Plt Count 200 MPV 9.8 Immature Gran % 0.5 Neutrophils % 64.9 Lymphocytes % 23.2 Monocytes % 8.7 Eosinophils % 1.9 Basophils % 0.8 Nucleated RBC % 0.0 Absolute Neutrophils 5.41 Absolute Lymphocytes 1.94 Absolute Monocytes 0.73 Absolute Eosinophils 0.16 Absolute Basophils 0.07 PT 11.6 H INR 1.2 H Sodium 145 Potassium 3.3 L Chloride 111 H Carbon Dioxide 23.6 Anion Gap 10.4 BUN 44 H Creatinine 2.4 H Est GFR (CKD-EPI 2020) 22.14 Glucose 85 Calcium 7.4 L Magnesium 1.3 L Total Bilirubin 0.37 AST 15 ALT 15 Alkaline Phosphatase 85 Troponin I 9 10 Cancelled Total Protein 6.5 Albumin 2.5 L Urine Color Urine Clarity Urine pH Ur Specific [place] Urine Protein Urine Ketones Urine Blood Urine Nitrite Urine Bilirubin Urine Urobilinogen Ur Leukocyte Esterase Urine RBC Urine WBC Ur Epithelial Cells Urine Crystals Urine Bacteria Urine Casts Urine Mucus Urine Other Ur Culture Indicated? Urine Glucose 09/13/24 18:33 WBC RBC Hgb Hct MCV MCH MCHC RDW Plt Count MPV Immature Gran % Neutrophils % Lymphocytes % Monocytes % Eosinophils % Basophils % Nucleated RBC % Absolute Neutrophils Absolute Lymphocytes Absolute Monocytes Absolute Eosinophils Absolute Basophils PT INR Sodium Potassium Chloride Carbon Dioxide Anion Gap BUN Creatinine Est GFR (CKD-EPI 2020) Glucose Calcium Magnesium Total Bilirubin AST ALT Alkaline Phosphatase Troponin I Total Protein Albumin Urine Color Yellow Urine Clarity Sl Cloudy Urine pH 6.0 Ur Specific [place] 1.025 Urine Protein 30 H Urine Ketones Negative Urine Blood Negative Urine Nitrite Positive H Urine Bilirubin Negative Urine Urobilinogen 0.2 Ur Leukocyte Esterase Trace H Urine RBC 0-2 Urine WBC 20-50 H Ur Epithelial Cells Few Urine Crystals Negative Urine Bacteria Many Urine Casts Negative Urine Mucus Negative Urine Other Negative Ur Culture Indicated? Yes Urine Glucose 500 H Last Vital Signs Temp 36.2 C L 09/13/24 14:37 Pulse 88 09/13/24 20:56 Resp 19 09/13/24 17:30 BP 191/112 H 09/13/24 20:56 Pulse Ox 96 09/13/24 20:56 Time Spent Time spent with Patient: >75 minutes Time was spent: preparing to see the patient(eg.review tests), obtaining and/or reviewing separately otained hiistory, ordering medications,tests, procedures, referring, communicating with other health care mgr, indepentently interpreting results, counseling the patient and care coordination
--- NOTE | 2024-09-13 23:05 | W.PC.ACHO ---
Registration Status: Primary Language: Preferred Language: ED Information & Data Chief Complaint GenMedical 09/13/24 15:22 Chief Complaint GenMedical 09/13/24 15:00 Triage Note s/p chemo treatments. 09/13/24 14:37 feeling weak today. unable to ambulate. dizzy. denies CP/SOB. getsd headaches. always feels cold. 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 Dialysis AV fistula malfunction Nasal vestibulitis Otalgia of both ears Learning disability GERD (gastroesophageal reflux disease) Hx of hyperlipidemia Traumatic hematoma of knee Proximal phalanx fracture of finger (03/04/20) (Last Reviewed 08/14/24 @ 06:04 by Blake Shepherd MD) History of tonsillectomy History of bowel resection History of knee surgery History of hysterectomy H/O section History of appendectomy Most Recent Vital Signs Temperature 36.4 C L 09/13/24 22:43 Temperature Source Temporal Artery Scan 09/13/24 22:43 Pulse 85 09/13/24 22:43 Pulse 88 09/13/24 17:30 Respiratory Rate 21 09/13/24 22:43 Respiratory Effort Normal, Non-Labored 09/13/24 15:22 Respiratory Depth Normal 09/13/24 15:22 Respiratory Pattern Normal 09/13/24 15:22 Blood Pressure 112/65 09/13/24 22:43 Blood Pressure Mean 135 09/13/24 22:01 Blood Pressure Position Supine 09/13/24 22:28 Pulse Oximetry 97 09/13/24 22:43 Oxygen Delivery Method Room Air 09/13/24 22:43 Oxygen Flow Rate 0 09/13/24 22:43 Pain Level 8 09/13/24 22:43 Allergies Penicillins Allergy (Severe, Verified 09/13/24 14:47) Anaphylaxis I'll amoxicillin Allergy (Verified 09/13/24 14:47) Anaphylaxis Cillins Allergy (Uncoded 09/13/24 14:47) Anaphylaxis Precautions Isolation Standard precaution 09/13/24 15:22 Active Medications Generic Name Dose Route Start Last Admin Trade Name Baldo PRN Reason Stop Dose Admin Iohexol 70 ml 09/13/24 18:00 09/13/24 17:47 Omnipaque 350 Mg/Ml 100 Ml Btl IJ 10/13/24 23:59 100 ml DIRECTED ARTEM Administration Sodium Chloride 50 ml 09/13/24 17:45 09/13/24 17:41 Normal Saline - Diluent 50 Ml Vial IJ 50 ml .FOR DI USE ARTEM Administration IV IV Catheter Type [Forearm] Peripheral IV IV Catheter Type [Right Peripheral IV Antecubital] IV Catheter Gauge [Forearm] 18 IV Catheter Gauge [Right 18 Antecubital] Diet Orders Category Date Time Status Diabetes Consistent CHO/Low Na [DIET] Nutrition 09/14/24 Breakfast Ordered Diagnostics 09/13/24 09/13/24 09/13/24 Range/Units 18:33 17:49 16:12 WBC (4.4-10.8) 10^3/uL RBC (3.93-5.22) 10^6/uL Hgb (11.2-15.7) g/dL Hct (36.0-46.0) % MCV (80-95) fL MCH (27.0-33.0) pg MCHC (32.0-36.0) % RDW (11.7-14.6) % Plt Count (130-400) 10^3/uL MPV (8.0-11.0) fL Immature Gran % % Neutrophils % % Lymphocytes % % Monocytes % % Eosinophils % % Basophils % % Nucleated RBC % (0.0-0.3) % Absolute Neutrophils (1.2-6.7) 10^3/uL Absolute Lymphocytes (1.2-3.4) 10^3/uL Absolute Monocytes (0.1-0.8) 10^3/uL Absolute Eosinophils (0.0-0.7) 10^3/uL Absolute Basophils (0.0-0.2) 10^3/uL PT (9.1-11.1) sec INR (0.9-1.1) Sodium (136-145) mmol/L Potassium (3.5-5.1) mmol/L Chloride (98-107) mmol/L Carbon Dioxide (21.0-32.0) mmol/L Anion Gap (3-11) mmol/L BUN (7-18) mg/dL Creatinine (0.55-1.02) mg/dL Est GFR (CKD-EPI 2020) (mL/min/1.73m2) Glucose (74-106) mg/dL Calcium (8.5-10.1) mg/dL Magnesium (1.8-2.4) mg/dL Total Bilirubin (0.2-1.0) mg/dL AST (15-37) U/L ALT (14-59) U/L Alkaline Phosphatase (46-116) U/L Troponin I Cancelled 10 (<or=51) ng/L Total Protein (6.4-8.2) g/dL Albumin (3.4-5.0) g/dL Urine Color Yellow (Yellow) Urine Clarity Sl Cloudy (Clear) Urine pH 6.0 (5-8) Ur Specific [place] 1.025 (1.005-1.025) Urine Protein 30 H (Neg-Trace) mg/dL Urine Ketones Negative (Negative) mg/dL Urine Blood Negative (Negative) Urine Nitrite Positive H (Negative) Urine Bilirubin Negative (Negative) Urine Urobilinogen 0.2 (Up to 0.2) mg/dL Ur Leukocyte Esterase Trace H (Negative) Urine RBC 0-2 (0-2) HPF Urine WBC 20-50 H (0-5) HPF Ur Epithelial Cells Few (Negative) HPF Urine Crystals Negative (Negative) HPF Urine Bacteria Many (Negative) HPF Urine Casts Negative (Negative) LPF Urine Mucus Negative (Negative) Urine Other Negative (Negative) Ur Culture Indicated? Yes Urine Glucose 500 H (Negative) mg/dL 09/13/24 Range/Units 15:10 WBC 8.35 (4.4-10.8) 10^3/uL RBC 4.49 (3.93-5.22) 10^6/uL Hgb 12.2 (11.2-15.7) g/dL Hct 38.6 (36.0-46.0) % MCV 86 (80-95) fL MCH 27.2 (27.0-33.0) pg MCHC 31.6 L (32.0-36.0) % RDW 13.6 (11.7-14.6) % Plt Count 200 (130-400) 10^3/uL MPV 9.8 (8.0-11.0) fL Immature Gran % 0.5 % Neutrophils % 64.9 % Lymphocytes % 23.2 % Monocytes % 8.7 % Eosinophils % 1.9 % Basophils % 0.8 % Nucleated RBC % 0.0 (0.0-0.3) % Absolute Neutrophils 5.41 (1.2-6.7) 10^3/uL Absolute Lymphocytes 1.94 (1.2-3.4) 10^3/uL Absolute Monocytes 0.73 (0.1-0.8) 10^3/uL Absolute Eosinophils 0.16 (0.0-0.7) 10^3/uL Absolute Basophils 0.07 (0.0-0.2) 10^3/uL PT 11.6 H (9.1-11.1) sec INR 1.2 H (0.9-1.1) Sodium 145 (136-145) mmol/L Potassium 3.3 L (3.5-5.1) mmol/L Chloride 111 H (98-107) mmol/L Carbon Dioxide 23.6 (21.0-32.0) mmol/L Anion Gap 10.4 (3-11) mmol/L BUN 44 H (7-18) mg/dL Creatinine 2.4 H (0.55-1.02) mg/dL Est GFR (CKD-EPI 2020) 22.14 (mL/min/1.73m2) Glucose 85 (74-106) mg/dL Calcium 7.4 L (8.5-10.1) mg/dL Magnesium 1.3 L (1.8-2.4) mg/dL Total Bilirubin 0.37 (0.2-1.0) mg/dL AST 15 (15-37) U/L ALT 15 (14-59) U/L Alkaline Phosphatase 85 (46-116) U/L Troponin I 9 (<or=51) ng/L Total Protein 6.5 (6.4-8.2) g/dL Albumin 2.5 L (3.4-5.0) g/dL Urine Color (Yellow) Urine Clarity (Clear) Urine pH (5-8) Ur Specific [place] (1.005-1.025) Urine Protein (Neg-Trace) mg/dL Urine Ketones (Negative) mg/dL Urine Blood (Negative) Urine Nitrite (Negative) Urine Bilirubin (Negative) Urine Urobilinogen (Up to 0.2) mg/dL Ur Leukocyte Esterase (Negative) Urine RBC (0-2) HPF Urine WBC (0-5) HPF Ur Epithelial Cells (Negative) HPF Urine Crystals (Negative) HPF Urine Bacteria (Negative) HPF Urine Casts (Negative) LPF Urine Mucus (Negative) Urine Other (Negative) Ur Culture Indicated? Urine Glucose (Negative) mg/dL 09/13/24 18:33 Urine Culture - Pending Urine - Reflex from Ua Intake and Output - 24 Hour Total 09/13/24 14:31 thru 09/13/24 22:54 Intake Total 700 Balance 700 Weight 121 kg Intake: IV 700 Other: Stool Size Small Stool Characteristics Formed [place] Risk Assessment History of Falls Previous History 09/13/24 15:22 Contributing Factors Impairments,Medications 09/13/24 15:22 Ambulatory Aids Independent 09/13/24 15:22 Tubes/Lines W/no contributing factors 09/13/24 15:22 Gait Evaluation W/any additional score 09/13/24 15:22 Cognition No cognitive impairment 09/13/24 15:22 Fall Total Score 51 09/13/24 15:22 Level of Risk High Risk 09/13/24 15:22 Problems (Last Reviewed 08/14/24 @ 06:04 by Blake Shepherd MD) UTI (urinary tract infection) (Acute) Weakness of right lower extremity (Acute) Meningioma (Acute) Type 2 diabetes mellitus with other specified complication (Acute) CKD (chronic kidney disease) stage 4, GFR 15-29 ml/min (Chronic) v v v v v v v v v Sending and/or Receiving Nurses: Please use comment section below to note any information pertinent to the patient hand-off not included above. Information / Comments: pt admitted to hospital for right lower extremity weakness that started thim am in radiation department. Pt reports strength has been slowly returning Report received from Mandy Godoy
[2024-09-13] MEDS: Normal Saline Flush 10 ML SYR IVP (23:09)
[2024-09-13] MEDS: Metoprolol CR 50 MG TABCR PO (23:43)
[2024-09-13] MEDS: MAGNESIUM SULFATE 2 GM/50 ML BAG IV_INF (23:44)
[2024-09-14] MEDS: Apixaban 5 MG TAB PO ×3 (01:15→19:59)
[2024-09-14] MEDS: Potassium Chloride Liquid 20 MEQ PKT PO (01:15)
[2024-09-14] MEDS: Pramipexole 0.25 MG TAB 0.375 MG PO ×2 (01:15→20:00)
[2024-09-14] MEDS: Rosuvastatin 20 MG TAB PO ×2 (01:17→19:58)
[2024-09-14] MEDS: Topiramate 25 MG TAB 50 MG PO ×2 (01:17→19:59)
[2024-09-14] MEDS: Oxybutynin-CR 5 MG TABCR 10 MG PO ×2 (01:17→19:59)
[2024-09-14] MEDS: Pramipexole 0.25 MG TAB 1.5 MG PO (01:18)
[2024-09-14] MEDS: Pantoprazole 40 MG TABCR PO ×2 (01:18→19:58)
[2024-09-14 03:51] VITALS: BP 111/82; PULSE 78; RESP 18; TEMP 36.8; O2SAT 97
[2024-09-14 06:54] LABS: Anion Gap 12.1 mmol/L (3-11); BUN 44 mg/dL (7-18); CO2 23.9 mmol/L (21.0-32.0); CREATININE 2.5 mg/dL (0.55-1.02); Calcium 8.4 mg/dL (8.5-10.1); Chloride 104 mmol/L (98-107); Estimated GFR 21.08 (mL/min/1.73m2); Glucose 119 mg/dL (74-106); Magnesium 1.7 mg/dL (1.8-2.4); Potassium 3.9 mmol/L (3.5-5.1); Sodium 140 mmol/L (136-145)
[2024-09-14 06:58] LABS: Calculated LDL 48 mg/dL (<100); Cholesterol 127 mg/dL (<200); HDL Cholesterol 55 mg/dL (40-60); Triglyceride 122 mg/dL (<150)
--- NOTE | 2024-09-14 07:00 | DI.MRI_ITS ---
Exam(s) MR BRAIN WO EXAM: MR BRAIN WO CLINICAL HISTORY: h/o meningioma, new right sided weakness TECHNIQUE: Multiplanar multisequence MRI of the brain was performed. COMPARISON: MR MR BRAIN ORBIT FACE NECK WO from 09/16/2023 MR MR BRAIN WO from 02/21/[address] BRAIN NECK CTA from 09/13/2024 FINDINGS: The examination is limited due to patient motion artifact. VENTRICLES AND EXTRA AXIAL SPACES: Normal in size and morphology for the patient's age. MIDLINE SHIFT: None. CEREBRAL PARENCHYMA: No focus of restricted diffusion to suggest acute infarct. No space-occupying le murray identified. There are stable scattered areas of hyperintense signal seen in the white matter on the FLAIR and T2 weighted images most suggestive of chronic microvascular ischemic disease. HEMORRHAGE: None. BRAINSTEM/CEREBELLUM: Normal. CALVARIUM: The right sphenoid lesion in its mass effect on the adjacent right lateral rectus muscle a re unchanged. VISUALIZED PARANASAL SINUSES/MASTOIDS:Clear. DEERING OF MAX: Normal flow void. PITUITARY GLAND: Unremarkable. OTHER FINDINGS: None. IMPRESSION: 1. No evidence of an acute territorial infarct. 2. Stable right sphenoid lesion in stable mass effect on the adjacent right lateral rectus muscle. DATA REPOSITORY:
[2024-09-14 08:00] VITALS: BP 143/86; PULSE 70; RESP 18; TEMP 36.6; O2SAT 98
--- NOTE | 2024-09-14 09:50 | PDOC.CMIN ---
Date of service: 09/14/24 Time of Service: 09:50 Care Management Initial Assmt Initial Assessment Reason for Hospitalization: leg weakness Functional Status/Living Situation Patient Presentation: Lakisha was sitting up in a chair when CM met with her. She informed CM that she does not like being questioned about anything and was brief in her responses. Lakisha lives in an apartment in [facility] and her ex lives with her. She stated that he is able to do perform of his ADLs by himself but does need some help.. Laksiha is independent at baseline and does not currently receive any services. Town of Residence: [facility] Resides with: Other (lives with her ex) Significant Other/Family: Local Employment Status: Unemployed Instrumental Activities of Daily Living (ADLs): Independent Medications Medication Management: No Issues/Barriers identified Physical Functioning/Mobility Assistive Device: walker Advance Directives Advance Directives: Do you have an Advance Directive: Y 04/24/24 11:11 AD On File at [facility]: Y 04/24/24 11:11 Date Asked 03/15/24 03/15/24 16:45 AD Date Reviewed 08/01/24 07/27/24 19:22 COLST On File at [facility] COLST Date Scanned Code Status Resuscitation Status Full Code Portal Pt does not currently have a portal and education provided: No Insurance Coverage/Financial Issues Insurance: Medicaid Care Team Visit Care Team Role Provider Type Delilah Gil DO Primary Care Provider OSTEOPATHIC DOCTOR InPatient Jensen Hall Other Providers OTHER Marley Pierce MD Emergency Provider [facility] STAFF PHYSICIAN Shamar Zurita Admit Provider [facility] STAFF PHYSICIAN Attending Provider Discharge Potential Discharge Needs: PCP F/U Appt and Other (Oncology - undergoing radiation therapy for a tumor behind her eye) Anticipated Barriers to Discharge: None Identified Patient/Family Education Needs: Review discharge instructions, discuss Ask Me Three Transportation: Private vehicle Plan: Anticipate Lakisha will be discharged home with no new services when medically stable. She will follow up with her community providers and plan of care and transport with family. CM will follow and continue to support discharge planning. PFSH All Active Problems UTI (urinary tract infection) (Acute) CVA (cerebral vascular accident) (Chronic) Weakness of right lower extremity (Acute) Meningioma (Acute) [facility] [place].[facility] 07/13/24 Dr Person, radiotherapy planned. dc Wheezing (Acute) Acute left-sided thoracic back pain (Acute) just under left shoulder blade .. 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 NeuroSurg still TBD [ ] , 03/2024, ik Migraine headache without aura (Acute) Chronic headache (Acute) Type 2 diabetes mellitus with other specified complication (Acute) Open abdominal wall wound (Acute) Irregular heart rate (Acute) Several episodes, but asymptomatic; EKG shows AFib, but Card ? atrial activity Prolapse of female pelvic organs (Acute) Mixed stress and urge urinary incontinence (Acute) Abnormal MRI of the head (Acute) Rt optic canal narrowed 2' sclerosis (stable?)([place]) & NEW hyperintense focus (white matter)(anterior rt temporal lobe) may rep demyelinating process, infection or possible neoplasm.. [ ] contrast when RF allows Left contracture of neck (Acute) pain, stiffness .. rad into shoulder blade Hyperparathyroidism due to renal insufficiency (Acute) [ ] Ca.. q 3-6 mos [ ] Ph .. q3-6 mos [ ] PTH, q 6-12 mos [ ] Vit D yearly Malnutrition compromising bodily function (Acute) Low vitamin D level (Acute) WNL 44, 07/2023 (up from January 2023), yay Weight gain (Acute) losing weight since Ozempic start! Edema (Chronic) CKD? Venous Stasis/poor circ, [place] [facility] [place] Encounter for medication review and counseling (Acute) Pt aware, but some errors noted despite recent med-rec .. [ ] CC for closer coordination w/ [place] (I sent TWO pramipex Rx .. still only one on her b-cassy list)(and she says no more hydrox, but it's listed .. so therefore b-packed?) .. HOW DO WE TRIAL MEDS? HTN (hypertension) (Chronic) per Nephro note (06/2022): Na < 2g. HCTZ 12.5mg added. Proteinuria (Acute) Goal<0.2mg/mg (2.3 on 06/30/22), per [facility] 06/2022. History of anemia due to CKD (Chronic) Goals: HGB 9.5-10.9 (per [facility], 06/2022).. Ferritin>100ng/ml; IronSAT>20%. CKD (chronic kidney disease) stage 4, GFR 15-29 ml/min (Chronic) Hx dialysis. [place] [facility] Muñ[place]. Low back pain (Acute) Lumbosacral spondylosis without myelopathy (Acute) Lumbar stenosis (Acute) Restless leg syndrome (Acute) Medical History Atrial fibrillation Hx CHAD2 (-), but ED x2 and CardMon showing Mental health disorder Mixed Dx (Anx/Depr/Schiz-Affective), with poor FU form [facility] x yrs .. refilling Rx & recommending review with [facility]. 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 [ ] UroGyn for possible surg per Dr. Park notes.. Stress incontinence Coughing, sneezing, laughing .. Lifting > 10lbs (Hx incontinence symp, 06/2021) Nocturia w/ incontinence episodes Pelvic pain w/ probe/speculum.. Hx dyspareunia. Hx births. Vaginal discharge Sense of urgency w/o urination, but vag d/c! 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 Nasal vestibulitis Otalgia of both ears Abnormal auditory perception of right ear Impacted cerumen, right ear Hematoma of left lower leg Hx of smoking Chronic pain Seasonal allergies Carpal tunnel syndrome Fibromyalgia Sleep walking disorder Schizo-affective schizophrenia Learning disability presumed due to brain injury syndrome per chart review At risk for sleep apnea Insomnia Pulmonary nodule Diabetes NO LONGER DIABETIC (only when CKD, HD) GERD (gastroesophageal reflux disease) Hx of hyperlipidemia Depression Anxiety Traumatic hematoma of knee Proximal phalanx fracture of finger (03/04/20) Surgical History History of tonsillectomy age 13 History of bowel resection [facility], took more than expected (Hx ischemic colitis (2004), left colectomy per 2010 PL (Dr. Fontenot)) History of knee surgery History of hysterectomy Hx ovarian rupture H/O section 2 children History of appendectomy Family History Father Heart disease Hypertension Mother Thyroid disease Stroke Sister Cancer Sister Cancer Sister Ovarian cancer Kidney failure Social History Smoking/Tobacco Use Status: Never Tobacco: How many years used: 43 Smoking risk assessment performed?: Yes Alcohol Intake: current Alcohol Intake frequency: holidays/special occasions only Drug use: Never Substance use type: does not use Adopted: No Caregiver/Support person: No Foster care: No Household members: other Details: ex- Housing: house Number of Children: 2 number of grandchildren: 1 Communication Needs: Hard of Hearing Education Level: middle school Do you need help understanding health information?: Always current occupation: Volunteers Pets and animals: No Current gender identity: female What is your relationship status?: How often do you get together with friends or relatives?: three or more times per week Panel score (0-1 are the most socially isolated patients): 1 What type of physical activity do you participate in: none Eva/Anabaptism: Mosque Seatbelt use: always Drive intox or ride w/intox 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 Do you feel safe at home: Yes Do you feel safe in your relationship?: Yes SDOH(Care Management) Screening Will the Patient Participate in the Screening?: Yes Do you worry about having a steady place to live?: no Problems where you live: no known problems In the past 12 months, have you had to go without electric, gas, oil or water in your home?: no Have you or anyone in your house had to go without enough food to eat?: no Has lack of transportation kept you from medical appointments or from doing things needed for daily living?: no Has anyone in your support network made you feel unsafe for any reason?: no Health Related Social Needs Health related social needs details: pt reports she may need more help at home
[2024-09-14] MEDS: Chlorthalidone 25 MG TAB PO (10:01)
[2024-09-14] MEDS: Acetaminophen 325 MG TAB PO ×2 (10:01→23:53)
[2024-09-14] MEDS: Isosorbide Mononitrate 30 MG TABCR PO (10:01)
[2024-09-14] MEDS: Metoprolol CR 50 MG TABCR PO ×2 (10:02→19:58)
[2024-09-14] MEDS: Aspirin E.C. 81 MG TABEC PO (10:02)
[2024-09-14] MEDS: Losartan 50 MG TAB 75 MG PO (10:02)
[2024-09-14] MEDS: buPROPion-XL 150 MG TABCR 450 MG PO (10:02)
[2024-09-14] MEDS: amLODIPine 5 MG TAB 7.5 MG PO (10:02)
[2024-09-14] MEDS: Empaglifozin 10 MG TAB PO (10:02)
[2024-09-14] MEDS: Cholecalciferol (Vitamin D3) 1,000 UNIT TAB 2000 UNITS PO (10:02)
[2024-09-14] MEDS: Normal Saline Flush 10 ML SYR IVP ×2 (10:03→20:04)
--- NOTE | 2024-09-14 10:46 | IN_ITS ---
PT Notes Visit Reasons: CVA, UTI Physical Therapy Inpatient Initial Evaluation Date: Referring Doctor: Shamar Zurita MD PT Orders: PT CONSULT: Eval for Assistive Device. Fall Safety assessment. 64 yo F with acute R-sided weakness complicating radiation for meningioma Precautions: Fall. Standard. Activity as tolerated. Patient Profile/Admitting Diagnosis: Lakisha is a 64-year-old female patient admitted for management of weakness related to radiation for meningioma, UTI, CKD, type II DM, schizoaffective schizophrenia, and AF. PMHX: All Active Problems UTI (urinary tract infection) (Acute) CVA (cerebral vascular accident) (Chronic) Weakness of right lower extremity (Acute) Meningioma (Acute) [facility] [place] 07/03/24.HE 07/13/24 Dr Person, radiotherapy planned. dc Wheezing (Acute) Acute left-sided thoracic back pain (Acute) just under left shoulder blade .. 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 NeuroSurg still TBD [ ] , 03/2024, ik Migraine headache without aura (Acute) Chronic headache (Acute) Type 2 diabetes mellitus with other specified complication (Acute) Open abdominal wall wound (Acute) Irregular heart rate (Acute) Several episodes, but asymptomatic; EKG shows AFib, but Card ? atrial activity Prolapse of female pelvic organs (Acute) Mixed stress and urge urinary incontinence (Acute) Abnormal MRI of the head (Acute) Rt optic canal narrowed 2' sclerosis (stable?)([place]) & NEW hyperintense focus (white matter)(anterior rt temporal lobe) may rep demyelinating process, infection or possible neoplasm.. [ ] contrast when RF allows Left contracture of neck (Acute) pain, stiffness .. rad into shoulder blade Hyperparathyroidism due to renal insufficiency (Acute) [ ] Ca.. q 3-6 mos [ ] Ph .. q3-6 mos [ ] PTH, q 6-12 mos [ ] Vit D yearly Malnutrition compromising bodily function (Acute) Low vitamin D level (Acute) WNL 44, 07/2023 (up from January 2023), yay Weight gain (Acute) losing weight since Ozempic start! Edema (Chronic) CKD? Venous Stasis/poor circ, w/ long hours standing as antonio @ [employer] (4am - 10-12-2pm Encounter for medication review and counseling (Acute) Pt aware, but some errors noted despite recent med-rec .. [ ] CC for closer coordination w/ [place] (I sent TWO pramipex Rx .. still only one on her b-cassy list)(and she says no more hydrox, but it's listed .. so therefore b- packed?) .. HOW DO WE TRIAL MEDS? Proteinuria (Acute) Goal<0.2mg/mg (2.3 on 06/30/22), per [facility] 06/2022. History of anemia due to CKD (Chronic) Goals: HGB 9.5-10.9 (per [facility], 06/2022).. Ferritin>100ng/ml; IronSAT>20%. CKD (chronic kidney disease) stage 4, GFR 15-29 ml/min (Chronic) Hx dialysis. Follows with [facility], Dr. Muñiz. Restless leg syndrome (Acute) Low back pain (Acute) HTN (hypertension) (Chronic) per [facility] note (06/2022): Na < 2g. HCTZ 12.5mg added. Lumbar stenosis (Acute) Lumbosacral spondylosis without myelopathy (Acute) Medical History Atrial fibrillation Hx CHAD2 (-), but ED x2 and CardMon showing Mental health disorder Mixed Dx (Anx/Depr/Schiz-Affective), with poor FU form [facility] x yrs .. refilling Rx & recommending review with [facility]. 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 [ ] UroGyn for possible surg per Dr. Park notes.. Stress incontinence Coughing, sneezing, laughing .. Lifting > 10lbs (Hx incontinence symp, 06/2021) Nocturia w/ incontinence episodes Pelvic pain w/ probe/speculum.. Hx dyspareunia. Hx births. Vaginal discharge Sense of urgency w/o urination, but vag d/c! 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 Fontenot) )History of knee surgery History of hysterectomy Hx ovarian rupture H/O section 2 children History of appendectomy Social History/Home Situation: Patient lives with ex- who is not able to help with anything. Patient walked without an assistive device prior to admission but had been having issues with her R knee, R hip, and R thigh due to pain. She has a daughter who [place] and a supportive neighbor who came in today to bring patient's clothes. Equipment Owned/DME: [facility] Subjective: I came in with my right upper extremity weak, not my left. My right hip and thigh hurt too, they have been on and off. I remember that somebody may have told me a before that I had a stroke that affected this side. I can walk better now. Objective: General Observation: Seated on bedside chair. High BMI. Mental Status: Alert and oriented as to person, place, time, and purpose. Able to pay attention, focus, and respond appropriately. Pain: 4-5/10 in the R hip with movement and WB Vital Signs: [place] monitored by nursing staff ROM: Right Upper Extremity: Shoulder Flexion WFL. Shoulder abduction WFL. Elbow flexion WFL. Wrist flexion WFL. Functional opening and closing of hand WFL. Left Upper Extremity: Shoulder Flexion WFL. Shoulder abduction WFL. Elbow flexion WFL. Wrist flexion WFL. Functional opening and closing of hand WFL. Right Lower Extremity: Hip flexion Unable past 90 degrees. Hip abduction WFL. Knee flexion 45 degrees to 90 degrees. Ankle dorsiflexion 4-. Ankle plantarflexion 4-/5. Left Lower Extremity: Hip flexion WFL. Hip abduction WFL. Knee flexion WFL. Ankle dorsiflexion WFL. Ankle plantarflexion WFL. Strength: Right Upper Extremity: Shoulder flexors 4-/5. Shoulder abductors 4-/5. Elbow flexors 4/5. Elbow extensors 4/5. Pmo Consultant weaker than L. Left Upper Extremity: Shoulder flexors 4/5. Shoulder abductors 4/5. Elbow flexors 5/5. Elbow extensors 5/5. Pmo Consultant strong. Right Lower Extremity: Hip flexors 3-/5. Hip abductors 4-/5. Knee flexors 4-/5. Knee extensors 3-/5. Ankle dorsiflexors 4-/5. Ankle plantarflexors 4-/5. Left Lower Extremity: Hip flexors 4-/5. Hip abductors 4-/5. Knee flexors 4-/5. Knee extensors 4-/5. Ankle dorsiflexors 4-/5. Ankle plantarflexors 4-/5. Bed Mobility/Transfers: Rolling independent Supine to sit independent Sit to supine independent Sit to stand independent Stand to sit independent Bed to bedside commode independent Bedside commode to bed independent Bed to reclining chair independent Reclining chair to bed independent Gait: Facilitated safe and correct performance of level surface ambulation covering a distance of 150 feet using front wheeled walker with step to gait pattern with decreased antalgic gait pattern with patient requiring only standby assist and minimal verbal cueing for posture, for weight distribution through both walker handles, and for directions. Stairs: Guided patient with safe and correct negotiation of 3 x 4 inch steps and 2 x 6 inch steps holding onto bilateral rails with step to gait pattern with decreased bending seen on the right knee during both ascent and descent, patient most comfortable with descending stairs sideways. Verbalized decreased pain on the right knee with the left knee descending down for sideways. Balance: Static Sitting: Normal Dynamic Sitting: Normal Static Standing: Fair Dynamic Standing: Fair Special Tests: Mobility Limitations Standardized Measure [facility] AM-PAC 6 clicks Basic Mobility Inpatient Short Form: Raw Score: 24 CMS Score: 0% deficit Informed Consent/Education: Patient was instructed in purpose of PT consult and plan of care. Agreeable to proceed with established PT POC to achieve personal goals. Assessment: Patient currently on radiation therapy for menigioma, on Eliquis for AF, and with cervical and lumbar stenosis who presents with R upper extremity and hip/thigh pain which patient said she has had for quite a while limiting her ability to walk. Patient is able to perform short distance ambulation inside room without AD but demonstrates antalgic gait due to pain in the R hip and thigh with weight bearing. Patient was given a front-wheeled walker to take home for outdoor ambulation to provided needed stability and [id number] for back and R LE to minimize falls and decrease pain report. Patient presents with clinical signs and symptoms consistent with current/admitting diagnoses that have resulted to mobility limitations, gait instability, generalized weakness, and overall ADL decline as demonstrated by the following impairment level findings: 1. Decreased strength to R UE and R LE major muscle groups 2. Impaired sitting/standing balance 3. Impaired activity tolerance 4. Limitation of joint range of motion in R hip 5. Shortness of breath 6. Pain in R hip Impairments are contributing to the following functional limitations: 1. Difficulty with ambulation without assistive device 2. Increased completion time for mobility ADL performance 3. Increased risk for falls 4. Difficulty with managing steps alone safely Patient is assessed as a 29387 moderate complexity based on the following: History: 64-year-old female with past medical history as indicated above Examination: Demonstrable impairment in strength, balance, and mobility level with underlying impairments and functional limitations as exhibited above Presentation: Evolving Decision Makin moderate complexity Goals: Goals X1 week 1. Supine-Sit independent 2. Sit-Supine independent 3. Sit-Stand independent 4. Stand-Sit independent with no AD 5. Bed-Chair independent with no AD 6. Chair-Bed independent with no AD 7. Independent gait on level surface with use of FWW for at least 300 feet without report of pain nor dyspnea 8. Independent stair negotiation while holding onto B rails for at least 12 steps without report of pain nor dyspnea 9. Independent with home exercise program 10. Good static and dynamic standing balance/tolerance Plan of Care/Treatment Plan: 1-2x/day, 7 days/week x 1 week. Plan of care has been reviewed with the [employer] providing the service under Physical Therapy direction. Initiate Physical Therapy intervention for pain management as needed, strengthening, bed mobility, transfers, gait, stairs, balance training, and use of assistive device. DISCHARGE RECOMMENDATIONS: [] Home with no services [] [X] Home with services. Home when medically cleared. Will benefit from outpatient PT services for R hip and thigh pain and balance progression. [] Home with outpatient PT [] [] SNF for continued rehabilitation [] [] Shelter Care [] [] SNF versus LTC based on ability to participate and progress [] [X] Will benefit from the use of front-wheeled walker at home to maximize independence, minimize pain report, and reduce fall risk. TREATMENT CODE/TIME: 89583 x 20 minutes for 1 unit, 29940 x 24 minutes (10:46-11:30). Thank you for the opportunity to participate in the care of this patient. Divina Ibarra PT, DPT, CLT [facility] [place], [place]
[2024-09-14 11:56] VITALS: BP 154/82; PULSE 77; RESP 18; TEMP 36.4; O2SAT 95
--- NOTE | 2024-09-14 13:50 | PT.INTREAT ---
PT Notes Visit Reasons: CVA, UTI Physical Therapy Inpatient Treatment Note Date: 09/14/2024 Precautions: Fall. Standard. Activity as tolerated. Subjective: My hip still hurts. I know that my back has had a lot of issues but am not letting anybody touch it. Is agreeable to having a lumbar CT when asked by Dr. Geronimo during this session. Objective: General Observation: Seated on bedside chair. High BMI. Mental Status: Alert and oriented as to person, place, time, and purpose. Able to pay attention, focus, and respond appropriately. Pain: 4-5/10 in the R hip with movement and WB Vital Signs: Closely monitored by nursing staff Bed Mobility/Transfers: Rolling independent Supine to sit independent Sit to supine independent Sit to stand independent Stand to sit independent Bed to bedside commode independent Bedside commode to bed independent Bed to reclining chair independent Reclining chair to bed independent Gait: Facilitated safe and correct performance of level surface ambulation covering a distance of 350 feet using front wheeled walker with step to gait pattern with decreased antalgic gait pattern with patient requiring only standby assist and minimal verbal cueing for posture, for weight distribution through both walker handles, and for directions. Balance: Static Sitting: Normal Dynamic Sitting: Normal Static Standing: Fair Dynamic Standing: Fair ASSESSMENT: Patient with multi-level degenerative joint disease and R-sided foraminal stenosis at L4-L5% and L5-S1 levels as well as multi-level facet arthropathy as seen in below's CT scan impression which is primarily contributing to pain in posterior hip and proximal thigh. Patient has been advised to use a front-wheeled walker for all indoor and outdoor ambulation to assist with off loading back and ensuring stability medilaterally and anteriorly. Patient will be given trunk and back exercises to help with stabilization and pain relief. LUMBAR SPINE CT SCAN on 09/14/2024 AT INDIVIDUAL LEVELS: T12-L1:No disc herniation nor canal stenosis. Facet joints unremarkable. No foraminal stenosis. L1-2: This level exhibits moderate disc space narrowing on the right side and advanced disc space narrowing on the left side. There is broad annular bulging with what appears to be a superimposed left paracentral-lateral left disc protrusion. This significantly flattens the anterior thecal sac. There is mild-moderate central canal stenosis. There are mild-moderate degenerative changes in both facet joints. There is no significant foraminal stenosis at this level. L2-3: This level exhibits advanced disc space narrowing, slightly more severe on the left side where there are also lateral left osteophytes evident and subchondral sclerosis. There is broad annular bulging without a distinct focal disc herniation. There is mild-moderate central canal stenosis related to broad annular bulging and short AP dimensions of the pedicles. There are mild degenerative changes in the facet joints. There is mild foraminal stenosis on the left side. No significant foraminal stenosis on the right side. L3-4: This level also exhibits advanced disc space narrowing which is relatively uniform and also exhibits vacuum phenomena M. there are lateral left osteophytes at this level also noted. There is mild central canal stenosis due to broad annular bulging, short AP dimensions the pedicles and mild degenerative changes in both facet joints. There is no distinct dominant focal disc herniation although the annular bulging does extend into the floor of the exiting neural foramina bilaterally. There is, however, only mild bilateral foraminal stenosis. L4-5: This level also exhibits advanced disc space narrowing, slightly more so on the right than the left side and there is also vacuum phenomenon within the disc space. Posteriorly there is broad annular bulging and mild-moderate central canal stenosis due to short AP dimensions the pedicles, broad annular bulging, and mild degenerative changes in the facet joints. The broad annular bulging extends into the floor of the exiting neural foramina bilaterally. There is moderate-severe foraminal stenosis on the right side at this level due to a combination of the annular bulging in the exiting neural foramen and disc height loss. There is lesser amount of foraminal stenosis on the left side at this level. Although there is also annular bulging into the exiting neural foramen, there is slightly less disc height loss on the left side at this level. L5-S1: This level exhibits preserved disc height with the exception of mild narrowing on the right side of the disc space. There is posterior annular bulging. Central canal dimensions are lower normal. There are advanced degenerative changes in both facet joints. There are no pars defects nor listhesis. There is significant foraminal stenosis on the right side at this level due to the annular bulging extending into the floor of the exiting neural foramen and the exiting right nerve root being impinged between this and the overlying right L5 pedicle. There is no significant foraminal stenosis on the opposite-left side at this level. 09/14/[address] IMPRESSION: 1. Multilevel chronic degenerative disc disease and facet arthropathy 2. There is asymmetric right-sided foraminal stenosis at L4-5 and L5-S1 levels 3. Multilevel mild central canal stenosis which is related to multilevel annular bulging, short AP dimensions the pedicles and mild-moderate facet arthropathy. Most significant central canal stenosis appears to be at the L1-2 level and is mostly related to broad annular bulging and a superimposed left paracentral-lateral left disc protrusion at this level. There is a mild degenerative scoliosis convex right. There are lateral left osteophytes at L2-3 and L3-4 levels. There right-sided osteophytes at L4-5 level. Patient currently on radiation therapy for menigioma, on Eliquis for AF, and with cervical and lumbar stenosis who presents with R upper extremity and hip/thigh pain which patient said she has had for quite a while limiting her ability to walk. Patient is able to perform short distance ambulation inside room without AD but demonstrates antalgic gait due to pain in the R hip and thigh with weight bearing. Patient was given a front-wheeled walker to take home for outdoor ambulation to provided needed stability and [id number] for back and R LE to minimize falls and decrease pain report. Plan of Care/Treatment Plan: 1-2x/day, 7 days/week x 1 week. Plan of care has been reviewed with the [employer] providing the service under Physical Therapy direction. Initiate Physical Therapy intervention for pain management as needed, strengthening, bed mobility, transfers, gait, stairs, balance training, and use of assistive device. Introduce gentle spinal exercises below in the next session. Access Code: [email or web address] URL: [email or web address] Date: 09/14/2024 Prepared by: Divina Ibarra Program Notes DO ALL EXERCISES SLOWLY AND STOP BEYOND THE POINT OF PAIN. STOP ANY EXERCISE THAT INCREASE PAIN. Exercises - Seated Cat Cow - 1 x daily - 7 x weekly - 1 sets - 10 reps - 5 hold - Seated Sidebending Arms Overhead - 1 x daily - 7 x weekly - 1 sets - 10 reps - 5 hold - Spine Rotation in Chair - 1 x daily - 7 x weekly - 1 sets - 10 reps - 5 hold - Seated Single Knee to Chest - 1 x daily - 7 x weekly - 1 sets - 10 reps - 5 hold - Seated Pelvic Tilt - 1 x daily - 7 x weekly - 1 sets - 10 reps - 5 hold DISCHARGE RECOMMENDATIONS: [] Home with no services [] [X] Home with services. Home when medically cleared. Will benefit from outpatient PT services for R hip and thigh pain and balance progression. [] Home with outpatient PT [] [] SNF for continued rehabilitation [] [] [facility] [] [] SNF versus LTC based on ability to participate and progress [] [X] Will benefit from the use of front-wheeled walker at home to maximize independence, minimize pain report, and reduce fall risk. TREATMENT CODE/TIME: 18024 x 20 minutes for 1 unit, 10193 x 24 minutes (10:46-11:30).
--- NOTE | 2024-09-14 14:41 | W.PM.PROGNOT ---
Date of Service Date of service: 09/14/24 Time of Service: 14:41 Assessment and Plan Assessment and plan (1) Weakness of right lower extremity: Status: Acute Assessment and plan: Acute onset complicating radiation treatment for meningioma. This was initially bilateral and she has recovered to what appears to be her baseline. No signs of acute stroke on CT/CTA. Concern for metastatic disease on CT read but did have similar lesions on contrast MRI in January at [facility]. Will monitor on telemetry, get MRI, but defer need to repeat contrast MRI to her primary team. Given her symptoms started bilaterally, and her current subtle deficits are not clearly new. Will defer additional work up unless MRI positive. PT ordered to mobilize safetly. 09/14/24 Pt does c/o s/s that could be consistent with lumbar stenosis and will order a ct to rule in/out. (2) Meningioma: Status: Acute Assessment and plan: Following at [facility], [place] with radiation. 09/14/24 PT's next schedule day of radiation is on Tuesday (3) UTI (urinary tract infection): Status: Acute Assessment and plan: Some symptoms and notable u/a. Treated with cipro due to allergies, will continue this. 09/14/24 Urine culture is pending, will cw abx at night (4) CKD (chronic kidney disease) stage 4, GFR 15-29 ml/min: Status: Chronic Assessment and plan: At her recent baseline, . 09/14/24 Current BUN/Cr is 44/2.5 which is stable (5) Type 2 diabetes mellitus with other specified complication: Status: Acute Assessment and plan: Well controlled 05/19 with A1c of 6.5 on non insulin agents. sliding scale prn, continue semaglutide (6) Schizo-affective schizophrenia: Assessment and plan: stable, continue outpatient therapy (7) Atrial fibrillation: Assessment and plan: continue apixaban and rate control 09/14/24 current hr is 77 and eliquis has been ordered Subjective Subjective Interval history since last seen: PT seen and examined in his room. POC d/w pt as well as with bedside nurse during MDR. Pt does complain of RLE weakness and pain. Exam Narrative Exam Narrative: HEENT: NCAT MMM EOMI PERRLA NECK: NO LAD NO JVD CV: RRR NO MRG ABD: SNTND EXT: PT AMBULATING WITH A WALKER Objective Last Vital Signs Temp 36.4 C L 09/14/24 11:56 Pulse 77 09/14/24 11:56 Resp 18 09/14/24 11:56 BP 154/82 H 09/14/24 11:56 Pulse Ox 95 09/14/24 11:56 Laboratory Results - last 24 hr 09/13/24 09/13/24 09/13/24 15:10 16:12 17:49 WBC 8.35 RBC 4.49 Hgb 12.2 Hct 38.6 MCV 86 MCH 27.2 MCHC 31.6 L RDW 13.6 Plt Count 200 MPV 9.8 Immature Gran % 0.5 Neutrophils % 64.9 Lymphocytes % 23.2 Monocytes % 8.7 Eosinophils % 1.9 Basophils % 0.8 Nucleated RBC % 0.0 Absolute Neutrophils 5.41 Absolute Lymphocytes 1.94 Absolute Monocytes 0.73 Absolute Eosinophils 0.16 Absolute Basophils 0.07 PT 11.6 H INR 1.2 H Sodium 145 Potassium 3.3 L Chloride 111 H Carbon Dioxide 23.6 Anion Gap 10.4 BUN 44 H Creatinine 2.4 H Est GFR (CKD-EPI 2020) 22.14 Glucose 85 Calcium 7.4 L Magnesium 1.3 L Total Bilirubin 0.37 AST 15 ALT 15 Alkaline Phosphatase 85 Troponin I 9 10 Cancelled Total Protein 6.5 Albumin 2.5 L Triglycerides Total Cholesterol LDL Cholesterol, Calc HDL Cholesterol Urine Color Urine Clarity Urine pH Ur Specific Altus Urine Protein Urine Ketones Urine Blood Urine Nitrite Urine Bilirubin Urine Urobilinogen Ur Leukocyte Esterase Urine RBC Urine WBC Ur Epithelial Cells Urine Crystals Urine Bacteria Urine Casts Urine Mucus Urine Other Ur Culture Indicated? Urine Glucose 09/13/24 09/14/24 18:33 05:52 WBC RBC Hgb Hct MCV MCH MCHC RDW Plt Count MPV Immature Gran % Neutrophils % Lymphocytes % Monocytes % Eosinophils % Basophils % Nucleated RBC % Absolute Neutrophils Absolute Lymphocytes Absolute Monocytes Absolute Eosinophils Absolute Basophils PT INR Sodium 140 Potassium 3.9 Chloride 104 Carbon Dioxide 23.9 Anion Gap 12.1 H BUN 44 H Creatinine 2.5 H Est GFR (CKD-EPI 2020) 21.08 Glucose 119 H Calcium 8.4 L Magnesium 1.7 L Total Bilirubin AST ALT Alkaline Phosphatase Troponin I Total Protein Albumin Triglycerides 122 Total Cholesterol 127 LDL Cholesterol, Calc 48 HDL Cholesterol 55 Urine Color Yellow Urine Clarity Sl Cloudy Urine pH 6.0 Ur Specific Altus 1.025 Urine Protein 30 H Urine Ketones Negative Urine Blood Negative Urine Nitrite Positive H Urine Bilirubin Negative Urine Urobilinogen 0.2 Ur Leukocyte Esterase Trace H Urine RBC 0-2 Urine WBC 20-50 H Ur Epithelial Cells Few Urine Crystals Negative Urine Bacteria Many Urine Casts Negative Urine Mucus Negative Urine Other Negative Ur Culture Indicated? Yes Urine Glucose 500 H Time Spent with Patient Time Spent with Patient: 25-34 minutes Time was spent: preparing to see the patient(eg.review tests), obtaining and/or reviewing separately otained hiistory, ordering medications,tests, procedures, referring, communicating with other health director of patient care, indepentently interpreting results, counseling the patient and care coordination
--- NOTE | 2024-09-14 15:02 | DI.CT_ITS ---
Exam(s) CT LUMBAR SPINE WO EXAM: CT LUMBAR SPINE WO CLINICAL HISTORY: back and leg pain. TECHNIQUE: Imaging Protocol: Axial computed tomography images with coronal and sagittal reformatted images were created and reviewed COMPARISON: No exams were available for comparison FINDINGS: Bones: There are no fractures, listhesis, nor pars defects. There is a mild degenerative scoliosis c onvex right. No significant osseous lesions identified. INDIVIDUAL LEVELS: T12-L1:No disc herniation nor canal stenosis. Facet joints unremarkable. No foraminal stenosis. L1-2: This level exhibits moderate disc space narrowing on the right side and advanced disc space na rrowing on the left side. There is broad annular bulging with what appears to be a superimposed left paracentral-lateral left disc protrusion. This significantly flattens the anterior thecal sac. The re is mild-moderate central canal stenosis. There are mild-moderate degenerative changes in both fac et joints. There is no significant foraminal stenosis at this level. L2-3: This level exhibits advanced disc space narrowing, slightly more severe on the left side where there are also lateral left osteophytes evident and subchondral sclerosis. There is broad annular b ulging without a distinct focal disc herniation. There is mild-moderate central canal stenosis relat ed to broad annular bulging and short AP dimensions of the pedicles. There are mild degenerative kelechi nges in the facet joints. There is mild foraminal stenosis on the left side. No significant foramin al stenosis on the right side. L3-4: This level also exhibits advanced disc space narrowing which is relatively uniform and also ex hibits vacuum phenomena M. there are lateral left osteophytes at this level also noted. There is mil d central canal stenosis due to broad annular bulging, short AP dimensions the pedicles and mild dege nerative changes in both facet joints. There is no distinct dominant focal disc herniation although the annular bulging does extend into the floor of the exiting neural foramina bilaterally. There is, however, only mild bilateral foraminal stenosis. L4-5: This level also exhibits advanced disc space narrowing, slightly more so on the right than the left side and there is also vacuum phenomenon within the disc space. Posteriorly there is broad bhavin ular bulging and mild-moderate central canal stenosis due to short AP dimensions the pedicles, broad annular bulging, and mild degenerative changes in the facet joints. The broad annular bulging extend s into the floor of the exiting neural foramina bilaterally. There is moderate-severe foraminal sten osis on the right side at this level due to a combination of the annular bulging in the exiting neura l foramen and disc height loss. There is lesser amount of foraminal stenosis on the left side at thi s level. Although there is also annular bulging into the exiting neural foramen, there is slightly l ess disc height loss on the left side at this level. L5-S1: This level exhibits preserved disc height with the exception of mild narrowing on the right s miladis of the disc space. There is posterior annular bulging. Central canal dimensions are lower jun l. There are advanced degenerative changes in both facet joints. There are no pars defects nor list hesis. There is significant foraminal stenosis on the right side at this level due to the annular bu lging extending into the floor of the exiting neural foramen and the exiting right nerve root being i mpinged between this and the overlying right L5 pedicle. There is no significant foraminal stenosis on the opposite-left side at this level. The visualized sacroiliac joints and sacrum appear unremarkable. PARASPINAL SOFT TISSUES: Visualized paraspinal tissues appear unremarkable. IMPRESSION: 1. Multilevel chronic degenerative disc disease and facet arthropathy as described above. 2. There is asymmetric right-sided foraminal stenosis at L4-5 and L5-S1 levels 3. Multilevel mild central canal stenosis which is related to multilevel annular bulging, short AP di mensions the pedicles and mild-moderate facet arthropathy. Most significant central canal stenosis a ppears to be at the L1-2 level and is mostly related to broad annular bulging and a superimposed left paracentral-lateral left disc protrusion at this level. There is a mild degenerative scoliosis convex right. There are lateral left osteophytes at L2-3 and L3-4 levels. There right-sided osteophytes at L4-5 level. RADIATION DOSE DELIVERED: 1,529.47mGy.cm Total DLP DATA REPOSITORY: All CT scans at this facility are submitted to the National Radiology Data Registry (NRDR) Dose Index Registry (DIR) with the [employer] ([employer]). RADIATION OPTIMIZATION: All CT scans at this facility use at least one of these dose optimization te chniques: automated exposure control; mA and/or kV adjustment per patient size (includes targeted exa ms where dose is matched to clinical indication); or iterative reconstruction.
[2024-09-14 15:19] VITALS: BP 140/85; PULSE 76; RESP 15; TEMP 35.8; O2SAT 98
[2024-09-14] MEDS: Ciprofloxacin 500 MG TAB PO (17:20)
[2024-09-14 19:55] VITALS: BP 132/78; PULSE 73; RESP 18
[2024-09-14] MEDS: Magnesium Oxide 400 MG TAB PO (19:58)
[2024-09-14 23:55] VITALS: BP 114/74; PULSE 78; RESP 18; TEMP 36.4; O2SAT 97
--- NOTE | 2024-09-15 03:45 | RT.EKG_ITS ---
APPROVED REPORT Exam: Resting ECG Reason for Exam: chest pain Patient Location: I HR:81 bpm ECG Measurements Heart Rate 81 AXIS MO [id number] P [id number] QRSd 93 QRS 26 QT 413 T 17 QTc 480 Conclusion Atrial fibrillation..
[2024-09-15 03:47] VITALS: BP 142/97; PULSE 80; RESP 18; TEMP 36; O2SAT 97
[2024-09-15 06:36] LABS: Abs Immature Grans 0.03 10^3/uL (0.0-0.06); Absolute Basophil Count 0.06 10^3/uL (0.0-0.2); Absolute Eosinophil Count 0.15 10^3/uL (0.0-0.7); Absolute Lymphocyte Count 1.57 10^3/uL (1.2-3.4); Absolute Monocyte Count 0.53 10^3/uL (0.1-0.8); Absolute Neutrophil Count 4.98 10^3/uL (1.2-6.7); Basophils % 0.8 %; HCT 37.4 % (36.0-46.0); HGB 12.1 g/dL (11.2-15.7); Immature Grans % 0.4 %; Lymphocytes % 21.4 %; MCH 27.1 pg (27.0-33.0); MCHC 32.4 % (32.0-36.0); MCV 84 fL (80-95); MPV 10.1 fL (8.0-11.0); Monocytes % 7.2 %; Neutrophils % 68.2 %; Platelet Count 215 10^3/uL (130-400); RBC 4.46 10^6/uL (3.93-5.22); RDW 13.6 % (11.7-14.6); RDW-SD 41.2 fL; WBC 7.32 10^3/uL (4.4-10.8)
--- NOTE | 2024-09-15 06:59 | NUR.NOTE ---
Access chart to reconcile EKG orders with EKG's in [facility]. Duplicate ED order cancelled. Nursing Note:
[2024-09-15 07:03] LABS: ALT 15 U/L (14-59); AST 16 U/L (15-37); Albumin 2.9 g/dL (3.4-5.0); Alkaline Phosphatase 95 U/L (46-116); Anion Gap 10.7 mmol/L (3-11); BUN 58 mg/dL (7-18); Bilirubin, Total 0.42 mg/dL (0.2-1.0); CO2 23.3 mmol/L (21.0-32.0); CREATININE 2.5 mg/dL (0.55-1.02); Chloride 105 mmol/L (98-107); Estimated GFR 21.08 (mL/min/1.73m2); Glucose 133 mg/dL (74-106); Hemoglobin A1C 6.3 % (<5.7); Potassium 3.6 mmol/L (3.5-5.1); Sodium 139 mmol/L (136-145); Total Protein 7.8 g/dL (6.4-8.2)
[2024-09-15 07:38] VITALS: BP 150/71; PULSE 77; RESP 16; TEMP 36.4; O2SAT 98
--- NOTE | 2024-09-15 09:27 | PT.INTREAT ---
PT Notes Visit Reasons: CVA, UTI Inpatient Physical Therapy Treatment Note [facility] Date: 09/15/24 PRECAUTIONS:Standard SUBJECTIVE: Pt reports that she was having chest pain earlier this am and it is better now. Pt reports pain in her leg. OBJECTIVE: Therapeutic Activities ([id number][]): Direct one-on-one instruction in dynamic activities to improve functional performance. ? BED MOBILITY/TRANSFERS? Sit-stand: I? Stand-sit: I? Provided skilled cues and instruction on performance and technique throughout. Gait Training ([id number][]): Direct one-on-one instruction and skilled instruction in: ? GAIT? Assistive Device: FWW? Weight bearing: Full Assist: SBA? Distance:? 2 laps around small loop. ? Therapeutic Exercises ([id number][]): Direct one-on-one instruction in therapeutic exercises to develop strength, endurance, range of motion and flexibility. ? Exercises ? Reviewed HEP issued by PT Michelle. ? ASSESSMENT:? Pt was somewhat fatigued post session and felt tired. Pt was not very receptive to her HEP, but encouraged to try them when she felt up to it. PLAN: Cont as per PT POC. TREATMENT CODE/TIME: 9:10-9:25 (15) TA DISCHARGE RECOMMENDATION:
--- NOTE | 2024-09-15 09:35 | PDOC.HHF2F_ITS ---
Home Health Referral Home Health Orders Clinical synopsis of why skilled professionals are needed: Meningioma, UTI, TIA Registered Nurse: Check all that apply Instruct on new or changed medication(s)/assess compliance: Ordered Physical Therapist: Check all that apply Increase strength & endurance for safe mobility at home: Ordered To design/establish home maintenance program: Ordered Fall reduction therapy program for patient with history of frequent falls: Ordered Home safety evaluation and teaching/gait training including stair management (if applicable): Ordered Encounter Date and Reason: I certify that a FTF encounter for this patient was performed on September 15, 2024 and that such encounter was related to the primary reason the patient requires home health services. The encounter was conducted in the following manner: * By me as the certifying physician, INFECTIOUS DISEASES PHYSICIAN, PA or * By an inpatient physician, INFECTIOUS DISEASES PHYSICIAN or PA during an inpatient stay who communicated findings to me, Certification And Authentication I certify that I composed the above information based on my clinical judgment relating to this patient's medical condition and, if applicable, clinical findings communicated to me by the NPP or inpatient physician who performed the FTF encounter. Name of Provider that will be monitoring home health services: Delilah Gil
--- NOTE | 2024-09-15 09:35 | DSE_ITS ---
Date of service: 09/15/24 Time of Service: 09:35 DS: Diagnosis Discharge Diagnosis (1) Weakness of right lower extremity: Status: Acute (2) Meningioma: Status: Acute (3) UTI (urinary tract infection): Status: Acute (4) CKD (chronic kidney disease) stage 4, GFR 15-29 ml/min: Status: Chronic (5) Type 2 diabetes mellitus with other specified complication: Status: Acute (6) Schizo-affective schizophrenia: (7) Atrial fibrillation: Discharge Plan Disposition Patient Disposition: Home W/Home Health Services Condition: Good Discharge Details Reason For Visit: CVA, UTI Admit Date/Time: 09/13/24 20:54 Admit Provider: Shamar Zurita Attending Provider: Shamar Zurita Primary Care Provider: Delilah Gil Hospital Course Hospital Course: Patient initially presented with weakness of her right lower extremity that was concerning for CVA. However, it was also determined the patient is receiving radiation treatment for meningioma. Upon arrival patient returned to baseline neurologic status. Department teleneurology was consulted and recommended brain MRI with contrast that did not show any acute territorial infarct and did show stable right sphenoid lesion and with stable mass effect on the adjacent right lateral rectus muscle. Otherwise, [facility] teleneurology recommended continuing current maximal medical therapy. Given the patient does not return to baseline, worked with physical therapy and was determined to potentially benefit from home health, was determined that she was stable for discharge home. Home Meds and New Rx's Prescriptions: New ciprofloxacin HCl 500 mg Tablet 500 mg PO DAILY Qty: 3 0RF Continued topiramate 50 mg tablet 50 mg PO QHS Qty: 90 3RF Patient Comments: not on pt list chlorthalidone 25 mg tablet 25 mg PO DAILY Patient Comments: not on pt list nitroglycerin 0.4 mg tablet, sublingual 0.4 mg sublingual Q5 MIN PRN X3 PRN (Reason: chest pain) Qty: 30 8RF pramipexole 0.25 mg tablet 0.25 mg PO QPM Qty: 90 3RF Rx Instructions: administer 2 - 3 hours before bedtime albuterol sulfate 90 mcg/actuation HFA aerosol inhaler 1 - 2 inh inhalation Q4H PRN (Reason: shortness of breath or wheezing) Qty: 6.7 1RF cholecalciferol (vitamin D3) 50 mcg (2,000 unit) capsule See Rx Instructions .ROUTE .COMPLEX Qty: 28 4RF Dose Instruction: TAKE 1 CAPSULE BY MOUTH DAILY FOR LOW VITAMIN D. Patient Comments: not on pt list Rx Instructions: TAKE 1 CAPSULE BY MOUTH DAILY FOR LOW VITAMIN D. oxybutynin chloride 10 mg tablet extended release 24hr See Rx Instructions .ROUTE .COMPLEX Qty: 28 5RF Dose Instruction: TAKE 1 TABLET BY MOUTH AT BEDTIME Rx Instructions: TAKE 1 TABLET BY MOUTH AT BEDTIME Jardiance 10 mg tablet 10 mg PO DAILY Qty: 90 3RF Rx Instructions: Continue for hyperglycemia with CKD isosorbide mononitrate 30 mg tablet extended release 24 hr 30 mg PO DAILY Qty: 30 5RF magnesium oxide 200 mg magnesium tablet 400 mg PO DAILY Qty: 30 6RF Rx Instructions: Take 1 tablet daily at bedtime. rosuvastatin 20 mg tablet See Rx Instructions .ROUTE .COMPLEX Qty: 28 0RF Dose Instruction: TAKE 1 TABLET BY MOUTH DAILY Rx Instructions: TAKE 1 TABLET BY MOUTH DAILY bupropion HCl 150 mg tablet extended release 24 hr See Rx Instructions .ROUTE .COMPLEX Qty: 84 0RF Dose Instruction: TAKE 3 TABLETS BY MOUTH DAILY Rx Instructions: TAKE 3 TABLETS BY MOUTH DAILY Eliquis 5 mg tablet See Rx Instructions .ROUTE .COMPLEX Qty: 56 5RF Dose Instruction: TAKE 1 TABLET BY MOUTH TWICE A DAY Rx Instructions: TAKE 1 TABLET BY MOUTH TWICE A DAY ibuprofen 600 mg tablet 600 mg PO TID PRN (Reason: pain) Qty: 90 0RF Patient Comments: not on pt list acetaminophen 500 mg tablet 1,500 mg PO QID Rx Instructions: dosing per medication list amlodipine 5 mg tablet 7.5 mg PO DAILY aspirin [Adult Aspirin Regimen] 81 mg tablet,delayed release (DR/EC) 81 mg PO DAILY guaifenesin 600 mg tablet extended release 12hr 600 mg PO ONCE PRN hydroxyzine HCl 50 mg tablet See Rx Instructions .ROUTE .COMPLEX Rx Instructions: TAKE 1 TABLET IN THE MORNING AND 2 AT BEDTIME NEEDED FOR ANXIETY PANIC SENSATION metoprolol succinate 50 mg tablet extended release 24 hr 50 mg PO Q12H Rx Instructions: at noon pramipexole 0.125 mg tablet 0.125 mg PO HS Rx Instructions: TAKE BY MOUTH QPM pantoprazole 40 mg tablet,delayed release (DR/EC) See Rx Instructions .ROUTE .COMPLEX Rx Instructions: TAKE 1 TABLET BY MOUTH HS semaglutide 1 mg/dose (4 mg/3 mL) pen injector 0.5 mg subcut QWEEK MDD WEEKLY Rx Instructions: Increased dose if tolerated; otherwise return to 0.5 and call PCP (HH support?) Changed losartan 50 mg tablet 75 mg PO DAILY Qty: 0 0RF Patient Comments: [place]. Muñiz, [place] [facility] puton 75 mg daily for renal protection, confirmed with Lannon this is what is in blister packs. RH No Action (DME) NEEDLES to match Ozempic Rx See Rx Instructions .Route .MEDSUPPLY Qty: 15 3RF Rx Instructions: As directed to MATCH the Ozempic Rx (3 mos+ breakage) Discharge Instructions Instructions: Urinary tract infections in adults Stand Alone Forms: Nursing Discharge Form Referrals: Delilah Gil DO [Primary Care Provider] - (Please call on Tuesday to set up a follow up a appointment for within 1 to 2 weeks.) Activity:: Activity as Tolerated Equipment/Supplies:: No Equipment Needed Diet:: As Tolerated Discharge Orders Discharge Orders: Discharge Order (Routine); Ordered 09/15/24 Ordered By: Justin Garcia Discharge Data Discharge Date/Time-TO BE ENTERED AT DEPARTURE: 09/15/24 11:30 DS: Summary Time Spent with Patient providing and/or coordinating discharge services: Greater than 30 minutes Status at Discharge Functional status at discharge: independent ambulation Overall status at discharge: patient is back to baseline Mental Status: mental status grossly normal Speech and Movement: speech and movement normal Mood: congruent mood Affect: normal affect Quality:SDOH Health Related Social Needs: Health related social needs details pt reports she may need more help at home Health related social needs details: pt reports she may need more help at home Exam Narrative Exam Narrative: Well-appearing female sitting up in the chair no acute distress, ANO x 4, heart regular rhythm, muscular auscultation bilaterally, abdomen soft, nontender, nondistended Psych Mental Status: mental status grossly normal Speech and Movement: speech and movement normal Mood: congruent mood Affect: normal affect DS: Data Vitals/I&O Vitals and I&O: Vital Signs Temperature 97.5 F L 09/15/24 07:38 Temperature Source Tympanic 09/15/24 07:38 Pulse 77 09/15/24 07:38 Pulse 88 09/13/24 17:30 Respiratory Rate 16 09/15/24 07:38 Respiratory Effort Normal, Non-Labored 09/13/24 15:22 Respiratory Depth Normal 09/13/24 15:22 Respiratory Pattern Normal 09/13/24 15:22 Blood Pressure 150/71 H 09/15/24 07:38 Blood Pressure Mean 135 09/13/24 22:01 Blood Pressure Position Supine 09/13/24 22:28 Pulse Oximetry 98 09/15/24 07:38 Oxygen Delivery Method Room Air 09/15/24 07:38 Oxygen Flow Rate 0 09/15/24 07:38 Pain Level 0 09/14/24 15:19 Comment RN Notified 09/15/24 03:47 Intake & Output 09/14/24 09/15/24 09/15/24 17:59 05:59 17:59 Intake Total 180 / 180 200 / 380 Balance 180 / 180 200 / 380 Intake: Oral 180 / 180 200 / 380 Other: Urine Color Yellow Urine Appearance Clear Comment pt voided x1 pt voided Stool Size Moderate Stool Characteristics Soft Formed Data Completed and Pending Labs on day of discharge: Labs from last 24 hours 09/15/24 06:15 WBC 7.32 RBC 4.46 Hgb 12.1 Hct 37.4 MCV 84 MCH 27.1 MCHC 32.4 RDW 13.6 Plt Count 215 MPV 10.1 Immature Gran % 0.4 Neutrophils % 68.2 Lymphocytes % 21.4 Monocytes % 7.2 Eosinophils % 2.0 Basophils % 0.8 Nucleated RBC % 0.0 Absolute Neutrophils 4.98 Absolute Lymphocytes 1.57 Absolute Monocytes 0.53 Absolute Eosinophils 0.15 Absolute Basophils 0.06 Sodium 139 Potassium 3.6 Chloride 105 Carbon Dioxide 23.3 Anion Gap 10.7 BUN 58 H Creatinine 2.5 H Est GFR (CKD-EPI 2020) 21.08 Glucose 133 H Hemoglobin A1c 6.3 H Calcium 9.0 Total Bilirubin 0.42 AST 16 ALT 15 Alkaline Phosphatase 95 Total Protein 7.8 Albumin 2.9 L Preliminary micro results at discharge 09/13/24 18:33 Urine Culture - Preliminary Urine - Reflex from Ua Escherichia coli Gram Positive Nita,Mixed PFSH All Active Problems (Updated 09/15/24 @ 09:35 by Justin Garcia MD) UTI (urinary tract infection) (Acute) CVA (cerebral vascular accident) (Chronic) Weakness of right lower extremity (Acute) Meningioma (Acute) [facility] [place] 07/03/24.HE 07/13/24 Dr Person, radiotherapy planned. dc Wheezing (Acute) Acute left-sided thoracic back pain (Acute) just under left shoulder blade .. 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 NeuroSurg still TBD [ ] , 03/2024, ik Migraine headache without aura (Acute) Chronic headache (Acute) Type 2 diabetes mellitus with other specified complication (Acute) Open abdominal wall wound (Acute) Irregular heart rate (Acute) Several episodes, but asymptomatic; EKG shows AFib, but Card ? atrial activity Prolapse of female pelvic organs (Acute) Mixed stress and urge urinary incontinence (Acute) Abnormal MRI of the head (Acute) Rt optic canal narrowed 2' sclerosis (stable?)([place]) & NEW hyperintense focus (white matter)(anterior rt temporal lobe) may rep demyelinating process, infection or possible neoplasm.. [ ] contrast when RF allows Left contracture of neck (Acute) pain, stiffness .. rad into shoulder blade Hyperparathyroidism due to renal insufficiency (Acute) [ ] Ca.. q 3-6 mos [ ] Ph .. q3-6 mos [ ] PTH, q 6-12 mos [ ] Vit D yearly Malnutrition compromising bodily function (Acute) Low vitamin D level (Acute) WNL 44, 07/2023 (up from January 2023), yay Weight gain (Acute) losing weight since Ozempic start! Edema (Chronic) CKD? Venous Stasis/poor circ, w/ long hours standing as antonio @ [facility] [place] (4am - 10-12-2pm) Encounter for medication review and counseling (Acute) Pt aware, but some errors noted despite recent med-rec .. [ ] CC for closer coordination w/ Fer (I sent TWO pramipex Rx .. still only one on her b-cassy list)(and she says no more hydrox, but it's listed .. so therefore b-packed?) .. HOW DO WE TRIAL MEDS? HTN (hypertension) (Chronic) per Nephro note (06/2022): Na < 2g. HCTZ 12.5mg added. Proteinuria (Acute) Goal<0.2mg/mg (2.3 on 06/30/22), per Nephro 06/2022. History of anemia due to CKD (Chronic) Goals: HGB 9.5-10.9 (per Nephro, 06/2022).. Ferritin>100ng/ml; IronSAT>20%. CKD (chronic kidney disease) stage 4, GFR 15-29 ml/min (Chronic) Hx dialysis. Follows with [facility], Dr. Muñiz. Low back pain (Acute) Lumbosacral spondylosis without myelopathy (Acute) Lumbar stenosis (Acute) Restless leg syndrome (Acute) Medical History Atrial fibrillation Hx CHAD2 (-), but ED x2 and CardMon showing Mental health disorder Mixed Dx (Anx/Depr/Schiz-Affective), with poor FU form [facility] x yrs .. refilling Rx & recommending review with [facility]. 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 [ ] UroGyn for possible surg per Dr. Park notes.. Stress incontinence Coughing, sneezing, laughing .. Lifting > 10lbs (Hx incontinence symp, 06/2021) Nocturia w/ incontinence episodes Pelvic pain w/ probe/speculum.. Hx dyspareunia. Hx births. Vaginal discharge Sense of urgency w/o urination, but vag d/c! 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 Fontenot)) History of knee surgery History of hysterectomy Hx ovarian rupture H/O section 2 children History of appendectomy Family History Father Heart disease Hypertension Mother Thyroid disease Stroke Sister Cancer Sister Cancer Sister Ovarian cancer Kidney failure Social History Smoking/Tobacco Use Status: Never Tobacco: How many years used: 43 Smoking risk assessment performed?: Yes Alcohol Intake: current Alcohol Intake frequency: holidays/special occasions only Drug use: Never Substance use type: does not use Adopted: No Caregiver/Support person: No Foster care: No Household members: other Details: ex- Housing: house Number of Children: 2 number of grandchildren: 1 Communication Needs: Hard of Hearing Education Level: middle school Do you need help understanding health information?: Always current occupation: Volunteers Pets and animals: No Current gender identity: female What is your relationship status?: How often do you get together with friends or relatives?: three or more times per week Panel score (0-1 are the most socially isolated patients): 1 What type of physical activity do you participate in: none Eva/Faith: Hoahaoism Seatbelt use: always Drive intox or ride w/intox utility worker driver: No Do you feel safe at home: Yes Do you feel safe in your relationship?: Yes Time Spent with Patient Time Spent with Patient: <45 minutes Time was spent: preparing to see the patient(eg.review tests), obtaining and/or reviewing separately otained hiistory, ordering medications,tests, procedures, referring, communicating with other health progressive care manager, indepentently interpreting results, counseling the patient and care coordination
[2024-09-15] MEDS: buPROPion-XL 150 MG TABCR 450 MG PO (09:37)
[2024-09-15] MEDS: Chlorthalidone 25 MG TAB PO (09:37)
[2024-09-15] MEDS: Aspirin E.C. 81 MG TABEC PO (09:37)
[2024-09-15] MEDS: Cholecalciferol (Vitamin D3) 1,000 UNIT TAB 2000 UNITS PO (09:37)
[2024-09-15] MEDS: Apixaban 5 MG TAB PO (09:38)
[2024-09-15] MEDS: Ciprofloxacin 500 MG TAB PO (09:38)
[2024-09-15] MEDS: amLODIPine 5 MG TAB 7.5 MG PO (09:38)
[2024-09-15] MEDS: Empaglifozin 10 MG TAB PO (09:38)
[2024-09-15] MEDS: Isosorbide Mononitrate 30 MG TABCR PO (09:38)
[2024-09-15] MEDS: Metoprolol CR 50 MG TABCR PO (09:38)
[2024-09-15] MEDS: Losartan 50 MG TAB 75 MG PO (09:39)
--- NOTE | 2024-09-15 09:54 | PDOC.CMDIS ---
Date of service: 09/15/24 Time of Service: 09:54 LACE Index Scoring Tool Questions: Length of Stay (in days): 2 Was the patient admitted via the E.D.?: Yes Comorbidities: Cerebrovascular Disease, Diabetes w/o Complication, Any Tumor and Liver or Renal Disease E.D. Visits: 1 Answers: Total Score: 11 Risk of Readmission: High Risk Care Management Discharge Plan Reason for Hospitalization: UTI, LE weakness Discharge Plan: Lakisha is discharged today with new orders for HH RN and PT. She will transport home in a private vehicle by a friend. She will f/u with her community providers and continue per her plan of care. SDOH Health Related Social Needs: Health related social needs details pt reports she may need more help at home Health related social needs details: pt reports she may need more help at home
== END 2024-09-15 11:30 | disposition home health service (06) | DRG 556 ==
LOC: ER 19:42 → MS 22:18
PROVIDERS: Hospitalist; Student in an Organized Health Care Education/Training Program; Admitting Provider Family Medicine; Emergency Provider Emergency Medicine; PCP Student in an Organized Health Care Education/Training Program; Visit Provider Family Medicine
DX: R29.898 Other symptoms and signs involving the musculoskeletal system (principal); N39.0 Urinary tract infection, site not specified; N18.4 Chronic kidney disease, stage 4 (severe); E46 Unspecified protein-calorie malnutrition; C79.51 Secondary malignant neoplasm of bone; C70.0 Malignant neoplasm of cerebral meninges; E11.22 Type 2 diabetes mellitus with diabetic chronic kidney disease; F25.9 Schizoaffective disorder, unspecified; I12.9 Hypertensive chronic kidney disease with stage 1 through stage 4 chronic kidney disease, or unspecified chronic kidney disease; G25.81 Restless legs syndrome; F32.A Depression, unspecified; D63.1 Anemia in chronic kidney disease; G93.89 Other specified disorders of brain; M54.6 Pain in thoracic spine; I48.91 Unspecified atrial fibrillation; Z92.3 Personal history of irradiation; M48.02 Spinal stenosis, cervical region; G43.009 Migraine without aura, not intractable, without status migrainosus; H54.61 Unqualified visual loss, right eye, normal vision left eye; G89.29 Other chronic pain; Z86.73 Personal history of transient ischemic attack (TIA), and cerebral infarction without residual deficits; N39.46 Mixed incontinence; N81.4 Uterovaginal prolapse, unspecified; M47.816 Spondylosis without myelopathy or radiculopathy, lumbar region; F41.9 Anxiety disorder, unspecified; E78.5 Hyperlipidemia, unspecified; Z79.85 Long-term (current) use of injectable non-insulin antidiabetic drugs
CPT/HCPCS: 00123; 36415; 70496; 70498; 80048; 80053; 80061; 87077; 93005; 96365; 97162; 97530; 99285; 70450; 70551; 72125; 72131; 81003; 81015; 83036; 83735; 84484; 85025; 85610; 87086; 87186; 93010; 99223; 99231; 99239; J0744; J1815; J3475; J3490

== ENCOUNTER 2024-10-15 03:22 | Outpatient (CLI) | payer MEDICAID, SELFPAY ==
[2024-10-15 16:19] LABS: Anion Gap 7.9 mmol/L (3-11); BUN 49 mg/dL (7-18); CO2 28.1 mmol/L (21.0-32.0); CREATININE 2.4 mg/dL (0.55-1.02); Chloride 107 mmol/L (98-107); Estimated GFR 22.14 (mL/min/1.73m2); Glucose 115 mg/dL (74-106); Sodium 143 mmol/L (136-145)
== END 2024-10-15 03:23 | disposition home or self-care (01) ==
LOC: LBO 03:22
PROVIDERS: PCP Nurse Practitioner Family; Referring Provider Nurse Practitioner Family; Visit Provider Nurse Practitioner Family
DX: N18.4 Chronic kidney disease, stage 4 (severe) (principal)
CPT/HCPCS: 36415; 80048

== ENCOUNTER 2024-11-06 14:12 | Emergency (ER) | payer MEDICAID, SELFPAY ==
[2024-11-06] VITALS (54 sets, daily range): BP systolic 96–182; BP diastolic 43–122; PULSE 65–115; RESP 14–27; TEMP 36.6–37.2; O2SAT 94–100
--- NOTE | 2024-11-06 14:15 | RT.EKG_ITS ---
APPROVED REPORT Exam: Resting ECG Reason for Exam: palpatations Patient Location: E HR:76 bpm ECG Measurements Heart Rate 76 AXIS CA [id number] P [id number] QRSd 88 QRS 23 QT 431 T 31 QTc 486 Conclusion Atrial fibrillation...? atrial activity Low voltage, precordial leads...precordial leads <1.0mV no ST segment or T wave abnormalities to suggest occlusive TX
--- NOTE | 2024-11-06 14:30 | DI.RAD_ITS ---
Exam(s) XR CHEST 2V PA LATERAL EXAM: XR CHEST 2V PA LATERAL CLINICAL HISTORY: Chest pain TECHNIQUE: 2D digital imaging was performed. Two views. COMPARISON: CT CT CHEST WO from 08/21/2021 CR XR CHEST 1V IN DI DEPT from 01/17/2024 CR XR PORTABLE CHEST AP from 03/07/2024 FINDINGS: Exam is limited by under penetration and respiratory motion. HEART: Enlarged compared to prior. Aorta: Not dilated. PULMONARY VASCULATURE: Prominent MEDIASTINUM: Unremarkable. LUNGS: Increased interstitial markings could indicate CHF. Question of increased densities at the marisa ng lung bases on the lateral view however there is motion and overlap of structures. PLEURAL SPACE: No pleural effusion or pneumothorax. BONE:The spinous mostly obscured. SOFT TISSUES: Unremarkable. IMPRESSION: Limited exam. Findings suspicious for CHF. Basilar infiltrate is not excluded. DATA REPOSITORY: RADIATION DOSE DELIVERED:
--- NOTE | 2024-11-06 14:37 | W.ED.GENAD ---
Discharge Plan Disposition Patient Disposition: Home Condition: Good Discharge Details Clinical Impression: Chest pain Primary Care Provider: Yvette Cox ED Provider: Krysten Jackman Home Meds and New Rx's Prescriptions: New sucralfate [Carafate] 1 gram tablet 1 g PO BID Qty: 14 0RF Continued topiramate 100 mg tablet 100 mg PO QHS Qty: 90 3RF nitroglycerin 0.4 mg tablet, sublingual 0.4 mg sublingual Q5 MIN PRN X3 PRN (Reason: chest pain) Qty: 30 8RF aspirin [Adult Aspirin Regimen] 81 mg tablet,delayed release (DR/EC) 81 mg PO DAILY Rx Instructions: TBD - was this added per Neuro? Card? bupropion HCl 150 mg tablet extended release 24 hr See Rx Instructions .ROUTE .COMPLEX Qty: 84 3RF Dose Instruction: TAKE 3 TABLETS BY MOUTH DAILY Rx Instructions: TAKE 3 TABLETS BY MOUTH DAILY (150mg x3) guaifenesin 600 mg tablet extended release 12hr 600 mg PO DAILY PRN PRN (Reason: cough/phlegm) magnesium oxide 200 mg magnesium tablet 400 mg PO DAILY Qty: 60 6RF Rx Instructions: Take at bedtime due to low magnesium metoprolol succinate 50 mg tablet extended release 24 hr 50 mg PO DAILY Rx Instructions: updated to DAILY per ik per med-rec review pramipexole 0.125 mg tablet 0.125 mg PO HS Qty: 30 6RF Rx Instructions: (added low dose 2-3 hrs earlier) rosuvastatin 20 mg tablet 20 mg PO DAILY Qty: 28 5RF hydroxyzine HCl 50 mg tablet See Rx Instructions .ROUTE .COMPLEX Qty: 90 5RF Rx Instructions: TAKE 1 TABLET IN THE MORNING AND 2 AT BEDTIME NEEDED FOR ANXIETY PANIC SENSATION acetaminophen 500 mg tablet 1,000 mg PO QID PRN albuterol sulfate 90 mcg/actuation HFA aerosol inhaler 1 - 2 inh inhalation Q4H PRN (Reason: shortness of breath or wheezing) Qty: 6.7 1RF oxybutynin chloride 10 mg tablet extended release 24hr See Rx Instructions .ROUTE .COMPLEX Qty: 28 5RF Dose Instruction: TAKE 1 TABLET BY MOUTH AT BEDTIME Rx Instructions: TAKE 1 TABLET BY MOUTH AT BEDTIME Jardiance 10 mg tablet 10 mg PO DAILY Qty: 90 3RF Rx Instructions: Continue for hyperglycemia with CKD isosorbide mononitrate 30 mg tablet extended release 24 hr 30 mg PO DAILY Qty: 30 5RF Eliquis 5 mg tablet See Rx Instructions .ROUTE .COMPLEX Qty: 56 5RF Dose Instruction: TAKE 1 TABLET BY MOUTH TWICE A DAY Rx Instructions: TAKE 1 TABLET BY MOUTH TWICE A DAY chlorthalidone 25 mg tablet 25 mg PO DAILY Qty: 90 3RF Patient Comments: not on pt list pantoprazole 40 mg tablet,delayed release (DR/EC) See Rx Instructions .ROUTE .COMPLEX Qty: 90 3RF Rx Instructions: TAKE 1 TABLET BY MOUTH HS losartan 50 mg tablet 75 mg PO DAILY Qty: 45 5RF Patient Comments: Per Dr. Muñiz, nephrology at [facility], pt was puton 75 mg daily for renal protection, confirmed with [facility] this is what is in blister packs. RH Rx Instructions: Nephro aware cholecalciferol (vitamin D3) 50 mcg (2,000 unit) capsule See Rx Instructions .ROUTE .COMPLEX Qty: 28 4RF Dose Instruction: TAKE 1 CAPSULE BY MOUTH DAILY FOR LOW VITAMIN D. Rx Instructions: TAKE 1 CAPSULE BY MOUTH DAILY FOR LOW VITAMIN D. pramipexole 0.25 mg tablet 0.25 mg PO QPM Qty: 90 3RF Rx Instructions: administer 2 - 3 hours before bedtime Discharge Instructions Instructions: Chest Pain, Adult ED Additional Instructions: Carafate twice a day. Call your primary care doctor in the morning to schedule an appointment within the next 48 hours to followup on your visit here. At visit discuss that your labs and chest x-ray were suggestive of heart failure. You may need an outpatient echocardiogram and stress test. Return to the emergency department for new or worsening symptoms including if your pain returns, you are short of breath, feel like you are going to pass out, or if you have any other concerns. Referrals: Yvette Cox APRN [Primary Care Provider] - HPI General Mode of arrival: ambulatory. Date/Time Provider Initiated Documentation: 11/06/24 14:17. Limitations to Documentation: no limitations. Information obtained by: patient and old records reviewed (Stress test and echo 03/08/24: No EKG evidence of myocardial ischemia, Normal LV & RV with EF 55-65%). HPI Narrative: 64yo F with hx HTN, afib on AC, T2DM, CKD, GERD, hyperparathyroid, anemia, prior stroke, presenting for chest pain. Pain started at 0300 this morning; she was up and walking around, bent over to pick something up and then felt sharp stabbing pain in her sternum which radiates down her left arm. Has felt similar pain the past and gone to the ED for it; does not recall if she was diagnosed with anything. Does not think she has a had a heart attack before. No history of heart failure. Pain improved but not entirely relieved after she took 2 nitro at home. Persisted throughout the day and then worsened this evening; she took a 3rd nitro prior to arrival without effect. Some associated shortness of breath. No exertional symptoms. Otherwise in her usual state of health with no fevers, chills, rash, nausea, vomiting, abdominal pain, flank pain, increasing LE edema, or other concerns. Related Data Home Medications ?Medication ?Instructions ?Recorded ?Confirmed nitroglycerin 0.4 mg sublingual 0.4 mg sublingual Q5 MIN PRN X3 03/19/24 11/06/24 tablet PRN chest pain #30 tabs albuterol sulfate 90 mcg/actuation 1 - 2 inh inhalation Q4H PRN 05/08/24 11/06/24 aerosol inhaler shortness of breath or wheezing #6.7 grams oxybutynin chloride 10 mg See Rx Instructions .Route 06/03/24 11/06/24 tablet,extended release 24 hr .COMPLEX #28 tabs empagliflozin 10 mg tablet 10 mg PO DAILY #90 tabs 06/28/24 11/06/24 (Jardiance) isosorbide mononitrate 30 mg 30 mg PO DAILY #30 tabs 06/28/24 11/06/24 tablet,extended release 24 hr apixaban 5 mg tablet (Eliquis) See Rx Instructions .Route 08/28/24 11/06/24 .COMPLEX #56 tabs aspirin 81 mg tablet,delayed 81 mg PO DAILY 09/21/24 11/06/24 release (Adult Aspirin Regimen) bupropion HCl 150 mg 24 hr tablet, See Rx Instructions .Route 09/21/24 11/06/24 extended release .COMPLEX #84 tabs chlorthalidone 25 mg tablet 25 mg PO DAILY #90 tabs 09/21/24 11/06/24 guaifenesin 600 mg tablet, 600 mg PO DAILY PRN PRN 09/21/24 11/06/24 extended release 12 hr cough/phlegm hydroxyzine HCl 50 mg tablet See Rx Instructions .Route 09/21/24 11/06/24 .COMPLEX #90 tabs magnesium oxide 400 mg (2 x 200 mg magnesium) PO 09/21/24 11/06/24 DAILY Low Magnesium #60 tabs metoprolol succinate 50 mg 50 mg PO DAILY 09/21/24 11/06/24 tablet,extended release 24 hr pantoprazole 40 mg tablet,delayed See Rx Instructions .Route 09/21/24 11/06/24 release .COMPLEX #90 tabs pramipexole 0.125 mg tablet 0.125 mg PO HS #30 tabs 09/21/24 11/06/24 rosuvastatin 20 mg tablet 20 mg PO DAILY #28 tabs 09/21/24 11/06/24 losartan 50 mg tablet 75 mg (1.5 x 50 mg) PO DAILY #45 09/27/24 11/06/24 tabs acetaminophen 500 mg tablet 1,000 mg PO QID PRN 10/05/24 11/06/24 cholecalciferol (vitamin D3) 50 See Rx Instructions .Route 10/18/24 11/06/24 mcg (2,000 unit) capsule .COMPLEX #28 caps pramipexole 0.25 mg tablet 0.25 mg PO QPM #90 tabs 10/18/24 11/06/24 topiramate 100 mg tablet 100 mg PO QHS #90 tabs 10/22/24 11/06/24 sucralfate 1 gram tablet (Carafate) 1 g PO BID #14 tabs 11/06/24 Previous Rx's ?Medication ?Instructions ?Recorded nitroglycerin 0.4 mg sublingual 0.4 mg sublingual Q5 MIN PRN X3 03/19/24 tablet PRN chest pain #30 tabs albuterol sulfate 90 mcg/actuation 1 - 2 inh inhalation Q4H PRN 05/08/24 aerosol inhaler shortness of breath or wheezing #6.7 grams oxybutynin chloride 10 mg See Rx Instructions .Route 06/03/24 tablet,extended release 24 hr .COMPLEX #28 tabs empagliflozin 10 mg tablet 10 mg PO DAILY #90 tabs 06/28/24 (Jardiance) isosorbide mononitrate 30 mg 30 mg PO DAILY #30 tabs 06/28/24 tablet,extended release 24 hr apixaban 5 mg tablet (Eliquis) See Rx Instructions .Route 08/28/24 .COMPLEX #56 tabs bupropion HCl 150 mg 24 hr tablet, See Rx Instructions .Route 09/21/24 extended release .COMPLEX #84 tabs chlorthalidone 25 mg tablet 25 mg PO DAILY #90 tabs 09/21/24 hydroxyzine HCl 50 mg tablet See Rx Instructions .Route 09/21/24 .COMPLEX #90 tabs magnesium oxide 400 mg (2 x 200 mg magnesium) PO 09/21/24 DAILY Low Magnesium #60 tabs pantoprazole 40 mg tablet,delayed See Rx Instructions .Route 09/21/24 release .COMPLEX #90 tabs pramipexole 0.125 mg tablet 0.125 mg PO HS #30 tabs 09/21/24 rosuvastatin 20 mg tablet 20 mg PO DAILY #28 tabs 09/21/24 losartan 50 mg tablet 75 mg (1.5 x 50 mg) PO DAILY #45 09/27/24 tabs cholecalciferol (vitamin D3) 50 See Rx Instructions .Route 10/18/24 mcg (2,000 unit) capsule .COMPLEX #28 caps pramipexole 0.25 mg tablet 0.25 mg PO QPM #90 tabs 10/18/24 topiramate 100 mg tablet 100 mg PO QHS #90 tabs 10/22/24 sucralfate 1 gram tablet (Carafate) 1 g PO BID #14 tabs 11/06/24 Allergies Allergy/AdvReac Type Severity Reaction Status Date / Time Penicillins Allergy Severe Anaphylaxis Verified 11/06/24 14:24 amoxicillin Allergy Anaphylaxis Verified 11/06/24 14:24 Cillins Allergy Anaphylaxis Uncoded 11/06/24 14:24 General Stated Complaint: Chest Pain SHIRLEY: 3 Review of Systems Narrative: see HPI Exam Narrative Exam Narrative: General: Alert, in no acute distress. Head: Normocephalic, atraumatic Neck: Trachea midline, ?Neck supple. ENT: ?MMM.? No oropharygeal lesions or exudate. Cardiac: ?Irregular, normal rate,, no murmurs appreciated Resp: No respiratory distress. CTAB. Abd: ?Soft, non-distended, nontender Extremities: ?No deformities.? 2+ symmetric BLE edema. Neurologic: GCS 15. ? Moves all extremities freely against gravity Course Vital Signs Vital signs: Vital Signs Temperature 36.6 C 11/06/24 14:18 Pulse 85 11/06/24 14:18 Respiratory Rate 16 11/06/24 14:18 Blood Pressure 159/73 H 11/06/24 14:18 Pulse Oximetry 98 11/06/24 14:18 Temperature 36.6 C 11/06/24 14:18 Pulse 85 11/06/24 14:18 Respiratory Rate 16 11/06/24 14:18 Blood Pressure 159/73 H 11/06/24 14:18 Pulse Oximetry 98 11/06/24 14:18 Pain Level 9 11/06/24 14:18 Medical Decision Making 64yo F with hx HTN, afib on AC, T2DM, CKD, GERD, hyperparathyroid, anemia, prior stroke, presenting for chest pain. Pain started at 0300 this morning; she up and walking around, bent over to pick something up and then felt sharp stabbing pain in her sternum which radiates down her left arm. Pain improved but not entirely relieved after she took 2 nitro at home. Persisted throughout the day and then worsened this evening; she took a 3rd nitro prior to arrival without effect. Slightly hypertensive on arrival SBP 150's, vital signs otherwise reassuring. 98% on room air. On exam non toxic, in no acute distress, RRR, lungs CTAB. Given 325 of ASA on arrival and nitro with no effect on symptoms. EKG on arrival afib with rate in 70's, no ST segment or T wave abnormalities to suggest occlusive LA. Labs reviewed as below, CBC reassuring with no leukocytosis or anemia, CMP with no actionable abnormalities Cr at baseline, Mg 1.5 (oral replacement ordered), lipase not suggestive of pancreatitis, coags reassuring,, dimer normal (would not pursue PE or dissection with CTA ) , BNP elevated at ~2000 (over the past year has ranged from 936-1944 on [facility] lab review), troponins 11, 12, 13. Heart score low-risk (age, RF). CXR independently reviewed; no focal pneumonia or pneumothorax on my view, radiology read with findings suspicious for CHF. BNP and CXR are suggestive of possible heart failure; she had mild shortness of breath when pain was worst but otherwise no SOB. She is not hypoxic or in any respiratory distress. No indication for emergent workup or hospitalization for this at this time. On reassessment patient reports continued chest discomfort. Will try GI cocktail and carafate. On subsequent reassessment she reports pain has entirely resolved, requesting discharge home which with her reassuring workup and resolution of symptoms is reasonable. Will prescribe short course of carafate. Instructed to followup with her PCP Discharged home; discharge instructions and return precautions were reviewed with patient who verbalized understanding. All questions were answered and she is in full agreement with the plan. Imaging Data Radiologic Study: Imaging: X-Ray Radiologist's impression: IMPRESSION: Limited exam. Findings suspicious for CHF. Basilar infiltrate is not excluded. Lab Data Lab results reviewed: Yes I reviewed the patient's lab results. Labs: Laboratory Tests Range/Units 11/06/24 11/06/24 14:55 16:15 WBC (4.4-10.8) 10^3/uL 8.32 RBC (3.93-5.22) 10^6/uL 4.31 Hgb (11.2-15.7) g/dL 11.9 Hct (36.0-46.0) % 38.3 MCV (80-95) fL 89 MCH (27.0-33.0) pg 27.6 MCHC (32.0-36.0) % 31.1 L RDW (11.7-14.6) % 13.8 Plt Count (130-400) 10^3/uL 168 MPV (8.0-11.0) fL 10.1 Immature Gran % % 0.4 Neutrophils % % 65.4 Lymphocytes % % 23.0 Monocytes % % 9.0 Eosinophils % % 1.6 Basophils % % 0.6 Nucleated RBC % (0.0-0.3) % 0.0 Absolute Neutrophils (1.2-6.7) 10^3/uL 5.45 Absolute Lymphocytes (1.2-3.4) 10^3/uL 1.91 Absolute Monocytes (0.1-0.8) 10^3/uL 0.75 Absolute Eosinophils (0.0-0.7) 10^3/uL 0.13 Absolute Basophils (0.0-0.2) 10^3/uL 0.05 PT (9.1-11.1) sec 11.6 H INR (0.9-1.1) 1.2 H APTT (20.6-30.2) sec 24.3 D-Dimer (<500) ng/mlFEU 378 Sodium (136-145) mmol/L 141 Potassium (3.5-5.1) mmol/L 4.2 Chloride (98-107) mmol/L 108 H Carbon Dioxide (21.0-32.0) mmol/L 26.1 Anion Gap (3-11) mmol/L 6.9 BUN (7-18) mg/dL 59 H Creatinine (0.55-1.02) mg/dL 2.2 H Est GFR (CKD-EPI 2020) (mL/min/1.73m2) 24.58 Glucose (74-106) mg/dL 114 H Calcium (8.5-10.1) mg/dL 8.7 Magnesium (1.8-2.4) mg/dL 1.5 L Total Bilirubin (0.2-1.0) mg/dL 0.42 AST (15-37) U/L 17 ALT (14-59) U/L 27 Alkaline Phosphatase (46-116) U/L 85 Troponin I (<or=51) ng/L 11 12 NT-Pro-B Natriuret Pep (<300) pg/mL 2101 H Total Protein (6.4-8.2) g/dL 7.5 Albumin (3.4-5.0) g/dL 3.1 L Lipase (<78) U/L 73 Quality:SDOH Health Related Social Needs: Health related social needs details pt reports she may need more help at home PFSH All Active Problems (Updated 11/06/24 @ 20:13 by Krysten Jackman MD) Chest pain (Acute) Cellulitis (Acute) Follow-up exam (Acute) CVA (cerebral vascular accident) (Chronic) Atrial fibrillation (Chronic) Hx CHAD2 (-), but ED x2 and CardMon showing Meningioma (Acute) [facility] note 07/03/24.HE 07/13/24 Dr Person, radiotherapy planned. dc Wheezing (Acute) Acute left-sided thoracic back pain (Acute) just under left shoulder blade .. 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 NeuroSurg still TBD [ ] , 03/2024, ik Migraine headache without aura (Acute) Chronic headache (Acute) Type 2 diabetes mellitus with other specified complication (Acute) Open abdominal wall wound (Acute) Irregular heart rate (Acute) Several episodes, but asymptomatic; EKG shows AFib, but Card ? atrial activity Prolapse of female pelvic organs (Acute) Mixed stress and urge urinary incontinence (Acute) Abnormal MRI of the head (Acute) Rt optic canal narrowed 2' sclerosis (stable?)([place]) & NEW hyperintense focus (white matter)(anterior rt temporal lobe) may rep demyelinating process, infection or possible neoplasm.. [ ] contrast when RF allows Left contracture of neck (Acute) pain, stiffness .. rad into shoulder blade Hyperparathyroidism due to renal insufficiency (Acute) [ ] Ca.. q 3-6 mos [ ] Ph .. q3-6 mos [ ] PTH, q 6-12 mos [ ] Vit D yearly Malnutrition compromising bodily function (Acute) Low vitamin D level (Acute) WNL 44, 07/2023 (up from January 2023), yay Weight gain (Acute) losing weight since Ozempic start! Edema (Chronic) CKD? Venous Stasis/poor circ, w/ long hours standing as an[place] [facility] (4am - 10-12-2pm) Encounter for medication review and counseling (Acute) Pt aware, but some errors noted despite recent med-rec .. [ ] CC for closer coordination w/ [facility] (I sent TWO pramipex Rx .. still only one on her b-cassy list)(and she says no more hydrox, but it's listed .. so therefore b-packed?) .. HOW DO WE TRIAL MEDS? HTN (hypertension) (Chronic) per Nephro note (06/2022): Na < 2g. HCTZ 12.5mg added. Proteinuria (Acute) Goal<0.2mg/mg (2.3 on 06/30/22), per Ne[facility]ro 06/2022. History of anemia due to CKD (Chronic) Goals: HGB 9.5-10.9 (per Ne[facility]ro, 06/2022).. Ferritin>100ng/ml; IronSAT>20%. CKD (chronic kidney disease) stage 4, GFR 15-29 ml/min (Chronic) Hx dialysis. Follows with [facility], Dr. Muñiz. Low back pain (Acute) Lumbosacral spondylosis without myelopathy (Acute) Lumbar stenosis (Acute) Restless leg syndrome (Acute) Medical History Gliosis Rt Optic Nerve, with loss of vision Insomnia Stress incontinence Coughing, sneezing, laughing .. Lifting > 10lbs (Hx incontinence symp, 06/2021) Spastic pelvic floor syndrome Mental health disorder Mixed Dx (Anx/Depr/Schiz-Affective), with poor FU form [facility] x yrs .. refilling Rx & recommending review with [facility]. 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 [ ] UroGyn for possible surg per Dr. Park notes.. Nocturia w/ incontinence episodes Pelvic pain w/ probe/speculum.. Hx dyspareunia. Hx births. Vaginal discharge Sense of urgency w/o urination, but vag d/c! 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 Fontenot)) History of knee surgery History of hysterectomy Hx ovarian rupture H/O section 2 children History of appendectomy Family History Father Heart disease Hypertension Mother Thyroid disease Stroke Sister Cancer Sister Cancer Sister Ovarian cancer Kidney failure Social History Smoking/Tobacco Use Status: Never Tobacco: How many years used: 43 Smoking risk assessment performed?: Yes Alcohol Intake: current Alcohol Intake frequency: holidays/special occasions only Drug use: Never Substance use type: does not use Adopted: No Caregiver/Support person: No Foster care: No Household members: other Details: ex- Housing: house Number of Children: 2 number of grandchildren: 1 Communication Needs: Hard of Hearing Education Level: middle school Do you need help understanding health information?: Always current occupation: Volunteers Pets and animals: No Current gender identity: female What is your relationship status?: How often do you get together with friends or relatives?: three or more times per week Panel score (0-1 are the most socially isolated patients): 1 What type of physical activity do you participate in: none Eva/Shinto: Judaism Seatbelt use: always Drive intox or ride w/intox 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
[2024-11-06] MEDS: Aspirin 81 MG CHEW 324 MG CH (15:02)
[2024-11-06] MEDS: nitroGLYcerin 0.4 MG TAB SL ×2 (15:03→15:10)
[2024-11-06 15:06] LABS: Abs Immature Grans 0.03 10^3/uL (0.0-0.06); Absolute Basophil Count 0.05 10^3/uL (0.0-0.2); Absolute Eosinophil Count 0.13 10^3/uL (0.0-0.7); Absolute Lymphocyte Count 1.91 10^3/uL (1.2-3.4); Absolute Monocyte Count 0.75 10^3/uL (0.1-0.8); Absolute Neutrophil Count 5.45 10^3/uL (1.2-6.7); Basophils % 0.6 %; Eosinophils % 1.6 %; HCT 38.3 % (36.0-46.0); HGB 11.9 g/dL (11.2-15.7); Immature Grans % 0.4 %; MCH 27.6 pg (27.0-33.0); MCHC 31.1 % (32.0-36.0); MCV 89 fL (80-95); MPV 10.1 fL (8.0-11.0); Neutrophils % 65.4 %; Platelet Count 168 10^3/uL (130-400); RBC 4.31 10^6/uL (3.93-5.22); RDW 13.8 % (11.7-14.6); WBC 8.32 10^3/uL (4.4-10.8)
[2024-11-06 15:24] LABS: INR 1.2 (0.9-1.1); PTT Activated 24.3 sec (20.6-30.2); Prothrombin Time 11.6 sec (9.1-11.1)
[2024-11-06 15:34] LABS: ALT 27 U/L (14-59); AST 17 U/L (15-37); Albumin 3.1 g/dL (3.4-5.0); Alkaline Phosphatase 85 U/L (46-116); Anion Gap 6.9 mmol/L (3-11); BUN 59 mg/dL (7-18); Bilirubin, Total 0.42 mg/dL (0.2-1.0); CO2 26.1 mmol/L (21.0-32.0); CREATININE 2.2 mg/dL (0.55-1.02); Calcium 8.7 mg/dL (8.5-10.1); Chloride 108 mmol/L (98-107); Estimated GFR 24.58 (mL/min/1.73m2); Glucose 114 mg/dL (74-106); Lipase 73 U/L (<78); Magnesium 1.5 mg/dL (1.8-2.4); NT-proBNP 2101 pg/mL (<300); Potassium 4.2 mmol/L (3.5-5.1); Sodium 141 mmol/L (136-145); Total Protein 7.5 g/dL (6.4-8.2); Troponin I 11 ng/L (<or=51)
[2024-11-06 15:35] LABS: D-Dimer 378 ng/mlFEU (<500)
[2024-11-06] MEDS: Magnesium Gluconate 500 MG TAB 1000 MG PO (16:17)
[2024-11-06 16:42] LABS: Troponin I 12 ng/L (<or=51)
[2024-11-06] MEDS: MYLANTA 30 ML, LIDOCAINE 2% VISCOUS UD 15 ML PO (17:25)
[2024-11-06] MEDS: Sucralfate 1 GM TAB 2 GM PO (17:26)
[2024-11-06 19:50] LABS: Troponin I 13 ng/L (<or=51)
== END 2024-11-06 20:40 | disposition home or self-care (01) ==
PROVIDERS: Emergency Provider Student in an Organized Health Care Education/Training Program; PCP Nurse Practitioner Family
DX: R07.9 Chest pain, unspecified (principal); R06.02 Shortness of breath; I48.91 Unspecified atrial fibrillation; E11.22 Type 2 diabetes mellitus with diabetic chronic kidney disease; I12.0 Hypertensive chronic kidney disease with stage 5 chronic kidney disease or end stage renal disease; N18.6 End stage renal disease; Z86.73 Personal history of transient ischemic attack (TIA), and cerebral infarction without residual deficits; Z79.01 Long term (current) use of anticoagulants; Z79.84 Long term (current) use of oral hypoglycemic drugs; Z99.2 Dependence on renal dialysis
CPT/HCPCS: 36415; 80053; 83690; 93005; 99284; 71046; 83735; 83880; 84484; 85025; 85379; 85610; 85730; 93010

== ENCOUNTER 2024-11-09 09:32 | Outpatient (CLI) | payer MEDICAID, SELFPAY ==
--- NOTE | 2024-11-09 09:30 | RT.EKG_ITS ---
APPROVED REPORT Exam: Resting ECG Reason for Exam: chest heaviness Patient Location: O HR:82 bpm ECG Measurements Heart Rate 82 AXIS ME [id number] P [id number] QRSd 89 QRS 38 QT 404 T 29 QTc 472 Conclusion Atrial fibrillation...? atrial activity Low voltage, precordial leads...precordial leads <1.0mV Baseline wander in lead(s) V2
== END 2024-11-09 09:33 | disposition home or self-care (01) ==
LOC: DI.KIM 09:33
PROVIDERS: PCP Nurse Practitioner Family; Visit Provider Nurse Practitioner Family
DX: R07.89 Other chest pain (principal)
CPT/HCPCS: 93010

== ENCOUNTER 2024-11-12 15:46 | Outpatient (REF) | payer MEDICAID, SELFPAY ==
[2024-11-12 19:08] LABS: Anion Gap 7.7 mmol/L (3-11); BUN 68 mg/dL (7-18); CO2 31.3 mmol/L (21.0-32.0); CREATININE 2.8 mg/dL (0.55-1.02); Calcium 9.3 mg/dL (8.5-10.1); Chloride 102 mmol/L (98-107); Glucose 149 mg/dL (74-106); NT-proBNP 1240 pg/mL (<300); Potassium 4.2 mmol/L (3.5-5.1); Sodium 141 mmol/L (136-145)
== END 2024-11-12 15:47 | disposition home or self-care (01) ==
LOC: NCHCN 15:46
PROVIDERS: PCP Nurse Practitioner Family; Visit Provider Nurse Practitioner Family
DX: I50.22 Chronic systolic (congestive) heart failure (principal)
CPT/HCPCS: 80048; 83880

== ENCOUNTER 2024-11-16 00:27 | Outpatient (CLI) | payer MEDICAID, SELFPAY ==
--- NOTE | 2024-11-16 09:30 | DI.US_ITS ---
APPROVED REPORT EXAM: Comprehensive 2D, Doppler, and color-flow Echocardiogram Patient Location: Out-Patient Elevator Mechanic: Taqueria Molina RDCS (AE) Indications: CHF Other Information Study Quality: Fair. Technically limited study due to body habitus. Conclusion Normal left ventricular wall thickness and chamber size. Ejection fraction is 55%. Wall motion is n ormal Normal right ventricular size and function Both atria are moderately enlarged Trileaflet aortic valve without stenosis or regurgitation Mild mitral annular calcification. Trace mitral regurgitation Estimated right ventricular systolic pressure is 41 mmHg Wall motion Left Ventricle The left ventricle is normal size. The left ventricular systolic function is normal. The left ventric ular ejection fraction is within the normal range. There is normal left ventricular wall thickness. T here is normal LV segmental wall motion. There is no ventricular septal defect visualized. LVEF is 55 %. Right Ventricle The right ventricle is normal size. The right ventricular systolic function is normal. Atria Left atrium is moderately dilated. Right atrium is moderately dilated. The interatrial septum is inta ct with no evidence for an atrial septal defect. Aortic Valve The aortic valve is normal in structure. Aortic valve is trileaflet. There is no aortic valvular sten osis. No aortic regurgitation is present. Mitral Valve Mild mitral annular calcification. No evidence of mitral valve stenosis. Trace mitral regurgitation. Tricuspid Valve The tricuspid valve is normal in structure. There is no tricuspid valve stenosis. Mild tricuspid regu rgitation. The RVSP is 41.1 mmHg. Pulmonic Valve The pulmonary valve is normal in structure. There is no pulmonic valvular stenosis. Trivial pulmonic regurgitation. Great Vessels The aortic root is normal in size. The ascending aorta is normal Aortic arch is not well visualized. IVC is normal in size and collapses >50% with inspiration. Pericardium There is no pericardial effusion. Prominent anterior epicardial fat pad is present. 2D Dimensions IVSD d PLAX 0.89 cm F: 0.6-1.0 Ao Root d 2.63 cm F: 2.7 - 3.3 LVPW d PLAX 0.85 cm F: 0.6 - 1.0 Ao Asc Diam d 3.32 cm F: 2.3 - 3.1 LVID d PLAX 4.99 cm F: 3.8 - 5.2 IVC Diam exp d SLAX 3.0 cm LVDs 3.56 cm F: 2.2 - 3.5 LV EF Teichholz 55.1 % FS 28.75 % LV EDV (Teich) 117.9 mL LV ESV (Teich) 52.9 mL Stroke Vol Index (Teich) 29.01 M-Mode TAPSE 1.40 cm (M/F) >1.7 Auto EF LV EDV A4C 89.2 mL LV EDV A2C 91.9 mL LV EDV BP 89.5 mL LV ESV A4C 40.3 mL LV ESV A2C 41.1 mL LV ESV BP 40.7 mL LVEF(%) A4C 54.9 % LVEF(%) A2C 55.3 % LVEF(%) BP 54.5 % LV SV A4C 48.9 ml LV SV A2C 50.9 ml LV SV BP 48.8 ml LV CO A4C 3.6 L/min LV CO A2C 4.2 L/min LV CO BP 3.9 L/min HR A4C 74.54 BPM HR A2C 82.76 BPM LV EDV Index (BP) LA Volume LA Length A4C 6.1 cm LA Length A2C 5.6 cm LA Area A4C s 21.62 cm2 LA Area A2C s 18.57 cm2 LA Vol A4C A-L 64.56 mL LA Vol A2C A-L 52.41 mL LA Vol Biplane A-L 61.0 mL LA Vol/BSA A4C A-L LA Vol/BSA A2C A-L LA Vol/BSA BP A-L 27.2 mL/m2 LA Vol A4C MOD 60.3 mL LA Vol A2C MOD 48.5 mL LA Vol BP MOD 55.8 mL RA Volume RA Area A4C 21.7 cm2 RA ESV A4C (A-L) 70.1mL RA Vol/BSA A4C A-L RA Length A4C 5.7 cm RA ESV A4C (MOD) 65.0mL LV Diastology MV E' medial 0.123 (>0.07 m/s) MV E Vmax 0.71 (0.4-1.3 m/s) MV E/E' MED 5.73 (<14) MV A Vmax 1.10 (0.4-1.3 m/s) MV E' lateral 0.123 (>0.1 m/s) E/A Ratio 0.6 MV E/E' LAT 5.73 (<14) MV E' Average 0.123 m/s MV E/E'(average) 5.73 Aortic Valve AoV Vmax 1.15 m/s LVOT Vmax 0.98 m/s AoV Peak Grad 5.3 mmHg LVOT Peak Grad 3.8 mmHg AoV Area (Vmax) 2.00 cm2 LVOT VTI 0.202 m AoV VTI 0.234 m LVOT Mean Grad 2.2 mmHg AoV Mean Wade. 0.79 m/s LVOT SV 47.60 mL AoV Mean Grad 2.9 mmHg LVOT Diam s 1.70 cm AoV Area (VTI) 2.03 cm2 AV Regurg Peak Gr. 5.31 mmHg Velocity Ratio 0.85 Mitral Valve MV DT 149 (160-240 msec) MV Vmax TIPS 1.06 m/s MV Mean Grad 2.0 (<2mmHg) MV VTI 0.174 m Pulmonary Valve PV Vmax 0.78 (0.5-1.5 m/s) RVOT Vmax 0.52 m/s PV Peak Grad 2.4 mmHg RVOT Peak Gr. 1.1 mmHg PV Mean Wade 0.59 m/s RVOT VTI 0.121 m PV Mean Grad 1.5 mmHg RVOT Mean Gr. 0.6 mmHg Tricuspid Valve RA Pressure 8.00 mmHg TR Vmax 2.88 m/s TR Peak Grad 33.0 mmHg RVSP (TR) 41.1 mmHg
== END 2024-11-16 00:47 ==
LOC: DI 00:27
PROVIDERS: PCP Nurse Practitioner Family; Visit Provider Internal Medicine Cardiovascular Disease
DX: I50.9 Heart failure, unspecified (principal); I35.8 Other nonrheumatic aortic valve disorders; I34.0 Nonrheumatic mitral (valve) insufficiency
CPT/HCPCS: 93306

== ENCOUNTER 2024-11-19 00:47 | Outpatient (CLI) | payer MEDICAID, SELFPAY ==
--- NOTE | 2024-11-19 06:45 | DI.NM_ITS ---
APPROVED REPORT Exam: Pharmacologic Patient Location: Out-Patient Room/Bed: Stress Nurse: Mandy Alcala RN Ordering Provider:YANDY SPENCE, Contact Number: [phone] BMI: 46.85 Baseline Rhythm: Atrial Fibrillation Indications: New dx hf Medical History Medical History: HTN, afib, DMT2, hyperparathyroidism, anemia, stroke Cardiac Medications: Nitro, albuterol sulfate, oxybutin chloride, jardiance, isosorbide mononitrate, eliquis, aspirin, bupropion, chlorthalidone, hydroxyzine, magnesium oxide, metoprolol succinate, aisha prazole, pramipexole, rosuvastatin, losartan, topiramate, carafate, guaifenesin Allergies: Cillins Cardiac Risk Factors: Family hx, HTN, HLD, diabetes, former smoker Previous Cardiac Procedures: None Pretest Chest Pain Characteristics: None Exercise History: Sedentary Physical Disabilities: Uses a cane Lung Sounds: Clear to auscultation Heart Sounds: Irregular Stress Test Details Test: Pharmacologic stress testing performed using 0.4 mg of regadenoson per 5 mL given IV over 10 s econds. Reason for pharmacologic stress test: physical limitation. Nuclear Acquisition: Rest Tc-99m/Stress Tc-99m 1 day Rest Isotope: Tc-99m Sestamibi. Dose: 11.0 Date: 11/19/2024 Injection Time: 0945 Stress Isotope: Tc-99m Sestamibi. Dose: 36.0 Date: 11/19/2024 Injection Time: 1107 HR Resting HR Supine: 83 bpm Max Heart Rate (APMHR): 157 bpm Target HR (85% APMHR): 133 bpm Max HR Achieved: 126 bpm % of APMHR: 80 Recovery HR: 90 bpm BP Resting BP Supine: 168/92 mmHg Max BP: 168/92 mmHg Recovery BP: 140/85 mmHg ECG Resting ECG: Atrial Fibrillation Ectopy: Occasional PVC's Stress ECG: Atrial Fibrillation ST Change: Nondiagnostic low heart rate Arrhythmia: Occasional PVC's Recovery ECG: Atrial Fibrillation Recovery ST Change: Nondiagnostic low heart rate Clinical Stress Symptoms: Chest heaviness patient declined to rate discomfort level Angina Score: Non-Limiting Rate Pressure Product: 21231 Stress ECG Conclusion 1. Resting electrocardiogram showed low voltage 2. Patient underwent testing using pharmacologic stress with regadenoson 3. Peak heart rate achieved was 80% of maximal predicted for age 4. The electrocardiographic portion of the test was nondiagnostic 5. See MPI report Stress Test Summary STAGE HR BP SpO2 Symptoms NOTES Supine 83 168/92 96% 1 min post Lexiscan injection 88 150/88 98% Chest heaviness declined to rate discomfort level 3 min post Lexiscan injection 86 146/92 98% 6 min post Lexiscan injection 90 140/88 96% Chest heaviness resolved. All symptoms resolved at test end per patient report. Patient proceeded ambulatory to imaging with murtaza santana. MPI Conclusion Myocardial perfusion was normal. There was no ischemia or evidence of prior infarction Ejection fraction was 73% with normal wall motion
[2024-11-19] MEDS: Regadenoson 0.4 MG/5 ML SYR IVP (11:01)
== END 2024-11-19 01:07 ==
PROVIDERS: PCP Nurse Practitioner Family; Visit Provider Internal Medicine Cardiovascular Disease
DX: I50.9 Heart failure, unspecified (principal); R07.9 Chest pain, unspecified
CPT/HCPCS: 78452; 93017; J2785

== ENCOUNTER 2024-11-27 15:03 | Outpatient (REF) | payer MEDICAID, SELFPAY ==
[2024-11-27 09:42] LABS: Anion Gap 13.2 mmol/L (3-11); BUN 61 mg/dL (7-18); CO2 24.8 mmol/L (21.0-32.0); CREATININE 2.8 mg/dL (0.55-1.02); Calcium 9.1 mg/dL (8.5-10.1); Chloride 105 mmol/L (98-107); Glucose 130 mg/dL (74-106); Potassium 4.3 mmol/L (3.5-5.1); Sodium 143 mmol/L (136-145)
== END 2024-11-27 15:04 | disposition home or self-care (01) ==
LOC: LBN 15:03
PROVIDERS: PCP Nurse Practitioner Family; Visit Provider Nurse Practitioner Family
DX: N18.4 Chronic kidney disease, stage 4 (severe) (principal); E11.69 Type 2 diabetes mellitus with other specified complication
CPT/HCPCS: 80048

== ENCOUNTER 2024-12-03 04:25 | Outpatient (CLI) | payer MEDICAID, SELFPAY ==
[2024-12-03 14:27] LABS: Anion Gap 7.9 mmol/L (3-11); BUN 65 mg/dL (7-18); CO2 29.1 mmol/L (21.0-32.0); CREATININE 2.9 mg/dL (0.55-1.02); Chloride 107 mmol/L (98-107); Estimated GFR 17.64 (mL/min/1.73m2); Glucose 101 mg/dL (74-106); Potassium 4.3 mmol/L (3.5-5.1); Sodium 144 mmol/L (136-145)
== END 2024-12-03 04:26 | disposition home or self-care (01) ==
LOC: LBO 04:26
PROVIDERS: Absent Provider Nurse Practitioner Family; PCP Nurse Practitioner Family; Referring Provider Nurse Practitioner Family; Visit Provider Nurse Practitioner Family
DX: N18.4 Chronic kidney disease, stage 4 (severe) (principal)
CPT/HCPCS: 36415; 80048

== ENCOUNTER 2024-12-07 12:08 | Outpatient (REF) | payer MEDICAID, SELFPAY ==
[2024-12-07 13:34] LABS: NT-proBNP 2063 pg/mL (<300)
== END 2024-12-07 12:09 | disposition home or self-care (01) ==
LOC: LBN 12:08
PROVIDERS: PCP Nurse Practitioner Family; Visit Provider Nurse Practitioner Family
DX: I50.9 Heart failure, unspecified (principal); N18.4 Chronic kidney disease, stage 4 (severe); S31.109A Unspecified open wound of abdominal wall, unspecified quadrant without penetration into peritoneal cavity, initial encounter
CPT/HCPCS: 83880

== ENCOUNTER 2024-12-30 06:11 | Emergency (ER) | payer MEDICAID, SELFPAY ==
--- NOTE | 2024-12-30 06:00 | RT.EKG_ITS ---
APPROVED REPORT Exam: Resting ECG Reason for Exam: Patient Location: E HR:133 bpm ECG Measurements Heart Rate 133 AXIS HI [id number] P [id number] QRSd 92 QRS 62 QT 304 T -16 QTc 453 Conclusion Atrial fibrillation...V-rate 96-140, irreg A-activity Low voltage, precordial leads...precordial leads <1.0mV Nonspecific repol abnormality, inferior leads...ST dep, T neg, II III aVF Artifact present from tachypnea No acute ST changes noted.
--- NOTE | 2024-12-30 06:14 | W.ED.GENAD ---
Discharge Plan Discharge Details Chief Complaint: Chest Pain Primary Care Provider: Yvette Cox ED Provider: Moises Miranda [place] Meds and New Rx's Prescriptions: No Action topiramate 100 mg tablet 100 mg PO QHS Qty: 90 3RF nitroglycerin 0.4 mg tablet, sublingual 0.4 mg sublingual Q5 MIN PRN X3 PRN (Reason: chest pain) Qty: 30 8RF aspirin [Adult Aspirin Regimen] 81 mg tablet,delayed release (DR/EC) 81 mg PO DAILY Rx Instructions: TBD - was this added per Neuro? Card? bupropion HCl 150 mg tablet extended release 24 hr See Rx Instructions .ROUTE .COMPLEX Qty: 84 3RF Dose Instruction: TAKE 3 TABLETS BY MOUTH DAILY Rx Instructions: TAKE 3 TABLETS BY MOUTH DAILY (150mg x3) guaifenesin 600 mg tablet extended release 12hr 600 mg PO DAILY PRN PRN (Reason: cough/phlegm) magnesium oxide 200 mg magnesium tablet 400 mg PO DAILY Qty: 60 6RF Rx Instructions: Take at bedtime due to low magnesium rosuvastatin 20 mg tablet 20 mg PO DAILY Qty: 28 5RF hydroxyzine HCl 50 mg tablet See Rx Instructions .ROUTE .COMPLEX Qty: 90 5RF Rx Instructions: TAKE 1 TABLET IN THE MORNING AND 2 AT BEDTIME NEEDED FOR ANXIETY PANIC SENSATION acetaminophen 500 mg tablet 1,000 mg PO QID PRN mupirocin 2 % ointment 1 applic topical BID Qty: 15 0RF nystatin 100,000 unit/gram cream 1 applic topical BID Qty: 30 1RF furosemide [Lasix] 20 mg tablet 20 mg PO Q OTHER DAY Qty: 30 3RF albuterol sulfate 90 mcg/actuation HFA aerosol inhaler 1 - 2 inh inhalation Q4H PRN (Reason: shortness of breath or wheezing) Qty: 6.7 1RF Jardiance 10 mg tablet 10 mg PO DAILY Qty: 90 3RF Rx Instructions: Continue for hyperglycemia with CKD Eliquis 5 mg tablet See Rx Instructions .ROUTE .COMPLEX Qty: 56 5RF Dose Instruction: TAKE 1 TABLET BY MOUTH TWICE A DAY Rx Instructions: TAKE 1 TABLET BY MOUTH TWICE A DAY chlorthalidone 25 mg tablet 25 mg PO DAILY Qty: 90 3RF Patient Comments: not on pt list pantoprazole 40 mg tablet,delayed release (DR/EC) See Rx Instructions .ROUTE .COMPLEX Qty: 90 3RF Rx Instructions: TAKE 1 TABLET BY MOUTH HS losartan 50 mg tablet 75 mg PO DAILY Qty: 45 5RF Patient Comments: Per Dr. Muñiz, nephrology at [facility] [place], pt was puton 75 mg daily for renal protection, confirmed with [facility] this is what is in blister packs. RH Rx Instructions: Nephro aware cholecalciferol (vitamin D3) 50 mcg (2,000 unit) capsule See Rx Instructions .ROUTE .COMPLEX Qty: 28 4RF Dose Instruction: TAKE 1 CAPSULE BY MOUTH DAILY FOR LOW VITAMIN D. Rx Instructions: TAKE 1 CAPSULE BY MOUTH DAILY FOR LOW VITAMIN D. pramipexole 0.25 mg tablet 0.25 mg PO QPM Qty: 90 3RF Rx Instructions: administer 2 - 3 hours before bedtime pramipexole 0.125 mg tablet See Rx Instructions .ROUTE .COMPLEX Qty: 28 2RF Dose Instruction: TAKE 1 TABLET BY MOUTH AT BEDTIME Rx Instructions: TAKE 1 TABLET BY MOUTH AT BEDTIME oxybutynin chloride 10 mg tablet extended release 24hr See Rx Instructions .ROUTE .COMPLEX Qty: 28 1RF Dose Instruction: TAKE 1 TABLET BY MOUTH AT BEDTIME Rx Instructions: TAKE 1 TABLET BY MOUTH AT BEDTIME isosorbide mononitrate 30 mg tablet extended release 24 hr 30 mg PO DAILY Qty: 30 5RF metoprolol succinate 50 mg tablet extended release 24 hr 50 mg PO DAILY Qty: 90 3RF Rx Instructions: updated to DAILY per ik per med-rec review (DME) blood-glucose meter [FreeStyle Lite Meter] Kit See Rx Instructions .Route Qty: 1 0RF Rx Instructions: Check blood sugar once a day. DX: E11.9.Keep A1c below 7 (DME) FreeStyle Lite Strips Strip See Rx Instructions .Route Qty: 100 3RF Rx Instructions: Check blood sugar once a day. DX:E11.9.Keep A1c below 7 (DME) lancets [Unilet Lancet] 33 gauge misc See Rx Instructions .Route Rx Instructions: As directed (DME) lancets [Unilet Lancet] 33 gauge misc See Rx Instructions .Route Qty: 100 3RF Rx Instructions: Check blood sugar once a day. DX: E11.9,Keep A1c below 7. This brand is covered by [place] [employer]. sucralfate [Carafate] 1 gram tablet 1 g PO BID Qty: 14 0RF HPI General Mode of arrival: EMS. Date/Time Provider Initiated Documentation: 12/30/24 06:14. Limitations to Documentation: no limitations. Information obtained by: patient and RN notes reviewed. HPI Narrative: Patient presents to ED with chest pain, cough, shortness of breath. Patient does not think she has had a fever. She started with a cough about 5 to 6 days ago. She developed left-sided chest pain a few days after that. Pain has been persistent and worsening. She is now short of breath as well. Cough is somewhat productive. Denies any abdominal pain, vomiting, diarrhea. Does admit to decreased appetite but is trying to drink to stay hydrated. Related Data Home Medications ?Medication ?Instructions ?Recorded ?Confirmed nitroglycerin 0.4 mg sublingual 0.4 mg sublingual Q5 MIN PRN X3 03/19/24 12/30/24 tablet PRN chest pain #30 tabs albuterol sulfate 90 mcg/actuation 1 - 2 inh inhalation Q4H PRN 05/08/24 12/30/24 aerosol inhaler shortness of breath or wheezing #6.7 grams empagliflozin 10 mg tablet 10 mg PO DAILY #90 tabs 06/28/24 12/30/24 (Jardiance) apixaban 5 mg tablet (Eliquis) See Rx Instructions .Route 08/28/24 12/30/24 .COMPLEX #56 tabs aspirin 81 mg tablet,delayed 81 mg PO DAILY 09/21/24 12/30/24 release (Adult Aspirin Regimen) bupropion HCl 150 mg 24 hr tablet, See Rx Instructions .Route 09/21/24 12/30/24 extended release .COMPLEX #84 tabs chlorthalidone 25 mg tablet 25 mg PO DAILY #90 tabs 09/21/24 12/30/24 guaifenesin 600 mg tablet, 600 mg PO DAILY PRN PRN 09/21/24 12/30/24 extended release 12 hr cough/phlegm hydroxyzine HCl 50 mg tablet See Rx Instructions .Route 09/21/24 12/30/24 .COMPLEX #90 tabs magnesium oxide 400 mg (2 x 200 mg magnesium) PO 09/21/24 12/30/24 DAILY Low Magnesium #60 tabs pantoprazole 40 mg tablet,delayed See Rx Instructions .Route 09/21/24 12/30/24 release .COMPLEX #90 tabs rosuvastatin 20 mg tablet 20 mg PO DAILY #28 tabs 09/21/24 12/30/24 losartan 50 mg tablet 75 mg (1.5 x 50 mg) PO DAILY #45 09/27/24 12/30/24 tabs acetaminophen 500 mg tablet 1,000 mg PO QID PRN 10/05/24 12/30/24 cholecalciferol (vitamin D3) 50 See Rx Instructions .Route 10/18/24 12/30/24 mcg (2,000 unit) capsule .COMPLEX #28 caps pramipexole 0.25 mg tablet 0.25 mg PO QPM #90 tabs 10/18/24 12/30/24 topiramate 100 mg tablet 100 mg PO QHS #90 tabs 10/22/24 12/30/24 sucralfate 1 gram tablet (Carafate) 1 g PO BID #14 tabs 11/06/24 12/30/24 oxybutynin chloride 10 mg See Rx Instructions .Route 11/12/24 12/30/24 tablet,extended release 24 hr .COMPLEX #28 tabs pramipexole 0.125 mg tablet See Rx Instructions .Route 11/12/24 12/30/24 .COMPLEX #28 tabs mupirocin 2 % topical ointment 1 applic topical BID abdominal 12/07/24 12/30/24 wound #15 grams isosorbide mononitrate 30 mg 30 mg PO DAILY #30 tabs 12/13/24 12/30/24 tablet,extended release 24 hr metoprolol succinate 50 mg 50 mg PO DAILY #90 tabs 12/13/24 12/30/24 tablet,extended release 24 hr blood sugar diagnostic (FreeStyle #100 ea 12/27/24 12/28/24 Lite Strips) blood-glucose meter (FreeStyle #1 ea 12/27/24 12/28/24 Lite Meter kit) lancets 33 gauge (Unilet Lancet) 12/27/24 12/28/24 lancets 33 gauge (Unilet Lancet) #100 ea 12/27/24 12/28/24 furosemide 20 mg tablet (Lasix) 20 mg PO Q OTHER DAY #30 tabs 12/28/24 12/30/24 nystatin 100,000 unit/gram topical 1 applic topical BID R breast rash 12/28/24 12/30/24 cream #30 grams Previous Rx's ?Medication ?Instructions ?Recorded nitroglycerin 0.4 mg sublingual 0.4 mg sublingual Q5 MIN PRN X3 03/19/24 tablet PRN chest pain #30 tabs albuterol sulfate 90 mcg/actuation 1 - 2 inh inhalation Q4H PRN 05/08/24 aerosol inhaler shortness of breath or wheezing #6.7 grams empagliflozin 10 mg tablet 10 mg PO DAILY #90 tabs 06/28/24 (Jardiance) apixaban 5 mg tablet (Eliquis) See Rx Instructions .Route 08/28/24 .COMPLEX #56 tabs bupropion HCl 150 mg 24 hr tablet, See Rx Instructions .Route 09/21/24 extended release .COMPLEX #84 tabs chlorthalidone 25 mg tablet 25 mg PO DAILY #90 tabs 09/21/24 hydroxyzine HCl 50 mg tablet See Rx Instructions .Route 09/21/24 .COMPLEX #90 tabs magnesium oxide 400 mg (2 x 200 mg magnesium) PO 09/21/24 DAILY Low Magnesium #60 tabs pantoprazole 40 mg tablet,delayed See Rx Instructions .Route 09/21/24 release .COMPLEX #90 tabs rosuvastatin 20 mg tablet 20 mg PO DAILY #28 tabs 09/21/24 losartan 50 mg tablet 75 mg (1.5 x 50 mg) PO DAILY #45 09/27/24 tabs cholecalciferol (vitamin D3) 50 See Rx Instructions .Route 10/18/24 mcg (2,000 unit) capsule .COMPLEX #28 caps pramipexole 0.25 mg tablet 0.25 mg PO QPM #90 tabs 10/18/24 topiramate 100 mg tablet 100 mg PO QHS #90 tabs 10/22/24 sucralfate 1 gram tablet (Carafate) 1 g PO BID #14 tabs 11/06/24 oxybutynin chloride 10 mg See Rx Instructions .Route 11/12/24 tablet,extended release 24 hr .COMPLEX #28 tabs pramipexole 0.125 mg tablet See Rx Instructions .Route 11/12/24 .COMPLEX #28 tabs mupirocin 2 % topical ointment 1 applic topical BID abdominal 12/07/24 wound #15 grams isosorbide mononitrate 30 mg 30 mg PO DAILY #30 tabs 12/13/24 tablet,extended release 24 hr metoprolol succinate 50 mg 50 mg PO DAILY #90 tabs 12/13/24 tablet,extended release 24 hr blood sugar diagnostic (FreeStyle #100 ea 12/27/24 Lite Strips) blood-glucose meter (FreeStyle #1 ea 12/27/24 Lite Meter kit) lancets 33 gauge (Unilet Lancet) #100 ea 12/27/24 furosemide 20 mg tablet (Lasix) 20 mg PO Q OTHER DAY #30 tabs 12/28/24 nystatin 100,000 unit/gram topical 1 applic topical BID R breast rash 12/28/24 cream #30 grams Allergies Allergy/AdvReac Type Severity Reaction Status Date / Time Penicillins Allergy Severe Anaphylaxis Verified 12/30/24 06:15 amoxicillin Allergy Anaphylaxis Verified 12/30/24 06:15 Cillins Allergy Anaphylaxis Uncoded 12/30/24 06:15 General SHIRLEY: 3 Exam Narrative Exam Narrative: Const: Obese female in NAD. VS per triage. HEENT: NC/AT. Normal facial exam. Neck: Supple. Trachea midline. Lungs: Tachypneic not in distress, diminished breath sounds left base. Cor: Tachy and irregular without murmur. Good radial pulses. GI: Soft/ND/NT. Neuro: A+O x 3. Normal speech, mentation. Cranial nerves II - XII grossly intact. No gross motor or sensory deficit. Medical Decision Making Patient presenting to ED with cough, chest pain, shortness of breath. She has a history of atrial fibrillation. She is in A-fib and tachycardic currently. Saturations on room air are decent. She is not in distress. She does have diminished breath sounds at the left base suggesting likely pneumonia. EKG is A-fib with nonspecific ST changes, nothing acute. Will place IV and give a fluid bolus of 500 mL, obtain labs and chest x-ray. Patient be signed out to oncoming ED physician pending results and reevaluation. Quality:SDOH Health Related Social Needs: Health related social needs details pt reports she may need more help at home PFSH All Active Problems Intertrigo (Acute) Wound of abdomen (Acute) CHF (congestive heart failure) (Chronic) Cellulitis (Acute) Follow-up exam (Acute) CVA (cerebral vascular accident) (Chronic) Atrial fibrillation (Chronic) Hx CHAD2 (-), but ED x2 and CardMon showing Meningioma (Acute) [facility] note 07/03/24.HE 07/13/24 Dr Person, radiotherapy planned. dc Wheezing (Acute) Acute left-sided thoracic back pain (Acute) just under left shoulder blade .. 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 NeuroSurg still TBD [ ] , 03/2024, ik Migraine headache without aura (Acute) Chronic headache (Acute) Type 2 diabetes mellitus with other specified complication (Acute) Open abdominal wall wound (Acute) Prolapse of female pelvic organs (Acute) Mixed stress and urge urinary incontinence (Acute) Abnormal MRI of the head (Acute) Rt optic canal narrowed 2' sclerosis (stable?)([place]) & NEW hyperintense focus (white matter)(anterior rt temporal lobe) may rep demyelinating process, infection or possible neoplasm.. [ ] contrast when RF allows Left contracture of neck (Acute) pain, stiffness .. rad into shoulder blade Hyperparathyroidism due to renal insufficiency (Acute) [ ] Ca.. q 3-6 mos [ ] Ph .. q3-6 mos [ ] PTH, q 6-12 mos [ ] Vit D yearly Malnutrition compromising bodily function (Acute) Low vitamin D level (Acute) WNL 44, 07/2023 (up from January 2023), yay Weight gain (Acute) losing weight since Ozempic start! Edema (Chronic) CKD? 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 [ ] CC for closer coordination w/ [facility] (I sent TWO pramipex Rx .. still only one on her b-cassy list)(and she says no more hydrox, but it's listed .. so therefore b-packed?) .. HOW DO WE TRIAL MEDS? HTN (hypertension) (Chronic) per Nephro note (06/2022): Na < 2g. HCTZ 12.5mg added. Proteinuria (Acute) Goal<0.2mg/mg (2.3 on 06/30/22), per Nephro 06/2022. History of anemia due to CKD (Chronic) Goals: HGB 9.5-10.9 (per Nephro, 06/2022).. Ferritin>100ng/ml; IronSAT>20%. CKD (chronic kidney disease) stage 4, GFR 15-29 ml/min (Chronic) Hx dialysis. Follows with [facility], Dr. Muñiz. Low back pain (Acute) Lumbosacral spondylosis without myelopathy (Acute) Lumbar stenosis (Acute) Restless leg syndrome (Acute) Medical History Gliosis Rt Optic Nerve, with loss of vision Insomnia Stress incontinence Coughing, sneezing, laughing .. Lifting > 10lbs (Hx incontinence symp, 06/2021) Spastic pelvic floor syndrome Mental health disorder Mixed Dx (Anx/Depr/Schiz-Affective), with poor FU form [facility] x yrs .. refilling Rx & recommending review with [facility]. 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 [ ] UroGyn for possible surg per Dr. Park notes.. Nocturia w/ incontinence episodes Pelvic pain w/ probe/speculum.. Hx dyspareunia. Hx births. Vaginal discharge Sense of urgency w/o urination, but vag d/c! 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 Fontenot)) History of knee surgery History of hysterectomy Hx ovarian rupture H/O section 2 children History of appendectomy Family History Father Heart disease Hypertension Mother Thyroid disease Stroke Sister Cancer Sister Cancer Sister Ovarian cancer Kidney failure Social History Smoking/Tobacco Use Status: Never Tobacco: How many years used: 43 Smoking risk assessment performed?: Yes Alcohol Intake: current Alcohol Intake frequency: holidays/special occasions only Drug use: Never Substance use type: does not use Adopted: No Caregiver/Support person: No Foster care: No Household members: other Details: ex- Housing: house Number of Children: 2 number of grandchildren: 1 Communication Needs: Hard of Hearing Education Level: middle school Do you need help understanding health information?: Always current occupation: Volunteers Pets and animals: No Current gender identity: female What is your relationship status?: How often do you get together with friends or relatives?: three or more times per week Panel score (0-1 are the most socially isolated patients): 1 What type of physical activity do you participate in: none Eva/Lutheran: Jew Seatbelt use: always Drive intox or ride w/intox otr truck driver: No Do you feel safe at home: Yes Do you feel safe in your relationship?: Yes
[2024-12-30 06:16] VITALS: RESP 24
[2024-12-30 06:19] VITALS: PULSE 137; RESP 30; O2SAT 99
[2024-12-30 06:24] VITALS: BP 103/39
--- NOTE | 2024-12-30 06:30 | DI.RAD_ITS ---
Exam(s) XR CHEST 2V PA LATERAL EXAM: XR CHEST 2V PA LATERAL CLINICAL HISTORY: Chest pain TECHNIQUE: 2D digital imaging was performed of the chest. Two images were obtained. PA and lateral views were obtained. COMPARISON: CR XR CHEST 2V PA LATERAL from 11/06/2024 FINDINGS: MEDIASTINUM: Normal. HEART: Cardiac size is stable. PULMONARY VASCULATURE: Normal. LUNGS: Mild perihilar interstitial prominence is again seen. No focal consolidating infiltrates are present. PLEURAL SPACE: No pleural effusion or pneumothorax. BONE:Within normal limits for the patient's age. OTHER FINDINGS:Normal. IMPRESSION: Mild prominence of the interstitium. This may be due to pulmonary edema. Pneumonitis cannot be excl uded. Please correlate clinically. No focal consolidating infiltrates are present. DATA REPOSITORY: RADIATION DOSE DELIVERED:
[2024-12-30 07:08] LABS: Abs Immature Grans 0.04 10^3/uL (0.0-0.06); Absolute Basophil Count 0.04 10^3/uL (0.0-0.2); Absolute Eosinophil Count 0.19 10^3/uL (0.0-0.7); Absolute Lymphocyte Count 1.28 10^3/uL (1.2-3.4); Absolute Monocyte Count 0.81 10^3/uL (0.1-0.8); Basophils % 0.5 %; Eosinophils % 2.2 %; HCT 38.8 % (36.0-46.0); HGB 12.1 g/dL (11.2-15.7); Immature Grans % 0.5 %; Lymphocytes % 14.6 %; MCH 27.3 pg (27.0-33.0); MCHC 31.2 % (32.0-36.0); MCV 88 fL (80-95); MPV 10.5 fL (8.0-11.0); Monocytes % 9.2 %; Platelet Count 190 10^3/uL (130-400); RBC 4.43 10^6/uL (3.93-5.22); RDW 12.9 % (11.7-14.6); WBC 8.76 10^3/uL (4.4-10.8)
[2024-12-30 07:29] LABS: ALT 21 U/L (14-59); AST 16 U/L (15-37); Albumin 2.9 g/dL (3.4-5.0); Alkaline Phosphatase 97 U/L (46-116); Anion Gap 8.2 mmol/L (3-11); BUN 58 mg/dL (7-18); Bilirubin, Total 0.5 mg/dL (0.2-1.0); CO2 26.8 mmol/L (21.0-32.0); CREATININE 2.8 mg/dL (0.55-1.02); Calcium 8.9 mg/dL (8.5-10.1); Chloride 106 mmol/L (98-107); Glucose 139 mg/dL (74-106); Potassium 3.3 mmol/L (3.5-5.1); Sodium 141 mmol/L (136-145); Total Protein 7.5 g/dL (6.4-8.2); Troponin I 15 ng/L (<or=51)
[2024-12-30 07:47] LABS: COVID-19 PCR Negative (Negative); Influenza A PCR Negative (Negative); Influenza B PCR Negative (Negative); RSV PCR Negative (Negative)
[2024-12-30 07:48] LABS: Source Nasopharynx
--- NOTE | 2024-12-30 08:06 | DI.VRAD_ITS ---
PROCEDURE INFORMATION: Exam: XR Chest Exam date and time: 12/30/2024 7:57 AM Age: 64 years old Clinical indication: Other: Chest pain TECHNIQUE: Imaging protocol: Radiologic exam of the chest. Views: 2 views. COMPARISON: CR XR CHEST 2V PA LATERAL 11/06/2024 4:03 PM FINDINGS: Lungs: Unremarkable. No consolidation. Pleural spaces: Unremarkable. No pleural effusion. No pneumothorax. Heart/Mediastinum: Mild cardiomegaly Bones/joints: Unremarkable. IMPRESSION: No acute findings. Dictated and Authenticated by: Ramses Fontenot MD. Orderin Ruben De Leon MD
--- NOTE | 2024-12-30 08:40 | ED.PROG_ITS ---
Date of service: 12/30/24 Time of Service: 08:40 Medical Decision Making Patient signed out to me pending labs and x-ray. Troponin is negative and given has had multiple days of symptoms do not feel additional troponin is indicated. Has chronic kidney disease and creatinine is at baseline. X-ray shows no acute findings. She is stable and her heart rate now is 90 on exam. She has very mild apical wheezing bilaterally and states she has no respiratory distress. Discussed results with her and given reassuring workup I feel she is stable for discharge and can follow-up with her PCP. Given her flu is negative and is having a productive cough I am going to place her on doxycycline and also prednisone as she is a former smoker. Return precautions given Quality:SDOH Health Related Social Needs: Health related social needs details pt reports she may need more help at home Discharge Plan Disposition Patient Disposition: Home Condition: Stable Discharge Details Clinical Impression: Acute respiratory infection Primary Care Provider: Yvette Cox ED Provider: Carl Tinoco Home Meds and New Rx's Prescriptions: New prednisone 20 mg tablet 60 mg PO DAILY 4 Days Qty: 12 0RF doxycycline hyclate 100 mg tablet 100 mg PO BID Qty: 14 0RF Continued topiramate 100 mg tablet 100 mg PO QHS Qty: 90 3RF nitroglycerin 0.4 mg tablet, sublingual 0.4 mg sublingual Q5 MIN PRN X3 PRN (Reason: chest pain) Qty: 30 8RF aspirin [Adult Aspirin Regimen] 81 mg tablet,delayed release (DR/EC) 81 mg PO DAILY Rx Instructions: TBD - was this added per Neuro? Card? bupropion HCl 150 mg tablet extended release 24 hr See Rx Instructions .ROUTE .COMPLEX Qty: 84 3RF Dose Instruction: TAKE 3 TABLETS BY MOUTH DAILY Rx Instructions: TAKE 3 TABLETS BY MOUTH DAILY (150mg x3) guaifenesin 600 mg tablet extended release 12hr 600 mg PO DAILY PRN PRN (Reason: cough/phlegm) magnesium oxide 200 mg magnesium tablet 400 mg PO DAILY Qty: 60 6RF Rx Instructions: Take at bedtime due to low magnesium rosuvastatin 20 mg tablet 20 mg PO DAILY Qty: 28 5RF hydroxyzine HCl 50 mg tablet See Rx Instructions .ROUTE .COMPLEX Qty: 90 5RF Rx Instructions: TAKE 1 TABLET IN THE MORNING AND 2 AT BEDTIME NEEDED FOR ANXIETY PANIC SENSATION acetaminophen 500 mg tablet 1,000 mg PO QID PRN mupirocin 2 % ointment 1 applic topical BID Qty: 15 0RF nystatin 100,000 unit/gram cream 1 applic topical BID Qty: 30 1RF furosemide [Lasix] 20 mg tablet 20 mg PO Q OTHER DAY Qty: 30 3RF albuterol sulfate 90 mcg/actuation HFA aerosol inhaler 1 - 2 inh inhalation Q4H PRN (Reason: shortness of breath or wheezing) Qty: 6.7 1RF Jardiance 10 mg tablet 10 mg PO DAILY Qty: 90 3RF Rx Instructions: Continue for hyperglycemia with CKD Eliquis 5 mg tablet See Rx Instructions .ROUTE .COMPLEX Qty: 56 5RF Dose Instruction: TAKE 1 TABLET BY MOUTH TWICE A DAY Rx Instructions: TAKE 1 TABLET BY MOUTH TWICE A DAY chlorthalidone 25 mg tablet 25 mg PO DAILY Qty: 90 3RF Patient Comments: not on pt list pantoprazole 40 mg tablet,delayed release (DR/EC) See Rx Instructions .ROUTE .COMPLEX Qty: 90 3RF Rx Instructions: TAKE 1 TABLET BY MOUTH HS losartan 50 mg tablet 75 mg PO DAILY Qty: 45 5RF Patient Comments: Per Dr. Muñiz, nephrology at [facility] [place], pt was puton 75 mg daily for renal protection, confirmed with [place] this is what is in blister packs. RH Rx Instructions: Nephro aware cholecalciferol (vitamin D3) 50 mcg (2,000 unit) capsule See Rx Instructions .ROUTE .COMPLEX Qty: 28 4RF Dose Instruction: TAKE 1 CAPSULE BY MOUTH DAILY FOR LOW VITAMIN D. Rx Instructions: TAKE 1 CAPSULE BY MOUTH DAILY FOR LOW VITAMIN D. pramipexole 0.25 mg tablet 0.25 mg PO QPM Qty: 90 3RF Rx Instructions: administer 2 - 3 hours before bedtime pramipexole 0.125 mg tablet See Rx Instructions .ROUTE .COMPLEX Qty: 28 2RF Dose Instruction: TAKE 1 TABLET BY MOUTH AT BEDTIME Rx Instructions: TAKE 1 TABLET BY MOUTH AT BEDTIME oxybutynin chloride 10 mg tablet extended release 24hr See Rx Instructions .ROUTE .COMPLEX Qty: 28 1RF Dose Instruction: TAKE 1 TABLET BY MOUTH AT BEDTIME Rx Instructions: TAKE 1 TABLET BY MOUTH AT BEDTIME isosorbide mononitrate 30 mg tablet extended release 24 hr 30 mg PO DAILY Qty: 30 5RF metoprolol succinate 50 mg tablet extended release 24 hr 50 mg PO DAILY Qty: 90 3RF Rx Instructions: updated to DAILY per ik per med-rec review (DME) blood-glucose meter [FreeStyle Lite Meter] Kit See Rx Instructions .Route Qty: 1 0RF Rx Instructions: Check blood sugar once a day. DX: E11.9.Keep A1c below 7 (DME) FreeStyle Lite Strips Strip See Rx Instructions .Route Qty: 100 3RF Rx Instructions: Check blood sugar once a day. DX:E11.9.Keep A1c below 7 (DME) lancets [Unilet Lancet] 33 gauge misc See Rx Instructions .Route Rx Instructions: As directed (DME) lancets [Unilet Lancet] 33 gauge misc See Rx Instructions .Route Qty: 100 3RF Rx Instructions: Check blood sugar once a day. DX: E11.9,Keep A1c below 7. This brand is covered by [place]. sucralfate [Carafate] 1 gram tablet 1 g PO BID Qty: 14 0RF Discharge Instructions Additional Instructions: Your blood work and x-ray did not show any concerning findings at this time. Take the prednisone and antibiotic as prescribed. If you have severe worsening shortness of breath or new symptoms such as persistent vomiting return to the emergency department for reevaluation. If not improving this week follow-up with your primary care provider
[2024-12-30] MEDS: predniSONE 20 MG TAB 60 MG PO (08:57)
[2024-12-30] MEDS: Doxycycline Hyclate 100 MG CAP PO (08:57)
[2024-12-30 09:03] VITALS: BP 106/44; PULSE 110; RESP 18; O2SAT 98
== END 2024-12-30 09:05 | disposition home or self-care (01) ==
PROVIDERS: Emergency Medicine; Emergency Provider Emergency Medicine; PCP Nurse Practitioner Family
DX: J06.9 Acute upper respiratory infection, unspecified (principal); I48.91 Unspecified atrial fibrillation; E78.5 Hyperlipidemia, unspecified; E11.22 Type 2 diabetes mellitus with diabetic chronic kidney disease; I12.9 Hypertensive chronic kidney disease with stage 1 through stage 4 chronic kidney disease, or unspecified chronic kidney disease; N18.4 Chronic kidney disease, stage 4 (severe); Z79.84 Long term (current) use of oral hypoglycemic drugs; Z79.82 Long term (current) use of aspirin; Z79.01 Long term (current) use of anticoagulants; Z86.73 Personal history of transient ischemic attack (TIA), and cerebral infarction without residual deficits
CPT/HCPCS: 00123; 36415; 80053; 87637; 93005; 99285; 71046; 84484; 85025; 93010; 99284; J7512

== ENCOUNTER 2025-01-25 11:31 | Outpatient (CLI) | payer MEDICAID, SELFPAY ==
--- NOTE | 2025-01-25 11:30 | RT.EKG_ITS ---
APPROVED REPORT Exam: Resting ECG Reason for Exam: substernal chest pressure over 1 week Patient Location: O HR:98 bpm ECG Measurements Heart Rate 98 AXIS MI [id number] P [id number] QRSd 101 QRS 37 QT 392 T 15 QTc 501 Conclusion Atrial fibrillation...
== END 2025-01-25 11:32 | disposition home or self-care (01) ==
LOC: DI.KIM 11:32
PROVIDERS: PCP Nurse Practitioner Family; Visit Provider Nurse Practitioner Family
DX: R07.89 Other chest pain (principal)
CPT/HCPCS: 93010

== ENCOUNTER 2025-01-25 12:11 | Outpatient (REF) | payer MEDICAID, SELFPAY | END 2025-01-25 12:12 | disposition home or self-care (01) | LOC: LBN 12:11 | PROVIDERS: PCP Nurse Practitioner Family; Visit Provider Nurse Practitioner Family | DX: R07.89 Other chest pain (principal); R05.3 Chronic cough; R42 Dizziness and giddiness | CPT/HCPCS: 87077; 87086; 87186 ==

== ENCOUNTER 2025-02-15 00:30 | Outpatient (CLI) | payer MEDICAID, SELFPAY ==
--- NOTE | 2025-02-15 09:40 | DI.CT_ITS ---
Exam(s) CT CHEST WO EXAM: CT CHEST WO CLINICAL HISTORY: chronic cough, HX nodules,r05.3 TECHNIQUE: Imaging Protocol: Axial computed tomography images with coronal and sagittal reformatted images were created and reviewed. Computer aided detection (CAD) was utilized. CONTRAST MATERIAL: Intravenous: Omnipaque 350 Contrast volume:structured data ml. COMPARISON: CT CT CHEST WO from 08/21/2021 FINDINGS: Pulmonary parenchyma: No consolidation. No dominant measurable mass. Scarring again noted in the me dial right middle lobe. Stable 3 millimeter nodule posterior right upper lobe. Additional tiny nodule again noted at the posterior right lung base. Tracheobronchial tree: No bronchiectasis or mucous plugging. Mediastinum and Sabina: No dominant adenopathy or fluid collection. Pleura: No effusion. No pneumothorax. Heart: The heart is mildly dilated. Mild coronary artery calcifications are seen. Aorta: Thoracic aorta non-dilated. Mild atherosclerotic changes. Pulmonary arteries: No gross evidence of emboli. Upper abdomen: No acute findings. Bones: Degenerative changes in the spine. Mild biconvex scoliosis. Soft tissues: Unremarkable. IMPRESSION: No acute abnormality. Stable pulmonary nodules. RADIATION DOSE DELIVERED: 330.15mGy.cm Total DLP DATA REPOSITORY: All CT scans at this facility are submitted to the National Radiology Data Registry (NRDR) Dose Index Registry (DIR) with the [employer] (ACR). RADIATION OPTIMIZATION: All CT scans at this facility use at least one of these dose optimization te chniques: automated exposure control; mA and/or kV adjustment per patient size (includes targeted exa ms where dose is matched to clinical indication); or iterative reconstruction.
== END 2025-02-15 00:50 ==
LOC: DI 00:31
PROVIDERS: PCP Nurse Practitioner Family; Visit Provider Nurse Practitioner Family
DX: R05.3 Chronic cough (principal); R91.8 Other nonspecific abnormal finding of lung field
CPT/HCPCS: 71250

== ENCOUNTER 2025-02-15 17:42 | Inpatient (IN) | payer MEDICAID, SELFPAY ==
[2025-02-15] VITALS (21 sets, daily range): BP systolic 85–136; BP diastolic 38–73; PULSE 68–101; RESP 11–22; TEMP 36.6–37.2; O2SAT 92–100
--- NOTE | 2025-02-15 17:30 | RT.EKG_ITS ---
APPROVED REPORT Exam: Resting ECG Reason for Exam: chest pain Patient Location: E HR:91 bpm ECG Measurements Heart Rate 91 AXIS UT [id number] P [id number] QRSd 103 QRS 39 QT 406 T 15 QTc 500 Conclusion Atrial fibrillation, rate 91 No STEMI No interval abnormalities No significant changes from priors
[2025-02-15] MEDS: Prochlorperazine 10 MG/2 ML VIAL 5 MG IVP (19:32)
[2025-02-15 19:42] LABS: Abs Immature Grans 0.03 10^3/uL (0.0-0.06); Absolute Basophil Count 0.05 10^3/uL (0.0-0.2); Absolute Eosinophil Count 0.18 10^3/uL (0.0-0.7); Absolute Lymphocyte Count 2.39 10^3/uL (1.2-3.4); Absolute Monocyte Count 0.75 10^3/uL (0.1-0.8); Absolute Neutrophil Count 5.31 10^3/uL (1.2-6.7); Basophils % 0.6 %; Eosinophils % 2.1 %; HCT 39.1 % (36.0-46.0); HGB 12.4 g/dL (11.2-15.7); Immature Grans % 0.3 %; Lymphocytes % 27.4 %; MCH 26.9 pg (27.0-33.0); MCHC 31.7 % (32.0-36.0); MCV 85 fL (80-95); MPV 10.3 fL (8.0-11.0); Monocytes % 8.6 %; Platelet Count 161 10^3/uL (130-400); RBC 4.61 10^6/uL (3.93-5.22); RDW 12.8 % (11.7-14.6); RDW-SD 39.4 fL; WBC 8.71 10^3/uL (4.4-10.8)
--- NOTE | 2025-02-15 19:45 | DI.RAD_ITS ---
Exam(s) XR CHEST 2V PA LATERAL EXAM: XR CHEST 2V PA LATERAL CLINICAL HISTORY: chest pain TECHNIQUE: 2D digital imaging was performed. Two views. COMPARISON: CT CT CHEST WO from 02/15/2025 FINDINGS: Exam is limited by under penetration, particularly on the lateral view on which the lungs are expira tory. HEART: Enlarged. Aorta: Mildly tortuous. PULMONARY VASCULATURE: Normal. MEDIASTINUM: Unremarkable. LUNGS: Streaky densities noted at the right heart border which could represent infiltrate versus over lying vessels. PLEURAL SPACE: No pleural effusion or pneumothorax. BONE:Unremarkable for age. SOFT TISSUES: Unremarkable. IMPRESSION: Question of right middle lobe infiltrate versus overlying structures. The preliminary [facility] report was reviewed. DATA REPOSITORY: RADIATION DOSE DELIVERED:
[2025-02-15 20:07] LABS: Lab Add On Test DONE
[2025-02-15 20:19] LABS: ALT 24 U/L (14-59); AST 20 U/L (15-37); Albumin 3.1 g/dL (3.4-5.0); Alkaline Phosphatase 91 U/L (46-116); Anion Gap 9.2 mmol/L (3-11); Bilirubin, Total 0.7 mg/dL (0.2-1.0); CO2 28.8 mmol/L (21.0-32.0); Calcium 8.9 mg/dL (8.5-10.1); Chloride 103 mmol/L (98-107); Estimated GFR 11.64 (mL/min/1.73m2); Glucose 79 mg/dL (74-106); Lipase 67 U/L (<78); Sodium 141 mmol/L (136-145); Total Protein 7.2 g/dL (6.4-8.2); Troponin I 9 ng/L (<or=51)
[2025-02-15 20:28] LABS: TSH (W/Ref FT4) 0.37 uIU/mL (0.36-3.74)
--- NOTE | 2025-02-15 20:30 | DI.CT_ITS ---
Exam(s) CT HEAD WO EXAM: CT HEAD WO CLINICAL HISTORY: GRACE. TECHNIQUE: Imaging Protocol: Axial computed tomography images with coronal and sagittal reformatted images were created and reviewed COMPARISON: CT HEAD AND CSPINE W/O CONTRAST from 05/06/2017 MR MR BRAIN ORBIT FACE NECK WO from 09/16/[address] BRAIN NECK CTA from 09/13/2024 MR MR BRAIN WO from 09/14/2024 FINDINGS: Ventricles and Extra axial spaces: Mild ex vacuo dilatation of the posterior horn of the left lateral ventricle. Hemorrhage: None. Cerebral parenchyma: No evidence of acute infarct or mass. Mild atrophy. White matter changes of sma ll vessel disease. Old lacunar infarct adjacent to the posterior horn of the left lateral ventricle. Midline shift: None. Brainstem/Cerebellum: Normal. Calvarium: Marked thickening of the right sphenoid bone is again noted. Visualized Paranasal sinuses:Clear. Mastoids: Clear. Soft Tissues: Unremarkable. ORBITS: Unremarkable. PITUITARY: Not enlarged. IMPRESSION: No acute intracranial process. The preliminary [facility] report was reviewed. RADIATION DOSE DELIVERED: Total DLP DATA REPOSITORY: All CT scans at this facility are submitted to the National Radiology Data Registry (NRDR) Dose Index Registry (DIR) with the [employer] (ACR). RADIATION OPTIMIZATION: All CT scans at this facility use at least one of these dose optimization te chniques: automated exposure control; mA and/or kV adjustment per patient size (includes targeted exa ms where dose is matched to clinical indication); or iterative reconstruction.
[2025-02-15 20:43] LABS: BUN 107 mg/dL (7-18); CREATININE 4.1 mg/dL (0.55-1.02)
--- NOTE | 2025-02-15 21:00 | DI.[facility]_ITS ---
PROCEDURE INFORMATION: Exam: CT Head Without Contrast Exam date and time: 02/15/2025 8:18 PM Age: 64 years old Clinical indication: Other: Headache TECHNIQUE: Imaging protocol: Computed tomography of the head without contrast. COMPARISON: MR BRAIN WO 09/14/2024 8:54 AM FINDINGS: Brain: Slight prominence of cerebral sulci reflects mild cerebral atrophy. Hypodensities seen involving the periventricular white matter lateral to the trigone of the left lateral ventricle are consistent with minimal underlying microvascular ischemic changes. Brainstem and cerebellum are unremarkable and there is no evidence of acute transcortical infarction or recent intracranial hemorrhage. Cerebral ventricles: Mild ex vacuo dilatation of the trigone of the left lateral ventricle is seen in a region of underlying microvascular ischemic changes with no midline shift or hydrocephalus. Paranasal sinuses: Grossly clear throughout. Mastoid air cells: Grossly clear bilaterally. Bones: Bony calvarium and skull base are intact and no acute fractures are detected. Soft tissues: Unremarkable. IMPRESSION: Mild cerebral atrophy and probable minimal underlying microvascular ischemic changes seen in the region of the trigone of the left lateral ventricle as above with no evidence of acute transcortical infarction, recent intracranial hemorrhage or hydrocephalus. No acute intracranial process is detected. Dictated and Authenticated by: Pierce Singleton MD. Orderin Kathleen Reis MD
--- NOTE | 2025-02-15 21:02 | DI.[facility]_ITS ---
PROCEDURE INFORMATION: Exam: XR Chest Exam date and time: 02/15/2025 8:29 PM Age: 64 years old Clinical indication: Other: Chest pain TECHNIQUE: Imaging protocol: Radiologic exam of the chest. Views: 2 views. COMPARISON: CT CHEST WO 02/15/2025 9:32 AM FINDINGS: Lungs: Minimal patchy infiltrate suspected in the medial middle lobe with no other parenchymal mass or consolidation detected. Pleural spaces: No pneumothorax or pleural effusion detected. Heart/Mediastinum: Heart size is normal and vessel margins are sharply defined. Bones/joints: No acute osseous lesions are detected. IMPRESSION: Minimal patchy infiltrate suspected in the medial middle lobe with no other parenchymal mass or consolidation detected. Dictated and Authenticated by: Pierce Singleton MD. Orderin Kathleen Reis MD
[2025-02-15 21:26] LABS: Troponin I 10 ng/L (<or=51)
[2025-02-15] MEDS: Normal Saline 500 ML 250 ML IV (21:46)
--- NOTE | 2025-02-15 22:38 | DI.CT_ITS ---
Exam(s) CT ABDOMEN PELVIS WO EXAM: CT ABDOMEN PELVIS WO CLINICAL HISTORY: acute renal failure. TECHNIQUE: Imaging Protocol: Axial computed tomography images with coronal and sagittal reformatted images were created and reviewed. Oral: / no COMPARISON: CT CT ABDOMEN PELVIS W from 08/23/2019 FINDINGS: Lung Bases: No acute findings. Dependent changes at the lung bases. The heart is enlarged. Liver: Normal density. No suspicious mass. Gallbladder and biliary tract: Cholecystectomy. No biliary dilation. Pancreas: Normal density. No abnormal calcifications or inflammatory process. Spleen: Normal. Kidneys: Both kidneys appear mildly atrophic. No radiodense stones. No obstructive uropathy. Renal cysts again noted no suspicious masses seen. Adrenal glands: No masses seen. Lymph nodes: Within normal limits. Vasculature: Abdominal aorta non-dilated. Atherosclerotic changes. Soft tissues: Unremarkable. Bladder: No wall thickening. No mass or calculi. Bowel: Anastomosis at the proximal sigmoid. No obstruction or bowel wall thickening. Appendix not visualized. No right lower quadrant inflammatory changes. Peritoneal cavity: No ascites. No focal collection. No mesenteric inflammatory response. Reproductive organs: Hysterectomy. Bones: Unremarkable for age. IMPRESSION: No acute abnormality in the abdomen or pelvis. The preliminary [facility] report was reviewed. RADIATION DOSE DELIVERED: Total DLP DATA REPOSITORY: All CT scans at this facility are submitted to the National Radiology Data Registry (NRDR) Dose Index Registry (DIR) with the [employer] (ACR). RADIATION OPTIMIZATION: All CT scans at this facility use at least one of these dose optimization te chniques: automated exposure control; mA and/or kV adjustment per patient size (includes targeted exa ms where dose is matched to clinical indication); or iterative reconstruction.
--- NOTE | 2025-02-15 22:50 | TELEP.MEDREC ---
Date of service: 02/15/25 Time of Service: 22:50 Telepharmacy Home Med Rec Allergies Allergies: Penicillins Allergy (Severe, Verified 02/15/25 17:49) Anaphylaxis amoxicillin Allergy (Verified 02/15/25 17:49) Anaphylaxis Cillins Allergy (Uncoded 02/15/25 17:49) Anaphylaxis Interview Person Interviewed: Patient unable to be interviewed per nursing, [facility] called [facility] Quality of Interview/Accuracy of Medication List: Excellent Sources Sources used to compile medication list: Retail Pharmacy Changes made to Home Medication List: ADDITIONS: None DELETIONS: Topiramate (disconinued 02/06) Duplicate Emgality entry Cipro Aspirin 81 mg Mupriocin Sucralfate CHANGES: Mg++ to HS Recommended Changes Attestation: The home medication list is now updated to the best of my knowledge and is ready to be reconciled by the provider. Please contact the [facility] Re[facility] Pharmacist at for any questions.
--- NOTE | 2025-02-15 23:02 | DI.[facility]_ITS ---
PROCEDURE INFORMATION: Exam: CT Abdomen And Pelvis Without Contrast Exam date and time: 02/15/2025 10:29 PM Age: 64 years old Clinical indication: Other: Acute renal failure TECHNIQUE: Imaging protocol: Computed tomography of the abdomen and pelvis without contrast. COMPARISON: CT ABDOMEN PELVIS W 08/23/2019 4:08 PM FINDINGS: Lungs: Minimal fibrotic changes seen along the posterior margins of both lung bases with no other basilar mass or consolidation detected. There is mild cardiomegaly and coronary calcifications are evident. No pleural or pericardial effusions are detected. Liver: No focal hepatic lesions detected. Gallbladder and biliary ducts: Cholecystectomy. Pancreas: No pancreatic mass or ductal dilation. Spleen: No splenomegaly or splenic mass. Adrenal glands: No adrenal masses detected. Kidneys and ureters: A few small bilateral renal cysts require no further follow-up with no other renal mass or hydronephrosis detected. Stomach and bowel: Segments of large and small bowel are normal in caliber throughout with no mucosal thickening, obstruction or perforation. Anastomotic renetta again seen in the region of the proximal sigmoid colon. Appendix: No evidence of appendicitis. Intraperitoneal space: No pneumoperitoneum or free intraperitoneal fluid detected. Vasculature: No abdominal aortic aneurysm. Lymph nodes: No lymphadenopathy detected. Urinary bladder: Unremarkable as visualized. Reproductive: Hysterectomy. Bones/joints: No acute fracture. Soft tissues: Unremarkable. IMPRESSION: No acute abdominopelvic process is detected. Dictated and Authenticated by: Pierce Singleton MD. Orderin Kathleen Reis MD
--- NOTE | 2025-02-15 23:30 | W.ED.PROC ---
Date of service: 02/15/25 Time of Service: 23:30 Procedures EJ/Peripheral Line Arm R: Time Out Performed: Yes Skin Cleansed in Sterile Fashion: Yes Size (gauge): 20 IV Secured and Dressing Applied: Yes Patient Tolerated Procedure: well and no complications Additional Comments: Candidate vein examined with linear array probe - confirmed collapsibility, lack of pulsatility, and proper anatomic location. Using aseptic technique, IV catheter inserted with flash of blood noted, flow of venous blood confirmed. Flushes easily and without pain. No hematoma or complications noted. IV secured. Patient tolerated well. Medical Decision Making Quality:SDOH Health Related Social Needs: Health related social needs details pt reports she may need more help at home
[2025-02-15 23:34] LABS: Lactate 0.8 mmol/L (<or=2.0)
[2025-02-15 23:53] LABS: Troponin I 11 ng/L (<or=51)
[2025-02-16] VITALS (49 sets, daily range): BP systolic 85–140; BP diastolic 48–116; PULSE 65–116; RESP 12–22; TEMP 36.1–37.2; O2SAT 86–99
--- NOTE | 2025-02-16 00:02 | W.ED.GENAD ---
Discharge Plan Discharge Details Chief Complaint: Chest Pain Primary Care Provider: Yvette Cox ED Provider: Smiley Wang Home Meds and New Rx's Prescriptions: No Action Emgality Pen 120 mg/mL pen injector 240 mg subcut ONCE Qty: 2 0RF Rx Instructions: as a single dose; administer as two 120 mg injections at separate sites nitroglycerin 0.4 mg tablet, sublingual 0.4 mg sublingual Q5 MIN PRN X3 PRN (Reason: chest pain) Qty: 30 8RF rosuvastatin 20 mg tablet 20 mg PO DAILY Qty: 28 5RF hydroxyzine HCl 50 mg tablet See Rx Instructions .ROUTE .COMPLEX Qty: 90 5RF Rx Instructions: TAKE 1 TABLET IN THE MORNING AND 2 AT BEDTIME NEEDED FOR ANXIETY PANIC SENSATION nystatin 100,000 unit/gram cream 1 applic topical BID Qty: 30 1RF furosemide [Lasix] 20 mg tablet 20 mg PO QAM Qty: 30 3RF fluticasone propionate 50 mcg/actuation spray,suspension 1 spray intranasal BID Qty: 16 0RF Rx Instructions: administer into each nostril benzonatate 100 mg capsule 100 mg PO BID-TID PRN (Reason: cough) Qty: 30 0RF albuterol sulfate 90 mcg/actuation HFA aerosol inhaler 1 - 2 inh inhalation Q4H PRN (Reason: shortness of breath or wheezing) Qty: 6.7 1RF acetaminophen 500 mg tablet 1,000 mg PO TID PRN (Reason: pain) Qty: 180 0RF guaifenesin 600 mg tablet extended release 12hr 600 mg PO DAILY PRN PRN (Reason: cough/phlegm) Qty: 30 0RF doxycycline hyclate 100 mg tablet 100 mg PO BID Qty: 28 0RF Patient Comments: 02/15 last day of therapy as prescribed Jardiance 10 mg tablet 10 mg PO DAILY Qty: 90 3RF Rx Instructions: Continue for hyperglycemia with CKD chlorthalidone 25 mg tablet 25 mg PO DAILY Qty: 90 3RF Patient Comments: not on pt list pantoprazole 40 mg tablet,delayed release (DR/EC) See Rx Instructions .ROUTE .COMPLEX Qty: 90 3RF Rx Instructions: TAKE 1 TABLET BY MOUTH HS losartan 50 mg tablet 75 mg PO DAILY Qty: 45 5RF Patient Comments: Per Dr. Muñiz, nephrology at [facility] [place], pt was puton 75 mg daily for renal protection, confirmed with [place] this is what is in blister packs. RH Rx Instructions: Nephro aware cholecalciferol (vitamin D3) 50 mcg (2,000 unit) capsule See Rx Instructions .ROUTE .COMPLEX Qty: 28 4RF Dose Instruction: TAKE 1 CAPSULE BY MOUTH DAILY FOR LOW VITAMIN D. Rx Instructions: TAKE 1 CAPSULE BY MOUTH DAILY FOR LOW VITAMIN D. pramipexole 0.25 mg tablet 0.25 mg PO QPM Qty: 90 3RF Rx Instructions: administer 2 - 3 hours before bedtime pramipexole 0.125 mg tablet See Rx Instructions .ROUTE .COMPLEX Qty: 28 2RF Dose Instruction: TAKE 1 TABLET BY MOUTH AT BEDTIME Rx Instructions: TAKE 1 TABLET BY MOUTH AT BEDTIME isosorbide mononitrate 30 mg tablet extended release 24 hr 30 mg PO DAILY Qty: 30 5RF metoprolol succinate 50 mg tablet extended release 24 hr 50 mg PO DAILY Qty: 90 3RF Rx Instructions: updated to DAILY per ik per med-rec review (DME) blood-glucose meter [FreeStyle Lite Meter] Kit See Rx Instructions .Route Qty: 1 0RF Rx Instructions: Check blood sugar once a day. DX: E11.9.Keep A1c below 7 (DME) FreeStyle Lite Strips Strip See Rx Instructions .Route Qty: 100 3RF Rx Instructions: Check blood sugar once a day. DX:E11.9.Keep A1c below 7 (DME) lancets [Unilet Lancet] 33 gauge misc See Rx Instructions .Route Rx Instructions: As directed (DME) lancets [Unilet Lancet] 33 gauge misc See Rx Instructions .Route Qty: 100 3RF Rx Instructions: Check blood sugar once a day. DX: E11.9,Keep A1c below 7. This brand is covered by [place] [employer]. bupropion HCl 150 mg tablet extended release 24 hr See Rx Instructions .ROUTE .COMPLEX Qty: 84 3RF Dose Instruction: TAKE 3 TABLETS BY MOUTH DAILY Rx Instructions: TAKE 3 TABLETS BY MOUTH DAILY oxybutynin chloride 10 mg tablet extended release 24hr See Rx Instructions .ROUTE .COMPLEX Qty: 28 1RF Dose Instruction: TAKE 1 TABLET BY MOUTH AT BEDTIME Rx Instructions: TAKE 1 TABLET BY MOUTH AT BEDTIME Eliquis 5 mg tablet See Rx Instructions .ROUTE .COMPLEX Qty: 56 5RF Dose Instruction: TAKE 1 TABLET BY MOUTH TWICE A DAY Rx Instructions: TAKE 1 TABLET BY MOUTH TWICE A DAY Trulicity 0.75 mg/0.5 mL pen injector See Rx Instructions .ROUTE .COMPLEX Qty: 2 0RF Dose Instruction: INJECT 0.5ML SUBCUTANEOUSLY ONCE A WEEK Rx Instructions: INJECT 0.5ML SUBCUTANEOUSLY ONCE A WEEK magnesium oxide 200 mg magnesium tablet 400 mg PO QHS Rx Instructions: Take at bedtime due to low magnesium HPI General Date/Time Provider Initiated Documentation: 02/15/25 17:53. HPI Narrative: 64-year-old female with worsening dizziness, confusion, and chest discomfort. No fever or chills. PMH: CKD (Dr. Collins, nephrology), CHF (recently stopped diuretics due to worsening creatinine), peripheral coronary artery disease (on nitroglycerin, no stents), hypertension, lumbar stenosis, hyperparathyroidism, diabetes, meningioma, CHF. Physical therapist noted unsteadiness and delayed speech, which she acknowledges at baseline. No falls or injuries. Related Data Home Medications ?Medication ?Instructions ?Recorded ?Confirmed nitroglycerin 0.4 mg sublingual 0.4 mg sublingual Q5 MIN PRN X3 03/19/24 02/15/25 tablet PRN chest pain #30 tabs empagliflozin 10 mg tablet 10 mg PO DAILY #90 tabs 06/28/24 02/15/25 (Jardiance) chlorthalidone 25 mg tablet 25 mg PO DAILY #90 tabs 09/21/24 02/15/25 hydroxyzine HCl 50 mg tablet See Rx Instructions .Route 09/21/24 02/15/25 .COMPLEX #90 tabs pantoprazole 40 mg tablet,delayed See Rx Instructions .Route 09/21/24 02/15/25 release .COMPLEX #90 tabs rosuvastatin 20 mg tablet 20 mg PO DAILY #28 tabs 09/21/24 02/15/25 losartan 50 mg tablet 75 mg (1.5 x 50 mg) PO DAILY #45 09/27/24 02/15/25 tabs cholecalciferol (vitamin D3) 50 See Rx Instructions .Route 10/18/24 02/15/25 mcg (2,000 unit) capsule .COMPLEX #28 caps pramipexole 0.25 mg tablet 0.25 mg PO QPM #90 tabs 10/18/24 02/15/25 pramipexole 0.125 mg tablet See Rx Instructions .Route 11/12/24 02/15/25 .COMPLEX #28 tabs isosorbide mononitrate 30 mg 30 mg PO DAILY #30 tabs 12/13/24 02/15/25 tablet,extended release 24 hr metoprolol succinate 50 mg 50 mg PO DAILY #90 tabs 12/13/24 02/15/25 tablet,extended release 24 hr blood sugar diagnostic (FreeStyle #100 ea 12/27/24 01/31/25 Lite Strips) blood-glucose meter (FreeStyle #1 ea 12/27/24 01/31/25 Lite Meter kit) lancets 33 gauge (Unilet Lancet) 12/27/24 01/31/25 lancets 33 gauge (Unilet Lancet) #100 ea 12/27/24 01/31/25 nystatin 100,000 unit/gram topical 1 applic topical BID R breast rash 12/28/24 02/15/25 cream #30 grams bupropion HCl 150 mg 24 hr tablet, See Rx Instructions .Route 01/08/25 02/15/25 extended release .COMPLEX #84 tabs oxybutynin chloride 10 mg See Rx Instructions .Route 01/08/25 02/15/25 tablet,extended release 24 hr .COMPLEX #28 tabs acetaminophen 500 mg tablet 1,000 mg (2 x 500 mg) PO TID PRN 01/18/25 02/15/25 pain #180 tabs albuterol sulfate 90 mcg/actuation 1 - 2 inh inhalation Q4H PRN 01/18/25 02/15/25 aerosol inhaler shortness of breath or wheezing #6.7 grams benzonatate 100 mg capsule 100 mg PO BID-TID PRN cough #30 01/18/25 02/15/25 caps fluticasone propionate 50 1 spray intranasal BID post nasal 01/18/25 02/15/25 mcg/actuation nasal drip #16 grams spray,suspension furosemide 20 mg tablet (Lasix) 20 mg PO QAM #30 tabs 01/18/25 02/15/25 guaifenesin 600 mg tablet, 600 mg PO DAILY PRN PRN 01/18/25 02/15/25 extended release 12 hr cough/phlegm #30 tabs galcanezumab-gnlm 120 mg/mL 240 mg (2 mL) subcut ONCE #2 mL 01/28/25 02/15/25 subcutaneous pen injector (Emgality Pen) doxycycline hyclate 100 mg tablet 100 mg PO BID #28 tabs 01/31/25 02/15/25 apixaban 5 mg tablet (Eliquis) See Rx Instructions .Route 02/05/25 02/15/25 .COMPLEX #56 tabs dulaglutide 0.75 mg/0.5 mL See Rx Instructions .Route 02/15/25 02/15/25 subcutaneous pen injector .COMPLEX #2 mL (Trulicity) magnesium oxide 400 mg PO QHS Low Magnesium 02/15/25 02/15/25 Previous Rx's ?Medication ?Instructions ?Recorded nitroglycerin 0.4 mg sublingual 0.4 mg sublingual Q5 MIN PRN X3 03/19/24 tablet PRN chest pain #30 tabs empagliflozin 10 mg tablet 10 mg PO DAILY #90 tabs 06/28/24 (Jardiance) chlorthalidone 25 mg tablet 25 mg PO DAILY #90 tabs 09/21/24 hydroxyzine HCl 50 mg tablet See Rx Instructions .Route 09/21/24 .COMPLEX #90 tabs pantoprazole 40 mg tablet,delayed See Rx Instructions .Route 09/21/24 release .COMPLEX #90 tabs rosuvastatin 20 mg tablet 20 mg PO DAILY #28 tabs 09/21/24 losartan 50 mg tablet 75 mg (1.5 x 50 mg) PO DAILY #45 09/27/24 tabs cholecalciferol (vitamin D3) 50 See Rx Instructions .Route 10/18/24 mcg (2,000 unit) capsule .COMPLEX #28 caps pramipexole 0.25 mg tablet 0.25 mg PO QPM #90 tabs 10/18/24 pramipexole 0.125 mg tablet See Rx Instructions .Route 11/12/24 .COMPLEX #28 tabs isosorbide mononitrate 30 mg 30 mg PO DAILY #30 tabs 12/13/24 tablet,extended release 24 hr metoprolol succinate 50 mg 50 mg PO DAILY #90 tabs 12/13/24 tablet,extended release 24 hr blood sugar diagnostic (FreeStyle #100 ea 12/27/24 Lite Strips) blood-glucose meter (FreeStyle #1 ea 12/27/24 Lite Meter kit) lancets 33 gauge (Unilet Lancet) #100 ea 12/27/24 nystatin 100,000 unit/gram topical 1 applic topical BID R breast rash 12/28/24 cream #30 grams bupropion HCl 150 mg 24 hr tablet, See Rx Instructions .Route 01/08/25 extended release .COMPLEX #84 tabs oxybutynin chloride 10 mg See Rx Instructions .Route 01/08/25 tablet,extended release 24 hr .COMPLEX #28 tabs acetaminophen 500 mg tablet 1,000 mg (2 x 500 mg) PO TID PRN 01/18/25 pain #180 tabs albuterol sulfate 90 mcg/actuation 1 - 2 inh inhalation Q4H PRN 01/18/25 aerosol inhaler shortness of breath or wheezing #6.7 grams benzonatate 100 mg capsule 100 mg PO BID-TID PRN cough #30 01/18/25 caps fluticasone propionate 50 1 spray intranasal BID post nasal 01/18/25 mcg/actuation nasal drip #16 grams spray,suspension furosemide 20 mg tablet (Lasix) 20 mg PO QAM #30 tabs 01/18/25 guaifenesin 600 mg tablet, 600 mg PO DAILY PRN PRN 01/18/25 extended release 12 hr cough/phlegm #30 tabs galcanezumab-gnlm 120 mg/mL 240 mg (2 mL) subcut ONCE #2 mL 01/28/25 subcutaneous pen injector (Emgality Pen) doxycycline hyclate 100 mg tablet 100 mg PO BID #28 tabs 01/31/25 apixaban 5 mg tablet (Eliquis) See Rx Instructions .Route 02/05/25 .COMPLEX #56 tabs dulaglutide 0.75 mg/0.5 mL See Rx Instructions .Route 02/15/25 subcutaneous pen injector .COMPLEX #2 mL (Trulicity) Allergies Allergy/AdvReac Type Severity Reaction Status Date / Time Penicillins Allergy Severe Anaphylaxis Verified 02/15/25 17:49 amoxicillin Allergy Anaphylaxis Verified 02/15/25 17:49 Cillins Allergy Anaphylaxis Uncoded 02/15/25 17:49 General Stated Complaint: Chest Pain SHIRLEY: 3 Exam Narrative Exam Narrative: General Appearance: Alert and oriented. Odd affect. Vital signs: Within normal limits. HEENT: Oropharynx patent, uvula midline, dry. Pupils equal, round, reactive to light and accommodation. No meningismus. Respiratory: Within normal limits. Cardiovascular: Irregularly irregular cardiac rate, atrial fibrillation, slight murmur. Gastrointestinal: No abdominal tenderness, nontender bruise in right lower quadrant. Extremities: Peripheral edema 2+. Skin: Warm and dry, no rash. Neurological: Delayed speech, follows commands, answers appropriately. Psychiatric: Odd affect. Course Vital Signs Vital signs: Vital Signs Temperature 36.6 C 02/15/25 17:45 Pulse 92 H 02/15/25 17:45 Respiratory Rate 19 02/15/25 17:45 Blood Pressure 100/63 02/15/25 17:45 Pulse Oximetry 98 02/15/25 17:45 Temperature 36.6 C 02/15/25 17:45 Temperature Source Oral 02/15/25 17:45 Pulse 80 02/15/25 18:02 Pulse 79 02/15/25 18:02 Respiratory Rate 15 02/15/25 18:05 Respiratory Effort Normal, Non-Labored 02/15/25 18:05 Respiratory Depth Normal 02/15/25 18:05 Respiratory Pattern Normal 02/15/25 18:05 Blood Pressure 126/70 02/15/25 18:02 Blood Pressure Mean 81 02/15/25 18:02 Blood Pressure Position Sitting 02/15/25 17:45 Pulse Oximetry 100 02/15/25 18:02 Oxygen Delivery Method Room Air 02/15/25 17:45 Oxygen Flow Rate 0 02/15/25 17:45 Pain Level 8 02/15/25 17:45 Lab/Test Results Lab/Test Results: 02/15/25 23:42 Blood Blood Culture - Pending 02/15/25 23:28 Blood Blood Culture - Pending Laboratory Tests Range/Units 02/15/25 02/15/25 02/15/25 19:32 19:59 21:00 WBC (4.4-10.8) 10^3/uL 8.71 RBC (3.93-5.22) 10^6/uL 4.61 Hgb (11.2-15.7) g/dL 12.4 Hct (36.0-46.0) % 39.1 MCV (80-95) fL 85 MCH (27.0-33.0) pg 26.9 L MCHC (32.0-36.0) % 31.7 L RDW (11.7-14.6) % 12.8 Plt Count (130-400) 10^3/uL 161 MPV (8.0-11.0) fL 10.3 Immature Gran % % 0.3 Neutrophils % % 61.0 Lymphocytes % % 27.4 Monocytes % % 8.6 Eosinophils % % 2.1 Basophils % % 0.6 Nucleated RBC % (0.0-0.3) % 0.0 Absolute Neutrophils (1.2-6.7) 10^3/uL 5.31 Absolute Lymphocytes (1.2-3.4) 10^3/uL 2.39 Absolute Monocytes (0.1-0.8) 10^3/uL 0.75 Absolute Eosinophils (0.0-0.7) 10^3/uL 0.18 Absolute Basophils (0.0-0.2) 10^3/uL 0.05 VBG Lactate (<or=2.0) mmol/L Sodium (136-145) mmol/L 141 Potassium (3.5-5.1) mmol/L 3.0 L Chloride (98-107) mmol/L 103 Carbon Dioxide (21.0-32.0) mmol/L 28.8 Anion Gap (3-11) mmol/L 9.2 BUN (7-18) mg/dL 107 H* Creatinine (0.55-1.02) mg/dL 4.1 H* Est GFR (CKD-EPI 2020) (mL/min/1.73m2) 11.64 Glucose (74-106) mg/dL 79 Calcium (8.5-10.1) mg/dL 8.9 Total Bilirubin (0.2-1.0) mg/dL 0.7 AST (15-37) U/L 20 ALT (14-59) U/L 24 Alkaline Phosphatase (46-116) U/L 91 Troponin I (<or=51) ng/L 9 10 Total Protein (6.4-8.2) g/dL 7.2 Albumin (3.4-5.0) g/dL 3.1 L Lipase (<78) U/L 67 TSH (0.36-3.74) uIU/mL 0.37 Add-On Test Request DONE Range/Units 02/15/25 23:28 WBC (4.4-10.8) 10^3/uL RBC (3.93-5.22) 10^6/uL Hgb (11.2-15.7) g/dL Hct (36.0-46.0) % MCV (80-95) fL MCH (27.0-33.0) pg MCHC (32.0-36.0) % RDW (11.7-14.6) % Plt Count (130-400) 10^3/uL MPV (8.0-11.0) fL Immature Gran % % Neutrophils % % Lymphocytes % % Monocytes % % Eosinophils % % Basophils % % Nucleated RBC % (0.0-0.3) % Absolute Neutrophils (1.2-6.7) 10^3/uL Absolute Lymphocytes (1.2-3.4) 10^3/uL Absolute Monocytes (0.1-0.8) 10^3/uL Absolute Eosinophils (0.0-0.7) 10^3/uL Absolute Basophils (0.0-0.2) 10^3/uL VBG Lactate (<or=2.0) mmol/L 0.8 Sodium (136-145) mmol/L Potassium (3.5-5.1) mmol/L Chloride (98-107) mmol/L Carbon Dioxide (21.0-32.0) mmol/L Anion Gap (3-11) mmol/L BUN (7-18) mg/dL Creatinine (0.55-1.02) mg/dL Est GFR (CKD-EPI 2020) (mL/min/1.73m2) Glucose (74-106) mg/dL Calcium (8.5-10.1) mg/dL Total Bilirubin (0.2-1.0) mg/dL AST (15-37) U/L ALT (14-59) U/L Alkaline Phosphatase (46-116) U/L Troponin I (<or=51) ng/L 11 Total Protein (6.4-8.2) g/dL Albumin (3.4-5.0) g/dL Lipase (<78) U/L TSH (0.36-3.74) uIU/mL Add-On Test Request Medical Decision Making Laboratory: Lactate WNL, K+ 3, BUN 107, creatinine 4.1. Imaging: CT head shows no significant acute change or abnormality. Minimal patchy infiltrate in right middle lobe consistent with prior pneumonia. Initial Assessment: 64-year-old female with worsening dizziness, confusion, and chest discomfort. Past medical history includes CKD, CHF, hypertension, lumbar stenosis, hyperparathyroidism, diabetes, meningioma, and peripheral coronary artery disease. Differential Diagnosis: - Acute metabolic encephalopathy: Suspected due to BUN 107. Gibbons catheter placed, 300 cc clear urine. Ultrasound indicated severe dehydration. Slow fluid administration due to CHF and lack of diuretics. - Dehydration: Severe dehydration confirmed by ultrasound. Slow fluid administration due to CHF and lack of diuretics. - Chest discomfort: No hypoxia or tachypnea, low suspicion for infection. Ordered CT abdomen/pelvis, diagnostic blood work, urinalysis, chest x-ray. - Dizziness and confusion: CT head shows no significant acute change or abnormality. Minimal patchy infiltrate in right middle lobe consistent with prior pneumonia. ED Course: - Ordered CT abdomen/pelvis, diagnostic blood work, urinalysis, chest x-ray. - CT head shows no significant acute change or abnormality. - Gibbons catheter placed, 300 cc clear urine. - Ultrasound indicated severe dehydration. - Slow fluid administration due to CHF and lack of diuretics. - Blood cultures and lactate checked at 10:00. - Gibbons catheter placed. Spoke with Dr. Julien, nephrology who suspects this is prerenal as well and encourages slow rehydration, this distance learning coordinator actually saw the patient 2 days prior to arrival today. - Ultrasound for line placement indicated severe dehydration. Final Assessment: Patient with acute metabolic encephalopathy likely due to severe dehydration and elevated BUN. Slow fluid administration initiated due to CHF and lack of diuretics. Low suspicion for infection despite chest discomfort. Clinical Impression: - Acute metabolic encephalopathy - Dehydration - Chest discomfort - Dizziness and confusion - History of pneumonia Disposition: - Discharge - Follow-Up: Encourage closer PCP engagement. MDM Components Evaluation: - Number of Differential Diagnoses or Management Options: Acute metabolic encephalopathy, dehydration, chest discomfort, dizziness and confusion. - Amount and Complexity of Data Reviewed: CT abdomen/pelvis, diagnostic blood work, urinalysis, chest x-ray, CT head, blood cultures, lactate. - Risk of Complication and Morbidity or Mortality: High risk due to severe dehydration, CHF, and elevated BUN. 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 dc Wheezing (Acute) Acute left-sided thoracic back pain (Acute) just under left shoulder blade .. 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 NeuroSurg still TBD [ ] , 03/2024, ik Migraine headache without aura (Acute) Chronic headache (Acute) Type 2 diabetes mellitus with other specified complication (Acute) Open abdominal wall wound (Acute) Prolapse of female pelvic organs (Acute) Mixed stress and urge urinary incontinence (Acute) Abnormal MRI of the head (Acute) Rt optic canal narrowed 2' sclerosis (stable?)([place]) & NEW hyperintense focus (white matter)(anterior rt temporal lobe) may rep demyelinating process, infection or possible neoplasm.. [ ] contrast when RF allows Left contracture of neck (Acute) pain, stiffness .. rad into shoulder blade Hyperparathyroidism due to renal insufficiency (Acute) [ ] Ca.. q 3-6 mos [ ] Ph .. q3-6 mos [ ] PTH, q 6-12 mos [ ] Vit D yearly Malnutrition compromising bodily function (Acute) Low vitamin D level (Acute) WNL 44, 07/2023 (up from January 2023), yay Weight gain (Acute) losing weight since Ozempic start! Edema (Chronic) CKD? 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 [ ] CC for closer coordination w/ [place] (I sent TWO pramipex Rx .. still only one on her b-cassy list)(and she says no more hydrox, but it's listed .. so therefore b-packed?) .. HOW DO WE TRIAL MEDS? HTN (hypertension) (Chronic) per Nephro note (06/2022): Na < 2g. HCTZ 12.5mg added. Proteinuria (Acute) Goal<0.2mg/mg (2.3 on 06/30/22), per Nephro 06/2022. History of anemia due to CKD (Chronic) Goals: HGB 9.5-10.9 (per Nephro, 06/2022).. Ferritin>100ng/ml; IronSAT>20%. CKD (chronic kidney disease) stage 4, GFR 15-29 ml/min (Chronic) Hx dialysis. Follows with [facility] [place], Dr. Muñiz. Low back pain (Acute) Lumbosacral spondylosis without myelopathy (Acute) Lumbar stenosis (Acute) Restless leg syndrome (Acute) Medical History Gliosis Rt Optic Nerve, with loss of vision Insomnia Stress incontinence Coughing, sneezing, laughing .. Lifting > 10lbs (Hx incontinence symp, 06/2021) Spastic pelvic floor syndrome Mental health disorder Mixed Dx (Anx/Depr/Schiz-Affective), with poor FU form [facility] x yrs .. refilling Rx & [facility]. 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 [ ] UroGyn for possible surg per Dr. Park notes.. Nocturia w/ incontinence episodes Pelvic pain w/ probe/speculum.. Hx dyspareunia. Hx births. Vaginal discharge Sense of urgency w/o urination, but vag d/c! 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 Fontenot)) History of knee surgery History of hysterectomy Hx ovarian rupture H/O section 2 children History of appendectomy Family History Father Heart disease Hypertension Mother Thyroid disease Stroke Sister Cancer Sister Cancer Sister Ovarian cancer Kidney failure Social History Smoking/Tobacco Use Status: Never Tobacco: How many years used: 43 Smoking risk assessment performed?: Yes Alcohol Intake: current Alcohol Intake frequency: holidays/special occasions only Drug use: Never Substance use type: does not use Adopted: No Caregiver/Support person: No Foster care: No Household members: other Details: ex- Housing: house Number of Children: 2 number of grandchildren: 1 Communication Needs: Hard of Hearing Education Level: middle school Do you need help understanding health information?: Always current occupation: Volunteers Pets and animals: No Current gender identity: female What is your relationship status?: How often do you get together with friends or relatives?: three or more times per week Panel score (0-1 are the most socially isolated patients): 1 What type of physical activity do you participate in: none Eva/Christian: Lutheran Seatbelt use: always Drive intox or ride w/intox service parts driver: No Do you feel safe at home: Yes Do you feel safe in your relationship?: Yes
[2025-02-16] MEDS: Normal Saline 500 ML IV (00:05)
[2025-02-16 00:09] LABS: Bilirubin Negative (Negative); Blood Negative (Negative); Clarity Clear (Clear); Glucose Negative (Negative); Ketones Negative (Negative); Leukocyte Esterase Negative (Negative); Nitrite Negative (Negative); Specific Gravity 1.025 (1.005-1.025); Urobilinogen 0.2 mg/dL (Up to 0.2)
[2025-02-16] MEDS: Normal Saline 1,000 ML 150 ML IV (02:30)
--- NOTE | 2025-02-16 03:48 | HPE_ITS ---
Date of service: 02/16/25 Time of Service: 03:48 Assessment and Plan Assessment and plan (1) Encephalopathy acute: Start date: 02/16/25 Status: Acute Assessment and plan: This is a 64-year-old lady with worsening dizziness and confusion with some chest discomfort but no fever or cough having had a recent pneumonia treated as an outpatient. She recently had her diuretics held because of increasing BUN and creatinine with a history of CKD stage IV. ED evaluation did not reveal any acute processes except for persistence of the right middle lobe pneumonia and mild hypokalemia with doubling her creatinine from baseline. He she was admitted for gentle IV hydration with a history of CHF though she has a preserved left ventricular ejection fraction and elevated PA pressures by recent echocardiogram. She does have a history of significant central nervous system disorders which appears stable. Nephrology was consulted and thinks that she would do well with rehydration and holding diuretics for now. This appears to be an encephalopathic state secondary to her acute dehydration and DOLORES. She is a full code. (2) DOLORES (acute kidney injury): Status: Acute Assessment and plan: Nephrology suspect the patient was over diuresed and probably missed taking her medications at home recently and suggested IV hydration while holding diuretics for now. He does have CHF but is mostly diastolic dysfunction. Watch for fluid overload. (3) Hypokalemia: Start date: 02/16/25 Status: Acute Assessment and plan: Replete with IV potassium and follow-up. Caution because of acute kidney injury putting at risk for hyperkalemia. (4) Right middle lobe pneumonia: Start date: 02/16/25 Status: Acute Assessment and plan: Persistent on imaging with chest x-ray and no WBC elevation, hypoxemia, tachypnea or fever. Treated as outpatient prior to this admission. Because of change of mental status will treat as community-acquired pneumonia with IV Rocephin and doxycycline and follow-up clinically. (5) CKD (chronic kidney disease): Status: Chronic Assessment and plan: Exacerbated with overdiuresis and dehydration resulted in DOLORES. Chronically patient is stage IV. Nephrology was consulted and thinks that rehydration would be appropriate. (6) Atrial fibrillation: Status: Chronic Assessment and plan: Stable on rate control with metoprolol and apixaban for prophylaxis. (7) Type 2 diabetes mellitus with other specified complication: Status: Chronic Assessment and plan: On outpatient medical therapy with Trulicity to be held and glucometer measurements before meals and at bedtime with sensitive sliding scale coverage while hospitalized. History of Present Illness History of Present Illness Chief Complaint: Increasing confusion with dizziness and chest discomfort Narrative: This is a 64-year-old female patient who sees multiple specialist at [facility] presenting with increasing confusion and dizziness and during her ED evaluation became more lethargic. She appeared encephalopathic and full evaluation revealed she had acute elevation of her BUN and creatinine twice her baseline with nephrology, Dr. Julien discussed case with the ED provider and advised that the patient was most likely prerenal being over diuresed for diastolic CHF and her creatinine BUN twice her baseline. They did see the patient 2 days prior and were holding her diuretics. She was most likely noncompliant with oral hydration and questioning compliant with her medical therapy. Evaluation in the ED did not reveal any other acute sources of her confusion or encephalopathy with an infiltrate in the right middle lobe persisting with recent outpatient treatment. She had no fever, leukocytosis, hypoxia or tachypnea with a change mental status I did initiate IV antibiotic therapy for her persistent infiltrate. I will also check an ammonia level which was not checked of her liver functions are normal. Patient does have chronic medical problems which appear to be overall stable but does have multisystem disease. Potassium was low with her diuretic therapy and this will be repleted gently with her acute renal failure. The patient does remain a full code. Review of Systems Narrative: Complete review of systems unobtainable with patient's encephalopathic state. 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 dc Wheezing (Acute) Acute left-sided thoracic back pain (Acute) just under left shoulder blade .. 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 NeuroSurg still TBD [ ] , 03/2024, ik Migraine headache without aura (Acute) Chronic headache (Acute) Type 2 diabetes mellitus with other specified complication (Chronic) Open abdominal wall wound (Acute) Prolapse of female pelvic organs (Acute) Mixed stress and urge urinary incontinence (Acute) Abnormal MRI of the head (Acute) Rt optic canal narrowed 2' sclerosis (stable?)([place]) & NEW hyperintense focus (white matter)(anterior rt temporal lobe) may rep demyelinating process, infection or possible neoplasm.. [ ] contrast when RF allows Left contracture of neck (Acute) pain, stiffness .. rad into shoulder blade Hyperparathyroidism due to renal insufficiency (Acute) [ ] Ca.. q 3-6 mos [ ] Ph .. q3-6 mos [ ] PTH, q 6-12 mos [ ] Vit D yearly Malnutrition compromising bodily function (Acute) Low vitamin D level (Acute) WNL 44, 07/2023 (up from January 2023), yay Weight gain (Acute) losing weight since Ozempic start! Edema (Chronic) CKD? Venous Stasis/poor circ, w/ [place] [facility] [place] Encounter for medication review and counseling (Acute) Pt aware, but some errors noted despite recent med-rec .. [ ] CC for closer coordination w/ [place] (I sent TWO pramipex Rx .. still only one on her b-cassy list)(and she says no more hydrox, but it's listed .. so therefore b-packed?) .. HOW DO WE TRIAL MEDS? HTN (hypertension) (Chronic) per Nephro note (06/2022): Na < 2g. HCTZ 12.5mg added. Proteinuria (Acute) Goal<0.2mg/mg (2.3 on 06/30/22), per Nephro 06/2022. History of anemia due to CKD (Chronic) Goals: HGB 9.5-10.9 (per Nephro, 06/2022).. Ferritin>100ng/ml; IronSAT>20%. CKD (chronic kidney disease) stage 4, GFR 15-29 ml/min (Chronic) Hx dialysis. Follows with [facility], Dr. Muñiz. Low back pain (Acute) Lumbosacral spondylosis without myelopathy (Acute) Lumbar stenosis (Acute) Restless leg syndrome (Acute) Medical History (Updated 02/16/25 @ 04:08 by Edmar De La Fuente) Gliosis Rt Optic Nerve, with loss of vision Insomnia Stress incontinence Coughing, sneezing, laughing .. Lifting > 10lbs (Hx incontinence symp, 06/2021) Spastic pelvic floor syndrome Mental health disorder Mixed Dx (Anx/Depr/Schiz-Affective), with poor FU form [facility] x yrs .. refilling Rx & recommending review with [facility]. 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 [ ] UroGyn for possible surg per Dr. Park notes.. Nocturia w/ incontinence episodes Pelvic pain w/ probe/speculum.. Hx dyspareunia. Hx births. Vaginal discharge Sense of urgency w/o urination, but vag d/c! 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 Fontenot)) History of knee surgery History of hysterectomy Hx ovarian rupture H/O section 2 children History of appendectomy Family History Father Heart disease Hypertension Mother Thyroid disease Stroke Sister Cancer Sister Cancer Sister Ovarian cancer Kidney failure Social History Smoking/Tobacco Use Status: Never Tobacco: How many years used: 43 Smoking risk assessment performed?: Yes Alcohol Intake: current Alcohol Intake frequency: holidays/special occasions only Drug use: Never Substance use type: does not use Adopted: No Caregiver/Support person: No Foster care: No Household members: other Details: ex- Housing: apartment Number of Children: 2 number of grandchildren: 1 Communication Needs: Hard of Hearing Education Level: middle school Do you need help understanding health information?: Always current occupation: Volunteers Pets and animals: No Current gender identity: female What is your relationship status?: How often do you get together with friends or relatives?: three or more times per week Panel score (0-1 are the most socially isolated patients): 1 What type of physical activity do you participate in: none Eva/Muslim: Lutheran Seatbelt use: always Drive intox or ride w/intox taxicab driver: No Do you feel safe at home: Yes Do you feel safe in your relationship?: Yes Meds Allergies and Home Medications Allergies Allergy/AdvReac Type Severity Reaction Status Date / Time Penicillins Allergy Severe Anaphylaxis Verified 02/15/25 17:49 amoxicillin Allergy Anaphylaxis Verified 02/15/25 17:49 Cillins Allergy Anaphylaxis Uncoded 02/15/25 17:49 Home Medications ?Medication ?Instructions ?Recorded ?Confirmed ?Type nitroglycerin 0.4 mg sublingual 0.4 mg sublingual Q5 MIN PRN X3 03/19/24 02/15/25 Rx tablet PRN chest pain #30 tabs empagliflozin 10 mg tablet 10 mg PO DAILY #90 tabs 06/28/24 02/15/25 Rx (Jardiance) chlorthalidone 25 mg tablet 25 mg PO DAILY #90 tabs 09/21/24 02/15/25 Rx hydroxyzine HCl 50 mg tablet See Rx Instructions .Route 09/21/24 02/15/25 Rx .COMPLEX #90 tabs pantoprazole 40 mg tablet,delayed See Rx Instructions .Route 09/21/24 02/15/25 Rx release .COMPLEX #90 tabs rosuvastatin 20 mg tablet 20 mg PO DAILY #28 tabs 09/21/24 02/15/25 Rx losartan 50 mg tablet 75 mg (1.5 x 50 mg) PO DAILY #45 09/27/24 02/15/25 Rx tabs cholecalciferol (vitamin D3) 50 See Rx Instructions .Route 10/18/24 02/15/25 Rx mcg (2,000 unit) capsule .COMPLEX #28 caps pramipexole 0.25 mg tablet 0.25 mg PO QPM #90 tabs 10/18/24 02/15/25 Rx pramipexole 0.125 mg tablet See Rx Instructions .Route 11/12/24 02/15/25 Rx .COMPLEX #28 tabs isosorbide mononitrate 30 mg 30 mg PO DAILY #30 tabs 12/13/24 02/15/25 Rx tablet,extended release 24 hr metoprolol succinate 50 mg 50 mg PO DAILY #90 tabs 12/13/24 02/15/25 Rx tablet,extended release 24 hr blood sugar diagnostic (FreeStyle #100 ea 12/27/24 01/31/25 Rx Lite Strips) blood-glucose meter (FreeStyle #1 ea 12/27/24 01/31/25 Rx Lite Meter kit) lancets 33 gauge (Unilet Lancet) 12/27/24 01/31/25 History lancets 33 gauge (Unilet Lancet) #100 ea 12/27/24 01/31/25 Rx nystatin 100,000 unit/gram topical 1 applic topical BID R breast rash 12/28/24 02/15/25 Rx cream #30 grams bupropion HCl 150 mg 24 hr tablet, See Rx Instructions .Route 01/08/25 02/15/25 Rx extended release .COMPLEX #84 tabs oxybutynin chloride 10 mg See Rx Instructions .Route 01/08/25 02/15/25 Rx tablet,extended release 24 hr .COMPLEX #28 tabs acetaminophen 500 mg tablet 1,000 mg (2 x 500 mg) PO TID PRN 01/18/25 02/15/25 Rx pain #180 tabs albuterol sulfate 90 mcg/actuation 1 - 2 inh inhalation Q4H PRN 01/18/25 02/15/25 Rx aerosol inhaler shortness of breath or wheezing #6.7 grams benzonatate 100 mg capsule 100 mg PO BID-TID PRN cough #30 01/18/25 02/15/25 Rx caps fluticasone propionate 50 1 spray intranasal BID post nasal 01/18/25 02/15/25 Rx mcg/actuation nasal drip #16 grams spray,suspension furosemide 20 mg tablet (Lasix) 20 mg PO QAM #30 tabs 01/18/25 02/15/25 Rx guaifenesin 600 mg tablet, 600 mg PO DAILY PRN PRN 01/18/25 02/15/25 Rx extended release 12 hr cough/phlegm #30 tabs galcanezumab-gnlm 120 mg/mL 240 mg (2 mL) subcut ONCE #2 mL 01/28/25 02/15/25 Rx subcutaneous pen injector (Emgality Pen) doxycycline hyclate 100 mg tablet 100 mg PO BID #28 tabs 01/31/25 02/15/25 Rx apixaban 5 mg tablet (Eliquis) See Rx Instructions .Route 02/05/25 02/15/25 Rx .COMPLEX #56 tabs dulaglutide 0.75 mg/0.5 mL See Rx Instructions .Route 02/15/25 02/15/25 Rx subcutaneous pen injector .COMPLEX #2 mL (Trulicity) magnesium oxide 400 mg PO QHS Low Magnesium 02/15/25 02/15/25 History Exam Narrative Exam Narrative: General: Patient appears much older than stated age, morbidly obese, she is lying in bed supine comfortable and opens her eyes though not completely when verbally stimulated. She is not oriented to place or time but possibly to person. She is in no acute distress. HEENT: Normocephalic, eyes with pupils equal and reactive light symmetric, extraocular movement intact and sclera anicteric. Oropharynx with dry mucosa. Neck: Supple without JVD. Lungs: Fair aeration with poor inspiratory effort but no focalizing rales or rhonchi and no expiratory wheeze. Breast: Exam deferred. Heart: Irregular rhythm with normal rate. No appreciable murmur or gallop. Abdomen: Obese contour, soft with no focalizing guarding or tenderness. Bowel sounds positive all quadrants. No palpable hepatosplenomegaly. Skin: Pale, warm and dry. Extremities: Without clubbing or cyanosis and chronic appearing nonpitting edema ankles and feet. Fair capillary refill. Neuro: Cranial nerves II through XII appear to be grossly intact, no focalizing motor deficits though patient appears generally weak and confused not cooperating with exam. No tremor. No Babinski's. Psych: Encephalopathic with mood, thought processes and memory not testable. Patient does appear to answer questions but is very weak mostly lying on the gurney with her eyes closed. Results Imaging Imaging Studies: Exam: CT Abdomen And Pelvis Without Contrast Exam date and time: 02/15/2025 10:29 PM Age: 64 years old Clinical indication: Other: Acute renal failure TECHNIQUE: Imaging protocol: Computed tomography of the abdomen and pelvis without contrast. COMPARISON: CT ABDOMEN PELVIS W 08/23/2019 4:08 PM FINDINGS: Lungs: Minimal fibrotic changes seen along the posterior margins of both lung bases with no other basilar mass or consolidation detected. There is mild cardiomegaly and coronary calcifications are evident. No pleural or pericardial effusions are detected. Liver: No focal hepatic lesions detected. Gallbladder and biliary ducts: Cholecystectomy. Pancreas: No pancreatic mass or ductal dilation. Spleen: No splenomegaly or splenic mass. Adrenal glands: No adrenal masses detected. Kidneys and ureters: A few small bilateral renal cysts require no further follow-up with no other renal mass or hydronephrosis detected. Stomach and bowel: Segments of large and small bowel are normal in caliber throughout with no mucosal thickening, obstruction or perforation. Anastomotic renetta again seen in the region of the proximal sigmoid colon. Appendix: No evidence of appendicitis. Intraperitoneal space: No pneumoperitoneum or free intraperitoneal fluid detected. Vasculature: No abdominal aortic aneurysm. Lymph nodes: No lymphadenopathy detected. Urinary bladder: Unremarkable as visualized. Reproductive: Hysterectomy. Bones/joints: No acute fracture. Soft tissues: Unremarkable. IMPRESSION: No acute abdominopelvic process is detected. Exam: XR Chest Exam date and time: 02/15/2025 8:29 PM Age: 64 years old Clinical indication: Other: Chest pain TECHNIQUE: Imaging protocol: Radiologic exam of the chest. Views: 2 views. COMPARISON: CT CHEST WO 02/15/2025 9:32 AM FINDINGS: Lungs: Minimal patchy infiltrate suspected in the medial middle lobe with no other parenchymal mass or consolidation detected. Pleural spaces: No pneumothorax or pleural effusion detected. Heart/Mediastinum: Heart size is normal and vessel margins are sharply defined. Bones/joints: No acute osseous lesions are detected. IMPRESSION: Minimal patchy infiltrate suspected in the medial middle lobe with no other parenchymal mass or consolidation detected. Exam: CT Head Without Contrast Exam date and time: 02/15/2025 8:18 PM Age: 64 years old Clinical indication: Other: Headache TECHNIQUE: Imaging protocol: Computed tomography of the head without contrast. COMPARISON: MR BRAIN WO 09/14/2024 8:54 AM FINDINGS: Brain: Slight prominence of cerebral sulci reflects mild cerebral atrophy. Hypodensities seen involving the periventricular white matter lateral to the trigone of the left lateral ventricle are consistent with minimal underlying microvascular ischemic changes. Brainstem and cerebellum are unremarkable and there is no evidence of acute transcortical infarction or recent intracranial hemorrhage. Cerebral ventricles: Mild ex vacuo dilatation of the trigone of the left lateral ventricle is seen in a region of underlying microvascular ischemic changes with no midline shift or hydrocephalus. Paranasal sinuses: Grossly clear throughout. Mastoid air cells: Grossly clear bilaterally. Bones: Bony calvarium and skull base are intact and no acute fractures are detected. Soft tissues: Unremarkable. IMPRESSION: Mild cerebral atrophy and probable minimal underlying microvascular ischemic changes seen in the region of the trigone of the left lateral ventricle as above with no evidence of acute transcortical infarction, recent intracranial hemorrhage or hydrocephalus. No acute intracranial process is detected. Admission Date: 11/16/24 EXAM: Comprehensive 2D, Doppler, and color-flow Echocardiogram Indications: CHF Other Information Study Quality: Fair. Technically limited study due to body habitus. Conclusion Normal left ventricular wall thickness and chamber size. Ejection fraction is 55%. Wall motion is normal Normal right ventricular size and function Both atria are moderately enlarged Trileaflet aortic valve without stenosis or regurgitation Mild mitral annular calcification. Trace mitral regurgitation Estimated right ventricular systolic pressure is 41 mmHg Labs 02/16/25 05:17 02/16/25 05:17 Labs: Laboratory Results - last 24 hr 02/15/25 02/15/25 02/15/25 19:32 19:59 21:00 WBC 8.71 RBC 4.61 Hgb 12.4 Hct 39.1 MCV 85 MCH 26.9 L MCHC 31.7 L RDW 12.8 Plt Count 161 MPV 10.3 Immature Gran % 0.3 Neutrophils % 61.0 Lymphocytes % 27.4 Monocytes % 8.6 Eosinophils % 2.1 Basophils % 0.6 Nucleated RBC % 0.0 Absolute Neutrophils 5.31 Absolute Lymphocytes 2.39 Absolute Monocytes 0.75 Absolute Eosinophils 0.18 Absolute Basophils 0.05 VBG Lactate Sodium 141 Potassium 3.0 L Chloride 103 Carbon Dioxide 28.8 Anion Gap 9.2 BUN 107 H* Creatinine 4.1 H* Est GFR (CKD-EPI 2020) 11.64 Glucose 79 Calcium 8.9 Total Bilirubin 0.7 AST 20 ALT 24 Alkaline Phosphatase 91 Troponin I 9 10 Total Protein 7.2 Albumin 3.1 L Lipase 67 TSH 0.37 Urine Color Urine Clarity Urine pH Ur Specific [place] Urine Protein Urine Ketones Urine Blood Urine Nitrite Urine Bilirubin Urine Urobilinogen Ur Leukocyte Esterase Urine Glucose Add-On Test Request DONE 02/15/25 02/16/25 23:28 00:01 WBC RBC Hgb Hct MCV MCH MCHC RDW Plt Count MPV Immature Gran % Neutrophils % Lymphocytes % Monocytes % Eosinophils % Basophils % Nucleated RBC % Absolute Neutrophils Absolute Lymphocytes Absolute Monocytes Absolute Eosinophils Absolute Basophils VBG Lactate 0.8 Sodium Potassium Chloride Carbon Dioxide Anion Gap BUN Creatinine Est GFR (CKD-EPI 2020) Glucose Calcium Total Bilirubin AST ALT Alkaline Phosphatase Troponin I 11 Total Protein Albumin Lipase TSH Urine Color Yellow Urine Clarity Clear Urine pH 6.0 Ur Specific [place] 1.025 Urine Protein Negative Urine Ketones Negative Urine Blood Negative Urine Nitrite Negative Urine Bilirubin Negative Urine Urobilinogen 0.2 Ur Leukocyte Esterase Negative Urine Glucose Negative Add-On Test Request Last Vital Signs Temp 37.2 C 02/16/25 00:46 Pulse 75 02/16/25 00:07 Resp 17 02/16/25 00:07 BP 112/87 02/16/25 00:01 Pulse Ox 95 02/16/25 00:07 Time Spent Time spent with Patient: >75 minutes Time was spent: preparing to see the patient(eg.review tests), obtaining and/or reviewing separately otained hiistory, ordering medications,tests, procedures, indepentently interpreting results and care coordination
[2025-02-16 04:27] LABS: Anion Gap 7.4 mmol/L (3-11); CO2 27.6 mmol/L (21.0-32.0); Calcium 8.3 mg/dL (8.5-10.1); Chloride 107 mmol/L (98-107); Estimated GFR 12.75 (mL/min/1.73m2); Glucose 86 mg/dL (74-106); NT-proBNP 849 pg/mL (<300); Potassium 3.1 mmol/L (3.5-5.1); Sodium 142 mmol/L (136-145)
[2025-02-16 04:29] LABS: BUN 100 mg/dL (7-18); CREATININE 3.8 mg/dL (0.55-1.02)
--- NOTE | 2025-02-16 05:08 | W.PC.ACHO ---
Registration Status: Primary Language: Preferred Language: ED Information & Data Chief Complaint Chest Pain 02/16/25 00:30 Triage Note BIBA for week long 02/15/25 17:45 intermittent CP. Reports pain is worse today, 05/05. 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 No change in pain . Reports some SOB. Reports sharp pain that travels into left arm and shoulder. 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 Dialysis AV fistula malfunction Nasal vestibulitis Otalgia of both ears Learning disability GERD (gastroesophageal reflux disease) Hx of hyperlipidemia Traumatic hematoma of knee Proximal phalanx fracture of finger (03/04/20) (Last Reviewed 02/16/25 @ 03:48 by Edmar De La Fuente) History of tonsillectomy History of bowel resection History of knee surgery History of hysterectomy H/O section History of appendectomy Most Recent Vital Signs Temperature 37.2 C 02/16/25 00:46 Temperature Source Temporal Artery Scan 02/16/25 02:00 Pulse 84 02/16/25 04:00 Pulse 94 H 02/16/25 04:00 Respiratory Rate 16 02/16/25 04:00 Respiratory Effort Normal 02/16/25 04:00 Respiratory Depth Normal 02/16/25 04:00 Respiratory Pattern Normal 02/16/25 04:00 Blood Pressure 102/55 L 02/16/25 04:00 Blood Pressure Mean 67 02/16/25 04:00 Blood Pressure Position Sitting 02/15/25 17:45 Pulse Oximetry 97 02/16/25 04:00 Oxygen Delivery Method Room Air 02/16/25 04:00 Oxygen Flow Rate 0 02/16/25 04:00 Pain Level 0 02/16/25 04:00 Allergies Penicillins Allergy (Severe, Verified 02/15/25 17:49) Anaphylaxis I'll amoxicillin Allergy (Verified 02/15/25 17:49) Anaphylaxis Cillins Allergy (Uncoded 02/15/25 17:49) Anaphylaxis Active Medications Generic Name Dose Route Start Last Admin Trade Name Baldo PRN Reason Stop Dose Admin Sodium Chloride 1,000 mls @ 150 mls/hr 02/16/25 02:58 02/16/25 02:30 Saline 1000ml Bag IV 02/16/25 09:37 150 mls/hr INFUSION STA Administration IV IV Catheter Type [Right Upper Peripheral IV arm] IV Catheter Type [Left Upper Saline Lock arm] IV Catheter Gauge [Right Upper 20 arm] IV Catheter Gauge [Left Upper 18 arm] Diagnostics 02/16/25 02/16/25 02/16/25 Range/Units 04:32 03:43 00:01 WBC (4.4-10.8) 10^3/uL RBC (3.93-5.22) 10^6/uL Hgb (11.2-15.7) g/dL Hct (36.0-46.0) % MCV (80-95) fL MCH (27.0-33.0) pg MCHC (32.0-36.0) % RDW (11.7-14.6) % Plt Count (130-400) 10^3/uL MPV (8.0-11.0) fL Immature Gran % % Neutrophils % % Lymphocytes % % Monocytes % % Eosinophils % % Basophils % % Nucleated RBC % (0.0-0.3) % Absolute Neutrophils (1.2-6.7) 10^3/uL Absolute Lymphocytes (1.2-3.4) 10^3/uL Absolute Monocytes (0.1-0.8) 10^3/uL Absolute Eosinophils (0.0-0.7) 10^3/uL Absolute Basophils (0.0-0.2) 10^3/uL VBG Lactate (<or=2.0) mmol/L Sodium 142 (136-145) mmol/L Potassium 3.1 L (3.5-5.1) mmol/L Chloride 107 (98-107) mmol/L Carbon Dioxide 27.6 (21.0-32.0) mmol/L Anion Gap 7.4 (3-11) mmol/L BUN 100 H* (7-18) mg/dL Creatinine 3.8 H* (0.55-1.02) mg/dL Est GFR (CKD-EPI 2020) 12.75 (mL/min/1.73m2) Glucose 86 (74-106) mg/dL Calcium 8.3 L (8.5-10.1) mg/dL Total Bilirubin (0.2-1.0) mg/dL AST (15-37) U/L ALT (14-59) U/L Alkaline Phosphatase (46-116) U/L Ammonia Pending Troponin I (<or=51) ng/L NT-Pro-B Natriuret Pep 849 H (<300) pg/mL Total Protein (6.4-8.2) g/dL Albumin (3.4-5.0) g/dL Lipase (<78) U/L TSH (0.36-3.74) uIU/mL Urine Color Yellow (Yellow) Urine Clarity Clear (Clear) Urine pH 6.0 (5-8) Ur Specific [place] 1.025 (1.005-1.025) Urine Protein Negative (Neg-Trace) mg/dL Urine Ketones Negative (Negative) mg/dL Urine Blood Negative (Negative) Urine Nitrite Negative (Negative) Urine Bilirubin Negative (Negative) Urine Urobilinogen 0.2 (Up to 0.2) mg/dL Ur Leukocyte Esterase Negative (Negative) Urine Glucose Negative (Negative) mg/dL COVID-19 Source Pending SARS-CoV-2 (PCR) Pending Influenza Type A (PCR) Pending Influenza Type B (PCR) Pending RSV (PCR) Pending Add-On Test Request 02/15/25 02/15/25 02/15/25 Range/Units 23:28 21:00 19:59 WBC (4.4-10.8) 10^3/uL RBC (3.93-5.22) 10^6/uL Hgb (11.2-15.7) g/dL Hct (36.0-46.0) % MCV (80-95) fL MCH (27.0-33.0) pg MCHC (32.0-36.0) % RDW (11.7-14.6) % Plt Count (130-400) 10^3/uL MPV (8.0-11.0) fL Immature Gran % % Neutrophils % % Lymphocytes % % Monocytes % % Eosinophils % % Basophils % % Nucleated RBC % (0.0-0.3) % Absolute Neutrophils (1.2-6.7) 10^3/uL Absolute Lymphocytes (1.2-3.4) 10^3/uL Absolute Monocytes (0.1-0.8) 10^3/uL Absolute Eosinophils (0.0-0.7) 10^3/uL Absolute Basophils (0.0-0.2) 10^3/uL VBG Lactate 0.8 (<or=2.0) mmol/L Sodium (136-145) mmol/L Potassium (3.5-5.1) mmol/L Chloride (98-107) mmol/L Carbon Dioxide (21.0-32.0) mmol/L Anion Gap (3-11) mmol/L BUN (7-18) mg/dL Creatinine (0.55-1.02) mg/dL Est GFR (CKD-EPI 2020) (mL/min/1.73m2) Glucose (74-106) mg/dL Calcium (8.5-10.1) mg/dL Total Bilirubin (0.2-1.0) mg/dL AST (15-37) U/L ALT (14-59) U/L Alkaline Phosphatase (46-116) U/L Ammonia Troponin I 11 10 (<or=51) ng/L NT-Pro-B Natriuret Pep (<300) pg/mL Total Protein (6.4-8.2) g/dL Albumin (3.4-5.0) g/dL Lipase (<78) U/L TSH (0.36-3.74) uIU/mL Urine Color (Yellow) Urine Clarity (Clear) Urine pH (5-8) Ur Specific [place] (1.005-1.025) Urine Protein (Neg-Trace) mg/dL Urine Ketones (Negative) mg/dL Urine Blood (Negative) Urine Nitrite (Negative) Urine Bilirubin (Negative) Urine Urobilinogen (Up to 0.2) mg/dL Ur Leukocyte Esterase (Negative) Urine Glucose (Negative) mg/dL COVID-19 Source SARS-CoV-2 (PCR) Influenza Type A (PCR) Influenza Type B (PCR) RSV (PCR) Add-On Test Request DONE 02/15/25 Range/Units 19:32 WBC 8.71 (4.4-10.8) 10^3/uL RBC 4.61 (3.93-5.22) 10^6/uL Hgb 12.4 (11.2-15.7) g/dL Hct 39.1 (36.0-46.0) % MCV 85 (80-95) fL MCH 26.9 L (27.0-33.0) pg MCHC 31.7 L (32.0-36.0) % RDW 12.8 (11.7-14.6) % Plt Count 161 (130-400) 10^3/uL MPV 10.3 (8.0-11.0) fL Immature Gran % 0.3 % Neutrophils % 61.0 % Lymphocytes % 27.4 % Monocytes % 8.6 % Eosinophils % 2.1 % Basophils % 0.6 % Nucleated RBC % 0.0 (0.0-0.3) % Absolute Neutrophils 5.31 (1.2-6.7) 10^3/uL Absolute Lymphocytes 2.39 (1.2-3.4) 10^3/uL Absolute Monocytes 0.75 (0.1-0.8) 10^3/uL Absolute Eosinophils 0.18 (0.0-0.7) 10^3/uL Absolute Basophils 0.05 (0.0-0.2) 10^3/uL VBG Lactate (<or=2.0) mmol/L Sodium 141 (136-145) mmol/L Potassium 3.0 L (3.5-5.1) mmol/L Chloride 103 (98-107) mmol/L Carbon Dioxide 28.8 (21.0-32.0) mmol/L Anion Gap 9.2 (3-11) mmol/L BUN 107 H* (7-18) mg/dL Creatinine 4.1 H* (0.55-1.02) mg/dL Est GFR (CKD-EPI 2020) 11.64 (mL/min/1.73m2) Glucose 79 (74-106) mg/dL Calcium 8.9 (8.5-10.1) mg/dL Total Bilirubin 0.7 (0.2-1.0) mg/dL AST 20 (15-37) U/L ALT 24 (14-59) U/L Alkaline Phosphatase 91 (46-116) U/L Ammonia Troponin I 9 (<or=51) ng/L NT-Pro-B Natriuret Pep (<300) pg/mL Total Protein 7.2 (6.4-8.2) g/dL Albumin 3.1 L (3.4-5.0) g/dL Lipase 67 (<78) U/L TSH 0.37 (0.36-3.74) uIU/mL Urine Color (Yellow) Urine Clarity (Clear) Urine pH (5-8) Ur Specific [place] (1.005-1.025) Urine Protein (Neg-Trace) mg/dL Urine Ketones (Negative) mg/dL Urine Blood (Negative) Urine Nitrite (Negative) Urine Bilirubin (Negative) Urine Urobilinogen (Up to 0.2) mg/dL Ur Leukocyte Esterase (Negative) Urine Glucose (Negative) mg/dL COVID-19 Source SARS-CoV-2 (PCR) Influenza Type A (PCR) Influenza Type B (PCR) RSV (PCR) Add-On Test Request 02/15/25 23:42 Blood Culture - Pending Blood 02/15/25 23:28 Blood Culture - Pending Blood [id number] Documentation Fingerstick Glucose Start: 02/15/25 23:24 Freq: Status: Active Protocol: Activity Type Activity Date Activity User E-sign Co-sign Detail Recorded Client Recorded Date Recorded By Document 02/15/25 23:06 KEZIA AVENDAON(3) [id number] 02/15/25 23:24 KEZIA AVENDANO(4) Intake and Output - 24 Hour Total 02/15/25 17:39 thru 02/16/25 03:57 Intake Total 750 Output Total 600 Balance 150 Weight 117.3 kg Intake: IV 750 Output: Urine 600 Urinary Catheter Urinary Catheter Date of 02/15/25 Insertion [Urethral (Rice)] Time of insertion [Urethral ( 23:59 Rice)] Falls Risk Assessment History of Falls Previous History 02/15/25 18:08 Contributing Factors Impairments 02/15/25 18:08 Ambulatory Aids Independent 02/15/25 18:08 Tubes/Lines None 02/15/25 18:08 Gait Evaluation No gait disturbance 02/15/25 18:08 Cognition Cognitive impairment 02/15/25 18:08 Fall Total Score 33 02/15/25 18:08 Level of Risk Moderate Risk 02/15/25 18:08 Problems (Last Updated 02/16/25 @ 04:08 by Edmar De La Fuente) CKD (chronic kidney disease) (Chronic) DOLORES (acute kidney injury) (Acute) Encephalopathy acute (Acute) Right middle lobe pneumonia (Acute) Hypokalemia (Acute) Atrial fibrillation (Chronic) Type 2 diabetes mellitus with other specified complication (Chronic) v v v v v v v v v Sending and/or Receiving Nurses: Please use comment section below to note any information pertinent to the patient hand-off not included above. Information / Comments: Report taken from [employer] WORKER Wade. Patient came in with altered mental status, worsening dizziness and has history of CHF, lumbar stenosis; HTN and diabetes. Presented delayed speech. Has rice, also skin irritation on left groins area. All questions answered promptly. Report received from:
[2025-02-16 05:31] LABS: HGB 11.6 g/dL (11.2-15.7); MCH 27.4 pg (27.0-33.0); MCHC 32.2 % (32.0-36.0); MCV 85 fL (80-95); MPV 10.5 fL (8.0-11.0); Platelet Count 140 10^3/uL (130-400); RBC 4.24 10^6/uL (3.93-5.22); RDW 12.7 % (11.7-14.6); RDW-SD 39.2 fL; WBC 6.35 10^3/uL (4.4-10.8)
[2025-02-16 05:40] LABS: *AMPHETAMINES SCREEN URINE Negative (Negative); *BARBITURATES SCREEN URINE Negative (Negative); *BENZODIAZEPINES SCREEN URINE Negative (Negative); Cannabinoids THC Positive (Negative); Cocaine Screen,Urine Negative (Negative); METHADONE URINE SCREEN Negative (Negative); OPIATES URINE SCREEN Negative (Negative); Tricyclic Antidepressants Negative (Negative)
[2025-02-16 05:42] LABS: INR 1.2 (0.9-1.1); Prothrombin Time 11.9 sec (9.1-11.1)
[2025-02-16 05:45] LABS: Ammonia 21 umol/L (11-32)
[2025-02-16 05:47] LABS: ALT 23 U/L (14-59); AST 20 U/L (15-37); Albumin 2.7 g/dL (3.4-5.0); Alkaline Phosphatase 81 U/L (46-116); Anion Gap 8.6 mmol/L (3-11); Bilirubin, Total 0.7 mg/dL (0.2-1.0); CO2 26.4 mmol/L (21.0-32.0); Calcium 8.4 mg/dL (8.5-10.1); Chloride 107 mmol/L (98-107); Estimated GFR 13.17 (mL/min/1.73m2); Glucose 86 mg/dL (74-106); Magnesium 1.8 mg/dL (1.8-2.4); Potassium 3.1 mmol/L (3.5-5.1); Sodium 142 mmol/L (136-145); Total Protein 6.3 g/dL (6.4-8.2)
[2025-02-16 05:50] LABS: BUN 96 mg/dL (7-18); CREATININE 3.7 mg/dL (0.55-1.02)
[2025-02-16 06:05] LABS: COVID-19 PCR Negative (Negative); Influenza A PCR Negative (Negative); Influenza B PCR Negative (Negative); RSV PCR Negative (Negative)
[2025-02-16 06:16] LABS: Source Nasopharynx
[2025-02-16] MEDS: POTASSIUM CHLORIDE 20 MEQ/100 ML BAG 50 MEQ IV_INF (06:31)
--- NOTE | 2025-02-16 08:30 | RT.EKG_ITS ---
APPROVED REPORT Exam: Resting ECG Reason for Exam: Chest pain Patient Location: I HR:67 bpm ECG Measurements Heart Rate 67 AXIS [place] [id number] P [id number] QRSd 179 QRS 24 QT 427 T 24 QTc 451 Conclusion Atrial fibrillation
[2025-02-16] MEDS: Isosorbide Mononitrate 30 MG TABCR PO (09:10)
[2025-02-16] MEDS: Pantoprazole 40 MG TABCR PO (09:10)
[2025-02-16] MEDS: Cholecalciferol (Vitamin D3) 1,000 UNIT TAB 2000 UNITS PO (09:10)
[2025-02-16] MEDS: Nystatin CREAM 30 GM TUBE TP (09:10)
[2025-02-16] MEDS: Metoprolol CR 50 MG TABCR PO (09:10)
[2025-02-16] MEDS: Losartan 50 MG TAB 75 MG PO (09:10)
[2025-02-16] MEDS: Empaglifozin 10 MG TAB PO (09:11)
[2025-02-16] MEDS: Apixaban 5 MG TAB PO ×2 (09:11→19:55)
[2025-02-16] MEDS: buPROPion-XL 150 MG TABCR 450 MG PO (09:11)
[2025-02-16] MEDS: Rosuvastatin 20 MG TAB PO (09:11)
--- NOTE | 2025-02-16 09:16 | W.PM.PROGNOT ---
Date of Service Date of service: 02/16/25 Time of Service: 09:16 Assessment and Plan Assessment and plan (1) Chest pain: Status: Inactive Assessment and plan: EKG showing A-fib w MVR , no signs of coronary occlusion or ischemia , questions LV hypertrhophy in known HFpEF with pulmonary HTN history Recent EKG similar to the initial one from the ED (2) Severe sepsis: Status: Acute Assessment and plan: On admission met sepsis criteria w tachycardia at 101 and RR at 22 inn the setting of persistent RML PNA Severity criteria met d/t increased of baseline Cr from 2.2- 2.8 to 4.1 And as per point 3 (3) Encephalopathy acute: Start date: 02/16/25 Status: Acute Assessment and plan: Likely due to infectious process in the setting of to severe and pneumonia that failed outpatient treatment Will continue to monitor (4) DOLORES (acute kidney injury): Status: Acute Assessment and plan: Nephrology suspect the patient was over diuresed and probably missed taking her medications at home recently and suggested IV hydration while holding diuretics for now. He does have CHF but is mostly diastolic dysfunction. Watch for fluid overload. Will continue IV fluid Will hold ARBs Discontinue Gibbons and continue monitor intake and output Transition to regular heart healthy and carb controlled diet BMP in AM (5) Hypokalemia: Start date: 02/16/25 Status: Acute Assessment and plan: Replete with IV potassium and follow-up. Caution because of acute kidney injury putting at risk for hyperkalemia. K 3.1 this AM again- supplementation given No hypomagnesemia CMP in AM (6) Right middle lobe pneumonia: Start date: 02/16/25 Status: Acute Assessment and plan: Persistent on imaging with chest x-ray and no WBC elevation, hypoxemia, tachypnea or fever. Treated as outpatient prior to this admission. Because of change of mental status will treat as community-acquired pneumonia with IV Rocephin and doxycycline and follow-up clinically. CT of the chest report: Stable 3 millimeter nodule posterior right upper lobe. Additional tiny nodule again noted at the posterior right lung base. Scarring again noted in the medial right middle lobe. -RML opacity also visualized on CT upon review of images with Dr. Garcia (7) CKD (chronic kidney disease): Status: Chronic Assessment and plan: Exacerbated with overdiuresis and dehydration resulted in DOLORES. Chronically patient is stage IV. Nephrology was consulted and thinks that rehydration would be appropriate. Continue monitor (8) Atrial fibrillation: Status: Chronic Assessment and plan: Stable on rate control on metoprolol and apixaban Will not add additional medicine for DVT prophylaxis Continue telemetry (9) Type 2 diabetes mellitus with other specified complication: Status: Chronic Assessment and plan: On outpatient medical therapy with Trulicity to be held and glucometer measurements before meals and at bedtime with sensitive sliding scale coverage while hospitalized. Discussed with Dr. Garcia Subjective Subjective Patient reports: feels better, tolerating liquids well, voiding w/o difficulty, flatus, bowel movement, nausea and shortness of breath; denies diarrhea, vomiting or fever Exam Narrative Exam Narrative: 7-year-old female patient looking older than stated age with obese body habitus, alert active x 4, nonfocal, decreased right lower lobes otherwise clear breath sounds, S1-S2, irregular A-fib with MVR as per telemetry, positive radial and positive pulses, abdomen some acute, no CVA tenderness Objective Last Vital Signs Temp 36.1 C L 02/16/25 08:38 Pulse 67 02/16/25 08:38 Resp 19 02/16/25 08:38 BP 100/83 02/16/25 08:38 Pulse Ox 98 02/16/25 08:38 Laboratory Results - last 24 hr 02/15/25 02/15/25 02/15/25 19:32 19:59 21:00 WBC 8.71 RBC 4.61 Hgb 12.4 Hct 39.1 MCV 85 MCH 26.9 L MCHC 31.7 L RDW 12.8 Plt Count 161 MPV 10.3 Immature Gran % 0.3 Neutrophils % 61.0 Lymphocytes % 27.4 Monocytes % 8.6 Eosinophils % 2.1 Basophils % 0.6 Nucleated RBC % 0.0 Absolute Neutrophils 5.31 Absolute Lymphocytes 2.39 Absolute Monocytes 0.75 Absolute Eosinophils 0.18 Absolute Basophils 0.05 PT INR VBG Lactate Sodium 141 Potassium 3.0 L Chloride 103 Carbon Dioxide 28.8 Anion Gap 9.2 BUN 107 H* Creatinine 4.1 H* Est GFR (CKD-EPI 2020) 11.64 Glucose 79 Calcium 8.9 Magnesium Total Bilirubin 0.7 AST 20 ALT 24 Alkaline Phosphatase 91 Ammonia Troponin I 9 10 NT-Pro-B Natriuret Pep Total Protein 7.2 Albumin 3.1 L Lipase 67 TSH 0.37 Urine Color Urine Clarity Urine pH Ur Specific [place] Urine Protein Urine Ketones Urine Blood Urine Nitrite Urine Bilirubin Urine Urobilinogen Ur Leukocyte Esterase Urine Glucose Urine Opiates Screen Urine Methadone Screen Ur Barbiturates Screen Ur Tricyclics Screen Ur Amphetamines Screen U Benzodiazepines Scrn Urine Cocaine Screen Ur THC Screen COVID-19 Source SARS-CoV-2 (PCR) Influenza Type A (PCR) Influenza Type B (PCR) RSV (PCR) Add-On Test Request DONE 02/15/25 02/16/25 02/16/25 23:28 00:01 03:43 WBC RBC Hgb Hct MCV MCH MCHC RDW Plt Count MPV Immature Gran % Neutrophils % Lymphocytes % Monocytes % Eosinophils % Basophils % Nucleated RBC % Absolute Neutrophils Absolute Lymphocytes Absolute Monocytes Absolute Eosinophils Absolute Basophils PT INR VBG Lactate 0.8 Sodium 142 Potassium 3.1 L Chloride 107 Carbon Dioxide 27.6 Anion Gap 7.4 BUN 100 H* Creatinine 3.8 H* Est GFR (CKD-EPI 2020) 12.75 Glucose 86 Calcium 8.3 L Magnesium Total Bilirubin AST ALT Alkaline Phosphatase Ammonia Troponin I 11 NT-Pro-B Natriuret Pep 849 H Total Protein Albumin Lipase TSH Urine Color Yellow Urine Clarity Clear Urine pH 6.0 Ur Specific [place] 1.025 Urine Protein Negative Urine Ketones Negative Urine Blood Negative Urine Nitrite Negative Urine Bilirubin Negative Urine Urobilinogen 0.2 Ur Leukocyte Esterase Negative Urine Glucose Negative Urine Opiates Screen Negative Urine Methadone Screen Negative Ur Barbiturates Screen Negative Ur Tricyclics Screen Negative Ur Amphetamines Screen Negative U Benzodiazepines Scrn Negative Urine Cocaine Screen Negative Ur THC Screen Positive A COVID-19 Source SARS-CoV-2 (PCR) Influenza Type A (PCR) Influenza Type B (PCR) RSV (PCR) Add-On Test Request 02/16/25 05:17 WBC 6.35 RBC 4.24 Hgb 11.6 Hct 36.0 MCV 85 MCH 27.4 MCHC 32.2 RDW 12.7 Plt Count 140 MPV 10.5 Immature Gran % Neutrophils % Lymphocytes % Monocytes % Eosinophils % Basophils % Nucleated RBC % Absolute Neutrophils Absolute Lymphocytes Absolute Monocytes Absolute Eosinophils Absolute Basophils PT 11.9 H INR 1.2 H VBG Lactate Sodium 142 Potassium 3.1 L Chloride 107 Carbon Dioxide 26.4 Anion Gap 8.6 BUN 96 H* Creatinine 3.7 H* Est GFR (CKD-EPI 2020) 13.17 Glucose 86 Calcium 8.4 L Magnesium 1.8 Total Bilirubin 0.7 AST 20 ALT 23 Alkaline Phosphatase 81 Ammonia 21 Troponin I NT-Pro-B Natriuret Pep Total Protein 6.3 L Albumin 2.7 L Lipase TSH Urine Color Urine Clarity Urine pH Ur Specific [place] Urine Protein Urine Ketones Urine Blood Urine Nitrite Urine Bilirubin Urine Urobilinogen Ur Leukocyte Esterase Urine Glucose Urine Opiates Screen Urine Methadone Screen Ur Barbiturates Screen Ur Tricyclics Screen Ur Amphetamines Screen U Benzodiazepines Scrn Urine Cocaine Screen Ur THC Screen COVID-19 Source Nasopharynx SARS-CoV-2 (PCR) Negative Influenza Type A (PCR) Negative Influenza Type B (PCR) Negative RSV (PCR) Negative Add-On Test Request Time Spent with Patient Time Spent with Patient: >50 minutes Time was spent: preparing to see the patient(eg.review tests), obtaining and/or reviewing separately otained hiistory, ordering medications,tests, procedures, referring, communicating with other health child care team lead, indepentently interpreting results, counseling the patient and care coordination
[2025-02-16] MEDS: Fluticasone NASAL SPRAY 16 GM BTL NS ×2 (09:56→20:15)
[2025-02-16] MEDS: Potassium Chloride 20 MEQ TABCR 40 MEQ PO (09:56)
[2025-02-16] MEDS: DOXYCYCLINE 100 MG in Normal Saline 100 ML IVPB ×2 (09:57→20:16)
--- NOTE | 2025-02-16 10:40 | IN_ITS ---
PT Notes Visit Reasons: Encephalopathy, DOLORES with CKD, RML Inpatient Physical Therapy Evaluation Date: 02/16/25 Referring Doctor: Edmar De La Fuente PT Orders: PT CONSULT Precautions: Fall precautions Patient Profile/Admitting Diagnosis: Pt present to the ED on 02/15/25 with worsening dizziness, confusion and chest pain. She was admitted with dx of CDK, DOLORES, enchepalopathy, pneumonia, and hypokalcemia. 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 dcWheezing (Acute) Acute left-sided thoracic back pain (Acute) just under left shoulder blade .. catching and causing SOB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 (Acute) presumed; confirm w/ [facility] & [facility] NeuroSurg notes ik [ ]Exertional chest pain (Acute) Cervical stenosis of spine (Acute ~01/2024) 02/03/24-degenerative changes most prominent at C3-4 and C4-5 w/mod severe stenosisAbdominal wall anomaly (Acute) Blind right eye (Acute) Loss of eyesight in 2022, with delayed Tx, Dx .. NeuroSurg still TBD [ ] , 03/2024, ikMigraine headache without aura (Acute) Chronic headache (Acute) Type 2 diabetes mellitus with other specified complication (Chronic) Open abdominal wall wound (Acute) Prolapse of female pelvic organs (Acute) Mixed stress and urge urinary incontinence (Acute) Abnormal MRI of the head (Acute) Rt optic canal narrowed 2' sclerosis (stable?)([place]) & NEW hyperintense focus (white matter)(anterior rt temporal lobe) may rep demyelinating process, infection or possible neoplasm.. [ ] contrast when RF allowsLeft contracture of neck (Acute) pain, stiffness .. rad into shoulder bladeHyperparathyroidism due to renal insufficiency (Acute) [ ] Ca.. q 3-6 mos [ ] Ph .. q3-6 mos [ ] PTH, q 6-12 mos [ ] Vit D yearlyMalnutrition compromising bodily function (Acute) Low vitamin D level (Acute) WNL 44, 07/2023 (up from January 2023), yayWeight gain (Acute) losing weight since Ozempic start!Edema (Chronic) CKD? Venous Stasis/poor circ, w/ long hours [facility] (4am - 10-12-2pm)Encounter for medication review and counseling (Acute) Pt aware, but some errors noted despite recent med-rec .. [ ] CC for closer coordination w/ [place] (I sent TWO pramipex Rx .. still only one on her b-cassy list)(and she says no more hydrox, but it's listed .. so therefore b-packed?) .. HOW DO WE TRIAL MEDS? HTN (hypertension) (Chronic) per Nephro note (06/2022): Na < 2g. HCTZ 12.5mg added.Proteinuria (Acute) Goal<0.2mg/mg (2.3 on 06/30/22), per Nephro 06/2022.History of anemia due to CKD (Chronic) Goals: HGB 9.5-10.9 (per Nephro, 06/2022).. Ferritin>100ng/ml; IronSAT>20%.CKD (chronic kidney disease) stage 4, GFR 15-29 ml/min (Chronic) Hx dialysis. Follows with [facility], Dr. Muñiz.Low back pain (Acute) Lumbosacral spondylosis without myelopathy (Acute) Lumbar stenosis (Acute) Restless leg syndrome (Acute) Medical History (Updated 02/16/25 @ 04:08 by Edmar De La Fuente) Gliosis Rt Optic Nerve, with loss of vision, Insomnia Stress incontinence Coughing, sneezing, laughing .. Lifting > 10lbs (Hx incontinence symp, 06/2021) Spastic pelvic floor syndrome Mental health disorder Mixed Dx (Anx/Depr/Schiz-Affective), with poor FU form [facility] x yrs .. refilling Rx & recommending review with [facility].Pelvic relaxation disorder per [facility], 10/2022 .. [ ] UroGyn for possible surg per Dr. Park notes..Nocturia w/ incontinence episodesPelvic pain w/ probe/speculum.. Hx dyspareunia. Hx births.Vaginal discharge Sense of urgency w/o urination, but vag d/c! 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 Follow-uppresumed ischemia per chart review (Brain Injury Syndrome per Nephro notes)Dialysis AV fistula malfunction No malfuntion, but Hx revisions (?) and (2?) remain post d/c HD.Nasal vestibulitis Otalgia of both ears 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 Fontenot))History of knee surgery History of hysterectomy Hx ovarian rupture H/O section 2 childrenHistory of appendectomy Social History/Home Situation: Pt report that she lives in an apartment with her ex. She reports that she has two entrances to her apartment one with a full flight of stairs and the other entrance is level. She stated that she prefers the entrance with stairs because she does not want to loose the ability to do them. Current Functional Limitations: Pt is currently experiencing limitations with functional mobility, balance and gait. Equipment Owned/DME: Cane and walker Subjective: Pt reports that she was receiving home health services prior to admission. She reports that she has been having episodes of dizziness with one recent fall. Pt reports that she has both a cane and a walker at home. She typic ally uses a cane and does not want to use a walker as she can't use it on the stairs. She refused to have cane height evaluated/adjusted. Pt reported feeling dizzy with one sit to stand transfer during PT. She rested briefly and dizziness resolved. Objective: General Observation: Impulsive, needed multiple instructions to wait for assistance Mental Status: Alert to person, place and time Pain: No complaint of pain ROM: Right Upper Extremity: WFL Left Upper Extremity: WFL Right Lower Extremity: WFL Left Lower Extremity: WFL Strength: Right Upper Extremity: Grossly 4+/5 Left Upper Extremity: Grossly 4+/5 Right Lower Extremity: Grossly 4 to 4+/5 Left Lower Extremity: Grossly 4 to 4+/5 Bed Mobility/Transfers: Supine to sit with HOB @ 45 supervision/SBA Sit to Stand with SBA and FWW in front of her Stand to sit SBA and verbal instructions for safety and use of hand to slowly lower Gait: Ambulated 25 ft x 1 and 15 ft x 1 with FFW and CG of 1 verbal instructions for sequencing and use of FWW Balance: Static Sitting: Able to maintain with SBA Dynamic Sitting: Able to maintain with close supervision of 1 Static Standing: Able to maintain with UE support using a FFW and CG of 1 Dynamic Standing: Able to maintain with UE support using a FFW and CG of 1 Special Tests: Mobility Limitations Standardized Measure [facility] 6 clicks Basic Mobility Inpatient Short Form: Raw Score: 19 CMS Score: 41.77% Informed Consent/Education: Patient instructed in purpose of PT consult and plan of care. Assessment: Patient is a 64 year old female referred to physical therapy services with the diagnosis of CDK, DOLORES, enchepalopathy, pneumonia, and hypokalcemia. Patient presents the following impairment level findings: impaired functional mobility, impaired gait, and impaired balance. Anticipate that her mobility, gait and balance will improve enough for her to be d/c to home with home health PT. Impairments are contributing to the following functional limitations: AMPAC score. Patient is assessed as a [] Low 48025 [x] Moderate 17975 [] High 16134 complexity based on the following: History: See above Examination: See above Presentation: See above Decision Makin moderate complexity Goals: Goals X1 week 1. Supine-Sit independent 2. Sit-Supine independent 3. Sit-Stand independent 4. Stand-Sit independent 5. Bed-Chair independent with use of cane or FWW 6. Chair-Bed independent with use of cane or FWW 7. Gait independent with use of cane or FWW for household distances 8. Stairs independent with use of cane and handrail 9. Independent with home exercise program 10. Balance: able to maintain static and dynamic standing balance independently with use of assistive device. Plan of Care/Treatment Plan: 1-2x/day, 7 days/week x 1 week. Plan of care has been reviewed with the LEGAL INSTRUMENTS EXAMINER providing the service under Physical Therapy direction. Initiate Physical Therapy intervention for strengthening, bed mobility, transfers, gait, stairs, balance training, use of assistive device. DISCHARGE RECOMMENDATIONS: [] Home with no services [] [x] Home with services [home health PT] [] Home with outpatient PT [] [] SNF for continued rehabilitation [] [] Living Skills Advisor Care [] [] SNF versus LTC based on ability to participate and progress [] TREATMENT CODE/TIME: 98474 x1, [id number] 1 13:30-14:15
[2025-02-16] MEDS: cefTRIAXone 1 GM/50 ML BAG IVPB (11:14)
--- NOTE | 2025-02-16 12:44 | INITIAL_ITS ---
Date of service: 02/16/25 Time of Service: 12:44 Care Management Initial Assmt Initial Assessment Reason for Hospitalization: encephalopathy, DOLORES with CKD Functional Status/Living Situation Patient Presentation: Lakisha was sitting up in her chair when CM met with her. She reported that she lives in an apartment with her ex, who was supposed to stay with her for a weekend, but then covid hit and he has been there since. Lakisha stated that she is independent, and that she has friends that are supportive and help with cleaning and transportation, as she does not drive. Lakisha stated that she has a nurse that comes out to her house to help administer some medication on Fridays. She reported that she was connected to [facility], but thinks that she may have been changed over to the [facility] for case managment; CM would need to reach out to inquire about this during regular business hours. CM will continue to follow. Town of Residence: [facility] Resides with: Spouse (ex ) Significant Other/Family: Local Natural Supports: son and daughter in law, Micah and Ofelia Casillas daughter, Lissy Employment Status: Unemployed Instrumental Activities of Daily Living (ADLs): Independent Medications Medication Management: No Issues/Barriers identified Advance Directives Advance Directives: Do you have an Advance Directive: Y 04/24/24 11:11 AD On File at [facility]: Y 04/24/24 11:11 Date Asked 11/12/24 11/12/24 14:54 AD Date Reviewed 02/14/25 02/14/25 11:27 COLST On File at [facility] COLST Date Scanned Code Status Resuscitation Status Full Code Insurance Coverage/Financial Issues Insurance: [facility] Care Team Visit Care Team Role Provider Type Aspen Kay APRN MD [facility] STAFF PHYSICIAN Yvette Cox APRN Primary Care Provider NURSE PRACTITIONER Jenna Gonzalez Other Providers REG OCCUPATIONAL THERAPIST InPatient Jensen Hall Other Providers OTHER [facility] Provider PHYSICIANS ASSISTANT dEmar De La Fuente Admit Provider NON-[facility] STAFF PHYSICIAN Attending Provider Discharge Potential Discharge Needs: PCP F/U Appt Anticipated Barriers to Discharge: None Identified Patient/Family Education Needs: Review discharge instructions, discuss Ask Me Three Transportation: Private vehicle Plan: Anticipate Lakisha will return home once medically cleared. She may benefit from services. She will follow up with her PCP and discharge plan of care. CM will continue to follow. Social Determinants of Health Screening Social Determinants of health last assessed in clinic: 02/16/25 Will the Patient Participate in the Screening?: Yes Do you worry about having a steady place to live?: yes What is your living situation today?: I have housing today, but am worried about losing it Problems where you live: no known problems In the past 12 months, have you had to go without electric, gas, oil or water in your home?: no 1. Within the past 12 months, we worried whether our food would run out before we got money to buy more.: Don't know/refused 2. Within the past 12 months, the food we bought just didn't last and we didn't have money to get more.: Don't know/refused Has lack of transportation kept you from medical appointments or from doing things needed for daily living?: no Has anyone in your life made you feel unsafe or unsupported?: no How hard is it for you to pay for the very basics like food, housing, medical care, and heating? Would you say it is:: Not hard at all Do you want help finding or keeping work or a job?: I do not need or want help If for any reason you need help with day-to-day activities such as bathing, preparing meals, shopping, managing finances, etc., do you get the help you need?: I could use a little more help How often do you feel lonely or isolated from those around you?: Never Do you speak a language other than Jordanian at home?: No Does the patient want assistance with any of the above?: No Health Related Social Needs Health related social needs: housing instability, housed, with risk of homelessness (Z59.811) and problems with daily activities (Z73.9) Health related social needs details: none reported. 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 dc Wheezing (Acute) Acute left-sided thoracic back pain (Acute) just under left shoulder blade .. 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 NeuroSurg still TBD [ ] , 03/2024, ik Migraine headache without aura (Acute) Chronic headache (Acute) Type 2 diabetes mellitus with other specified complication (Chronic) Open abdominal wall wound (Acute) Prolapse of female pelvic organs (Acute) Mixed stress and urge urinary incontinence (Acute) Abnormal MRI of the head (Acute) Rt optic canal narrowed 2' sclerosis (stable?)([place]) & NEW hyperintense focus (white matter)(anterior rt temporal lobe) may rep demyelinating process, infection or possible neoplasm.. [ ] contrast when RF allows Left contracture of neck (Acute) pain, stiffness .. rad into shoulder blade Hyperparathyroidism due to renal insufficiency (Acute) [ ] Ca.. q 3-6 mos [ ] Ph .. q3-6 mos [ ] PTH, q 6-12 mos [ ] Vit D yearly Malnutrition compromising bodily function (Acute) Low vitamin D level (Acute) WNL 44, 07/2023 (up from January 2023), yay Weight gain (Acute) losing weight since Ozempic start! Edema (Chronic) CKD? Venous Stasis/poor circ, w/ long hours standing as antonio @ [facility] [place] (4am - 10-12-2pm) Encounter for medication review and counseling (Acute) Pt aware, but some errors noted despite recent med-rec .. [ ] CC for closer coordination w/ [place] (I sent TWO pramipex Rx .. still only one on her b-cassy list)(and she says no more hydrox, but it's listed .. so therefore b-packed?) .. HOW DO WE TRIAL MEDS? HTN (hypertension) (Chronic) per Nephro note (06/2022): Na < 2g. HCTZ 12.5mg added. Proteinuria (Acute) Goal<0.2mg/mg (2.3 on 06/30/22), per Nephro 06/2022. History of anemia due to CKD (Chronic) Goals: HGB 9.5-10.9 (per Nephro, 06/2022).. Ferritin>100ng/ml; IronSAT>20%. CKD (chronic kidney disease) stage 4, GFR 15-29 ml/min (Chronic) Hx dialysis. Follows with [facility], [place]. Muñiz. Low back pain (Acute) Lumbosacral spondylosis without myelopathy (Acute) Lumbar stenosis (Acute) Restless leg syndrome (Acute) Medical History (Updated 02/16/25 @ 09:28 by Aspen Kay APRN) Gliosis Rt Optic Nerve, with loss of vision Insomnia Stress incontinence Coughing, sneezing, laughing .. Lifting > 10lbs (Hx incontinence symp, 06/2021) Spastic pelvic floor syndrome Mental health disorder Mixed Dx (Anx/Depr/Schiz-Affective), with poor FU form [facility] x yrs .. refilling Rx & recommending review with [facility]. 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 [ ] UroGyn for possible surg per Dr. Park notes.. Nocturia w/ incontinence episodes Pelvic pain w/ probe/speculum.. Hx dyspareunia. Hx births. Vaginal discharge Sense of urgency w/o urination, but vag d/c! 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 Fontenot)) History of knee surgery History of hysterectomy Hx ovarian rupture H/O section 2 children History of appendectomy Family History Father Heart disease Hypertension Mother Thyroid disease Stroke Sister Cancer Sister Cancer Sister Ovarian cancer Kidney failure Social History Smoking/Tobacco Use Status: Never Tobacco: How many years used: 43 Smoking risk assessment performed?: Yes Alcohol Intake: current Alcohol Intake frequency: holidays/special occasions only Drug use: Never Substance use type: does not use Adopted: No Caregiver/Support person: No Foster care: No Household members: other Details: ex- Housing: apartment Number of Children: 2 number of grandchildren: 1 Communication Needs: Hard of Hearing Education Level: middle school Do you need help understanding health information?: Always current occupation: Volunteers Pets and animals: No Current gender identity: female What is your relationship status?: How often do you get together with friends or relatives?: three or more times per week Panel score (0-1 are the most socially isolated patients): 1 What type of physical activity do you participate in: none Eav/Jew: Sikhism Seatbelt use: always Drive intox or ride w/intox screw driver operator: No Do you feel safe at home: Yes Do you feel safe in your relationship?: Yes
[2025-02-16] MEDS: Lactated Ringers 1,000 ML 100 ML IV (13:27)
[2025-02-16] MEDS: Acetaminophen 500 MG TAB 1000 MG PO (13:27)
[2025-02-16] MEDS: Pramipexole 0.25 MG TAB PO (18:14)
[2025-02-16] MEDS: Magnesium Oxide 400 MG TAB PO (19:55)
[2025-02-16] MEDS: Oxybutynin-CR 5 MG TABCR 10 MG PO (19:55)
[2025-02-16] MEDS: Pramipexole 0.25 MG TAB 0.125 MG PO (19:55)
[2025-02-17] MEDS: Lactated Ringers 1,000 ML 100 ML IV (00:56)
[2025-02-17 03:06] VITALS: BP 98/78; PULSE 114; RESP 20; TEMP 35.9; O2SAT 94
[2025-02-17 06:20] LABS: Abs Immature Grans 0.02 10^3/uL (0.0-0.06); Absolute Basophil Count 0.03 10^3/uL (0.0-0.2); Absolute Eosinophil Count 0.18 10^3/uL (0.0-0.7); Absolute Lymphocyte Count 1.74 10^3/uL (1.2-3.4); Absolute Monocyte Count 0.45 10^3/uL (0.1-0.8); Absolute Neutrophil Count 4.04 10^3/uL (1.2-6.7); Basophils % 0.5 %; Eosinophils % 2.8 %; HCT 35.2 % (36.0-46.0); HGB 11.2 g/dL (11.2-15.7); Immature Grans % 0.3 %; Lymphocytes % 26.9 %; MCH 26.9 pg (27.0-33.0); MCHC 31.8 % (32.0-36.0); MCV 85 fL (80-95); Neutrophils % 62.5 %; Platelet Count 135 10^3/uL (130-400); RBC 4.16 10^6/uL (3.93-5.22); RDW 13.1 % (11.7-14.6); RDW-SD 40.4 fL; WBC 6.46 10^3/uL (4.4-10.8)
[2025-02-17 06:41] LABS: ALT 24 U/L (14-59); AST 20 U/L (15-37); Albumin 2.6 g/dL (3.4-5.0); Alkaline Phosphatase 79 U/L (46-116); Anion Gap 10.6 mmol/L (3-11); BUN 71 mg/dL (7-18); Bilirubin, Total 0.6 mg/dL (0.2-1.0); CO2 23.4 mmol/L (21.0-32.0); CREATININE 3.2 mg/dL (0.55-1.02); Calcium 8.9 mg/dL (8.5-10.1); Chloride 109 mmol/L (98-107); Estimated GFR 15.68 (mL/min/1.73m2); Glucose 97 mg/dL (74-106); Magnesium 1.5 mg/dL (1.8-2.4); Potassium 3.6 mmol/L (3.5-5.1); Sodium 143 mmol/L (136-145); Total Protein 6.3 g/dL (6.4-8.2)
[2025-02-17 07:23] VITALS: BP 124/64; PULSE 98; RESP 19; TEMP 36.6; O2SAT 96
[2025-02-17] MEDS: Normal Saline Flush 10 ML SYR IVP ×2 (08:15→11:09)
[2025-02-17] MEDS: Fluticasone NASAL SPRAY 16 GM BTL NS (08:15)
[2025-02-17] MEDS: DOXYCYCLINE 100 MG in Normal Saline 100 ML IVPB (08:15)
[2025-02-17] MEDS: Pantoprazole 40 MG TABCR PO (08:16)
[2025-02-17] MEDS: Acetaminophen 500 MG TAB 1000 MG PO (08:16)
[2025-02-17] MEDS: buPROPion-XL 150 MG TABCR 450 MG PO (08:16)
[2025-02-17] MEDS: Metoprolol CR 50 MG TABCR PO (08:17)
[2025-02-17] MEDS: Rosuvastatin 20 MG TAB PO (08:17)
[2025-02-17] MEDS: Cholecalciferol (Vitamin D3) 1,000 UNIT TAB 2000 UNITS PO (08:17)
[2025-02-17] MEDS: Apixaban 5 MG TAB PO (08:17)
[2025-02-17] MEDS: Isosorbide Mononitrate 30 MG TABCR PO (08:17)
[2025-02-17] MEDS: Empaglifozin 10 MG TAB PO (08:17)
[2025-02-17] MEDS: cefTRIAXone 1 GM/50 ML BAG IVPB (11:09)
--- NOTE | 2025-02-17 11:48 | DSE_ITS ---
Date of service: 02/17/25 Time of Service: 11:48 DS: Diagnosis Discharge Diagnosis (1) Chest pain: Status: Inactive (2) Severe sepsis: Status: Acute (3) Encephalopathy acute: Status: Acute (4) DOLORES (acute kidney injury): Status: Acute (5) Hypokalemia: Status: Acute (6) Right middle lobe pneumonia: Status: Acute (7) CKD (chronic kidney disease): Status: Chronic (8) Atrial fibrillation: Status: Chronic (9) Type 2 diabetes mellitus with other specified complication: Status: Chronic Discharge Plan Disposition Patient Disposition: Home W/Home Health Services Condition: Improving Discharge Details Reason For Visit: Encephalopathy, DOLORES with CKD, RML Admit Date/Time: 02/16/25 04:32 Admit Provider: Edmar De La Fuente Attending Provider: Edmar De La Fuente Primary Care Provider: Yvette Cox Hospital Course Hospital Course: This 61-year-old female patient with a past medical history of CKD followed by nephrology, CHF, peripheral coronary artery disease, hypertension, lumbar stenosis, hyperparathyroidism, diabetes, meningioma, presented on 02/15/2025 to the emergency room for evaluation of worsening dizziness, confusion, chest discomfort. The workup in the ED with positive for ongoing right middle lobe pneumonia and pulmonary nodules as per imaging, acute kidney injury on CKD with baseline creatinine up from 2.8-4.0, severe dehydration as per ultrasound. Patient was admitted to the medical surgical floor to the hospitalist service for evaluation management of severe sepsis in the setting of infectious encephalopathy with right lower lobe pneumonia, hypokalemia, DOLORES on CKD and dehydration. Treatment was initiated with IV antibiotics and slow IV hydration in the setting of heart failure and CKD potassium supplementation was provided. On the day of discharge patient was hemodynamically stable, able to tolerate enteral intake, with negative blood cultures and kidney function close to baseline. The patient will be discharged home with resumption of her previous home health services and will have to follow-up with her primary care practitioner within 7 days of discharge. Prescription for oral antibiotics will be sent to local pharmacy as discussed with patient. Recommendation for outpatient follow-up: Consider follow-up on chest imaging in the setting of right lower lobe abnormality and pulmonary nodules. Consider repeating renal function and electrolytes studies Discussed with Dr. Garcia Ellsworth Meds and New Rx's Prescriptions: New cefpodoxime 200 mg tablet 200 mg PO BID Qty: 8 0RF Rx Instructions: must administer with a meal/food doxycycline hyclate 100 mg capsule 100 mg PO BID Qty: 6 0RF Bio-K plus 50 billion cell capsule,delayed release(DR/EC) 1 cap PO DAILY Qty: 5 0RF Rx Instructions: Take 3 hours apart from antibiotics Continued Emgality Pen 120 mg/mL pen injector 240 mg subcut ONCE Qty: 2 0RF Rx Instructions: as a single dose; administer as two 120 mg injections at separate sites nitroglycerin 0.4 mg tablet, sublingual 0.4 mg sublingual Q5 MIN PRN X3 PRN (Reason: chest pain) Qty: 30 8RF rosuvastatin 20 mg tablet 20 mg PO DAILY Qty: 28 5RF hydroxyzine HCl 50 mg tablet See Rx Instructions .ROUTE .COMPLEX Qty: 90 5RF Rx Instructions: TAKE 1 TABLET IN THE MORNING AND 2 AT BEDTIME NEEDED FOR ANXIETY PANIC SENSATION nystatin 100,000 unit/gram cream 1 applic topical BID Qty: 30 1RF furosemide [Lasix] 20 mg tablet 20 mg PO QAM Qty: 30 3RF fluticasone propionate 50 mcg/actuation spray,suspension 1 spray intranasal BID Qty: 16 0RF Rx Instructions: administer into each nostril benzonatate 100 mg capsule 100 mg PO BID-TID PRN (Reason: cough) Qty: 30 0RF albuterol sulfate 90 mcg/actuation HFA aerosol inhaler 1 - 2 inh inhalation Q4H PRN (Reason: shortness of breath or wheezing) Qty: 6.7 1RF acetaminophen 500 mg tablet 1,000 mg PO TID PRN (Reason: pain) Qty: 180 0RF guaifenesin 600 mg tablet extended release 12hr 600 mg PO DAILY PRN PRN (Reason: cough/phlegm) Qty: 30 0RF Jardiance 10 mg tablet 10 mg PO DAILY Qty: 90 3RF Rx Instructions: Continue for hyperglycemia with CKD pantoprazole 40 mg tablet,delayed release (DR/EC) See Rx Instructions .ROUTE .COMPLEX Qty: 90 3RF Rx Instructions: TAKE 1 TABLET BY MOUTH HS losartan 50 mg tablet 75 mg PO DAILY Qty: 45 5RF Patient Comments: Per Dr. Muñiz, nephrology at [facility], pt was puton 75 mg daily for renal protection, confirmed with [place] this is what is in blister packs. RH Rx Instructions: Nephro aware cholecalciferol (vitamin D3) 50 mcg (2,000 unit) capsule See Rx Instructions .ROUTE .COMPLEX Qty: 28 4RF Dose Instruction: TAKE 1 CAPSULE BY MOUTH DAILY FOR LOW VITAMIN D. Rx Instructions: TAKE 1 CAPSULE BY MOUTH DAILY FOR LOW VITAMIN D. pramipexole 0.25 mg tablet 0.25 mg PO QPM Qty: 90 3RF Rx Instructions: administer 2 - 3 hours before bedtime pramipexole 0.125 mg tablet See Rx Instructions .ROUTE .COMPLEX Qty: 28 2RF Dose Instruction: TAKE 1 TABLET BY MOUTH AT BEDTIME Rx Instructions: TAKE 1 TABLET BY MOUTH AT BEDTIME isosorbide mononitrate 30 mg tablet extended release 24 hr 30 mg PO DAILY Qty: 30 5RF metoprolol succinate 50 mg tablet extended release 24 hr 50 mg PO DAILY Qty: 90 3RF Rx Instructions: updated to DAILY per ik per med-rec review (DME) blood-glucose meter [FreeStyle Lite Meter] Kit See Rx Instructions .Route Qty: 1 0RF Rx Instructions: Check blood sugar once a day. DX: E11.9.Keep A1c below 7 (DME) FreeStyle Lite Strips Strip See Rx Instructions .Route Qty: 100 3RF Rx Instructions: Check blood sugar once a day. DX:E11.9.Keep A1c below 7 (DME) lancets [Unilet Lancet] 33 gauge misc See Rx Instructions .Route Rx Instructions: As directed (DME) lancets [Unilet Lancet] 33 gauge misc See Rx Instructions .Route Qty: 100 3RF Rx Instructions: Check blood sugar once a day. DX: E11.9,Keep A1c below 7. This brand is covered by [place] [employer]. bupropion HCl 150 mg tablet extended release 24 hr See Rx Instructions .ROUTE .COMPLEX Qty: 84 3RF Dose Instruction: TAKE 3 TABLETS BY MOUTH DAILY Rx Instructions: TAKE 3 TABLETS BY MOUTH DAILY oxybutynin chloride 10 mg tablet extended release 24hr See Rx Instructions .ROUTE .COMPLEX Qty: 28 1RF Dose Instruction: TAKE 1 TABLET BY MOUTH AT BEDTIME Rx Instructions: TAKE 1 TABLET BY MOUTH AT BEDTIME Eliquis 5 mg tablet See Rx Instructions .ROUTE .COMPLEX Qty: 56 5RF Dose Instruction: TAKE 1 TABLET BY MOUTH TWICE A DAY Rx Instructions: TAKE 1 TABLET BY MOUTH TWICE A DAY Trulicity 0.75 mg/0.5 mL pen injector See Rx Instructions .ROUTE .COMPLEX Qty: 2 0RF Dose Instruction: INJECT 0.5ML SUBCUTANEOUSLY ONCE A WEEK Rx Instructions: INJECT 0.5ML SUBCUTANEOUSLY ONCE A WEEK magnesium oxide 200 mg magnesium tablet 400 mg PO QHS Rx Instructions: Take at bedtime due to low magnesium Held chlorthalidone 25 mg tablet 25 mg PO DAILY Qty: 90 3RF Hold Instructions: Resume on 02/22/25. Discuss resumption with PCP Patient Comments: not on pt list Discontinued doxycycline hyclate 100 mg tablet 100 mg PO BID Qty: 28 0RF Patient Comments: 02/15 last day of therapy as prescribed Discharge Instructions Referrals: Yvette Cox APRN [Primary Care Provider] - (Follow-up with PCP within 7 days of discharge) Activity:: Activity as Tolerated Equipment/Supplies:: Walker Diet:: Heart healthy and carb controlled DS: Summary Time Spent with Patient providing and/or coordinating discharge services: Greater than 30 minutes Status at Discharge Functional status at discharge: uses cane/walker Overall status at discharge: patient is progressing back to baseline Mental Status: mental status grossly normal Speech and Movement: speech and movement normal Mood: congruent mood Affect: normal affect Quality:SDOH Health Related Social Needs: Health related social needs housing instability, house d, with risk of homelessness (Z59.811), problems with daily activities (Z73.9) Health related social needs details none reported. Health related social needs details: none reported. Exam Narrative Exam Narrative: 64-year-old female patient looking older than stated age with obese body habitus, alert and oriented x 4, no neurological focal deficit decreased right lower lobes otherwise clear breath sounds, S1-S2, irregular A-fib with MVR as per telemetry, positive radial and positive pulses, abdomen non -distended, soft , nontender, bowel sounds are present, no CVA tenderness Psych Mental Status: mental status grossly normal Speech and Movement: speech and movement normal Mood: congruent mood Affect: normal affect DS: Data Vitals/I&O Vitals and I&O: Vital Signs Temperature 36.6 C 02/17/25 07:23 Temperature Source Temporal Artery Scan 02/17/25 07:23 Pulse 98 H 02/17/25 07:23 Pulse Rhythm Irregular 02/16/25 05:55 Pulse 71 02/16/25 05:20 Respiratory Rate 19 02/17/25 07:23 Respiratory Effort Non-Labored 02/16/25 05:55 Respiratory Depth Normal 02/16/25 05:55 Respiratory Pattern Normal 02/16/25 05:55 Blood Pressure 124/64 02/17/25 07:23 Blood Pressure Mean 84 02/17/25 07:23 Blood Pressure Position Sitting 02/15/25 17:45 Pulse Oximetry 96 02/17/25 07:23 Oxygen Delivery Method Room Air 02/17/25 07:23 Oxygen Flow Rate 0 02/17/25 07:23 Pain Level 10 02/17/25 08:16 Comment RN notified 02/16/25 15:53 Intake & Output 02/16/25 02/16/25 02/17/25 11:59 23:59 11:59 Intake Total 820 / 3070 2250 / 3070 670 / 670 Output Total 600 / 1425 825 / 1425 Balance 220 / 1645 1425 / 1645 670 / 670 Weight 117.3 kg 119.93 kg Intake: IV 600 / 2850 2250 / 2850 670 / 670 Oral 220 / 220 Output: Urine 600 / 1425 825 / 1425 Other: Urine Color Yellow Urine Appearance Clear Clear Stool Size Moderate Stool Characteristics Liquid Data Completed and Pending Labs on day of discharge: Labs from last 24 hours 02/17/25 06:00 WBC 6.46 RBC 4.16 Hgb 11.2 Hct 35.2 L MCV 85 MCH 26.9 L MCHC 31.8 L RDW 13.1 Plt Count 135 MPV 11.0 Immature Gran % 0.3 Neutrophils % 62.5 Lymphocytes % 26.9 Monocytes % 7.0 Eosinophils % 2.8 Basophils % 0.5 Nucleated RBC % 0.0 Absolute Neutrophils 4.04 Absolute Lymphocytes 1.74 Absolute Monocytes 0.45 Absolute Eosinophils 0.18 Absolute Basophils 0.03 Sodium 143 Potassium 3.6 Chloride 109 H Carbon Dioxide 23.4 Anion Gap 10.6 BUN 71 H Creatinine 3.2 H Est GFR (CKD-EPI 2020) 15.68 Glucose 97 Calcium 8.9 Magnesium 1.5 L Total Bilirubin 0.6 AST 20 ALT 24 Alkaline Phosphatase 79 Total Protein 6.3 L Albumin 2.6 L Preliminary micro results at discharge 02/15/25 23:42 Blood Blood Culture - Preliminary NO GROWTH 24 HOURS 02/15/25 23:28 Blood Blood Culture - Preliminary NO GROWTH 24 HOURS PFSH All Active Problems (Updated 02/17/25 @ 11:47 by Aspen Kay APRN) Severe sepsis (Acute) Sepsis (Acute) CKD (chronic kidney disease) (Chronic) DOLORES (acute kidney injury) (Acute) Encephalopathy acute (Acute) Right middle lobe pneumonia (Acute) Hypokalemia (Acute) 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 dc Wheezing (Acute) Acute left-sided thoracic back pain (Acute) just under left shoulder blade .. 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 NeuroSurg still TBD [ ] , 03/2024, ik Migraine headache without aura (Acute) Chronic headache (Acute) Type 2 diabetes mellitus with other specified complication (Chronic) Open abdominal wall wound (Acute) Prolapse of female pelvic organs (Acute) Mixed stress and urge urinary incontinence (Acute) Abnormal MRI of the head (Acute) Rt optic canal narrowed 2' sclerosis (stable?)([place]) & NEW hyperintense focus (white matter)(anterior rt temporal lobe) may rep demyelinating process, infection or possible neoplasm.. [ ] contrast when RF allows Left contracture of neck (Acute) pain, stiffness .. rad into shoulder blade Hyperparathyroidism due to renal insufficiency (Acute) [ ] Ca.. q 3-6 mos [ ] Ph .. q3-6 mos [ ] PTH, q 6-12 mos [ ] Vit D yearly Malnutrition compromising bodily function (Acute) Low vitamin D level (Acute) WNL 44, 07/2023 (up from January 2023), yay Weight gain (Acute) losing weight since Ozempic start! Edema (Chronic) CKD? 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 [ ] CC for closer coordination w/ [place] (I sent TWO pramipex Rx .. still only one on her b-cassy list)(and she says no more hydrox, but it's listed .. so therefore b-packed?) .. HOW DO WE TRIAL MEDS? HTN (hypertension) (Chronic) per Nephro note (06/2022): Na < 2g. HCTZ 12.5mg added. Proteinuria (Acute) Goal<0.2mg/mg (2.3 on 06/30/22), per Nephro 06/2022. History of anemia due to CKD (Chronic) Goals: HGB 9.5-10.9 (per Nephro, 06/2022).. Ferritin>100ng/ml; IronSAT>20%. CKD (chronic kidney disease) stage 4, GFR 15-29 ml/min (Chronic) Hx dialysis. Follows with [facility], Dr. Muñiz. Low back pain (Acute) Lumbosacral spondylosis without myelopathy (Acute) Lumbar stenosis (Acute) Restless leg syndrome (Acute) Medical History (Updated 02/17/25 @ 11:47 by Aspen Kay APRN) Gliosis Rt Optic Nerve, with loss of vision Insomnia Stress incontinence Coughing, sneezing, laughing .. Lifting > 10lbs (Hx incontinence symp, 06/2021) Spastic pelvic floor syndrome Mental health disorder Mixed Dx (Anx/Depr/Schiz-Affective), with poor FU form [facility] x yrs .. refilling Rx & recommending review with [facility]. 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 [ ] UroGyn for possible surg per Dr. Park notes.. Nocturia w/ incontinence episodes Pelvic pain w/ probe/speculum.. Hx dyspareunia. Hx births. Vaginal discharge Sense of urgency w/o urination, but vag d/c! 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 Fontenot)) History of knee surgery History of hysterectomy Hx ovarian rupture H/O section 2 children History of appendectomy Family History Father Heart disease Hypertension Mother Thyroid disease Stroke Sister Cancer Sister Cancer Sister Ovarian cancer Kidney failure Social History Smoking/Tobacco Use Status: Never Tobacco: How many years used: 43 Smoking risk assessment performed?: Yes Alcohol Intake: current Alcohol Intake frequency: holidays/special occasions only Drug use: Never Substance use type: does not use Adopted: No Caregiver/Support person: No Foster care: No Household members: other Details: ex- Housing: apartment Number of Children: 2 number of grandchildren: 1 Communication Needs: Hard of Hearing Education Level: middle school Do you need help understanding health information?: Always current occupation: Volunteers Pets and animals: No Current gender identity: female What is your relationship status?: How often do you get together with friends or relatives?: three or more times per week Panel score (0-1 are the most socially isolated patients): 1 What type of physical activity do you participate in: none Eva/Zoroastrian: [employer] Seatbelt use: always Drive 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
--- NOTE | 2025-02-17 11:51 | PT.INTREAT ---
PT Notes Visit Reasons: Encephalopathy, DOLORES with CKD, RML Inpatient Physical Therapy Treatment Note [facility] Date: 02/17/25 PRECAUTIONS: Fall precaution SUBJECTIVE: Pt wanted to walk in the garcia but was very angry about having to use a gait belt. OBJECTIVE: ? PAIN: No c/o pain Therapeutic Activities (27056j[1]): Direct one-on-one instruction in dynamic activities to improve functional performance. ? BED MOBILITY/TRANSFERS? ? Sit-stand from chair and toilet: Verbal instruction for safety, standby assist with FWW in front of pt ?Stand-sit from chair and toilet: Verbal instruction for safety, standby assist with FWW in front of pt ? ? ?Provided skilled cues and instruction on performance and technique throughout. Gait Training (51277i[1]): Direct one-on-one instruction and skilled instruction in: [x] employing an assistive device [x] movement sequencing [x] turning and movement with proper form [x] Provided verbal cues for equipment management and technique [x] Pt education regarding pacing to maximize activity tolerance?and to prevent dizziness ?GAIT? Assistive Device: FWW ? Assist: CG of 1 ? Distance:?15 ft x 2, 80 ft x 1 ? ASSESSMENT:?Pt continues to move quickly and multiple verbal cues are needed to have pt wait until equipment is full set up (IV pole, foot stool removed, alarm turned off and gait belt in place). Pt has been experiencing intermittent dizziness, feel that if she can learn to pause for a moment upon standing and slow down especially when turning, that it may help her balance and improve her safety. PLAN: 1-2x/day, 7 days/week x 1 week. Plan of care has been reviewed with the [employer] SORTER providing the service under Physical Therapy direction. Initiate Physical Therapy intervention for strengthening, bed mobility, transfers, gait, stairs, balance training, and use of assistive device. TREATMENT CODE/TIME: 11:20-11:45 [id number] x 1 unit 10 minutes, [id number] x1 unit 15 minutes DISCHARGE RECOMMENDATION: Home health PT for gait training, balance and safety.
[2025-02-17 11:52] VITALS: BP 115/71; PULSE 82; RESP 18; TEMP 36.7; O2SAT 96
[2025-02-17] MEDS: Magnesium Oxide 400 MG TAB PO ×2 (12:01→12:52)
--- NOTE | 2025-02-17 17:35 | CMDISCH_ITS ---
Date of service: 02/17/25 Time of Service: 17:36 LACE Index Scoring Tool Questions: Length of Stay (in days): 2 Was the patient admitted via the E.D.?: Yes Comorbidities: Cerebrovascular Disease, Diabetes w/o Complication, Congestive Heart Failure and Liver or Renal Disease E.D. Visits: 3 Answers: Total Score: 13 Risk of Readmission: High Risk Care Management Discharge Plan Reason for Hospitalization: encephalopathy, DOLORES Discharge Plan: Lakisha returned home today with a resumption of HH RN and PT. She was transported home via private vehicle. She will follow up with her PCP and discharge plan of care. Patient/Family Education Needs: Review discharge instructions and limitations, discussion of self care needs including ask me three. Services Needed at Discharge: Home Health Care Services (resume HH RN, PT) SDOH Health Related Social Needs: Health related social needs housing instability, house d, with risk of homelessness (Z59.811), problems with daily activities (Z73.9) Health related social needs details none reported. Health related social needs details: none reported.
== END 2025-02-17 13:22 | disposition home health service (06) | DRG 871 ==
LOC: ER 02-16 05:01 → MS 02-16 05:16
PROVIDERS: Student in an Organized Health Care Education/Training Program; Admitting Provider Family Medicine; Emergency Provider Physician Assistant; PCP Nurse Practitioner Family; Responsible Provider Nurse Practitioner Acute Care; Visit Provider Family Medicine
DX: G93.41 Metabolic encephalopathy (principal); J18.9 Pneumonia, unspecified organism; N17.9 Acute kidney failure, unspecified; N18.4 Chronic kidney disease, stage 4 (severe); I48.19 Other persistent atrial fibrillation; I13.0 Hypertensive heart and chronic kidney disease with heart failure and stage 1 through stage 4 chronic kidney disease, or unspecified chronic kidney disease; N25.81 Secondary hyperparathyroidism of renal origin; A41.9 Sepsis, unspecified organism; I50.30 Unspecified diastolic (congestive) heart failure; E87.6 Hypokalemia; E11.22 Type 2 diabetes mellitus with diabetic chronic kidney disease; R65.20 Severe sepsis without septic shock; D32.9 Benign neoplasm of meninges, unspecified; Z79.85 Long-term (current) use of injectable non-insulin antidiabetic drugs; Z79.84 Long term (current) use of oral hypoglycemic drugs; M48.061 Spinal stenosis, lumbar region without neurogenic claudication; I25.10 Atherosclerotic heart disease of native coronary artery without angina pectoris; E86.0 Dehydration; R07.89 Other chest pain; R42 Dizziness and giddiness; Z86.73 Personal history of transient ischemic attack (TIA), and cerebral infarction without residual deficits; G93.89 Other specified disorders of brain; D63.1 Anemia in chronic kidney disease; F25.9 Schizoaffective disorder, unspecified; I27.20 Pulmonary hypertension, unspecified
CPT/HCPCS: 00123; 36415; 51702; 80048; 80053; 80307; 83690; 85027; 87040; 87637; 93005; 96361; 96374; 97110; 97116; 97162; 97530; 99291; 70450; 71046; 74176; 81003; 82140; 83605; 83735; 83880; 84443; 84484; 85025; 85610; 93010; 99223; 99239; J0696; J0780; J1815; J3475; J3480

== ENCOUNTER 2025-02-21 09:50 | Outpatient (REF) | payer MEDICAID, SELFPAY ==
[2025-02-21 13:31] LABS: Anion Gap 11.3 mmol/L (3-11); BUN 60 mg/dL (7-18); CO2 26.7 mmol/L (21.0-32.0); CREATININE 2.4 mg/dL (0.55-1.02); Calcium 8.6 mg/dL (8.5-10.1); Chloride 104 mmol/L (98-107); Estimated GFR 22.14 (mL/min/1.73m2); Glucose 92 mg/dL (74-106); Potassium 3.8 mmol/L (3.5-5.1); Sodium 142 mmol/L (136-145)
== END 2025-02-21 09:51 | disposition home or self-care (01) ==
LOC: LBN 09:50
PROVIDERS: PCP Nurse Practitioner Family; Visit Provider Internal Medicine
DX: N18.4 Chronic kidney disease, stage 4 (severe) (principal); I10 Essential (primary) hypertension
CPT/HCPCS: 80048

== ENCOUNTER 2025-02-27 12:52 | Outpatient (REF) | payer MEDICAID, SELFPAY ==
[2025-02-27 16:01] LABS: Abs Immature Grans 0.03 10^3/uL (0.0-0.06); Absolute Basophil Count 0.06 10^3/uL (0.0-0.2); Absolute Eosinophil Count 0.24 10^3/uL (0.0-0.7); Absolute Lymphocyte Count 2.07 10^3/uL (1.2-3.4); Absolute Monocyte Count 0.67 10^3/uL (0.1-0.8); Absolute Neutrophil Count 5.19 10^3/uL (1.2-6.7); Basophils % 0.7 %; Eosinophils % 2.9 %; HCT 38.1 % (36.0-46.0); HGB 12.3 g/dL (11.2-15.7); Immature Grans % 0.4 %; Lymphocytes % 25.1 %; MCH 27.7 pg (27.0-33.0); MCHC 32.3 % (32.0-36.0); MCV 86 fL (80-95); MPV 10.8 fL (8.0-11.0); Monocytes % 8.1 %; Neutrophils % 62.8 %; Platelet Count 183 10^3/uL (130-400); RBC 4.44 10^6/uL (3.93-5.22); RDW 14.3 % (11.7-14.6); RDW-SD 43.5 fL; WBC 8.26 10^3/uL (4.4-10.8)
== END 2025-02-27 12:53 | disposition home or self-care (01) ==
LOC: LBN 12:52
PROVIDERS: PCP Nurse Practitioner Family; Visit Provider Nurse Practitioner Family
DX: R04.0 Epistaxis (principal)
CPT/HCPCS: 85025

== ENCOUNTER 2025-03-05 15:13 | Outpatient (REF) | payer MEDICAID, SELFPAY ==
[2025-03-05 16:32] LABS: Anion Gap 8.3 mmol/L (3-11); BUN 37 mg/dL (7-18); CO2 26.7 mmol/L (21.0-32.0); CREATININE 2.5 mg/dL (0.55-1.02); Calcium 8.9 mg/dL (8.5-10.1); Chloride 105 mmol/L (98-107); Estimated GFR 21.08 (mL/min/1.73m2); Glucose 82 mg/dL (74-106); Potassium 4.4 mmol/L (3.5-5.1); Sodium 140 mmol/L (136-145)
== END 2025-03-05 15:14 | disposition home or self-care (01) ==
LOC: LBN 15:13
PROVIDERS: PCP Nurse Practitioner Family; Visit Provider Internal Medicine
DX: N18.4 Chronic kidney disease, stage 4 (severe) (principal); I10 Essential (primary) hypertension
CPT/HCPCS: 80048

== ENCOUNTER 2025-05-04 09:28 | Outpatient (REF) | payer MEDICAID, SELFPAY ==
[2025-05-04 10:06] LABS: Anion Gap 9.2 mmol/L (3-11); BUN 38 mg/dL (7-18); CO2 26.8 mmol/L (21.0-32.0); Calcium 8.6 mg/dL (8.5-10.1); Chloride 103 mmol/L (98-107); Estimated GFR 23.30 (mL/min/1.73m2); Glucose 106 mg/dL (74-106); Potassium 4.3 mmol/L (3.5-5.1); Sodium 139 mmol/L (136-145)
== END 2025-05-04 09:29 | disposition home or self-care (01) ==
LOC: LBN 09:28
PROVIDERS: PCP Nurse Practitioner Family; Visit Provider Nurse Practitioner Family
DX: N18.4 Chronic kidney disease, stage 4 (severe) (principal); I10 Essential (primary) hypertension
CPT/HCPCS: 80048

== ENCOUNTER 2025-07-29 19:09 | Outpatient (REF) | payer MEDICAID, SELFPAY ==
[2025-07-29 19:54] LABS: Iron 70 ug/dL (50-170); Total Iron Binding Capacity 412 ug/dL (250-450); Transferrin Sat 17 % (15-50)
[2025-07-29 20:07] LABS: Anion Gap 13.3 mmol/L (3-11); BUN 51 mg/dL (7-18); CO2 22.7 mmol/L (21.0-32.0); Calcium 8.7 mg/dL (8.5-10.1); Chloride 104 mmol/L (98-107); Ferritin 28 ng/mL (8-252); Glucose 126 mg/dL (74-106); Potassium 4.5 mmol/L (3.5-5.1); Sodium 140 mmol/L (136-145); TSH (W/Ref FT4) 0.67 uIU/mL (0.36-3.74)
== END 2025-07-29 19:10 | disposition home or self-care (01) ==
LOC: LBN 19:09
PROVIDERS: PCP Nurse Practitioner Family; Visit Provider Nurse Practitioner Family
DX: N18.4 Chronic kidney disease, stage 4 (severe) (principal); G25.81 Restless legs syndrome; N18.9 Chronic kidney disease, unspecified; Z86.2 Personal history of diseases of the blood and blood-forming organs and certain disorders involving the immune mechanism; E11.69 Type 2 diabetes mellitus with other specified complication; I48.19 Other persistent atrial fibrillation
CPT/HCPCS: 80048; 82728; 83540; 83550; 84443